=== PATIENT | male | born 1945 | race Caucasian/White ===

== ENCOUNTER 2018-02-15 20:29 | Inpatient (IN) | payer MEDICARE, OTHER, SELFPAY ==
[2018-02-15] VITALS (8 sets, daily range): BP systolic 164–183; BP diastolic 79–105; PULSE 84–104; RESP 13–20; TEMP 36.8–37.2; O2SAT 97; BMI 26.6; BMI 26.4
--- NOTE | 2018-02-15 20:44 | CT_ITS ---
STUDY: CT BRAIN WITHOUT CONTRAST REASON FOR EXAM: Male, 72 years old. Slurred speech. RADIATION DOSAGE (If Supplied By Facility): CTDIvol = ( 44.99 ) mGy, DLP = ( 796.11 ) mGycm TECHNIQUE: Transaxial CT imaging of the brain was performed without administration of intravenous contrast material. Individualized dose optimization techniques were used for this CT. COMPARISON: None. FINDINGS: Normal soft tissue structures. Normal calvarium. There is moderate cerebral atrophy with widening of the extra-axial spaces and ventricular dilatation. There are areas of decreased attenuation within the white matter tracts of the supratentorial brain, consistent with microvascular disease changes. Within the left occipital lobe hypodensity consistent with encephalomalacia and previous infarct. Normal basal ganglia and thalami. Normal brainstem. Normal cerebellum. There is no intracranial hemorrhage. There are no findings of an acute ischemic infarction. Normal visualized paranasal sinuses. CT/Brain/Head without Contrast IMPRESSION: 1. Findings consistent with left posterior occipital encephalomalacia from previous infarct but without direct comparison acute on chronic infarct is not completely excluded. If high clinical suspicion of acute ischemia recommend MRI imaging. Electronically Signed: Mike Mansfield DO at 21:24 EST , Service support ,
--- NOTE | 2018-02-15 20:44 | EKG12_ITS ---
Test Reason : WEAKNESS Blood Pressure : / mmHG Vent. Rate : 101 BPM Atrial Rate : 101 BPM P-R Int : 208 ms QRS Dur : 096 ms QT Int : 370 ms P-R-T Axes : 026 -09 013 degrees QTc Int : 479 ms Sinus tachycardia Minimal voltage criteria for LVH, may be normal variant Borderline ECG Confirmed by EVELYN WINTER, MINGO ([id number]), image editor MARTIN LAWLER ([id number] on 02/19/2018 9:38:19 AM Referred By: SEBASTIAN Confirmed By:MINGO RIVAS MD
[2018-02-15 20:56] LABS: Bedside Glucose > 500 mg/dL (70-110)
[2018-02-15 21:01] LABS: Absolute Lymphocyte Count 1.11 X10^3/ul (0.83-4.51); Absolute Neutrophil Count 4.8 X10^3/uL (2.0-7.7); Basophil# 0.05 X10^3/uL; Basophil% 0.7 % (0-1); Eosinophil# 0.12 X10^3/uL; Eosinophils% 1.8 % (0-5); Hematocrit 38.6 % (40-54); Hemoglobin 13.5 g/dl (13.0-16.5); Lymphocyte # 1.11 X10^3/ul (4.0); Lymphocyte % 16.6 % (19-41); Mean Corpuscular Hgb 30.8 pg (27.0-32.0); Mean Corpuscular Volume 87.9 fL (80-94); Mean Platelet Vol. 10.9 fl (6.2-12.0); Monocyte# 0.52 X10^3/uL; Monocyte% 7.8 % (0-10); Neutrophil # 4.82 X10^3/uL (2.7-7.7); Neutrophil % 72.4 % (47-70); Platelet Count 239 K/mm3 (150-450); RBC Distribution Width CV 12.1 % (11.6-14.6); RBC Distribution Width SD 38.4 fl (35.1-43.9); Red Blood Count 4.39 M/mm3 (4.6-6.2); White Blood Count 6.7 K/mm3 (4.4-11.0)
[2018-02-15 21:02] LABS: POSITIVE COUNT NO; POSITIVE DIFFERENTIAL NO; POSITIVE MORPHOLOGY NO
[2018-02-15 21:08] LABS: Prothrombin Time (Protime)PT. 13.1 SECONDS (11.7-14.9)
[2018-02-15 21:09] LABS: Partial Thromboplast Time 33.5 Seconds (24.1-36.2)
[2018-02-15 21:33] LABS: Anion Gap 12 (5-15); BUN 35 mg/dL (7-18); BUN/Creat Ratio 13.6 RATIO (10-20); Calcium,Total 8.9 mg/dL (8.5-10.1); Chloride 96 mmol/L (98-107); Creatinine, Serum 2.58 mg/dL (0.70-1.30); EST Glomerular Filtration Rate 26 mL/min (>60); Est Glom Filt Rate - Afr Amer 32 mL/min (>60); Estimated Creatinine Clearance 23.84 ml/min; Potassium 4.9 mmol/L (3.5-5.1); Sodium Level 134 mmol/L (136-145)
[2018-02-15 21:37] LABS: Glucose 511 mg/dL (74-106)
--- NOTE | 2018-02-15 22:23 | ED.VISSUMM ---
- ER Visit Summary Date of Service: 02/15/18 Chief Complaint: [] History of Present Illness: The patient is a 72 M patient presents with multiple complaints which include trouble with balance falling backwards, paresthesia and weakness for several weeks and trouble with speech that started sometime today. Patient is not a good informant even though he is alert and oriented x3. He reports a prior CVA and prior TIA. He has history of type 2 diabetes, hypertension, hypercholesterolemia and history of prostate cancer. There is a history of ataxia. He does complain of blurred vision, binocular. He denies double vision or loss of vision. He denies cardiac or respiratory symptoms. He denies abdominal symptoms. He does report polyuria, polydipsia and frequency. He states his last A1c was greater than 9. He does admit to depression. Please read written note for complete detail Physical Examination: Vital signs noted and blood pressure is elevated 164/100. There is mild slurring of his speech. NIH is 1 4 slurring of his speech. Head is atraumatic normocephalic. Pupils are equal round reactive. Extraocular muscles are intact. TMs are pearly white with landmarks noted. Nares patent with no drainage. Posterior pharynx without erythema or exudate. Uvula is midline. There is no dysphonia or dysphasia. Trachea is midline. There is no stridor with auscultation of the neck. Heart is regular without murmur, gallop or rub. S1 and S2 are normal. Lungs are clear to auscultation with good movement of air bilaterally. Abdomen is soft nontender. Bowel sounds are present normal. Patient is alert and oriented x3. Motor spiral 5. Sensations intact. DTRs are symmetric with no clonus or Babinski sign. Cranial 2 through 12 are intact. Cerebellar testing was normal. Gait was not observed. Test Results: Findings consistent with left posterior occipital encephalomalacia from previous infarct but without direct comparison acute on chronic infarct is not completely excluded. If high clinical suspicion of acute ischemia recommend MRI imaging. CBC is unremarkable. Basic metabolic panel marked for elevated glucose. PT/INR unremarkable. Emergency Department Course and Treatment: Stroke order set was initiated. Exact onset is uncertain even though triage documents 1930. PTT is greater than 500. He did receive 1 L of normal saline and will require treatment for his hyperglycemia and most likely cause of his binocular blurred vision. Treatment Plan: IV fluids, subcu insulin and 23 observation for further evaluation of neurologic symptoms especially in light of radiologist interpretation of unenhanced scan. Disposition: PCU 23-hour observation Impression: 1. Dysarthria 2. Hyperglycemia, greater than 500 without ketosis 3. History of hypertension 4. History of hypercholesterolemia 5. History of prior stroke 6. History of prostate cancer This note was generated with [employer] dictation software. It may contain incorrect words, spelling, and punctuation that were not noted in review of the chart prior to signing ED Disposition - Plan for ED Patient: Chief Complaint: Neuro S/Sx Referrals: Reilly Wheatley MD [Primary Care Provider] -
--- NOTE | 2018-02-15 22:25 | PCM.HP.STD ---
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 driver use Diabetes mellitus complication status: with unspecified complications Qualified Code(s): E11.8 - Type 2 diabetes mellitus with unspecified complications; Z79.4 - technician terminal and repeater (current) use of insulin (5) HLD (hyperlipidemia) Status: Chronic Qualifiers: Hyperlipidemia type: unspecified Qualified Code(s): E78.5 - Hyperlipidemia, unspecified (6) Hx of malignant neoplasm of prostate Status: Chronic (7) HTN (hypertension) Status: Chronic Qualifiers: Hypertension type: essential hypertension Qualified Code(s): I10 - Essential (primary) hypertension (8) Type II diabetes mellitus, uncontrolled Status: Chronic Qualifiers: Glycemic state: with hyperglycemia Qualified Code(s): E11.65 - Type 2 diabetes mellitus with hyperglycemia (9) CKD (chronic kidney disease) stage 3, GFR 30-59 ml/min Status: Chronic History of Present Illness Date of Admission: 02/15/18 Chief Complaint: L sided weakness, paresthesias, aphasia. The patient is a 72 y/o M w/ PMHx: Hypertension, Hyperlipidemia, Diabetes mellitus type II poorly controlled, Depression, History of Prostate CA, History of CVA (R Basal Ganglia Infarct), CKD stage III who presents to the [facility] ED on 02/15/18 with history of dysarthria, slurred speech and 2-3 weeks of L sided weakness and paresthesias in addition to difficulties with balance over the last several months he note with unclear last known well timeline. He notes he has been frequently falling as well but cannot given clear side to which he falls. He notes most recent fall on day of presentation. In the ED work-up included CBC with WBC 6.7, hemoglobin 13.5, platelet 239 without market shift, unremarkable coags, BMP with sodium 134, chloride 96, BUN/creatinine 35/2.58, glucose 511, troponin <0.015, CT brain with findings consistent with left posterior occipital encephalomalacia possibly from prior infarct. In the ED patient administered IVFs. Past Medical History Past Medical History (Chronic Problems): Chronic Problems CKD (chronic kidney disease) stage 3, GFR 30-59 ml/min (Chronic) Depression (Chronic) Diabetes mellitus, type II (Chronic) HLD (hyperlipidemia) (Chronic) Hx of malignant neoplasm of prostate (Chronic) HTN (hypertension) (Chronic) Type II diabetes mellitus, uncontrolled (Chronic) Allergies No Known Allergies Allergy (Verified 02/15/18 20:32) Home Medications: Ambulatory Orders Medication Instructions Recorded Clopidogrel Bisulfate [Plavix] 75 mg PO DAILY #30 tablet 07/12/14 Fluoxetine [Prozac] 60 mg PO DAILY 07/12/14 Insulin NPH Hum/Reg Insulin Hm 30 units SQ BREAKFAST 07/12/14 [Humulin 70-30 Vial] Insulin NPH Hum/Reg Insulin Hm 30 unit SQ DINNER 07/12/14 [Humulin 70/30 Kwikpen] Lisinopril [Zestril] 20 mg PO DAILY 07/12/14 Metformin HCl [Glucophage] 500 mg PO BID #60 tablet 07/12/14 Multivitamins,Therapeutic 1 tablet PO DAILY 07/12/14 [Multivitamin] Pravastatin [Pravachol] 40 mg PO QHS 07/12/14 Bupropion HCl [Wellbutrin Xl] 150 mg PO DAILY 02/15/18 Meloxicam 15 mg PO DAILY 02/15/18 Surgical History: - - Ventral hernia repair, appendectomy. Psychiatric History: Depression Lives: Spouse/ Significant Other Smoking Status: Never smoker Tobacco Use: Non-smoker Alcohol: None Drugs: None - *Family History Maternal History Items: Diabetes, - - No history of coronary artery disease, UT or stroke in the first-degree family relative. Paternal History Items: - - Denies any marked paternal family history including HD, DM, CA. Review of Systems Constitutional: Reports: Fatigue. Denies: Chills, Fever, Weight Change HEENT: Denies: Head Aches, Sinus Congestion, Sinus Drainage Cardiovascular: Denies: Chest Pain, Palpitations Respiratory: Denies: Cough, Shortness of breath at rest, Sputum production Gastrointestinal: Denies: Abdominal Pain, Nausea, Vomiting Genitourinary: Denies: Dysuria Musculoskeletal: Denies: Joint Pain, Joint Tenderness Skin: Denies: Rash, Wounds Neurological: Reports: Balance problems, Change in Speech, Slurred speech, Confusion, Focal weakness, Incoordination, Numbness, Tingling Psychiatric: Reports: Depression. Denies: Anxiety, Homicidal Ideations, Suicidal Ideations Hematologic/ Lymphatic: Denies: Easy Bruising, Easy Bleeding VTE Information - Inpt Only VTE Present on Admission: No VTE Mechan Device Prophylaxis: SCD's VTE Pharm Prophylaxis ordered?: Yes Patient Problems: Active and Suspected Problems CVA (cerebral vascular accident) (Acute) YSABEL (acute kidney injury) (Acute) Subjective: Seated upright in the ED bed, fatigued appearing, NAD, notes not wanting to have to stay but understands need. Objective: Physical Examination: General: awake, alert, oriented to self, place, president, initially gives incorrect year and takes several moments to give correct month, cooperative, seated upright in the ED bed in no apparent distress. Skin: normal color, turgor, no icterus, cyanosis. HEENT: AT/NC, EOMI, PERRLA, mildly dry MM, no carotid bruits or JVD noted. Lungs: CTA bilaterally, moderate effort, mild decrease BL bases, no rales, ronchi or wheezing. Heart: Regular rate and rhythm; no gallop, rub audible. Abdomen: soft, NTTP, ND, normal BS, no HSM. Extremities: no cyanosis, clubbing, or edema. Neurological: patient awake, alert, oriented as noted; cognitive function not baseline intact; pupils equally reactive to light and accomodation; cranial nerves II-XII grossly normal, moving all 4 extremities, strength left side 4/5, ? upgoing L babinski, sensation intact. Psychiatric: affect appears mildly flat, no acute evidence of depressive or anxiety feelings. - Physical Exam Vital Signs Temp Pulse Resp BP Pulse Ox 98.9 F 87 17 165/81 H 97 02/15/18 20:30 02/15/18 21:30 02/15/18 21:30 02/15/18 21:30 02/15/18 21:30 Oxygen Delivery Method Room Air Weight: 170 lb Body Mass Index (BMI) 26.6 Finger Stick Blood Glucose 501 Laboratory Tests Past 24 Hrs 02/15/18 02/15/18 02/15/18 20:52 20:52 20:52 WBC 6.7 RBC 4.39 L Hgb 13.5 Hct 38.6 L MCV 87.9 MCH 30.8 MCHC 35.0 RDW 12.1 RDW Differential 38.4 Plt Count 239 MPV 10.9 Immature Gran % (Auto) 0.700 Neut % (Auto) 72.4 H Lymph % (Auto) 16.6 L [place] % (Auto) 7.8 Eos % (Auto) 1.8 Baso % (Auto) 0.7 Absolute Neuts (auto) 4.8 Absolute Lymphs (auto) 1.11 Total Counted Not Reportable PT 13.1 INR 1.0 APTT 33.5 Sodium 134 L Potassium 4.9 Chloride 96 L Carbon Dioxide 26.0 Anion Gap 12 BUN 35 H Creatinine 2.58 H Estim Creat Clear Calc 23.84 Est GFR (MDRD) Af Amer 32 L Est GFR (MDRD) Non-Af 26 L BUN/Creatinine Ratio 13.6 Glucose 511 H* Calcium 8.9 Troponin I < 0.015 POC Glucose 02/15/18 20:40 POC Glucose > 500 H* Assessment/Plan All Active Problems CVA (cerebral vascular accident) (Acute) YSABEL (acute kidney injury) (Acute) Ataxia (Acute) The patient is a 72 y/o M w/ PMHx: Hypertension, Hyperlipidemia, Diabetes mellitus type II poorly controlled, Depression, History of Prostate CA, History of CVA (R Basal Ganglia Infarct), CKD stage III who presents to the [facility] ED on 02/15/18 with history of dysarthria, slurred speech and 2-3 weeks of L sided weakness and paresthesias in addition to difficulties with balance over the last several months he note with unclear last known well timeline. (1) Dysarthria, L sided Weakness, Paresthesias and CT changes suspicious for Acute CVA: Will admit to PCU, will obtain MRI Brain, MRA Head and Neck, ECHO, PT/OT/Speech/Nutrition evaluation per protocol, given timeline will continue home BP regimen with additions as needed to achieve goal, add asa, continue plavix, increase to high dose statin w/ AM FLP, fall precautions. Will obtain mag, TSH levels additionally. (2) Acute kidney injury on CKD stage III: Secondary to suspected dehydration and medications. Admission BUN/Cr 35/2.58, prior baseline creatinine noted to be 1.2-1.3 but this has been from 2014 of note so may have worsened since. Will hydrate, hold nephrotoxic medications and repeat chemistry in AM. If no improvement would plan FeNa assessment. (3) Prior History of CVA: Prior R Basal Ganglia Infarct, maintain on plavix, BP regimen given timeline. As noted given acute presentation #1, re-addition asa for dual therapy, change to high dose statin. (4) Diabetes mellitus type II: HgbA1c pending, hold home oral regimen, continue home insulin regimen, ADA diet, accu checks w/ ISS, nutrition for education and teaching. (5) Hypertension: Hold ACEI given his presentation w/ concurrent YSABEL, PRN hydralazine in interim, norvasc addition. (6) Hyperlipidemia: Change to high dose statin regimen, FLP in AM. (7) History of prostate cancer: Remission, stable. (8) Depression: Continue home prozac, buproprion regimen. (9) DVT prophylaxis: SCDs, heparin. Code Visit Inpatient E&M: 24914 Init Hosp L3
[2018-02-15] MEDS: Insulin Lispro 100 UNIT/ML INSULN.PEN 7 UNIT SC (22:36)
[2018-02-15 22:45] LABS: Bedside Glucose > 500 mg/dL (70-110)
--- NOTE | 2018-02-15 23:37 | ECHOD_ITS ---
Reason For Study: TIA/Stroke Procedure This was a 2D Doppler, Color Flow transthoracic echocardiogram. Exam performed portable in patient room. Left Ventricle Normal LV size. Left ventricular systolic function is normal. The estimated ejection fraction is 60 %. Stage 1 diastolic dysfunction. No regional wall motion abnormalities noted. Right Ventricle Normal RV size. Normal systolic function. Atria Normal left atrium. Normal right atrium. Mitral Valve Normal mitral valve. Mild (1+) eccentric mitral valve insufficiency. Tricuspid Valve Normal tricuspid valve. Unable to estimate RV systolic pressure due to inadequate jet, pulmonary artery pressure probably normal. Aortic Valve Normal aortic valve. Pulmonic Valve Normal pulmonic valve. Great Vessels Normal aortic root. The pulmonary artery is normal size. Normal inferior vena cava. Pericardium/Pleural No pericardial effusion. MMode/2D Measurements & Calculations LVIDd: 4.1 cm IVSd: 1.1 cm Ao root diam: 3.6 cm LVIDs: 2.9 cm LVPWd: 1.2 cm LA dimension: 4.0 cm RVDd: 3.2 cm FS: 28.7 % LAV(MOD-bp): 57.2 ml LA A4 area: 16.3 cm2 RA A4 area: 12.9 cm2 LAV(MOD-bp) Indexed: 30.5 ml/m2 LAV(MOD-sp2): 63.4 ml LAV(MOD-sp4): 45.0 ml Time Measurements MV dec time: 0.20 sec Doppler Measurements & Calculations MV E max gianni: 85.4 cm/sec Lat Peak E' Gianni: 9.6 cm/sec Med Peak E' Gianni: 5.7 cm/sec MV A max gianni: 108.7 cm/sec E/E' lat: 8.9 E/E' med: 15.0 MV E/A: 0.79 MV V2 max: 127.7 cm/sec MV P1/2t max gianni: 102.7 cm/sec Ao V2 max: 138.8 cm/sec MV max P.5 mmHg MV P1/2t: 77.6 msec Ao max P.7 mmHg MV V2 mean: 71.2 cm/sec MV dec slope: 387.6 cm/sec2 Ao V2 mean: 88.7 cm/sec MV mean P.4 mmHg MVA(P1/2t): 2.8 cm2 Ao mean P.6 mmHg MV V2 VTI: 25.5 cm Ao V2 VTI: 24.9 cm LV V1 max: 118.6 cm/sec PA V2 max: 123.1 cm/sec LV V1 max P.6 mmHg LV V1 mean P.0 mmHg LV V1 mean: 81.3 cm/sec LV V1 VTI: 24.0 cm Interpretation Summary Normal LV size. Left ventricular systolic function is normal. The estimated ejection fraction is 60 %. Stage 1 diastolic dysfunction. Mild (1+) eccentric mitral valve insufficiency. Ordering Physician: Yumiko Sood Referring Physician: MD Soto Wheatleyery Performed By: Grady Britt RCS
[2018-02-16] VITALS (17 sets, daily range): BP systolic 156–179; BP diastolic 77–101; PULSE 68–98; RESP 17–20; TEMP 36.6–37.1; O2SAT 95–97; BMI 26.4
[2018-02-16 00:06] LABS: Bedside Glucose 416 mg/dL (70-110)
[2018-02-16 00:07] LABS: Magnesium 1.9 mg/dL (1.6-2.6); Thyroid Stim Hormone (TSH) 0.56 uIU/mL (0.358-3.74)
[2018-02-16 00:15] LABS: Hemoglobin A1c 10.2 % (4.2-6.3)
[2018-02-16] MEDS: amLODIPine 5 MG Tablet PO ×2 (00:22→10:13)
[2018-02-16] MEDS: 0.9% Normal Saline 1,000 ML 100 ML IV ×3 (00:22→21:09)
--- NOTE | 2018-02-16 02:13 | NURSING ---
per MD home BP medication to be given due to timeline of complaint of symptoms from pt
[2018-02-16 06:55] LABS: Bedside Glucose 253 mg/dL (70-110)
[2018-02-16 07:06] LABS: Anion Gap 9 (5-15); BUN 35 mg/dL (7-18); BUN/Creat Ratio 17.1 RATIO (10-20); Calcium,Total 8.2 mg/dL (8.5-10.1); Chloride 106 mmol/L (98-107); Cholesterol 207 mg/dL (200); Creatinine, Serum 2.05 mg/dL (0.70-1.30); EST Glomerular Filtration Rate 34 mL/min (>60); Est Glom Filt Rate - Afr Amer 41 mL/min (>60); Glucose 244 mg/dL (74-106); High Density Lipoprotein 33 mg/dL; Potassium 4.2 mmol/L (3.5-5.1); Sodium Level 139 mmol/L (136-145); Triglycerides 354 mg/dL; Very Low Density Lipoprotein 71 mg/dL (5-40)
[2018-02-16] MEDS: Clopidogrel Bisulfate 75 MG Tablet PO (10:12)
[2018-02-16] MEDS: buPROPion (XL) 150 MG TABLET.XL PO (10:12)
[2018-02-16] MEDS: FLUoxetine 20 MG Capsule 60 MG PO (10:12)
[2018-02-16] MEDS: Aspirin 81 MG TAB.CHEW PO (10:12)
[2018-02-16] MEDS: Multivitamins,Therapeutic Tablet 1 TABLET PO (10:13)
[2018-02-16] MEDS: Insulin Lispro 100 UNIT/ML INSULN.PEN SC ×2 (10:18→13:08)
[2018-02-16] MEDS: Insulin Human 75/25 Kwickpen 30 UNIT SC ×2 (10:21→17:13)
[2018-02-16] MEDS: Heparin Injection (Vial) 5,000 UNIT/ML VIAL 5000 UNIT SC ×2 (10:22→21:10)
--- NOTE | 2018-02-16 11:24 | PCM.PROGNOTE ---
<Mary Carmen Mclain - Last Filed: 02/16/18 11:39> Patient Problems: Active and Suspected Problems CVA (cerebral vascular accident) (Acute) YSABEL (acute kidney injury) (Acute) TIA (transient ischemic attack) (Acute) Subjective: Patient seen and examined. Underwent MRI this morning. Denies further neuro symptoms. Left hand numbness/weakness has resolved. No further aphasia. Denies focal deficits. - Physical Exam General: Alert, Oriented x3, Cooperative, No apparent distress HEENT: Atraumatic, PERRLA, EOMI, Normocephalic Neck: Supple, No JVD, Negative Carotid Bruits Lungs: Clear to auscultation, Normal air movement Cardiovascular: Regular rate, Regular Rhythm, Normal S1, Normal S2, No murmurs Abdomen: Bowel Sounds Present, Soft, Non Tender, Non-Distended Extremities: No clubbing, No cyanosis, No edema, Capillary Refill Less than 3 Seconds Skin: No rashes, No breakdown Musculoskeletal: No Tenderness to Palpation of Joints or Extremities Neurological: Cranial nerves II-XII grossly intact, Neuro grossly intact Psych/Mental Status: Normal Affect, Appropriate Vital Signs Temp Pulse Resp BP Pulse Ox 98.8 F 80 18 162/82 H 96 02/16/18 10:55 02/16/18 10:55 02/16/18 10:55 02/16/18 10:55 02/16/18 10:55 Oxygen Delivery Method Room Air Weight: 168 lb 10.458 oz Body Mass Index (BMI) 26.4 Finger Stick Blood Glucose 501 Intake and Output for Last 24 Hours 02/14/18 02/15/18 02/16/18 23:59 23:59 23:59 Intake Total 558 / 558 Balance 558 / 558 Laboratory Tests Past 24 Hrs 02/15/18 02/15/18 02/15/18 20:52 20:52 20:52 WBC 6.7 RBC 4.39 L Hgb 13.5 Hct 38.6 L MCV 87.9 MCH 30.8 MCHC 35.0 RDW 12.1 RDW Differential 38.4 Plt Count 239 MPV 10.9 Immature Gran % (Auto) 0.700 Neut % (Auto) 72.4 H Lymph % (Auto) 16.6 L [place] % (Auto) 7.8 Eos % (Auto) 1.8 Baso % (Auto) 0.7 Absolute Neuts (auto) 4.8 Absolute Lymphs (auto) 1.11 Total Counted Not Reportable PT 13.1 INR 1.0 APTT 33.5 Sodium 134 L Potassium 4.9 Chloride 96 L Carbon Dioxide 26.0 Anion Gap 12 BUN 35 H Creatinine 2.58 H Estim Creat Clear Calc 23.84 Est GFR (MDRD) Af Amer 32 L Est GFR (MDRD) Non-Af 26 L BUN/Creatinine Ratio 13.6 Glucose 511 H* Hemoglobin A1c Calcium 8.9 Magnesium Troponin I < 0.015 Triglycerides Cholesterol LDL Cholesterol VLDL Cholesterol HDL Cholesterol TSH 02/15/18 02/15/18 02/16/18 20:52 20:52 05:22 WBC RBC Hgb Hct MCV MCH MCHC RDW RDW Differential Plt Count MPV Immature Gran % (Auto) Neut % (Auto) Lymph % (Auto) [place] % (Auto) Eos % (Auto) Baso % (Auto) Absolute Neuts (auto) Absolute Lymphs (auto) Total Counted PT INR APTT Sodium 139 Potassium 4.2 Chloride 106 Carbon Dioxide 24.0 Anion Gap 9 BUN 35 H Creatinine 2.05 H Estim Creat Clear Calc 30.00 Est GFR (MDRD) Af Amer 41 L Est GFR (MDRD) Non-Af 34 L BUN/Creatinine Ratio 17.1 Glucose 244 H Hemoglobin A1c 10.2 H Calcium 8.2 L Magnesium 1.9 Troponin I Triglycerides 354 H Cholesterol 207 H LDL Cholesterol 103 VLDL Cholesterol 71 H HDL Cholesterol 33 L TSH 0.56 POC Glucose 02/16/18 02/15/18 02/15/18 06:45 23:56 22:35 POC Glucose 253 H 416 H > 500 H* 02/15/18 20:40 POC Glucose > 500 H* Medical Necessity - Tobacco Use Smoking Status: Former smoker Tobacco Use: Non-smoker Assessment/Plan All Active Problems CVA (cerebral vascular accident) (Acute) YSABEL (acute kidney injury) (Acute) TIA (transient ischemic attack) (Acute) Ataxia (Acute) 1. Rule out acute CVA, history of prior CVA (right basal ganglia infarct)-patient with left hand numbness/weakness and aphasia on admission. Symptoms resolved. MRI of brain, MRA of head and neck pending. Echocardiogram pending. Neurology consulted. PT/OT. Continue aspirin, Plavix, statin. 2. Uncontrolled type 2 diabetes mellitus-hemoglobin A1c 10.2%. Patient with glucose greater than 500 on admission. Metformin regimen on hold. Accu-Cheks before meals at bedtime with sliding scale insulin. Levemir 20 units twice daily. 3. Acute kidney injury on chronic kidney disease stage III-suspect secondary to dehydration as well as lisinopril regimen. Lisinopril on hold. Improving with IV fluids. Trend BMP. 4. Hypertension-systolic pressure elevated, 160-170. Continue low-dose amlodipine. Home lisinopril regimen on hold due to acute kidney injury. As needed hydralazine. 5. Hyperlipidemia-statin increased to 80 mg nightly. 6. History of prostate cancer 7. Depression-continue home Prozac/Wellbutrin regimen. DVT prophylaxis-heparin subcu. This patient was seen by MARCO A Mcdaniel under the supervision of Dr. Metzger. <Ab Metzger - Last Filed: 02/16/18 14:29> Subjective: Seen and examined. Patient was admitted with symptoms of left hand numbness/weakness and language deficit of slurred speech and verbal output, dysarthria consistent with TIA/stroke. Currently symptoms have resolved. Blood sugars are high and uncontrolled. A1c 10.2. Patient had MRI brain and MRA of head and neck. Patient seen by neurologist. - Physical Exam General: Alert, Oriented x3, Cooperative HEENT: Atraumatic, PERRLA, EOMI, Normocephalic Neck: Supple, No JVD, Negative Carotid Bruits Lungs: Clear to auscultation, Normal air movement Cardiovascular: Regular rate, No murmurs Abdomen: Bowel Sounds Present, Soft, Non Tender, Non-Distended Extremities: No clubbing, No cyanosis, Capillary Refill Less than 3 Seconds, Edema - Mild edema Skin: No rashes, No breakdown Musculoskeletal: No Tenderness to Palpation of Joints or Extremities, Arthritic Changes, Muscle Wasting Neurological: Cranial nerves II-XII grossly intact, Deep Tendon Reflexes 2+/4 and Symmetrical, Neuro grossly intact, Motor Exam 5/5 strength throughout, - - Speech no slurring/slowing or difficulty in understanding. No dysarthria. No dysphagia. Psych/Mental Status: Normal Affect, Appropriate Vital Signs Temp Pulse Resp BP Pulse Ox 98.8 F 81 18 162/82 H 96 02/16/18 10:55 02/16/18 11:16 11/23/18 10:55 02/16/18 10:55 02/16/18 10:55 Oxygen Delivery Method Room Air Weight: 168 lb 10.458 oz Body Mass Index (BMI) 26.4 Finger Stick Blood Glucose 501 Intake and Output for Last 24 Hours 02/14/18 02/15/18 02/16/18 23:59 23:59 23:59 Intake Total 1766 / 1766 Balance 1766 / 176 Laboratory Tests Past 24 Hrs 02/15/18 02/15/18 02/15/18 20:52 20:52 20:52 WBC 6.7 RBC 4.39 L Hgb 13.5 Hct 38.6 L MCV 87.9 MCH 30.8 MCHC 35.0 RDW 12.1 RDW Differential 38.4 Plt Count 239 MPV 10.9 Immature Gran % (Auto) 0.700 Neut % (Auto) 72.4 H Lymph % (Auto) 16.6 L [place] % (Auto) 7.8 Eos % (Auto) 1.8 Baso % (Auto) 0.7 Absolute Neuts (auto) 4.8 Absolute Lymphs (auto) 1.11 Total Counted Not Reportable PT 13.1 INR 1.0 APTT 33.5 Sodium 134 L Potassium 4.9 Chloride 96 L Carbon Dioxide 26.0 Anion Gap 12 BUN 35 H Creatinine 2.58 H Estim Creat Clear Calc 23.84 Est GFR (MDRD) Af Amer 32 L Est GFR (MDRD) Non-Af 26 L BUN/Creatinine Ratio 13.6 Glucose 511 H* Hemoglobin A1c Calcium 8.9 Magnesium Troponin I < 0.015 Triglycerides Cholesterol LDL Cholesterol VLDL Cholesterol HDL Cholesterol TSH 02/15/18 02/15/18 02/16/18 20:52 20:52 05:22 WBC RBC Hgb Hct MCV MCH MCHC RDW RDW Differential Plt Count MPV Immature Gran % (Auto) Neut % (Auto) Lymph % (Auto) [place] % (Auto) Eos % (Auto) Baso % (Auto) Absolute Neuts (auto) Absolute Lymphs (auto) Total Counted PT INR APTT Sodium 139 Potassium 4.2 Chloride 106 Carbon Dioxide 24.0 Anion Gap 9 BUN 35 H Creatinine 2.05 H Estim Creat Clear Calc 30.00 Est GFR (MDRD) Af Amer 41 L Est GFR (MDRD) Non-Af 34 L BUN/Creatinine Ratio 17.1 Glucose 244 H Hemoglobin A1c 10.2 H Calcium 8.2 L Magnesium 1.9 Troponin I Triglycerides 354 H Cholesterol 207 H LDL Cholesterol 103 VLDL Cholesterol 71 H HDL Cholesterol 33 L TSH 0.56 POC Glucose 02/16/18 02/16/18 02/15/18 11:26 06:45 23:56 POC Glucose 228 H 253 H 416 H 02/15/18 02/15/18 22:35 20:40 POC Glucose > 500 H* > 500 H* Assessment/Plan This patient was seen in conjunction with Mary Carmen GAMBINO. I have independently interviewed and examined the patient and reviewed pertinent history, examination findings, laboratory and plan of management. I have reviewed the note and agree with the documented findings with the few additional points. In brief, patient is admitted for TIA with history of 2 previous stroke. Currently patient denies any residual symptoms. MRI brain negative of acute infarct. CT head shows finding suggestive of left posterior occipital encephalomalacia from previous infarct. Head MRI shows multifocal stenosis of right A2 segment with a diffuse ability of MCA and left P1 and P2 segments. Neck MRA does not show hemodynamically significant stenosis but technically limited. BP and glucose control as per stroke guidelines. Neurologist ordered rheumatology autoantibodies, TSH, B12. PT OT and speech evaluation. 30-day event monitor at the time of discharge. A1c 10.2%. TSH 0.56. Fasting profile shows TG 354, total cholesterol 207, LDL 103 and HDL 33. High-dose statin. On dual antiplatelet regimen. Patient also has acute kidney injury on CKD stage III. Creatinine gradually improving on IV fluid. I have discussed my assessment with Mary Carmen GAMBINO and orders have been reviewed. Clinical Impression(s) from Imaging Studies Brain CT 02/15/18 20:44 IMPRESSION: 1. Findings consistent with left posterior occipital encephalomalacia from previous infarct but without direct comparison acute on chronic infarct is not completely excluded. If high clinical suspicion of acute ischemia recommend MRI imaging. Electronically Signed: Mike Mansfield DO at 21:24 EST , Service support , Brain MRI 02/16/18 23:37 IMPRESSION: 1. Involutional changes of the brain, as described above. 2. No MR evidence for acute infarct. Head MRA 02/16/18 23:37 IMPRESSION: 1. Multifocal stenoses involving the RIGHT A2 segment and LEFT-sided P1 and P2 segments. 2. Diffuse irregularity of the middle cerebral arteries probably related Neck MRA 02/16/18 23:37 IMPRESSION: Technically limited study secondary to patient motion without definite evidence for hemodynamically significant stenosis. Code Visit Inpatient E&M: 21870 Subs Hosp L3
--- NOTE | 2018-02-16 11:32 | CASEMGMT ---
Social Work Note Face to face with pt for initial assessment. Introduced self and role at [facility]. The pt reports to live in a mobile home with 3 SUELLEN and denies access issues. He denies use of DME and does not anticipate any home health care needs at discharge. He lives with his . Reports that he has not taken care of his diabetes and would like to get services through [facility]. Explain that this typewriters functional tester will make a referral and then [facility] will contact him to discuss options. Discuss cost of glucometer. Pt reports that he has a fixed income with . Explain that he does have insurance however, and there is also the option of purchasing a glucometer from [facility] for approximately $20 and the strips are approximately $10 for 50. Pt felt that he could manage this. Confirms PCP and preferred pharmacy is [facility] in [place]. Pt denies further needs at this time, and is made aware that SW is available if needs arise. Referral for [facility] submitted online. PLAN: Home with support of . [facility] to f/u. RAQUEL Torres, DESMOND
[2018-02-16 11:41] LABS: Bedside Glucose 228 mg/dL (70-110)
--- NOTE | 2018-02-16 13:28 | PCM.CONS.GEN ---
Problem List (1) TIA (transient ischemic attack) Status: Acute Reason for Consult Date of Consultation: 02/16/18 Reason for Consultation: TIA History of Present Illness: The patient is a 72 year old CM with PMH HTN, HLD, DM, H/O stroke, CKD, prostate CA admitted with episode of dysarthria and left arm numbness. Per patient he was at his son's place yesterday (02/15/18) when he missed a step and fell down, he was noticed to have slurred speech and felt his left arm was numb, per patient the symptoms may have lasted between 30 mins to an hour before improving, his NIHSS was 1 on admission per ED documentation. Patient denies any focal motor weakness, new onset sensory loss, visual disturbances, NAIR or dizziness. He denies any head injury or loss of consciousness following the fall, per patient he has balance issues, complaints of long standing tingling numbness in the feet, may fall intermittently in few months but denies any frequent falls, denies any neck pain, low back pain or radicular symptoms, does not use cane or walker to ambulate, does drive and does not need any assistance for his ADLs. Has uncontrolled DM with Hba1c of 10.2. Takes Plavix at baseline. MRI brain on admission showed no acute stroke, MRA head showed intracranial atherosclerosis and MRA neck did not show any hemodynamically significant stenosis or occlusion per report. Past Medical History Past Medical History (Chronic Problems): Chronic Problems CKD (chronic kidney disease) stage 3, GFR 30-59 ml/min (Chronic) Depression (Chronic) Diabetes mellitus, type II (Chronic) HLD (hyperlipidemia) (Chronic) Hx of malignant neoplasm of prostate (Chronic) HTN (hypertension) (Chronic) Type II diabetes mellitus, uncontrolled (Chronic) Allergies No Known Allergies Allergy (Verified 02/15/18 20:32) Home Medications: Ambulatory Orders Medication Instructions Recorded Clopidogrel Bisulfate [Plavix] 75 mg PO DAILY #30 tablet 07/12/14 Fluoxetine [Prozac] 60 mg PO DAILY 07/12/14 Insulin NPH Hum/Reg Insulin Hm 30 units SQ BREAKFAST 07/12/14 [Humulin 70-30 Vial] Insulin NPH Hum/Reg Insulin Hm 30 unit SQ DINNER 07/12/14 [Humulin 70/30 Kwikpen] Lisinopril [Zestril] 20 mg PO DAILY 07/12/14 Metformin HCl [Glucophage] 500 mg PO BID #60 tablet 07/12/14 Multivitamins,Therapeutic 1 tablet PO DAILY 07/12/14 [Multivitamin] Pravastatin [Pravachol] 40 mg PO QHS 07/12/14 Bupropion HCl [Wellbutrin Xl] 150 mg PO DAILY 02/15/18 Meloxicam 15 mg PO DAILY 02/15/18 Surgical History: - - Ventral hernia repair, appendectomy. Psychiatric History: Depression Lives: Spouse/ Significant Other Smoking Status: Former smoker Tobacco Use: Non-smoker Alcohol: None Drugs: None - *Family History Maternal History Items: Diabetes, - - No history of coronary artery disease, IN or stroke in the first-degree family relative. Paternal History Items: - - Denies any marked paternal family history including HD, DM, CA. Review of Systems Constitutional: Reports: - - complete ROS negative except as documented in HPI Patient Problems: Active and Suspected Problems CVA (cerebral vascular accident) (Acute) YSABEL (acute kidney injury) (Acute) TIA (transient ischemic attack) (Acute) - Physical Exam General: Alert HEENT: Normocephalic Neck: Supple Lungs: Normal air movement Cardiovascular: Normal S1, Normal S2 Abdomen: Bowel Sounds Present Extremities: No cyanosis Neurological: - - consious, alert, AoAx3, CN 2-12 grossly intact, power 5/5 all 4 extremities, no sensory loss, no cerebellar signs, Reflexes + B/L B/S/T/K/A, gait deferred. Psych/Mental Status: Normal Affect Vital Signs Temp Pulse Resp BP Pulse Ox 98.8 F 81 18 162/82 H 96 02/16/18 10:55 02/16/18 11:16 02/16/18 10:55 02/16/18 10:55 02/16/18 10:55 Oxygen Delivery Method Room Air Weight: 76.5 kg Body Mass Index (BMI) 26.4 Finger Stick Blood Glucose 501 Intake and Output for Last 24 Hours 02/14/18 02/15/18 02/16/18 23:59 23:59 23:59 Intake Total 1766 / 1766 Balance 1766 / 1766 Laboratory Tests Past 24 Hrs 02/15/18 02/15/18 02/15/18 20:52 20:52 20:52 WBC 6.7 RBC 4.39 L Hgb 13.5 Hct 38.6 L MCV 87.9 MCH 30.8 MCHC 35.0 RDW 12.1 RDW Differential 38.4 Plt Count 239 MPV 10.9 Immature Gran % (Auto) 0.700 Neut % (Auto) 72.4 H Lymph % (Auto) 16.6 L [place] % (Auto) 7.8 Eos % (Auto) 1.8 Baso % (Auto) 0.7 Absolute Neuts (auto) 4.8 Absolute Lymphs (auto) 1.11 Total Counted Not Reportable PT 13.1 INR 1.0 APTT 33.5 Sodium 134 L Potassium 4.9 Chloride 96 L Carbon Dioxide 26.0 Anion Gap 12 BUN 35 H Creatinine 2.58 H Estim Creat Clear Calc 23.84 Est GFR (MDRD) Af Amer 32 L Est GFR (MDRD) Non-Af 26 L BUN/Creatinine Ratio 13.6 Glucose 511 H* Hemoglobin A1c Calcium 8.9 Magnesium Troponin I < 0.015 Triglycerides Cholesterol LDL Cholesterol VLDL Cholesterol HDL Cholesterol TSH 02/15/18 02/15/18 02/16/18 20:52 20:52 05:22 WBC RBC Hgb Hct MCV MCH MCHC RDW RDW Differential Plt Count MPV Immature Gran % (Auto) Neut % (Auto) Lymph % (Auto) [place] % (Auto) Eos % (Auto) Baso % (Auto) Absolute Neuts (auto) Absolute Lymphs (auto) Total Counted PT INR APTT Sodium 139 Potassium 4.2 Chloride 106 Carbon Dioxide 24.0 Anion Gap 9 BUN 35 H Creatinine 2.05 H Estim Creat Clear Calc 30.00 Est GFR (MDRD) Af Amer 41 L Est GFR (MDRD) Non-Af 34 L BUN/Creatinine Ratio 17.1 Glucose 244 H Hemoglobin A1c 10.2 H Calcium 8.2 L Magnesium 1.9 Troponin I Triglycerides 354 H Cholesterol 207 H LDL Cholesterol 103 VLDL Cholesterol 71 H HDL Cholesterol 33 L TSH 0.56 POC Glucose 02/16/18 02/16/18 02/15/18 11:26 06:45 23:56 POC Glucose 228 H 253 H 416 H 02/15/18 02/15/18 22:35 20:40 POC Glucose > 500 H* > 500 H* Assessment/Plan All Active Problems CVA (cerebral vascular accident) (Acute) YSABEL (acute kidney injury) (Acute) TIA (transient ischemic attack) (Acute) Ataxia (Acute) The patient is a 72 year old CM with PMH HTN, HLD, DM, H/O stroke, CKD, prostate CA admitted with episode of dysarthria and left arm numbness. Per patient he was at his son's place yesterday (02/15/18) when he missed a step and fell down, he was noticed to have slurred speech and felt his left arm was numb, per patient the symptoms may have lasted between 30 mins to an hour before improving, his NIHSS was 1 on admission per ED documentation. Patient denies any focal motor weakness, new onset sensory loss, visual disturbances, NAIR or dizziness. He denies any head injury or loss of consciousness following the fall, per patient he has balance issues, complaints of long standing tingling numbness in the feet, may fall intermittently in few months but denies any frequent falls, denies any neck pain, low back pain or radicular symptoms, does not use cane or walker to ambulate, does drive and does not need any assistance for his ADLs. Has uncontrolled DM with Hba1c of 10.2. Takes Plavix at baseline. MRI brain on admission showed no acute stroke, MRA head showed intracranial atherosclerosis and MRA neck did not show any hemodynamically significant stenosis or occlusion per report. Impression Probable TIA, ABCD2 score 5 Possible DM Neuropathy Plan -Started on ASA since admission, on Plavix. Dual AP for 3 weeks then switch to single AP with Plavix. Bleeding risk discussed in detail with the patient -on Lipitor -MRI brain and MRA head/neck reviewed -Labs reviewed- BS >500 on admission, YSABEL -LDL-103, Rxs5z-75.2% -Check TTE. -Endocrinology consult for better BS control -Goal BP < 130/80 mmHg and goal Hba1c < 7% -EMG/NCS both LE as outpatient -Check Vitamin B12, TSH, SAIDA/ANCA/RF/SSa/SSb AB, SPEP with BIPIN and UPEP with BIPIN -Recommend 30 day cardiac event recorder -PT/OT/ST -Fall precautions -Stroke risk factors discussed and stroke education provided -GI/DVT prophylaxis -Further medical management per primary team -Follow up with Neurology as outpatient in 2-3 weeks -Please call with questions if any -Thank you for allowing us to participate in patient's care and management
[2018-02-16 16:30] LABS: Bedside Glucose 124 mg/dL (70-110)
[2018-02-16] MEDS: Acetaminophen 325 MG Tablet 650 MG PO (18:49)
--- NOTE | 2018-02-16 19:00 | NURSING ---
Verified and agreed on all charting with Arlyn Cordero RN
[2018-02-16] MEDS: Atorvastatin Calcium 80 MG Tablet PO (21:10)
--- NOTE | 2018-02-16 21:13 | NURSING ---
Addendum entered by Dafne Ervin 02/17/18 01:36: rechecked blood sugar and it came up to 112. will continue to monitor. Original Note: blood sugar 74. gave patient carton of milk, peanut butter and oswald crackers. will recheck sugar.
[2018-02-16 23:05] LABS: Bedside Glucose 74 mg/dL (70-110)
[2018-02-16 23:05] LABS: Bedside Glucose 112 mg/dL (70-110)
--- NOTE | 2018-02-16 23:37 | MRI_ITS ---
STUDY: MRA NECK WITHOUT CONTRAST REASON FOR EXAM: Male, 72 years old. Slurred speech and imbalance. TECHNIQUE: Source images were obtained, MIPs were performed. The study was performed unenhanced. Several images are limited by patient motion. COMPARISON: MRA of the neck dated July 12, 2014 is not available for comparison at the time of dictation. Report from the study is reviewed. FINDINGS: RIGHT CAROTID ARTERIES: There is atherosclerotic tortuous elongation of the right common carotid artery. There is mild atherosclerotic plaque formation with minimal narrowing of the right carotid bulb. Normal origin of the right internal carotid (ICA) artery without a hemodynamically significant stenosis. Normal visualized cervical portion of the right internal carotid artery. Normal origin of the right external carotid artery (ECA). LEFT CAROTID ARTERIES: There is atherosclerotic tortuous elongation of the left common carotid artery. There is mild atherosclerotic plaque formation with minimal narrowing of the left carotid bulb. Normal origin of the left internal carotid (ICA) artery without a hemodynamically significant stenosis. Normal visualized cervical portion of the left internal carotid artery. Normal origin of the left external carotid artery (ECA). VERTEBRAL ARTERIES: Normal antegrade flow within the bilateral vertebral artery without a hemodynamically significant stenosis. MRI/MRA Neck without Contrast IMPRESSION: Technically limited study secondary to patient motion without definite evidence for hemodynamically significant stenosis. Electronically Signed: Jennifer White MD at 12:03 EST , Service support ,
--- NOTE | 2018-02-16 23:37 | MRI_ITS ---
STUDY: MRA OF THE HEAD WITHOUT CONTRAST REASON FOR EXAM: Male, 72 years old. Slurred speech and imbalance. TECHNIQUE: 3-D [id number] (TOF) imaging was performed with MIPs. The study was performed unenhanced. COMPARISON: MRA of the head dated July 12, 2014. FINDINGS: Normal bilateral petrous carotid arteries. There is elongation and tortuosity of the right cavernous carotid artery, without a demonstrated hemodynamically significant stenosis. There is elongation and tortuosity of the left cavernous carotid artery, without a demonstrated hemodynamically significant stenosis. Normal right A1 segments of the anterior cerebral artery. There is hypoplastic development of the left A1 segment of the anterior cerebral arteries with an atretic but intact artery. Normal intact anterior communicating artery (ACOM). There appears to be irregular contour of the right A2 segment, similar to previous study and suggesting hemodynamically significant stenoses. The left A2 segment has a more normal appearance. There is irregularity of the right M1 and M2 branches with minimal luminal narrowing, suggesting atherosclerotic plaque formation, without an occlusion. There is irregularity of the left M1 and M2 branches with minimal luminal narrowing, suggesting atherosclerotic plaque formation, without an occlusion. There is non-visualization of the right posterior communicating artery (PCOM). Normal left posterior communicating artery (PCOM). Normal bilateral vertebral arteries. Normal basilar artery with a normal basilar bifurcation. The visualized bilateral superior cerebellar (SCA) arteries are normal. There are multifocal areas of narrowing of the left P2 and P1 segments. The right-sided P1 and P2 segments are within normal limits. There is no demonstrated aneurysm of the [place] of [place]. There are mild involutional changes of the brain. MRI/MRA Head ONLY without Contrast IMPRESSION: 1. Multifocal stenoses involving the RIGHT A2 segment and LEFT-sided P1 and P2 segments. 2. Diffuse irregularity of the middle cerebral arteries probably related to atherosclerotic disease. Electronically Signed: Jennifer White MD at 11:59 EST , Service support ,
--- NOTE | 2018-02-16 23:37 | MRI_ITS ---
STUDY: MRI BRAIN WITHOUT CONTRAST REASON FOR EXAM: Male, 72 years old. Slurred speech with imbalance. TECHNIQUE: Standardized multiplanar fat and water weighted pulse sequences were obtained. COMPARISON: MRI of the brain dated July 12, 2014. FINDINGS: There is mild cerebral atrophy with widening of the extra-axial spaces and ventricular dilatation. There are multiple white matter hyperintensities, distributed throughout the deep white matter tracts of the cerebral hemispheres, consistent with moderate chronic white matter ischemic changes. There is confluent periventricular hyperintensity cloaking the lateral ventricles, consistent with periventricular leukoaraiosis. There is encephalomalacia involving the posterior medial left occipital lobe probably related to old infarct. This is new since the previous MRI. Normal T2* images of the brain without demonstrated susceptibility artifact. There is no demonstrated hemosiderin stain. There is no evidence for recent intracranial ischemia or other cause of cytotoxic edema on diffusion weighted imaging (DWI). There are prominent perivascular spaces (PVS) involving the basal ganglia. Normal thalami. There is no extra-axial fluid accumulation. Normal flow voids within the major intracranial circulation suggesting patency by spin echo criteria. Normal sella turcica, pituitary gland, infundibular stalk, optic chiasm and hypothalamus. Normal tectal plate and pineal gland. Normal midbrain, matias and medulla. Normal cerebellum. There are large basal cisterns. Normal bilateral temporal bones. Normal bilateral internal auditory canals. No demonstrated orbital abnormality, within the constraints of a routine brain study. There is mucoperiosteal inflammatory disease of the paranasal sinuses consistent with mild chronic sinusitis. Normal calvarium and skull base. Normal visualized soft tissue structures. Normal visualized upper cervical spine. MRI/Brain without Contrast IMPRESSION: 1. Involutional changes of the brain, as described above. 2. No MR evidence for acute infarct. Electronically Signed: Jennifer White MD at 11:53 EST , Service support ,
[2018-02-17] VITALS (9 sets, daily range): BP systolic 148–191; BP diastolic 82–93; PULSE 81–88; RESP 16–18; TEMP 36.3–37.2; O2SAT 95–97; BMI 26.4
[2018-02-17] MEDS: hydrALAZINE 20 MG/ML Vial 10 MG IV (01:07)
[2018-02-17] MEDS: amLODIPine 5 MG Tablet PO (02:47)
[2018-02-17] MEDS: Acetaminophen 325 MG Tablet 650 MG PO (02:49)
[2018-02-17] MEDS: 0.9% Normal Saline 1,000 ML 100 ML IV (05:17)
[2018-02-17 06:29] LABS: Anion Gap 9 (5-15); BUN 28 mg/dL (7-18); BUN/Creat Ratio 18.7 RATIO (10-20); Calcium,Total 8.1 mg/dL (8.5-10.1); Chloride 109 mmol/L (98-107); EST Glomerular Filtration Rate 49 mL/min (>60); Est Glom Filt Rate - Afr Amer 59 mL/min (>60); Estimated Creatinine Clearance 41.01 ml/min; Glucose 105 mg/dL (74-106); Sodium Level 141 mmol/L (136-145)
[2018-02-17 07:06] LABS: Bedside Glucose 103 mg/dL (70-110)
[2018-02-17] MEDS: FLUoxetine 20 MG Capsule 60 MG PO (08:55)
[2018-02-17] MEDS: buPROPion (XL) 150 MG TABLET.XL PO (08:55)
[2018-02-17] MEDS: Clopidogrel Bisulfate 75 MG Tablet PO (08:55)
[2018-02-17] MEDS: Aspirin 81 MG TAB.CHEW PO (08:55)
[2018-02-17] MEDS: Multivitamins,Therapeutic Tablet 1 TABLET PO (08:56)
[2018-02-17] MEDS: Insulin Human 75/25 Kwickpen 30 UNIT SC (08:58)
[2018-02-17] MEDS: amLODIPine 10 MG Tablet PO (09:03)
[2018-02-17 11:36] LABS: Bedside Glucose 151 mg/dL (70-110)
--- NOTE | 2018-02-17 11:45 | DCINST_ITS ---
- Discharge Diagnoses Current Active Problems: Current Active and Chronic Problems YSABEL (acute kidney injury) (Acute) CKD (chronic kidney disease) stage 3, GFR 30-59 ml/min (Chronic) TIA (transient ischemic attack) (Acute) You will use the following diet at home:: Cardiac Discharge Activity: Return to Normal Activity Call your doctor if you observe: Numbness or Tingling, Shortness of breath, Dizziness, Fainting spells, Chest pain Allergies/Adverse Reactions: Allergies No Known Allergies Allergy (Verified 02/15/18 20:32) Medications to take at Discharge Clopidogrel Bisulfate [Plavix] 75 mg PO DAILY #30 tablet 07/12/14 Fluoxetine [Prozac] 60 mg PO DAILY 07/12/14 Insulin NPH Hum/Reg Insulin Hm [Humulin 70-30 Vial] 60 units SQ BREAKFAST 07/12/14 Insulin NPH Hum/Reg Insulin Hm [Humulin 70/30 Kwikpen] 60 unit SQ DINNER 07/12/14 Multivitamins,Therapeutic [Multivitamin] 1 tablet PO DAILY 07/12/14 Bupropion HCl [Wellbutrin Xl] 150 mg PO DAILY 02/15/18 Amlodipine [Norvasc] 10 mg PO DAILY #30 tablet 02/17/18 Aspirin [Aspirin, Baby] 81 mg PO DAILY@0800 #30 tab.chew 02/17/18 Atorvastatin Calcium [Lipitor] 80 mg PO QHS #30 tablet 02/17/18 Lisinopril [Zestril] 10 mg PO DAILY #0 02/17/18 The following prescriptions were given: Amlodipine [Norvasc] 10 mg PO DAILY #30 tablet Aspirin [Aspirin, Baby] 81 mg PO DAILY@0800 #30 tab.chew Atorvastatin Calcium [Lipitor] 80 mg PO QHS #30 tablet Orders to be completed after discharge: 30-Day Event Recorder [[facility]] Location: None Selected Primary Care Physician: Reilly Wheatley MD [Primary Care Provider] - Please follow up with your Primary Care Physician in: 1 Week Test Results: Test results from this visit will be discussed in further detail at your follow- up appointment, if applicable. Please Follow Up With: Milena Cornejo MD When: 2-3 Weeks Proposed Discharge Date: 02/17/18
--- NOTE | 2018-02-17 11:55 | PCM.DC.SUM ---
Discharge Date and Diagnosis Date of Admission: 02/15/18 Date of Discharge: 02/17/18 - Primary Discharge Diagnosis Active and Suspected Problems 1. Probable TIA 2. Acute kidney injury on chronic kidney disease stage III 3. Poorly controlled type 2 diabetes mellitus 4. Hypertension 5. Hyperlipidemia 6. History of prostate cancer 7. Depression - Secondary Discharge Diagnosis Chronic Problems CKD (chronic kidney disease) stage 3, GFR 30-59 ml/min (Chronic) Depression (Chronic) Diabetes mellitus, type II (Chronic) HLD (hyperlipidemia) (Chronic) Hx of malignant neoplasm of prostate (Chronic) HTN (hypertension) (Chronic) Type II diabetes mellitus, uncontrolled (Chronic) Hospital Course and Treatment Imaging Results: Diagnostic Data Brain CT 02/15/18 20:44 IMPRESSION: 1. Findings consistent with left posterior occipital encephalomalacia from previous infarct but without direct comparison acute on chronic infarct is not completely excluded. If high clinical suspicion of acute ischemia recommend MRI imaging. Electronically Signed: Mike Mansfield DO at 21:24 EST , Service support , Brain MRI 02/16/18 23:37 IMPRESSION: 1. Involutional changes of the brain, as described above. 2. No MR evidence for acute infarct. Electronically Signed: Jennifer White MD at 11:53 EST , Service support , Head MRA 02/16/18 23:37 IMPRESSION: 1. Multifocal stenoses involving the RIGHT A2 segment and LEFT-sided P1 and P2 segments. 2. Diffuse irregularity of the middle cerebral arteries probably related to atherosclerotic disease. Electronically Signed: Jennifer White MD at 11:59 EST , Service support , Neck MRA 02/16/18 23:37 IMPRESSION: Technically limited study secondary to patient motion without definite evidence for hemodynamically significant stenosis. Electronically Signed: Jennifer White MD at 12:03 EST , Service support , Dr. Chantal- Neurology Operations: None Procedures: 2-D Echocardiogram Summary of Care Provided: The patient is a 72 year old M admitted 02/15/2018 due to left-sided weakness, paresthesias, aphasia. 1. Probable TIA, acute CVA ruled out, history of prior CVA (right basal ganglia infarct)-patient with left hand numbness/weakness and aphasia on admission. Symptoms resolved. MRI of brain without acute infarct, MRA of neck without significant stenosis. Echocardiogram with EF 60%, stage I diastolic dysfunction, mild mitral valve insufficiency. Neurology consulted. Continue aspirin, Plavix, statin. Follow-up with neurology in 2-3 weeks. Patient will be discharged with a 30-day event monitor. 2. Uncontrolled type 2 diabetes mellitus-hemoglobin A1c 10.2%. Patient with glucose greater than 500 on admission. Patient does not check blood sugars at home. Feel elevated hemoglobin A1c is due to noncompliance. Patient will continue home insulin regimen with further follow-up with primary care physician for adjustments as found necessary. 3. Acute kidney injury on chronic kidney disease stage III-suspect secondary to dehydration as well as medication regimen. Improved with IV fluids. Discontinue meloxicam regimen at discharge. Lisinopril resumed at discharge with lower dose. Recommend repeat BMP in 1 week by primary care physician. 4. Hypertension-lisinopril regimen reduced due to acute kidney injury. Amlodipine 10 mg daily added to regimen. Further monitoring as outpatient. 5. Hyperlipidemia-statin increased to 80 mg nightly. 6. History of prostate cancer 7. Depression-continue home Prozac/Wellbutrin regimen. General: Alert, Oriented x3, Cooperative, No apparent distress HEENT: Atraumatic, PERRLA, EOMI, Normocephalic Neck: Supple, No JVD, Negative Carotid Bruits Lungs: Clear to auscultation, Normal air movement Cardiovascular: Regular rate, Regular Rhythm, Normal S1, Normal S2, No murmurs Abdomen: Bowel Sounds Present, Soft, Non Tender, Non-Distended Extremities: No clubbing, No cyanosis, No edema, Capillary Refill Less than 3 Seconds Skin: No rashes, No breakdown Musculoskeletal: No Tenderness to Palpation of Joints or Extremities Neurological: Cranial nerves II-XII grossly intact, Neuro grossly intact Psych/Mental Status: Normal Affect, Appropriate Patient seen and examined prior to discharge. Risk assessment as noted above. Patient is stable for discharge home for follow-up of her conditions as noted above. This patient was seen by MARCO A Mcdaniel under the supervision of Dr. Watson. - Physical Exam Vital Signs Temp Pulse Resp BP Pulse Ox 98.9 F 87 16 148/82 H 96 02/17/18 08:52 02/17/18 08:52 02/17/18 08:52 02/17/18 08:52 02/17/18 08:52 Oxygen Delivery Method Room Air Weight: 168 lb 10.458 oz Body Mass Index (BMI) 26.4 Finger Stick Blood Glucose 501 Intake and Output for Last 24 Hours 02/15/18 02/16/18 02/17/18 23:59 23:59 23:59 Intake Total 3573 / 3573 604 / 604 Balance 3573 / 3573 604 / 604 Laboratory Tests Past 24 Hrs 02/17/18 05:58 Sodium 141 Potassium 4.0 Chloride 109 H Carbon Dioxide 23.0 Anion Gap 9 BUN 28 H Creatinine 1.50 H Estim Creat Clear Calc 41.01 Est GFR (MDRD) Af Amer 59 L Est GFR (MDRD) Non-Af 49 L BUN/Creatinine Ratio 18.7 Glucose 105 Calcium 8.1 L POC Glucose 02/17/18 02/17/18 02/16/18 11:14 06:55 23:02 POC Glucose 151 H 103 112 H 02/16/18 02/16/18 21:08 16:23 POC Glucose 74 124 H Discharge Diet: Low fat/ Low Cholesterol Discharge Activity: Return to Normal Activity Call your doctor if you observe: Numbness or Tingling, Shortness of breath, Dizziness, Fainting spells, Chest pain Home Medications: Medications to take at Discharge Clopidogrel Bisulfate [Plavix] 75 mg PO DAILY #30 tablet 07/12/14 Fluoxetine [Prozac] 60 mg PO DAILY 07/12/14 Insulin NPH Hum/Reg Insulin Hm [Humulin 70-30 Vial] 60 units SQ BREAKFAST 07/12/14 Insulin NPH Hum/Reg Insulin Hm [Humulin 70/30 Kwikpen] 60 unit SQ DINNER 07/12/14 Multivitamins,Therapeutic [Multivitamin] 1 tablet PO DAILY 07/12/14 Bupropion HCl [Wellbutrin Xl] 150 mg PO DAILY 02/15/18 Amlodipine [Norvasc] 10 mg PO DAILY #30 tablet 02/17/18 Aspirin [Aspirin, Baby] 81 mg PO DAILY@0800 #30 tab.chew 02/17/18 Atorvastatin Calcium [Lipitor] 80 mg PO QHS #30 tablet 02/17/18 Lisinopril [Zestril] 10 mg PO DAILY #0 02/17/18 Following Prescrptions Were Given to Patient: Amlodipine [Norvasc] 10 mg PO DAILY #30 tablet Aspirin [Aspirin, Baby] 81 mg PO DAILY@0800 #30 tab.chew Atorvastatin Calcium [Lipitor] 80 mg PO QHS #30 tablet Other Amb Orders: 30-Day Event Recorder [[facility]] Location: None Selected Primary Care Physician: Reilly Wheatley MD [Primary Care Provider] - Please follow up with your Primary Care Physician in: 1 Week Please Follow Up With: Milena Cornejo MD When: 2-3 Weeks Disposition: Home Minutes spent on discharge:: 35 Patient Condition:: Stable Medical Necessity - Tobacco Use Smoking Status: Former smoker Tobacco Use: Non-smoker Meaningful Use Info Meaningful Use Diagnoses (Choose all that apply): None applicable
--- NOTE | 2018-02-17 12:02 | DS.PCM_ITS ---
Discharge Date and Diagnosis Date of Admission: 02/15/18 Date of Discharge: 02/17/18 - Primary Discharge Diagnosis Active and Suspected Problems 1. Probable TIA 2. Acute kidney injury on chronic kidney disease stage III 3. Poorly controlled type 2 diabetes mellitus 4. Hypertension 5. Hyperlipidemia 6. History of prostate cancer 7. Depression - Secondary Discharge Diagnosis Chronic Problems CKD (chronic kidney disease) stage 3, GFR 30-59 ml/min (Chronic) Depression (Chronic) Diabetes mellitus, type II (Chronic) HLD (hyperlipidemia) (Chronic) Hx of malignant neoplasm of prostate (Chronic) HTN (hypertension) (Chronic) Type II diabetes mellitus, uncontrolled (Chronic) Hospital Course and Treatment Imaging Results: Diagnostic Data Brain CT 02/15/18 20:44 IMPRESSION: 1. Findings consistent with left posterior occipital encephalomalacia from previous infarct but without direct comparison acute on chronic infarct is not completely excluded. If high clinical suspicion of acute ischemia recommend MRI imaging. Electronically Signed: Mike Mansfield DO at 21:24 EST , Service support , Brain MRI 02/16/18 23:37 IMPRESSION: 1. Involutional changes of the brain, as described above. 2. No MR evidence for acute infarct. Electronically Signed: Jennifer White MD at 11:53 EST , Service support , Head MRA 02/16/18 23:37 IMPRESSION: 1. Multifocal stenoses involving the RIGHT A2 segment and LEFT-sided P1 and P2 segments. 2. Diffuse irregularity of the middle cerebral arteries probably related to atherosclerotic disease. Electronically Signed: Jennifer White MD at 11:59 EST , Service support , Neck MRA 02/16/18 23:37 IMPRESSION: Technically limited study secondary to patient motion without definite evidence for hemodynamically significant stenosis. Electronically Signed: Jennifer White MD at 12:03 EST , Service support , Dr. Chantal- Neurology Operations: None Procedures: 2-D Echocardiogram Summary of Care Provided: The patient is a 72 year old M admitted 02/15/2018 due to left-sided weakness, paresthesias, aphasia. 1. Probable TIA, acute CVA ruled out, history of prior CVA (right basal ganglia infarct)-patient with left hand numbness/weakness and aphasia on admission. Symptoms resolved. MRI of brain without acute infarct, MRA of neck without significant stenosis. Echocardiogram with EF 60%, stage I diastolic d ysfunction, mild mitral valve insufficiency. Neurology consulted. Continue aspirin, Plavix, statin. Follow-up with neurology in 2-3 weeks. Patient will be discharged with a 30-day event monitor. 2. Uncontrolled type 2 diabetes mellitus-hemoglobin A1c 10.2%. Patient with glucose greater than 500 on admission. Patient does not check blood sugars at home. Feel elevated hemoglobin A1c is due to noncompliance. Patient will continue home insulin regimen with further follow-up with primary care physician for adjustments as found necessary. 3. Acute kidney injury on chronic kidney disease stage III-suspect secondary to dehydration as well as medication regimen. Improved with IV fluids. Discontinue meloxicam regimen at discharge. Lisinopril resumed at discharge with lower dose. Recommend repeat BMP in 1 week by primary care physician. 4. Hypertension-lisinopril regimen reduced due to acute kidney injury. Amlodipine 10 mg daily added to regimen. Further monitoring as outpatient. 5. Hyperlipidemia-statin increased to 80 mg nightly. 6. History of prostate cancer 7. Depression-continue home Prozac/Wellbutrin regimen. General: Alert, Oriented x3, Cooperative, No apparent distress HEENT: Atraumatic, PERRLA, EOMI, Normocephalic Neck: Supple, No JVD, Negative Carotid Bruits Lungs: Clear to auscultation, Normal air movement Cardiovascular: Regular rate, Regular Rhythm, Normal S1, Normal S2, No murmurs Abdomen: Bowel Sounds Present, Soft, Non Tender, Non-Distended Extremities: No clubbing, No cyanosis, No edema, Capillary Refill Less than 3 Seconds Skin: No rashes, No breakdown Musculoskeletal: No Tenderness to Palpation of Joints or Extremities Neurological: Cranial nerves II-XII grossly intact, Neuro grossly intact Psych/Mental Status: Normal Affect, Appropriate Patient seen and examined prior to discharge. Risk assessment as noted above. Patient is stable for discharge home for follow-up of her conditions as noted above. This patient was seen by MARCO A Mcdaniel under the supervision of Dr. Watson. - Physical Exam Vital Signs Temp Pulse Resp BP Pulse Ox 98.9 F 87 16 148/82 H 96 02/17/18 08:52 02/17/18 08:52 02/17/18 08:52 02/17/18 08:52 02/17/18 08:52 Oxygen Delivery Method Room Air Weight: 168 lb 10.458 oz Body Mass Index (BMI) 26.4 Finger Stick Blood Glucose 501 Intake and Output for Last 24 Hours 02/15/18 02/16/18 02/17/18 23:59 23:59 23:59 Intake Total 3573 / 3573 604 / 604 Balance 3573 / 3573 604 / 604 Laboratory Tests Past 24 Hrs 02/17/18 05:58 Sodium 141 Potassium 4.0 Chloride 109 H Carbon Dioxide 23.0 Anion Gap 9 BUN 28 H Creatinine 1.50 H Estim Creat Clear Calc 41.01 Est GFR (MDRD) Af Amer 59 L Est GFR (MDRD) Non-Af 49 L BUN/Creatinine Ratio 18.7 Glucose 105 Calcium 8.1 L POC Glucose 02/17/18 02/17/18 02/16/18 11:14 06:55 23:02 POC Glucose 151 H 103 112 H 02/16/18 02/16/18 21:08 16:23 POC Glucose 74 124 H Discharge Diet: Low fat/ Low Cholesterol Discharge Activity: Return to Normal Activity Call your doctor if you observe: Numbness or Tingling, Shortness of breath, Dizziness, Fainting spells, Chest pain Home Medications: Medications to take at Discharge Clopidogrel Bisulfate [Plavix] 75 mg PO DAILY #30 tablet 07/12/14 Fluoxetine [Prozac] 60 mg PO DAILY 07/12/14 Insulin NPH Hum/Reg Insulin Hm [Humulin 70-30 Vial] 60 units SQ BREAKFAST 07/12/14 Insulin NPH Hum/Reg Insulin Hm [Humulin 70/30 Kwikpen] 60 unit SQ DINNER 07/12/14 Multivitamins,Therapeutic [Multivitamin] 1 tablet PO DAILY 07/12/14 Bupropion HCl [Wellbutrin Xl] 150 mg PO DAILY 11/22/18 Amlodipine [Norvasc] 10 mg PO DAILY #30 tablet 02/17/18 Aspirin [Aspirin, Baby] 81 mg PO DAILY@0800 #30 tab.chew 02/17/18 Atorvastatin Calcium [Lipitor] 80 mg PO QHS #30 tablet 02/17/18 Lisinopril [Zestril] 10 mg PO DAILY #0 02/17/18 Following Prescrptions Were Given to Patient: Amlodipine [Norvasc] 10 mg PO DAILY #30 tablet Aspirin [Aspirin, Baby] 81 mg PO DAILY@0800 #30 tab.chew Atorvastatin Calcium [Lipitor] 80 mg PO QHS #30 tablet Other Amb Orders: 30-Day Event Recorder [[facility]] Location: None Selected Primary Care Physician: Reilly Wheatley MD [Primary Care Provider] - Please follow up with your Primary Care Physician in: 1 Week Please Follow Up With: Milena Cornejo MD When: 2-3 Weeks Disposition: Home Minutes spent on discharge:: 35 Patient Condition:: Stable Medical Necessity - Tobacco Use Smoking Status: Former smoker Tobacco Use: Non-smoker Meaningful Use Info Meaningful Use Diagnoses (Choose all that apply): None applicable
[2018-02-17] MEDS: Insulin Lispro 100 UNIT/ML INSULN.PEN SC (12:05)
--- NOTE | 2018-02-17 12:36 | CASEMGMT ---
Social Work Note SW received update from RN that pt is asking about [facility], glucometer, and prescription assistance. Per previous notes by Jayson LOGAN, she completed MOW application online and they will be in contact with pt. SW in to talk with pt. Pt's present in room. Pt gave this worker permission to talk to him in front of guest. SW updated pt of completion of [facility] and they will be in contact with pt. SW reiterated to pt that pt can get glucometer from [employer] and that insurance doesn't cover glucometer. SW provided pt with prescription assistance resources including [employer], [facility], [facility] assistance programs. Pt was receptive to receiving resources. Plan: Pt to discharge home with prescription assistance resources and [facility] following up with pt. Brittany Huertas [employer]OL[employer]IC APTITUDE TEST GRADER, [employer] OFFICER
[2018-02-17 13:43] LABS: Rheumatoid Factor < 10.0 IU/mL (<15); Thyroid Stim Hormone (TSH) 0.48 uIU/mL (0.358-3.74)
[2018-02-19 10:09] LABS: Vitamin B12 660 pg/mL (211-911)
[2018-02-19 15:47] LABS: Albumin 2.5 g/dL (2.9-4.4); Alpha-1-Globulins 0.2 g/dL (0.0-0.4); Alpha-2-Globulins 1.2 g/dL (0.4-1.0); Cytoplasmic Ab (C-ANCA) <1:20 titer (Neg:<1:20); Gamma Globulin 0.7 g/dL (0.4-1.8); Immunoglobulin A 289 mg/dL (61-437); Immunoglobulin G 714 mg/dL (700-1600); Immunoglobulin M 126 mg/dL (15-143); PROEL- TOTAL PROTEIN 5.6 g/dL (6.0-8.5)
[2018-02-19 15:52] LABS: ANTINUCLEAR ANTIBODIES DIRECT Negative (Negative)
[2018-02-19 15:53] LABS: Perinuclear Ab (P-ANCA) <1:20 titer (Neg:<1:20)
--- NOTE | 2018-02-21 10:02 | CASEMGMT ---
RN CM Discharge Follow-up Phone Call: OSEI: [place] Str[place]: 3 Call Date: 02/21/18 Discharge Date: 02/17/18 Time of Call: 1000 Duration: 0 ? Admitting Diagnosis: Probable TIA, YSABEL on CKD stage 3 This RN CM attempted to contact pt via telephone for DC follow-up. Voicemail received and message left requesting a return call if pt with questions or concerns. Denver Bowen RN
--- NOTE | 2018-02-21 15:06 | CASEMGMT ---
This RN CM received a return call from pt in regards to voicemail message left for DC follow-up call. Pt states he has been having difficulty regulating his blood sugar stating it goes as low as 79 and as high as 279. Pt states he begins to not feel well when at either extreme. Pt has been taking his insulin and has been trying to eat properly but hasn't been able to keep his sugar at the correct level. Pt states he has been eating oatmeal, cereal, and crackers because that is all the food he has until he gets paid at the first of the month. Reviewed SW's note from visit prior to dc and noted resources provided to patient for food including MOW. Pt states he contacted [facility] but they did not deem him to be homebound since he and his are able to drive (although he states he does not want to drive anymore) and would not provide him with meals. Pt states he has visited [facility] in the past and they only provide canned food that is not good for me. He states he wants food like he had in the hospital that is healthy. Pt states he does not otherwise know what kind of food he should be eating. This RN explained to pt that the food he is eating is all carbohydrates and that he needs to include protein in his diet. Pt states he has [place] in the freezer which is greasy, encouraged pt to eat it for the protein. Phone call placed to [facility] [employer] who relayed that they do have a variety of meat available. Attempted to phone patient back but received voicemail. Message left relaying the meat availability to the pt and explained that they were expecting him this afternoon by 4pm. Also discussed with the patient the [facility] program and explained they could teach him about what foods he can eat. Pt was receptive to trying the program. Pt has not made his follow-up appointment with his PCP Dr. Ha due to concerns of the cost as he states he does not have any money until the . Encouraged pt to make appointment. Denver Bowen RN
--- NOTE | 2018-02-21 15:12 | CASEMGMT ---
Paul Bowen patient would benefit from a referral to [facility]. GAYE put in a referral and called [facility] with referral. Tana LOGAN MSW
--- NOTE | 2018-04-04 09:25 | CCN.REFER ---
Two TC placed to pt, LVM; no return calls; [facility] will hold referral if pt returns call [facility]
== END 2018-02-17 13:16 | disposition home or self-care (01) | DRG 69 ==
LOC: ED 21:00 → PCU 22:55
PROVIDERS: Internal Medicine; Nurse Practitioner Family; Admitting Provider Family Medicine; Emergency Provider Emergency Medicine; Family Provider Family Medicine; PCP Family Medicine; Visit Provider Internal Medicine
DX: G45.9 Transient cerebral ischemic attack, unspecified (principal); N17.9 Acute kidney failure, unspecified; N18.3 Chronic kidney disease, stage 3 (moderate); I12.9 Hypertensive chronic kidney disease with stage 1 through stage 4 chronic kidney disease, or unspecified chronic kidney disease; E78.5 Hyperlipidemia, unspecified; E11.22 Type 2 diabetes mellitus with diabetic chronic kidney disease; I69.398 Other sequelae of cerebral infarction; G93.89 Other specified disorders of brain; Z85.46 Personal history of malignant neoplasm of prostate; E11.65 Type 2 diabetes mellitus with hyperglycemia; F32.9 Major depressive disorder, single episode, unspecified; Z79.4 Long term (current) use of insulin; Z79.899 Other long term (current) drug therapy; Z87.891 Personal history of nicotine dependence
CPT/HCPCS: 36415; 70450; 70544; 70547; 70551; 80048; 80061; 82607; 82784; 82962; 83036; 83735; 84165; 84443; 84484; 85025; 85610; 85730; 86038; 86225; 86226; 86235; 86256; 86334; 86431; 92526; 93005; 93306; 97161; 97166; 97802; 99283; J7030; J7040; A4216

== ENCOUNTER 2020-07-01 13:51 | Emergency (ER) | payer MEDICARE, OTHER, SELFPAY ==
[2018-02-17 01:42] VITALS: BMI 26.4
[2020-07-01 13:52] VITALS: BP 173/89; PULSE 90; RESP 12; TEMP 36.9; O2SAT 99; BMI 20.7
--- NOTE | 2020-07-01 14:21 | CT_ITS ---
STUDY: CT BRAIN WITHOUT CONTRAST REASON FOR EXAM: Male, 74 years old. NAIR post fall RADIATION DOSAGE (If Supplied By Facility): CTDIvol = ( 44.99 ) mGy, DLP = ( 779.24 ) mGycm TECHNIQUE: Transaxial CT imaging of the brain was performed without administration of intravenous contrast material. Individualized dose optimization techniques were used for this CT. COMPARISON: No relevant priors. FINDINGS: Normal soft tissue structures. Normal calvarium. There is right subdural hematoma measures approximately 6 cm in maximum thickness extending over the convexity and in the interhemispheric fissure. There is small right subarachnoid hemorrhage. There is an old infarction in the left occipital lobe in the left [employer] territory. Normal basal ganglia and thalami. Normal brainstem. Normal cerebellum. There is no intracranial hemorrhage. There are no findings of an acute ischemic infarction. Normal visualized paranasal sinuses. CT/Brain/Head without Contrast IMPRESSION: There is right subdural hematoma measures approximately 6 cm in maximum thickness extending over the convexity and in the interhemispheric fissure. There is small right subarachnoid hemorrhage. There is an old infarction in the left occipital lobe in the left [employer] territory. N.B. : The above information has been verbally conveyed by Jorge Moore MD to ARLENE RUBY on 07/01/2020 15:25:41 (ET). Electronically Signed: Jorge Moore MD at 15:26 EDT Tel , Service support ,
--- NOTE | 2020-07-01 14:23 | ED.DCSUM_ITS ---
History of Present Illness Chief Complaint: General Illness Informant: Patient Narrative: Patient is a 74-year-old male with past medical history of hypertension, hyperlipidemia, diabetes, CVA, CKD who presents to the emergency department for generally not feeling well. He states he was having nausea and vomiting after eating. This has been going on multiple weeks. He did see his PCP who told him it had to do with his lactulose intolerance. At this time patient is feeling better from this aspect. He does occasionally still gag. He has had a mild headache since a fall a few weeks prior. He is on Plavix. He currently rates the headache as mild and in the frontal region. No known aggravating relieving factors. No vision changes. Denies any neck pain. No chest pain, shortness of breath or heart palpitations. He denies any recent illness including any cough, sore throat. No rashes or neck stiffness. Denies any fevers or chills. No weakness or loss of sensation in any extremity. No urinary issues. No change in bowel movements. Patient states he has not taken any of his medications over the past few days. When asked why states he just did not feel like it. He does live with his at home. Family apparently called EMS. Past Medical History - Allergies and Home Meds Allergies/Adverse Reactions: Allergies No Known Allergies Allergy (Verified 07/01/20 13:54) Primary Care Physician: Reilly Wheatley MD [NON-STAFF] - Prior records reviewed: Yes Surgical History: - - Ventral hernia repair, appendectomy. Smoking Status: Former smoker - Family History Maternal Family History: Reports: Diabetes, - - No history of coronary artery disease, [place] or stroke in the first-degree family relative. Paternal Family History: Reports: - - Denies any marked paternal family history including HD, DM, CA. Review of Systems All systems negative except as indicated General: Denies: Chills, Fever, Sweats Eyes: Denies: Visual changes - bilaterally, Diplopia ENT: Denies: Rhinorrhea, Sore throat Cardiovascular: Denies: Chest pain, Palpitations Respiratory: Denies: Dyspnea, Cough, Dyspnea on exertion Gastrointestinal: Reports: Nausea. Denies: Abdominal pain, Vomiting, Diarrhea Genitourinary: Denies: Dysuria, Hematuria, Frequency Musculoskeletal: Denies: Back pain, Extremity Pain Skin: Denies: Rash, Wounds Neurological: Reports: Headache. Denies: Weakness, Numbness Physical Exam Vital Signs/Narrative: Vital Signs Temp Pulse Resp BP Pulse Ox 07/01/20 13:52 98.4 F 90 12 173/89 H 99 Inital Vital Signs reviewed: Yes General: Well nourished, Well developed, No Acute Distress Head: Normocephalic, Atraumatic Eyes: Perrl, EOMI ENT: Moist mucous membranes, No rhinorrhea Neck: Supple, Nontender Cardiovascular: Regular rate, Regular rhythm, No murmurs Respiratory: No distress, CTA bilaterally, Chest nontender Abdomen: Soft, Nontender, Nondistended Back: Nontender, Normal Inspection. Negative for: Spinal tenderness Extremities: Nontender, No edema Skin: Normal color, No rash Neurological: Alert, Oriented x3, Cranial nerves II-XII grossly intact, Normal Strength, Normal Sensation. Negative for: Left side facial droop, Right side fa cial droop Psychological: Normal affect, Normal Mood Diagnostic/Tx/Re-eval - Medical Decision Making Patient presents to the emergency department for nausea and gagging while eating. Has been improving since watching his diet to not drinking as much milk. He is also complaining of a mild headache after a fall a few weeks prior. The headache has been constant. He has not been compliant with any his medications including his insulin and blood pressure meds. Will check CT scan of the head given the head trauma and headache as well as basic lab work. CT scan of the head did come back positive for subdural hemorrhage as well as subarachnoid hemorrhage. [facility] team was consulted and they recommended giving DDAVP given his aspirin history. Dr. Burk is accepting doctor. I did requestion the patient and he actually did take it this morning as opposed to telling me the last time he took it was more than 3 or 4 days ago. His lab work does show him to be anemic. He does have acute on chronic kidney injury. At this time patient will be transferred for trauma/neurosurgery evaluation. He otherwise has been stable throughout ED stay. No evidence of DKA on lab work-up he is mildly hyperglycemic. No focal deficits throughout ED stay. - Critical Care Time Critical care time (excluding procedures): 30-74 minutes, Discussing w/Patient &/or Family/Pump Installation And Servicer, Discussing w/Consultants, Arranging Admission or Transfer, Performing Direct Patient Care at Bedside ED Disposition - Plan for ED Patient: Disposition: [facility] Diagnosis: Subdural hematoma, Subarachnoid hemorrhage, Hyperglycemia, Anemia, Dptra-sj-ynffbsu kidney injury Referrals: Reilly Wheatley MD [NON-STAFF] -
[2020-07-01 14:50] LABS: Absolute Lymphocyte Count 0.89 X10^3/uL (0.83-4.51); Absolute Neutrophil Count 6.2 X10^3/uL (2.0-7.7); Basophil# 0.03 X10^3/uL; Basophil% 0.4 % (0-1); Eosinophil# 0.09 X10^3/uL; Eosinophils% 1.2 % (0-5); Hematocrit 28.3 % (40-54); Hemoglobin 9.9 g/dL (13.0-16.5); Lymphocyte # 0.89 X10^3/ul (4.0); Lymphocyte % 11.4 % (19-41); Mean Corpuscular Hgb 30.7 pg (27.0-32.0); Mean Corpuscular Volume 87.9 fL (80-94); Mean Platelet Vol. 10.1 fl (6.2-12.0); Monocyte# 0.57 X10^3/uL; Monocyte% 7.3 % (0-10); NRBC Flagged by Analyzer 0 % (0-5); Neutrophil # 6.18 X10^3/uL (2.7-7.7); Neutrophil % 79.2 % (47-70); Platelet Count 279 K/mm3 (150-450); RBC Distribution Width CV 12.4 % (11.6-14.6); RBC Distribution Width SD 39.8 fl (35.1-43.9); Red Blood Count 3.22 M/mm3 (4.6-6.2); White Blood Count 7.8 K/mm3 (4.4-11.0)
[2020-07-01 15:11] LABS: AST(SGOT) 11 U/L (15-37); Alanine Aminotransfer ALT/SGPT 12 U/L (16-61); Albumin, Serum 1.9 g/dL (3.2-5.0); Alkaline Phosphatase 95 U/L (45-117); Anion Gap 6 (5-15); BUN 39 mg/dL (7-18); Calcium,Total 8.1 mg/dL (8.5-10.1); Chloride 106 mmol/L (98-107); EST Glomerular Filtration Rate 22 mL/min (>60); Est Glom Filt Rate - Afr Amer 26 mL/min (>60); Estimated Creatinine Clearance 18.03 ml/min; Globulin 4.2 g/dL (2.2-4.2); Glucose 223 mg/dL (74-106); Potassium 3.6 mmol/L (3.5-5.1); Protein, Total 6.1 g/dL (6.4-8.2); Sodium Level 135 mmol/L (136-145)
[2020-07-01 15:28] VITALS: BP 180/80; PULSE 72; RESP 12; O2SAT 98
--- NOTE | 2020-07-01 16:07 | NURSING ---
CALLED [facility] FOR TRANSFER FAXED FACESHEET DR MALHOTRA FOR DR RUBY
--- NOTE | 2020-07-01 16:22 | NURSING ---
[facility] GEN [id number]
--- NOTE | 2020-07-01 16:33 | NURSING ---
CALLED [facility], ETA IS 90 MIN
[2020-07-01] MEDS: Desmopressin Acetate 40 MCG/10 ML Vial 18 MCG IV (16:48)
[2020-07-01 17:01] VITALS: BP 166/74; PULSE 76; RESP 12; O2SAT 99
[2020-07-01 17:39] VITALS: BP 166/74; PULSE 71; RESP 12; O2SAT 99
== END 2020-07-01 17:35 | disposition short-term general hospital (02) ==
PROVIDERS: Emergency Provider Emergency Medicine; PCP Family Medicine
DX: S06.5X0A Traumatic subdural hemorrhage without loss of consciousness, initial encounter (principal); S06.6X0A Traumatic subarachnoid hemorrhage without loss of consciousness, initial encounter; W19.XXXA Unspecified fall, initial encounter; Y93.9 Activity, unspecified; Y92.9 Unspecified place or not applicable; Y99.9 Unspecified external cause status; N17.9 Acute kidney failure, unspecified; E11.22 Type 2 diabetes mellitus with diabetic chronic kidney disease; I12.9 Hypertensive chronic kidney disease with stage 1 through stage 4 chronic kidney disease, or unspecified chronic kidney disease; N18.9 Chronic kidney disease, unspecified; E11.65 Type 2 diabetes mellitus with hyperglycemia; D64.9 Anemia, unspecified; Z91.14 Patient's other noncompliance with medication regimen; E78.5 Hyperlipidemia, unspecified; Z79.4 Long term (current) use of insulin; Z79.02 Long term (current) use of antithrombotics/antiplatelets; Z79.899 Other long term (current) drug therapy; Z86.73 Personal history of transient ischemic attack (TIA), and cerebral infarction without residual deficits; Z87.891 Personal history of nicotine dependence
CPT/HCPCS: 70450; 80048; 80076; 84484; 85025; 96374; 99285; J7030; A4216; J2597

== ENCOUNTER 2020-07-05 19:15 | Inpatient (IN) | payer MEDICARE, OTHER, SELFPAY ==
[2020-07-05 20:00] VITALS: BP 156/82; PULSE 79; RESP 18; TEMP 36.6; O2SAT 98
[2020-07-05 20:13] VITALS: BMI 19.8; BMI 19.9
[2020-07-05 21:50] LABS: Bedside Glucose 92 mg/dL (70-110)
[2020-07-06] MEDS: Heparin Injection (Vial) 5,000 UNIT/ML VIAL 5000 UNIT SC ×3 (02:08→21:49)
[2020-07-06] MEDS: Atorvastatin Calcium 80 MG Tablet PO ×2 (02:08→21:49)
[2020-07-06 02:11] LABS: Bedside Glucose 75 mg/dL (70-110)
[2020-07-06 02:11] LABS: Bedside Glucose 68 mg/dL (70-110)
[2020-07-06] MEDS: Acetaminophen 500 MG Tablet 1000 MG PO ×3 (02:58→21:50)
[2020-07-06 03:06] LABS: Bedside Glucose 151 mg/dL (70-110)
--- NOTE | 2020-07-06 03:20 | NURSING ---
0120; PT MEDS ARRIVED LATE TO FLOOR. PT CALLED OUT TO USE URINAL. HE HAD DIFFICULTY URINATING. PVR DONE. PT NOTE TO HAVE >500 MLS IN BLADDER. STRAIGHT CATH DONE USING STERILE TECHNIQUE. 500 MLS DRAINED OUT OF PT BLADDER. PT DUE FOR LANTUS THIS ADRIAN. PT BS PRIOR TO BED THIS ADRIAN WAS 92. RECHECK AT 0127 WAS 68. HE WAS GIVEN YOGURT AND OJ. PT BS RECHECKED AT 0207 BS 75. PT DRANK 3 O[place]ES [place]KE. BS RECHECKED AGAIN AT 0250 BS 151. 32 UNITS LANTUS SQ GIVEN. PT STATES HE USUALLY RUNS A BLOOD SUGAR AROUND 200 AND STATES HE DID NOT EAT DINNER LAST ADRIAN. WILL CONT TO MONITOR. REVIEWED SIGNS OF LOW BS WITH PT.
--- NOTE | 2020-07-06 04:58 | NURSING ---
PT ARRIVED ON UNIT AT 0715 VIA CART PER [facility]. PT WAS TIRED UPON ARRIVAL. ALERT AND ORIENTATED X 3. ORIENTATED TO ROOM 404, CALL LIGHT, ROOM SAFETY, TV CONTROLS AND REHAB ROUTINE. ALL QUESTIONS ANSWERED.
[2020-07-06 07:05] LABS: Bedside Glucose 114 mg/dL (70-110)
[2020-07-06 07:40] VITALS: BP 144/88; PULSE 84; RESP 16; TEMP 37.1; O2SAT 99
[2020-07-06] MEDS: Senna/Docusate Sodium 1 Tablet 2 TABLET PO ×2 (10:22→21:50)
[2020-07-06] MEDS: Polyethylene Glycol 3350 17 GM PACKET PO (10:22)
[2020-07-06] MEDS: FLUoxetine 20 MG Capsule 40 MG PO (10:22)
[2020-07-06] MEDS: Multivitamins,Therapeutic Tablet 1 TABLET PO (10:23)
[2020-07-06] MEDS: levETIRAcetam 500 MG Tablet PO ×2 (10:23→21:49)
[2020-07-06] MEDS: Cholecalciferol (VIT D3) 25 MCG TABLET (1,000 UNITS) PO (10:23)
[2020-07-06] MEDS: amLODIPine 10 MG Tablet PO (10:23)
[2020-07-06 11:01] LABS: Bedside Glucose 121 mg/dL (70-110)
--- NOTE | 2020-07-06 12:16 | HP.PCM_ITS ---
Problem List (1) Subarachnoid hemorrhage Status: Acute (2) Subdural hematoma Status: Acute (3) Fall Status: Acute Comment: sometime from mid May on resulting in a SDH and SAH - did not present to the ED unitl 07/01/20 (4) GERD (gastroesophageal reflux disease) Status: Chronic (5) Vitamin D deficiency Status: Chronic (6) Falls frequently Status: Chronic Comment: 1-2 times a week at least. He loses his balance. (7) YSABEL (acute kidney injury) Status: Resolved (8) Ataxia Status: Chronic Comment: etiology? Due to prior Left occipital stroke? or 2 multiple BL lacunat infarcts in the BL thalami? or both? (9) CVA (cerebral vascular accident) Status: Chronic Qualifiers: (10) TIA (transient ischemic attack) Status: Resolved (11) Depression Status: Chronic Qualifiers: (12) Diabetes mellitus, type II Status: Chronic Qualifiers: Diabetes mellitus meat specialist insulin use: with custodial use Diabetes mellitus complication status: with kidney complications Diabetes mellitus complication detail: with chronic kidney disease Chronic kidney disease stage: stage 4 (severe) Qualified Code(s): E11.22 - Type 2 diabetes mellitus with diabetic chronic kidney disease; N18.4 - Chronic kidney disease, stage 4 (severe); Z79.4 - senior living (current) use of insulin (13) HLD (hyperlipidemia) Status: Chronic Qualifiers: (14) HTN (hypertension) Status: Chronic Qualifiers: (15) Hx of malignant neoplasm of prostate Status: Chronic (16) Multiple lacunar infarcts Status: Chronic Comment: Bilateral thalami (17) Encephalomalacia Status: Chronic Comment: Left occipital (18) Cerebral microvascular disease Status: Chronic Comment: Advanced chronic microvascular ischemic change throughout the supratentorial white matter. (19) Closed TBI (traumatic brain injury) Status: Acute Qualifiers: Encounter type: subsequent encounter (20) Chronic renal failure, stage 4 (severe) Status: Chronic (21) Normochromic normocytic anemia Status: Chronic History of Present Illness Date of Admission: 07/05/20 Chief Complaint: physical debility due to recent fall resultig in acute SDH and SAH in a pt with frequent falls John Apple is a 74 year old M with a PMH of diabetes mellitus type 2 (historically poorly controlled), chronic renal failure stage IV, chronic normochromic normocytic anemia, hypertension, hyperlipidemia, Jovani artery disease, GERD, vitamin D deficiency, frequent falls, depression, history of prostate CA, history of multiple lacunar infarcts in the bilateral thalami, chronic encephalomalacia in the left occipital region, advanced chronic microvascular ischemic change throughout the supratentorial white matter and stage I diastolic dysfunction who presented to the Ed at [facility] on 07/01/20 c/o weakness, nausea and NAIR for a few weeks since he had a fall. He stated he had not taken any of his medications for a few days. Family stated he had not been getting out of bed for a few days. A CT scan of the head was positive for subdural hemorrhage and subarachnoid hemorrhage. He was transferred to [facility] and admitted to the trauma service with neurosurgery consult. He did not require any surgical intervention. He improved somewhat and the bleed was stable. He was transferred to the inpt acute rehab unit at [facility] on 07/05/20 for >3 hours of therapy daily to restore him at or near his prior level of function. All paperwork from [facility] was reviewed as well as the EMR from previous visits to [facility]. He tells me that he has not seen an oncologist or a urologist since he had external beam radiation at [facility] many years ago. He has been losing weight and does not know why. [] Past Medical History Past Medical History (Chronic Problems): Chronic Problems GERD (gastroesophageal reflux disease) (Chronic) Vitamin D deficiency (Chronic) Falls frequently (Chronic) 1-2 times a week at least. He loses his balance. Multiple lacunar infarcts (Chronic) Bilateral thalami Encephalomalacia (Chronic) Left occipital Cerebral microvascular disease (Chronic) Advanced chronic microvascular ischemic change throughout the supratentorial white matter. Chronic renal failure, stage 4 (severe) (Chronic) Normochromic normocytic anemia (Chronic) CVA (cerebral vascular accident) (Chronic) Depression (Chronic) Diabetes mellitus, type II (Chronic) Ataxia (Chronic) etiology? Due to prior Left occipital stroke? or 2 multiple BL lacunat infa rcts in the BL thalami? or both? HLD (hyperlipidemia) (Chronic) Hx of malignant neoplasm of prostate (Chronic) HTN (hypertension) (Chronic) Allergies No Known Allergies Allergy (Verified 07/01/20 13:54) Home Medications: Ambulatory Orders Medication Instructions Recorded Fluoxetine [Prozac] 40 mg PO DAILY 07/12/14 Multivitamins,Therapeutic 1 tablet PO DAILY 07/12/14 [Multivitamin] Insulin Glargine,Hum.rec.anlog 32 unit SQ QHS 07/01/20 [Lantus Solostar] [place]-3 Fatty Acids [Fish Oil] 500 mg PO QHS 07/01/20 Amlodipine [Norvasc] 10 mg PO DAILY 07/05/20 Atorvastatin Calcium [Lipitor] 80 mg PO QHS 07/05/20 Surgical History: - - Ventral hernia repair, appendectomy. Psychiatric History: Depression Lives: Spouse/ Significant Other Smoking Status: Never smoker Tobacco Use: Non-smoker Alcohol: None Drugs: None - *Family History Maternal History Items: Diabetes, - - No history of coronary artery disease, [place] or stroke in the first-degree family relative. Paternal History Items: Hypertension, - - Denies any marked paternal family history including HD, DM, [place]. Sibling History Items: Diabetes, Stroke, - - His brother has a history of stroke and diabetes mellitus. Review of Systems Constitutional: Reports: Anorexia - food does not taste good to him. He has been losing weight, Weight Change - losing weight. Denies: Chills, Fever Eyes: Denies: Blurred vision, Double vision, Vision Change HEENT: Denies: Difficulty Hearing, Difficulty Swallowing, Head Aches, Nasal Congestion, Sinus Congestion, Sinus Drainage, Sore Throat Cardiovascular: Denies: Chest Pain, Edema, Palpitations Respiratory: Denies: Cough, Shortness of Breath, Shortness of breath at rest, Sputum production Gastrointestinal: Denies: Abdominal Pain, Nausea, Vomiting Genitourinary: Denies: Dysuria, Hesitancy, Incontinence, Retention, Urgency Musculoskeletal: Denies: Joint Pain, Joint Tenderness Skin: Denies: Jaundice, Rash, Wounds Neurological: Reports: Balance problems. Denies: Change in Speech, Slurred speech, Focal weakness, Numbness, Tingling, Tremor, Seizures Psychiatric: Reports: Depression. Denies: Anxiety, Homicidal Ideations, Suicidal Ideations Hematologic/ Lymphatic: Denies: Easy Bruising, Easy Bleeding, Hx of blood clot VTE Information - Inpt Only VTE Present on Admission: No VTE Mechan Device Prophylaxis: Knee High CARLOS Hose VTE Pharm Prophylaxis ordered?: Yes Patient Problems: Active and Suspected Problems Subarachnoid hemorrhage (Acute) Subdural hematoma (Acute) Fall (Acute) sometime from mid May on resulting in a SDH and SAH - did not present to the ED unitl 07/01/20 Closed TBI (traumatic brain injury) (Acute) - Physical Exam Vitals/I&O's: Vital Signs Temp Pulse Resp BP Pulse Ox 98.7 F 84 16 144/88 H 99 07/06/20 07:40 07/06/20 07:40 07/06/20 07:40 07/06/20 07:40 07/06/20 07:40 Oxygen Delivery Method Room Air Weight: 126 lb 12.253 oz Body Mass Index (BMI) 19.8 Finger Stick Blood Glucose 501 Intake and Output for Last 24 Hours 07/04/20 07/05/20 07/06/20 23:59 23:59 23:59 Intake Total 60 / 60 420 / 420 Output Total 200 / 200 Balance 60 / 60 220 / 220 General: Alert, Oriented x3, Cooperative, - - He is lying on his left side in the bed in a position with his eyes shut. He tells me he has a NAIR and it is a 3/10. He thinks he needs something more than tylenol for pain. HEENT: Normocephalic, - - no lacerations or hematomas of the scalp. PERRL, EOMI Oral: No Gingival or Mucosal Lesions/ Ulcerations, Dry Mucosa, - - He is edentulous Neck: Supple, No JVD, Trachea Midline Lungs: Clear to auscultation, Normal air movement, Diminished - poor effort, - - not tachypneic and no conversational dyspnea Cardiovascular: Regular rate, Regular Rhythm, Normal S1, Normal S2, No murmurs, No rub noted, No Gallop Abdomen: Bowel Sounds Present, Soft, Non Tender, Non-Distended, - - No guarding with palpation Extremities: No clubbing, No edema, No Calf Tenderness, - - His extremities are very thin with muscle atrophy Skin: No rashes, No breakdown Musculoskeletal: No Tenderness to Palpation of Joints or Extremities, Cachexia, Muscle Wasting Neurological: Cranial nerves II-XII grossly intact, Neuro grossly intact, - - He has generalized weakness. I did not walk him or attempt a Romberg since there was not a second person available to insure his safety. Psych/Mental Status: Appropriate, Depressed Laboratory Results 07/05/20 21:40: POC Glucose 92 07/06/20 01:27: POC Glucose 68 L 07/06/20 02:07: POC Glucose 75 07/06/20 02:53: POC Glucose 151 H 07/06/20 06:45: POC Glucose 114 H 07/06/20 10:58: POC Glucose 121 H Current Medications Acetaminophen (Acetaminophen 500 Mg Tablet) 1,000 mg PO Q8H PRN PRN PRN Reason: Pain Score 1-10 Last Admin: 07/06/20 02:58 Dose: 1,000 mg Documented by: Amlodipine Besylate (Amlodipine 10 Mg Tablet) 10 mg PO DAILY [facility] Last Admin: 07/06/20 10:23 Dose: 10 mg Documented by: Atorvastatin Calcium (Atorvastatin Calcium 80 Mg Tablet) 80 mg PO QHS [facility] Bisacodyl (Bisacodyl 10 Mg Suppository) 10 mg RC .PRN X 1 PRN PRN Reason: Constipation Cholecalciferol (Cholecalciferol (Vit D3) 25 Mcg Tablet (1,000 Units)) 25 mcg PO DAILY [facility] Last Admin: 07/06/20 10:23 Dose: 25 mcg Documented by: Fluoxetine HCl (Fluoxetine 20 Mg Capsule) 40 mg PO DAILY [facility] Last Admin: 07/06/20 10:22 Dose: 40 mg Documented by: Heparin Sodium (Porcine) (Heparin Injection (Vial) 5,000 Unit/Ml Vial) 5,000 unit SC Q12 [facility] Last Admin: 07/06/20 10:23 Dose: 5,000 unit Documented by: Insulin Glargine (Insulin Glargine 100 Units/Ml Pen) 32 units SC QHS [facility] Levetiracetam (Levetiracetam 500 Mg Tablet) 500 mg PO BID [facility] Stop: 07/08/20 22:01 Last Admin: 07/06/20 10:23 Dose: 500 mg Documented by: Magnesium Hydroxide (Magnesium Hydroxide 30 Ml Udc) 30 ml PO .PRN X 1 PRN PRN Reason: Constipation Melatonin (Melatonin 3 Mg Tablet) 3 mg PO QHS [facility] Multivitamins (Multivitamins,Therapeutic Tablet) [facility] Last Admin: 07/06/20 10:23 Dose: 1 tablet Documented by: Ondansetron HCl (Ondansetron Odt 4 Mg Tablet) 4 mg PO Q6H PRN PRN PRN Reason: NAUSEA Polyethylene Glycol (Polyethylene Glycol 3350 17 Gm Packet) 17 gm PO DAILY [facility] Last Admin: 07/06/20 10:22 Dose: 17 gm Documented by: Senna/Docusate Sodium (Senna/Docusate Sodium 1 Tablet) 2 tablet PO BID [facility] Last Admin: 07/06/20 10:22 Dose: 2 tablet Documented by: Assessment/Plan All Active Problems Subarachnoid hemorrhage (Acute) Subdural hematoma (Acute) Fall (Acute) Closed TBI (traumatic brain injury) (Acute) YSABEL (acute kidney injury) (Resolved) TIA (transient ischemic attack) (Resolved) Impressions 1. Physical debility secondary to a fall in May resulting in a subdural hematoma and subarachnoid hemorrhage in a patient with frequent falls secondary to gait instability/LOB. He has generalized weakness with recent weight loss in pt not trying to lose wt. 2. SDH and SAH due to fall 3. Chronic renal failure stage III?4. Has been progressing over the past 2 years. 4. History of bilateral lacunar infarcts in the thalami and a left occipital CVA. 5. Frequent falls secondary to loss of balance 6. Depression-on 40 mg of Prozac daily and Wellbutrin. 7. Diabetes mellitus type 2-historically not well controlled 8. Hypertension 9. Hyperlipidemia 10. History of prostate CA -poor follow-up since he was treated with external beam radiation. 11. Normochromic normocytic anemia 12. TBI secondary to falls 13. Gastroesophageal reflux disease 14. Advanced chronic microvascular ischemic change throughout the supratentorial white matter. PLAN PT for gait stability OT for ADL's ST for evaluation Analgesics as needed Bowel protocol Fall precautions Assess for Anxiety/Depression GI prophylaxis/GERD with Protonix 20 mg p.o. twice daily DVT prophylaxis with CARLOS hose and heparin 5000 units subcu every 12 hours Follow up with PCP and neurology following DC from Rehab AM lab including CMP, CBC, Mag, HGBA1C Phos and PSA Hold the Wellbutrin - because it lowers seizure threshold and he has an intercerebral bleed - and because it decreases appetite. Continue the Prozac and consider adding Remeron to stimulate appetite. Would need to start with with 7.5 mg due to the CRF. Hold the Prozac for a few days and then restart at a lower dose. With his renal failure 40 mg is a high dose and it is likely accumulating and can cause Nausea, weakness, balance problems, sleepiness......suspect the dose has not been decreased since the renal failure has gotten worse. Prozac has a very long 1/2 life so will hold for at least a week and monitor for any signs of acute withdrawal. He may due better with an SSRI with a shorter half life going forward. Decrease the Lantus due to borderline low BS's and to poor appetite and intake. Add SSI with meals. Add Oxycodone 5 mg Q 6H PRN pain not relieved with Tylenol. Schedule the Tylenol 1,000 mg q 8H the first 2 PVR's were high but the 3rd is only 40......will continue to monitor. Inpatient E&M: 87995 Init Hosp L3
--- NOTE | 2020-07-06 12:57 | PCM.RU.PYE ---
Admission Information Primary Diagnosis:: Physical debility secondary to a recent fall resulting in subarachnoid hemorrhage and subdural hematoma. Actual Problem List:: Bleeding, Falls, Pain, ALteration in Cmfrt, Depression, Alteration in Sleep, Mobility Impaired, Self Care Deficit, Know.Dfct/Disease Process, Diabetes, Hypoglycemia, BP, Hypertension, Fluid Change-Dehydration, Alteration-Leisure Activ. Potential Problem List:: DVT, Bleeding, Infection, UTI, Aspiration, Falls, Skin Integrity, Depression Risk of Complications DVT: CARLOS Turner, - - Heparin 5000 units subcu every 12 hours Bleeding: Monitor Lab Values, Nursing to Teach Precautions for anti-coagulation therapy., Wound, if applicable, to be assessed every shift., Stroke patients assessed for lethargy or change in status. Infection: Clinical Staff to Monitor for S/S of infection:, S/S of infection include fever, redness, warmth, etc. Urinary Tract Infection: Monitor for frequency, burning, discomfort, or incontinence., Nursing will obtain urine sample for urinalysis and C&S when ordered. Aspiration: Clinical staff will monitor for coughing, drooling, congestion., Speech will evaluate swallowing and dsyphasia., Nursing will monitor patient swallowing during meals. Falls: Patient will be evaluated for Fall Precautions, Patient will be placed on Fall Precautions as indicated per protocol. Skin Breakdown: Nursing will assess skin daily using assessment tool., Nursing will place on Skin Breakdown Precautions as indicated. Pain: Clinical staff will assess patient's pain level per protocol., Medications will be given, if needed, and the pain level reassessed., Other methods: Massage, distraction, decrease stimulus, etc. used PRN. Plan of Care Patient requires physician specializing in physical medicine and rehab oversight to provide close medical supervision of rehab issues including: Pain Management, Sleep Problems, Bowel and Bladder, Medical and co-morbidity Management, DVT prophylaxis, Rehabilitation Leadership, Coordination of treatment team Patient needs Physical Therapy: For a minimum of 1 hour, At least 5 out of 7 days Patient needs Physical Therapy to improve:: Mobility, Mobility, Mobility, Strengthening, Transfers, Stretching, ROM, Endurance, Stairs, Gait, Balance Patient needs Occupational Therapy: For a minimum of 1 hour, At least 5 out of 7 days Patient needs Occupational Therapy to improve ADL's incl.: Eating, Grooming, Bathing, Dressing, Toileting, Toilet transfers, Community Reintegration, Higher functioning activities, Household tasks, Adaptive Equipment, Splinting, Other activities as determined Patient requires speech therapy: For a minimum of 1 hour, At least 5 out of 7 days Patient requires speech therapy for: Swallowing, Cognition, Language Skills, Compensatory Strategies Patient requires 24/ Rehabilitation Nursing for: Pain Issues, Identifying and preventing risk factors, Monitoring and reporting current medical conditions, Assisting with ambulation, transfer, and all ADL's, Teaching patients about disease process and medications, Family teaching, Providing safe environment, Bowel and Bladder Issues, Skin integrity, Medication Management Patient needs Central Office Trouble Shooter/ Case Management for: Discharge Planning, Arranging Home Equipment or Services, Family Interventions Patient needs Dietary and Nutrition Services for: Adequate Nutrition, Nutritional Supplements, Nutritional Education Goals Patient will remain: free from falls, or injury at time of discharge. Patient will perform bed mobility at: MOD I level of assist. Patient will complete transfers from bed to chair at: MOD I level of assist. Patient will ambulate: with standby assist, with LRD, - - 150 feet with a wheeled walker at standby assist Patient will complete upper body dressing at: MOD I level of assist. Patient will complete lower body dressing at: MOD I level of assist. Patient will complete toileting at: MOD I level of assist. Patient will perform bathing at: MOD I level of assist. Patient will complete grooming at: MOD I level of assist. Patient will complete home management skills at: MOD I level of assist. Patient will achieve: with standby assist, - - 1 curb step Patient will have pain level of: of 3 or less Patient's skin will: remain intact, free from infection. Patient will receive: adequate nutrition. Discharge Planning Pt Prognosis for Sig. Practical Improv. w/in Reasonable Time: Fair Estimated Length of stay (days): 21 Anticipated D/C Destination: Home w/ family or friends Was Preadmission Assessment Accurate?: Yes
[2020-07-06 15:17] LABS: Color, Urine Yellow (Yellow); Glucose, Dipstick 250 mg/dl (Normal); Ketone-Dipstick Negative (Negative); Leukocyte Esterase-Dipstick Negative /ul (Negative); Nitrite-Dipstick Negative (Negative); Occult Blood-Urine 50 /ul (Negative); Protein-Dipstick 500 mg/dl (Negative); Specific Gravity, Urine 1.015 (1.002-1.030); Urine Bilirubin Dipstick Negative (Negative); Urine Clarity Sl. Cloudy (Clear); Urine Urobilinogen Normal (Normal)
[2020-07-06 16:45] LABS: Bedside Glucose 96 mg/dL (70-110)
[2020-07-06] MEDS: Glucerna Shake 120 ML LIQUID PO ×2 (17:28→21:48)
[2020-07-06 18:55] VITALS: O2SAT 99
[2020-07-06 19:00] VITALS: BP 137/75; PULSE 78; RESP 14; TEMP 36.6; O2SAT 99
[2020-07-06] MEDS: Menthol/Lanolin/Calamine/Znox 113 GM Tube 1 APPLIC TOPICAL (20:00)
[2020-07-06] MEDS: MELATONIN 3 MG TABLET PO (21:50)
[2020-07-06] MEDS: Pantoprazole Sodium 20 MG Tablet PO (21:50)
[2020-07-06 22:05] LABS: Bedside Glucose 189 mg/dL (70-110)
[2020-07-07] MEDS: Acetaminophen 500 MG Tablet 1000 MG PO ×3 (05:27→22:05)
[2020-07-07 06:09] LABS: Hematocrit 28.8 % (40-54); Hemoglobin 9.6 g/dL (13.0-16.5); Mean Corp Hgb Conc 33.3 g/dL (32-36); Mean Corpuscular Hgb 29.9 pg (27.0-32.0); Mean Corpuscular Volume 89.7 fL (80-94); Mean Platelet Vol. 9.9 fl (6.2-12.0); Platelet Count 335 K/mm3 (150-450); RBC Distribution Width CV 12.3 % (11.6-14.6); RBC Distribution Width SD 40.2 fl (35.1-43.9); Red Blood Count 3.21 M/mm3 (4.6-6.2); White Blood Count 8.7 K/mm3 (4.4-11.0)
[2020-07-07 06:42] LABS: ALB/GLOB Ratio 0.4 RATIO (0.9-2.4); AST(SGOT) 22 U/L (15-37); Alanine Aminotransfer ALT/SGPT 22 U/L (16-61); Albumin, Serum 1.8 g/dL (3.2-5.0); Alkaline Phosphatase 105 U/L (45-117); Anion Gap 8 (5-15); BUN 43 mg/dL (7-18); BUN/Creat Ratio 13.4 RATIO (10-20); Calcium,Total 7.9 mg/dL (8.5-10.1); Chloride 106 mmol/L (98-107); EST Glomerular Filtration Rate 20 mL/min (>60); Est Glom Filt Rate - Afr Amer 24 mL/min (>60); Estimated Creatinine Clearance 16.22 ml/min; Globulin 4.3 g/dL (2.2-4.2); Glucose 57 mg/dL (74-106); Magnesium 2.6 mg/dL (1.6-2.6); Phosphorus 3.8 mg/dL (2.5-4.9); Potassium 3.9 mmol/L (3.5-5.1); Protein, Total 6.1 g/dL (6.4-8.2); Sodium Level 136 mmol/L (136-145)
[2020-07-07 06:56] LABS: Bedside Glucose 56 mg/dL (70-110)
[2020-07-07 07:00] LABS: Bedside Glucose 60 mg/dL (70-110)
[2020-07-07 07:16] LABS: Bedside Glucose 75 mg/dL (70-110)
[2020-07-07 07:39] VITALS: O2SAT 99
[2020-07-07] MEDS: Heparin Injection (Vial) 5,000 UNIT/ML VIAL 5000 UNIT SC ×2 (08:09→22:07)
[2020-07-07] MEDS: amLODIPine 10 MG Tablet PO (08:09)
[2020-07-07] MEDS: Pantoprazole Sodium 20 MG Tablet PO ×2 (08:09→22:06)
[2020-07-07] MEDS: Glucerna Shake 120 ML LIQUID PO ×4 (08:09→22:10)
[2020-07-07] MEDS: Cholecalciferol (VIT D3) 25 MCG TABLET (1,000 UNITS) PO (08:09)
[2020-07-07] MEDS: Senna/Docusate Sodium 1 Tablet 2 TABLET PO (08:09)
[2020-07-07] MEDS: Multivitamins,Therapeutic Tablet 1 TABLET PO (08:09)
[2020-07-07] MEDS: levETIRAcetam 500 MG Tablet PO ×2 (08:09→22:07)
[2020-07-07 08:10] LABS: Hemoglobin A1c 7.4 % (3.8-5.6)
[2020-07-07] MEDS: Polyethylene Glycol 3350 17 GM PACKET PO (08:10)
[2020-07-07] MEDS: Menthol/Lanolin/Calamine/Znox 113 GM Tube 1 APPLIC TOPICAL ×2 (08:16→20:10)
[2020-07-07 08:36] VITALS: BP 139/75; PULSE 79; RESP 16; TEMP 36.6; O2SAT 98
[2020-07-07 11:10] LABS: Bedside Glucose 175 mg/dL (70-110)
[2020-07-07] MEDS: Insulin Lispro 100 UNIT/ML INSULN.PEN SC ×2 (12:40→17:36)
--- NOTE | 2020-07-07 13:28 | PCM.PN.BLA ---
Progress Note Afebrile Blood pressure is controlled and the heart rate is within normal limits He is maintaining appropriate oxygen saturation on room air Oral intake on 07/06/2020 was fair at 1140. He was incontinent of stool today and never called for assistance to the bathroom. He was able to participate with physical therapy today he ambulated 60 feet with minimal assistance at contact-guard. He has little motivation to do for himself. Blood sugar record was reviewed. Despite decreasing the dose of Lantus 32 to 26 units he was hypoglycemic this morning at 630. Blood sugar at at bedtime was 189. All lab was personally reviewed. CBC shows a normal white blood cell count and normal platelets. Hemoglobin is 9.6 which is down from 9.9 on 07/01/2020. He has normochromic normocytic indices with a normal RDW. CMP shows a potassium of 3.9 and a sodium of 136. BUN is elevated at 43 and the creatinine is 3.20 which is increased from 3.00 on 07/01/2020. GFR is 20 which is consistent with stage IV chronic renal failure. Hemoglobin A1c is 7.4. Calcium is low at 7.9 but when corrected for hypoalbuminemia is within normal limits. Magnesium and phosphorus are within normal limits. LFTs are normal. From albumin is very low at 1.8. The PSA is increased at 11.2. Alkaline phosphatase is normal. UA was negative for ketones and negative for leukocyte esterase. It has proteinuria and glucosuria. Still very somnolent....you can arouse him but he goes right back to sleep no pericardial friction rub, heart regular rate and rhythm Lungs-clear to auscultation very diminished secondary to poor inspiratory effort Abdomen-soft, nondistended, no guarding with palpation, bowel sounds present No peripheral edema Impressions 1. Physical debility with hx of multiple falls resulting in SAH/subdural hematoma 2. encephalopathy - I think this is likely multifactorial and due to SAH/SDH, end stage renal disease, likely recurrent prostate CA, depression. 3. hypoglycemia 4. elevated PSA in a pt with a hx of Prostate CA who has not followed up with urology or oncology for several years. 5. HTN - systolic is not adequately controlled Will need to follow up with urology and/or heme/onc for the elevated PSA. Decrease the Lantus dose again Needs to follow up with neurology post DC Prozac and Wellbutrin are currently on hold - I think a lot of his current sx are due to high levels of Prozac which he has been on for years and the dosage was not adjusted for progressive renal failure. I do not like to use Wellbutrin in patients with CVA's or intracerebral bleeding due to the fact that it lowers seizure threshold. Continue to encourage increased fluid intake and recheck the BMP in a few days. Continue to monitor the BP and tx if systolic is consistently >160 Inpatient E&M: 71612 Subs Hosp L2
[2020-07-07 16:26] LABS: Bedside Glucose 198 mg/dL (70-110)
[2020-07-07 18:46] VITALS: BP 161/79; PULSE 72; RESP 16; TEMP 36.4; O2SAT 99
[2020-07-07 19:38] VITALS: PULSE 75; RESP 15; O2SAT 95
[2020-07-07] MEDS: oxyCODONE 5 MG Tablet PO (20:09)
[2020-07-07 21:16] LABS: Bedside Glucose 181 mg/dL (70-110)
[2020-07-07] MEDS: MELATONIN 3 MG TABLET PO (22:06)
[2020-07-07] MEDS: Atorvastatin Calcium 80 MG Tablet PO (22:07)
[2020-07-08] MEDS: Acetaminophen 500 MG Tablet 1000 MG PO ×3 (05:10→22:29)
[2020-07-08 06:55] LABS: Bedside Glucose 146 mg/dL (70-110)
[2020-07-08] MEDS: amLODIPine 10 MG Tablet PO (07:50)
[2020-07-08] MEDS: Multivitamins,Therapeutic Tablet 1 TABLET PO (07:50)
[2020-07-08] MEDS: Heparin Injection (Vial) 5,000 UNIT/ML VIAL 5000 UNIT SC ×2 (07:50→22:28)
[2020-07-08] MEDS: Pantoprazole Sodium 20 MG Tablet PO ×2 (07:50→22:29)
[2020-07-08] MEDS: levETIRAcetam 500 MG Tablet PO ×2 (07:50→22:28)
[2020-07-08] MEDS: Cholecalciferol (VIT D3) 25 MCG TABLET (1,000 UNITS) PO (07:51)
[2020-07-08] MEDS: Glucerna Shake 120 ML LIQUID PO ×4 (07:52→22:28)
[2020-07-08] MEDS: Menthol/Lanolin/Calamine/Znox 113 GM Tube 1 APPLIC TOPICAL ×2 (07:55→22:19)
[2020-07-08 08:15] VITALS: BP 159/72; PULSE 79; RESP 16; TEMP 36.6; O2SAT 99
[2020-07-08 08:25] VITALS: O2SAT 97
[2020-07-08 11:10] LABS: Bedside Glucose 253 mg/dL (70-110)
[2020-07-08] MEDS: Insulin Lispro 100 UNIT/ML INSULN.PEN SC ×2 (12:22→18:03)
[2020-07-08 16:11] LABS: Bedside Glucose 216 mg/dL (70-110)
[2020-07-08 20:40] VITALS: BP 156/82; PULSE 84; RESP 14; TEMP 36.8; O2SAT 99
[2020-07-08] MEDS: MELATONIN 3 MG TABLET PO (22:29)
[2020-07-08] MEDS: Atorvastatin Calcium 80 MG Tablet PO (22:29)
[2020-07-08 22:36] LABS: Bedside Glucose 224 mg/dL (70-110)
--- NOTE | 2020-07-09 04:30 | NURSING ---
REVIEWED AND AGREE WITH SEED PRODUCTION FIELD SUPERVISOR'S FUNCTIONAL ASSESSMENT AND HANDOFF CHARTING.
[2020-07-09] MEDS: Acetaminophen 500 MG Tablet 1000 MG PO ×3 (05:07→21:04)
[2020-07-09 06:45] LABS: Bedside Glucose 132 mg/dL (70-110)
[2020-07-09] MEDS: Polyethylene Glycol 3350 17 GM PACKET PO (08:00)
[2020-07-09] MEDS: Senna/Docusate Sodium 1 Tablet 2 TABLET PO ×2 (08:00→21:04)
[2020-07-09] MEDS: Multivitamins,Therapeutic Tablet 1 TABLET PO (08:02)
[2020-07-09] MEDS: amLODIPine 10 MG Tablet PO (08:02)
[2020-07-09] MEDS: Glucerna Shake 120 ML LIQUID PO ×4 (08:02→21:01)
[2020-07-09] MEDS: Cholecalciferol (VIT D3) 25 MCG TABLET (1,000 UNITS) PO (08:02)
[2020-07-09] MEDS: Pantoprazole Sodium 20 MG Tablet PO ×2 (08:02→21:03)
[2020-07-09] MEDS: Heparin Injection (Vial) 5,000 UNIT/ML VIAL 5000 UNIT SC ×2 (08:02→21:02)
[2020-07-09] MEDS: Menthol/Lanolin/Calamine/Znox 113 GM Tube 1 APPLIC TOPICAL ×2 (08:03→21:01)
[2020-07-09 09:44] VITALS: BP 152/70; PULSE 87; RESP 18; TEMP 37.1; O2SAT 98
[2020-07-09 12:10] LABS: Bedside Glucose 142 mg/dL (70-110)
--- NOTE | 2020-07-09 12:21 | CASEMGMT ---
Social Work IDT met with patient for Team meeting. Attempted to contact but no answer. Discussed patient's progress in therapy and nursing. Pt having difficulty staying awake and keeping eyes open. discussed the potnetial cause of this. Pt has little motivation at this time. Explained Medicare approved 16 days with EDC 07/21. The goal is for pt to return home with ; however, might need alternative DC plan. Pt not interactive during Team meeting. Will ReTeam next week. SW to continue to follow. Nataliia Ruiz, COMPOUNDING SCALER PRINTER [employer]
--- NOTE | 2020-07-09 16:50 | PCM.PN.BLA ---
Progress Note Marcela was seen on team rounds today and there was no family available to participate by phone. Afebrile VSS Maintaining appropriate oxygen saturation on RA Oral intake is very good but, only if staff feeds him. He will not initiate any activity but if you tell him what to do he will. He is ambulating in the halls with a FWW with therapy. He is incontinent of urine Discussed with nursing - no problems that need addressed.....other than lack of initiation Reviewed the PT/OT/ST notes Medication list reviewed. Blood sugar record was reviewed. He complained of a NAIR this AM but it resolved with Tylenol. He denies pain otherwise. Denies N/V/Abd pain. No dysuria. He only wakes up if we continue to arouse him and talk with him drowsy, NAD lungs very diminished due to poor effort but clear. He is not tachypneic and there is no accessory muscle use. HRRR no edema ABD is soft and NT Impressions 1. hypoglycemia 2. physical debility due to recent SAH/SDB 3. end stage renal disease 4. elevated PSA in pt with a hx of Prostate CA 5. anemia of CRF 6. encephalopathy Adjustments were made to the insulin regimen Check a TSH and an AM cortisol Needs to follow up with Nephrology Recheck the BMP in the AM and if the GFR is still in the low 20's will consult nephrology.......part of the apathy certainly could be the CRF. The N/N anemia is likely due to severe renal failure. He had 2 PVR's that were high and then the next 2 were less than 50. Inpatient E&M: 23026 Subs Hosp L2
[2020-07-09 17:31] LABS: Bedside Glucose 163 mg/dL (70-110)
[2020-07-09] MEDS: Insulin Lispro 100 UNIT/ML INSULN.PEN SC (17:35)
[2020-07-09 19:37] VITALS: BP 165/83; PULSE 82; RESP 16; TEMP 36.3; O2SAT 98
[2020-07-09] MEDS: MELATONIN 3 MG TABLET PO (21:03)
[2020-07-09] MEDS: Atorvastatin Calcium 80 MG Tablet PO (21:03)
[2020-07-09 22:45] LABS: Bedside Glucose 142 mg/dL (70-110)
[2020-07-10] MEDS: Ondansetron ODT 4 MG Tablet PO (04:15)
[2020-07-10] MEDS: oxyCODONE 5 MG Tablet PO (04:19)
--- NOTE | 2020-07-10 04:28 | NURSING ---
0400; pt nauseous with dry heaves and headache. medicated with zofran. vss. 164/77. hr 86 reg. medicated with prn oxy 5 mg. pupils perrla. pt alert and orientated x 3. zofran helped with dry heaves. bs 101. will cont to monitor.
[2020-07-10] MEDS: Acetaminophen 500 MG Tablet 1000 MG PO ×3 (05:51→22:28)
[2020-07-10 06:31] LABS: Bedside Glucose 101 mg/dL (70-110)
[2020-07-10 07:11] LABS: Bedside Glucose 88 mg/dL (70-110)
[2020-07-10 07:59] VITALS: BP 166/78; PULSE 82; RESP 16; TEMP 36.8; O2SAT 97
[2020-07-10] MEDS: Heparin Injection (Vial) 5,000 UNIT/ML VIAL 5000 UNIT SC ×2 (08:16→22:27)
[2020-07-10] MEDS: Multivitamins,Therapeutic Tablet 1 TABLET PO (08:17)
[2020-07-10] MEDS: Cholecalciferol (VIT D3) 25 MCG TABLET (1,000 UNITS) PO (08:17)
[2020-07-10] MEDS: Polyethylene Glycol 3350 17 GM PACKET PO (08:18)
[2020-07-10] MEDS: Menthol/Lanolin/Calamine/Znox 113 GM Tube 1 APPLIC TOPICAL ×2 (08:18→22:32)
[2020-07-10] MEDS: Pantoprazole Sodium 20 MG Tablet PO ×2 (08:18→22:27)
[2020-07-10] MEDS: Senna/Docusate Sodium 1 Tablet 2 TABLET PO ×2 (08:18→22:27)
[2020-07-10] MEDS: amLODIPine 10 MG Tablet PO (08:18)
[2020-07-10] MEDS: Insulin Lispro 100 UNIT/ML INSULN.PEN SC ×2 (08:18→16:50)
[2020-07-10 10:14] LABS: Anion Gap 6 (5-15); BUN 62 mg/dL (7-18); BUN/Creat Ratio 18.8 RATIO (10-20); Calcium,Total 8.7 mg/dL (8.5-10.1); Chloride 107 mmol/L (98-107); EST Glomerular Filtration Rate 20 mL/min (>60); Est Glom Filt Rate - Afr Amer 24 mL/min (>60); Glucose 93 mg/dL (74-106); Potassium 4.1 mmol/L (3.5-5.1); Sodium Level 137 mmol/L (136-145); Thyroid Stim Hormone (TSH) 1.31 uIU/mL (0.358-3.74)
[2020-07-10] MEDS: Glucerna Shake 120 ML LIQUID PO ×4 (10:28→22:26)
[2020-07-10 12:05] LABS: Bedside Glucose 102 mg/dL (70-110)
[2020-07-10 17:20] LABS: Bedside Glucose 182 mg/dL (70-110)
[2020-07-10 19:28] VITALS: BP 143/88; PULSE 60; RESP 16; TEMP 37.2; O2SAT 97
[2020-07-10 21:51] LABS: Bedside Glucose 110 mg/dL (70-110)
[2020-07-10 22:00] VITALS: PULSE 60; RESP 17; O2SAT 97
[2020-07-10] MEDS: MELATONIN 3 MG TABLET PO (22:27)
[2020-07-10] MEDS: Atorvastatin Calcium 80 MG Tablet PO (22:27)
[2020-07-11] MEDS: Acetaminophen 500 MG Tablet 1000 MG PO ×3 (05:42→21:17)
[2020-07-11 07:10] LABS: Bedside Glucose 87 mg/dL (70-110)
[2020-07-11] MEDS: Cholecalciferol (VIT D3) 25 MCG TABLET (1,000 UNITS) PO (08:47)
[2020-07-11] MEDS: Pantoprazole Sodium 20 MG Tablet PO ×2 (08:47→21:22)
[2020-07-11] MEDS: Glucerna Shake 120 ML LIQUID PO ×4 (08:47→21:31)
[2020-07-11] MEDS: Senna/Docusate Sodium 1 Tablet 2 TABLET PO (08:47)
[2020-07-11] MEDS: Heparin Injection (Vial) 5,000 UNIT/ML VIAL 5000 UNIT SC ×2 (08:48→21:19)
[2020-07-11] MEDS: Multivitamins,Therapeutic Tablet 1 TABLET PO (08:48)
[2020-07-11] MEDS: amLODIPine 10 MG Tablet PO (08:48)
[2020-07-11] MEDS: Polyethylene Glycol 3350 17 GM PACKET PO (08:49)
[2020-07-11] MEDS: Insulin Lispro 100 UNIT/ML INSULN.PEN SC (08:49)
[2020-07-11] MEDS: Menthol/Lanolin/Calamine/Znox 113 GM Tube 1 APPLIC TOPICAL ×2 (08:52→21:19)
[2020-07-11 09:00] VITALS: BP 150/72; PULSE 85; RESP 16; TEMP 36.7; O2SAT 99
[2020-07-11 11:41] LABS: Bedside Glucose 110 mg/dL (70-110)
[2020-07-11 17:26] LABS: Bedside Glucose 126 mg/dL (70-110)
[2020-07-11 19:00] VITALS: BP 158/71; PULSE 77; RESP 14; TEMP 36.8; O2SAT 99
[2020-07-11] MEDS: Atorvastatin Calcium 80 MG Tablet PO (21:22)
[2020-07-11] MEDS: MELATONIN 3 MG TABLET PO (21:22)
[2020-07-11 21:45] LABS: Bedside Glucose 170 mg/dL (70-110)
--- NOTE | 2020-07-12 04:34 | NURSING ---
REVIEWED AND AGREE WITH ART GILDER'S FUNCTIONAL ASSESSMENT AND HANDOFF CHARTING.
[2020-07-12] MEDS: Acetaminophen 500 MG Tablet 1000 MG PO ×3 (05:10→22:07)
[2020-07-12 07:20] LABS: Bedside Glucose 56 mg/dL (70-110)
[2020-07-12 07:40] LABS: Bedside Glucose 67 mg/dL (70-110)
[2020-07-12 08:00] VITALS: BP 164/77; PULSE 83; RESP 16; TEMP 36.9; O2SAT 96
[2020-07-12] MEDS: Cholecalciferol (VIT D3) 25 MCG TABLET (1,000 UNITS) PO (08:03)
[2020-07-12] MEDS: Senna/Docusate Sodium 1 Tablet 2 TABLET PO (08:03)
[2020-07-12] MEDS: Pantoprazole Sodium 20 MG Tablet PO ×2 (08:03→22:07)
[2020-07-12] MEDS: amLODIPine 10 MG Tablet PO (08:03)
[2020-07-12] MEDS: Multivitamins,Therapeutic Tablet 1 TABLET PO (08:03)
[2020-07-12] MEDS: Menthol/Lanolin/Calamine/Znox 113 GM Tube 1 APPLIC TOPICAL ×2 (08:08→20:30)
[2020-07-12] MEDS: Insulin Lispro 100 UNIT/ML INSULN.PEN SC ×2 (08:08→17:20)
[2020-07-12 09:11] LABS: Bedside Glucose 121 mg/dL (70-110)
[2020-07-12 09:11] LABS: Bedside Glucose 113 mg/dL (70-110)
[2020-07-12] MEDS: Heparin Injection (Vial) 5,000 UNIT/ML VIAL 5000 UNIT SC ×2 (09:30→22:04)
[2020-07-12 12:11] LABS: Bedside Glucose 116 mg/dL (70-110)
[2020-07-12] MEDS: Glucerna Shake 120 ML LIQUID PO ×3 (14:37→22:04)
[2020-07-12 17:15] LABS: Bedside Glucose 163 mg/dL (70-110)
[2020-07-12 19:12] VITALS: BP 152/75; PULSE 77; RESP 17; TEMP 36.6; O2SAT 96
[2020-07-12] MEDS: oxyCODONE 5 MG Tablet PO (20:30)
[2020-07-12] MEDS: Atorvastatin Calcium 80 MG Tablet PO (22:06)
[2020-07-12] MEDS: MELATONIN 3 MG TABLET PO (22:06)
[2020-07-12 22:40] LABS: Bedside Glucose 205 mg/dL (70-110)
[2020-07-13] MEDS: Acetaminophen 500 MG Tablet 1000 MG PO ×3 (05:47→22:07)
[2020-07-13 06:30] LABS: Bedside Glucose 125 mg/dL (70-110)
[2020-07-13] MEDS: Multivitamins,Therapeutic Tablet 1 TABLET PO (07:59)
[2020-07-13] MEDS: Glucerna Shake 120 ML LIQUID PO ×4 (08:00→22:14)
[2020-07-13] MEDS: amLODIPine 10 MG Tablet PO (08:00)
[2020-07-13] MEDS: Polyethylene Glycol 3350 17 GM PACKET PO (08:00)
[2020-07-13] MEDS: Cholecalciferol (VIT D3) 25 MCG TABLET (1,000 UNITS) PO (08:01)
[2020-07-13] MEDS: Senna/Docusate Sodium 1 Tablet 2 TABLET PO (08:01)
[2020-07-13] MEDS: Pantoprazole Sodium 20 MG Tablet PO ×2 (08:01→22:08)
[2020-07-13] MEDS: Menthol/Lanolin/Calamine/Znox 113 GM Tube 1 APPLIC TOPICAL ×2 (08:02→22:14)
[2020-07-13] MEDS: Insulin Lispro 100 UNIT/ML INSULN.PEN SC ×3 (08:02→17:10)
[2020-07-13] MEDS: Heparin Injection (Vial) 5,000 UNIT/ML VIAL 5000 UNIT SC ×2 (08:06→22:10)
[2020-07-13 08:37] VITALS: BP 138/64; PULSE 78; RESP 16; TEMP 36.9; O2SAT 98
--- NOTE | 2020-07-13 09:55 | CASEMGMT ---
Social Work Attempted to contact but phone keeps ringing. No option for voicemail. Will continue to attempt. Nataliia Ruiz MSW CORE MANAGER
[2020-07-13 11:31] LABS: Bedside Glucose 194 mg/dL (70-110)
--- NOTE | 2020-07-13 13:02 | PCM.PN.BLA ---
Progress Note Afebrile VSS - BP is still mildly above goal Maintaining appropriate oxygen saturation on RA Oral intake is good if he is fed by staff. Occasionally he will feed himself. Discussed with nursing - no problems that need addressed Reviewed the PT/OT/ST notes Medication list reviewed. very sleepy and hard to keep him awake to talk with me. Not tachypneic Lying on his left side in a position, no accessory muscle use no uremic purvis HRRR, no rub abd - soft and NT no edema Impressions 1. hypoglycemia 2. physical debility due to recent SAH/SDH 3. end stage renal disease - with a creat clearance of 16 and a GFR of 20 4. elevated PSA in pt with a hx of Prostate CA 5. anemia of CRF 6. encephalopathy - multifactorial due to medication, ESRD, SDH/SAH. Depression? Start Provigil 100 mg p.o. every morning x1 week and if he is still not participating well in therapy will increase to 200 mg daily Will need to follow up with urology for elevated PSA and nephrology for end stage renal disease post DC. He will need a fistula or a tunnelled catheter. continue therapy. Continue to hold the Prozac and the Wellbutrin. Inpatient E&M: [id number] Subs Hosp L2
[2020-07-13 17:26] LABS: Bedside Glucose 186 mg/dL (70-110)
[2020-07-13 19:35] VITALS: BP 130/79; PULSE 84; RESP 16; TEMP 36.7; O2SAT 99
[2020-07-13] MEDS: Atorvastatin Calcium 80 MG Tablet PO (22:08)
[2020-07-13] MEDS: MELATONIN 3 MG TABLET PO (22:08)
[2020-07-13 22:10] LABS: Bedside Glucose 198 mg/dL (70-110)
--- NOTE | 2020-07-14 04:46 | NURSING ---
Reviewed and agree with MEDICAL TECHNOLOGIST HEMATOLOGY documentation and charting.
[2020-07-14] MEDS: Modafinil 200 MG Tablet 100 MG PO (05:30)
[2020-07-14] MEDS: Acetaminophen 500 MG Tablet 1000 MG PO ×3 (05:30→21:48)
[2020-07-14 06:35] LABS: Bedside Glucose 120 mg/dL (70-110)
[2020-07-14 08:14] VITALS: BP 146/75; PULSE 74; RESP 16; TEMP 36.8; O2SAT 98
[2020-07-14] MEDS: Insulin Lispro 100 UNIT/ML INSULN.PEN SC ×3 (08:17→16:59)
[2020-07-14] MEDS: Multivitamins,Therapeutic Tablet 1 TABLET PO (08:18)
[2020-07-14] MEDS: Glucerna Shake 120 ML LIQUID PO (08:56)
[2020-07-14] MEDS: Heparin Injection (Vial) 5,000 UNIT/ML VIAL 5000 UNIT SC ×2 (08:57→21:47)
[2020-07-14] MEDS: Cholecalciferol (VIT D3) 25 MCG TABLET (1,000 UNITS) PO (08:57)
[2020-07-14] MEDS: amLODIPine 10 MG Tablet PO (08:58)
[2020-07-14] MEDS: Pantoprazole Sodium 20 MG Tablet PO ×2 (08:58→21:48)
[2020-07-14] MEDS: Menthol/Lanolin/Calamine/Znox 113 GM Tube 1 APPLIC TOPICAL ×2 (09:55→21:49)
[2020-07-14 11:35] LABS: Bedside Glucose 240 mg/dL (70-110)
[2020-07-14 16:41] LABS: Bedside Glucose 160 mg/dL (70-110)
[2020-07-14 21:30] VITALS: BP 162/78; PULSE 77; RESP 16; TEMP 36.9; O2SAT 99
[2020-07-14 21:41] LABS: Bedside Glucose 154 mg/dL (70-110)
[2020-07-14] MEDS: MELATONIN 3 MG TABLET PO (21:48)
[2020-07-14] MEDS: Atorvastatin Calcium 80 MG Tablet PO (21:48)
--- NOTE | 2020-07-15 01:24 | NURSING ---
Reviewed and agree with TUBE LASER OPERATOR documentation and charting.
[2020-07-15] MEDS: Acetaminophen 500 MG Tablet 1000 MG PO ×3 (06:41→20:52)
[2020-07-15] MEDS: Modafinil 200 MG Tablet 100 MG PO (06:42)
[2020-07-15 07:00] LABS: Bedside Glucose 70 mg/dL (70-110)
[2020-07-15 07:16] LABS: Bedside Glucose 98 mg/dL (70-110)
[2020-07-15 08:20] VITALS: BP 147/75; PULSE 87; RESP 16; TEMP 37; O2SAT 98
[2020-07-15] MEDS: Insulin Lispro 100 UNIT/ML INSULN.PEN SC ×3 (08:35→17:11)
[2020-07-15] MEDS: Cholecalciferol (VIT D3) 25 MCG TABLET (1,000 UNITS) PO (09:05)
[2020-07-15] MEDS: amLODIPine 10 MG Tablet PO (09:05)
[2020-07-15] MEDS: Pantoprazole Sodium 20 MG Tablet PO ×2 (09:05→20:52)
[2020-07-15] MEDS: Multivitamins,Therapeutic Tablet 1 TABLET PO (09:05)
[2020-07-15] MEDS: Heparin Injection (Vial) 5,000 UNIT/ML VIAL 5000 UNIT SC ×2 (09:06→20:49)
[2020-07-15] MEDS: Menthol/Lanolin/Calamine/Znox 113 GM Tube 1 APPLIC TOPICAL ×2 (09:07→20:50)
--- NOTE | 2020-07-15 10:11 | PCM.PN.BLA ---
Progress Note Afebrile VSS - BP is still a little above goal Maintaining appropriate oxygen saturation on RA Oral intake is adequate Discussed with nursing - no problems that need addressed Reviewed the PT/OT/ST notes. He has been much more alert and able to do his therapy for the past 2 days.......started on Provigil yesterday AM. Medication list reviewed. Blood sugar record was reviewed. He is requiring minimal insulin daily. He gets 3 units of scheduled regular insulin with breakfast and for the past 2 days the noon sugar has been elevated. Despite decreasing the dose of Lantus at HS a few times the FBS today was 70. alert and appropriate Lungs - better air exchange and better effort today HRRR, no rub abd - soft and NT, no guarding with palpation no ankle edema doing better with therapy and I observed him ambulating in the [place] today with a WW and he was CGA no rashes and no skin breakdown 1. debility due to recent fall resulting in a SDH/SAH 2. DM II 3. HTN 4. encephalopathy 5. hx of depression 6. ESRD with GFR of 20 7. Hypoglycemia If the BS is high at noon today will increase the AM Humalog with breakfast Decrease the Lantus if the FBS is <85 in the AM Continue the Provigil BMP and a phos in the AM Will need to follow up with nephrology as OP and get access and start dialysis STROKE Vital Signs/Narrative: Vital Signs Temp Pulse Resp BP Pulse Ox 07/15/20 08:20 98.6 F 87 16 147/75 H 98 Inpatient E&M: 77192 Subs Hosp L2
[2020-07-15 11:16] LABS: Bedside Glucose 217 mg/dL (70-110)
--- NOTE | 2020-07-15 12:24 | NURSING ---
Attempted to contact via telephone regarding team meeting tomorrow with no answer. No option to leave message.
[2020-07-15 16:41] LABS: Bedside Glucose 298 mg/dL (70-110)
[2020-07-15 19:25] VITALS: BP 166/77; PULSE 83; RESP 18; TEMP 36.7; O2SAT 92
[2020-07-15 20:40] VITALS: PULSE 83; RESP 18; O2SAT 92
[2020-07-15 20:50] VITALS: BP 166/77; PULSE 83
[2020-07-15] MEDS: hydrALAZINE 25 MG Tablet PO (20:50)
[2020-07-15] MEDS: Atorvastatin Calcium 80 MG Tablet PO (20:51)
[2020-07-15] MEDS: MELATONIN 3 MG TABLET PO (20:52)
[2020-07-15 21:30] LABS: Bedside Glucose 253 mg/dL (70-110)
--- NOTE | 2020-07-16 01:36 | NURSING ---
Reviewed and agrfee with RECONSTRUCTIVE SURGEON documentation and charting.
[2020-07-16] MEDS: Acetaminophen 500 MG Tablet 1000 MG PO ×3 (05:03→21:09)
[2020-07-16] MEDS: Modafinil 200 MG Tablet 100 MG PO (05:03)
[2020-07-16 06:28] LABS: Anion Gap 5 (5-15); BUN 57 mg/dL (7-18); BUN/Creat Ratio 19.3 RATIO (10-20); Calcium,Total 8.3 mg/dL (8.5-10.1); Chloride 107 mmol/L (98-107); Creatinine, Serum 2.95 mg/dL (0.70-1.30); EST Glomerular Filtration Rate 22 mL/min (>60); Est Glom Filt Rate - Afr Amer 27 mL/min (>60); Glucose 87 mg/dL (74-106); Phosphorus 3.8 mg/dL (2.5-4.9); Potassium 4.5 mmol/L (3.5-5.1); Sodium Level 137 mmol/L (136-145)
[2020-07-16 07:00] LABS: Bedside Glucose 76 mg/dL (70-110)
[2020-07-16] MEDS: Insulin Lispro 100 UNIT/ML INSULN.PEN SC ×3 (08:01→16:03)
[2020-07-16 08:14] VITALS: BP 146/70; PULSE 84; RESP 16; TEMP 35.7; O2SAT 98
[2020-07-16] MEDS: Heparin Injection (Vial) 5,000 UNIT/ML VIAL 5000 UNIT SC ×2 (08:16→21:10)
[2020-07-16 08:17] VITALS: PULSE 84
[2020-07-16] MEDS: Multivitamins,Therapeutic Tablet 1 TABLET PO (08:17)
[2020-07-16] MEDS: hydrALAZINE 25 MG Tablet PO ×2 (08:17→21:10)
[2020-07-16] MEDS: Cholecalciferol (VIT D3) 25 MCG TABLET (1,000 UNITS) PO (08:18)
[2020-07-16] MEDS: Pantoprazole Sodium 20 MG Tablet PO ×2 (08:18→21:09)
[2020-07-16] MEDS: amLODIPine 10 MG Tablet PO (08:18)
[2020-07-16] MEDS: Menthol/Lanolin/Calamine/Znox 113 GM Tube 1 APPLIC TOPICAL ×2 (08:29→21:10)
[2020-07-16 11:50] LABS: Bedside Glucose 124 mg/dL (70-110)
--- NOTE | 2020-07-16 13:19 | PN_ITS ---
Progress Note Marcela was seen on team rounds today. No one from his family was available by phone or in person to participate. Afebrile VSS blood pressure this morning is 146/70. Hydralazine 25 mg twice daily was added to his drug regimen yesterday. Heart rate is in the 80s. Maintaining appropriate oxygen saturation on RA Oral intake is variable. He is now feeding himself and eating well. He is incontinent of urine. Post void residuals earlier in the admission were not significant. Discussed with nursing - no problems that need addressed Reviewed the PT/OT/ST notes Medication list reviewed. Blood sugar record was reviewed. The lunchtime sugar yesterday was 217 and the suppertime was 298. At bedtime blood sugar was 253 and he was once again low today at 76. The lunchtime sugar is 124. Marcela complains of being tired but, he has no other complaints and the remainder of the ROS is negative. He has been much more lert, smiling and able to do all his therapy since the Provigil was started. He was sleeping when we entered the room but, after we awoke him he sat up and talked with the TEAM and remained alert. alert, aroused easily with calling his name, NAD Lungs - CTA - better effort than at admission H-RRR no rub abd - soft, NT, ND no peripheral edema Impressions 1. Sickle debility secondary to recent fall resulting in a subarachnoid hemorrhage/subdural hematoma 2. Frequent falls 3. Encephalopathy secondary to medication plus end-stage renal disease 4. Diabetes mellitus type 2 5. Hypertension 6. History of depression 7. Hypoglycemia I talked with Marcela's Sheryl on the phone and we discussed follow up with a broadcast traffic coordinator. she would like us to make an appt with Dr. Emmanuelle Sahu. He is non-oliguric and may be able to wait a little longer....maybe long enough to get an AVF? Encephalopathy and fatigue have improved with Provigil and discontinuation of Prozac and Wellbutrin. Decrease the Lantus to 10 units QHS and schedule 3 units of insulin with each meal. continue the SSI. Inpatient E&M: [id number] Subs Hosp L2
--- NOTE | 2020-07-16 14:35 | CASEMGMT ---
Social Work IDT met with patient for Team meeting. not present or reachable by phone. Discussed patient's progress in therapy and nursing. Pt has improved, being more alert and keeping eyes open. discussed medical conditions and recommendations at [place]. Explained pt's DC is 07/21, per Medicare. Pt agreeable to DC home with . Explained to tell to purchase shower chair. SW did speak with during her evening visit 07/14 and she is agreeable to take pt home at [place]. Provided [facility] list of providers including quality and resource use data and consistent with the patient?s preferred geographic region, medical needs, and insurance network. agreeable to [facility]. Referral made for PT/OT/ST/SN. Plan: DC home with 07/21, [facility] PT/OT/ST/SN RAQUEL Landry
[2020-07-16 17:06] LABS: Bedside Glucose 209 mg/dL (70-110)
[2020-07-16] MEDS: MELATONIN 3 MG TABLET PO (21:09)
[2020-07-16 21:10] VITALS: BP 146/81; PULSE 94
[2020-07-16 21:10] LABS: Bedside Glucose 223 mg/dL (70-110)
[2020-07-16] MEDS: Atorvastatin Calcium 80 MG Tablet PO (21:10)
[2020-07-16 22:00] VITALS: BP 159/76; PULSE 86; RESP 18; TEMP 36.6; O2SAT 99
[2020-07-17] MEDS: Modafinil 200 MG Tablet 100 MG PO (05:42)
[2020-07-17] MEDS: Acetaminophen 500 MG Tablet 1000 MG PO ×3 (05:42→22:08)
[2020-07-17 06:46] LABS: Bedside Glucose 115 mg/dL (70-110)
[2020-07-17 07:49] VITALS: BP 162/85; PULSE 87
[2020-07-17] MEDS: Cholecalciferol (VIT D3) 25 MCG TABLET (1,000 UNITS) PO (07:49)
[2020-07-17] MEDS: Pantoprazole Sodium 20 MG Tablet PO ×2 (07:49→22:09)
[2020-07-17] MEDS: amLODIPine 10 MG Tablet PO (07:49)
[2020-07-17] MEDS: Multivitamins,Therapeutic Tablet 1 TABLET PO (07:49)
[2020-07-17] MEDS: hydrALAZINE 25 MG Tablet PO ×3 (07:49→22:09)
[2020-07-17] MEDS: Heparin Injection (Vial) 5,000 UNIT/ML VIAL 5000 UNIT SC ×2 (07:50→22:09)
[2020-07-17] MEDS: Insulin Lispro 100 UNIT/ML INSULN.PEN SC ×5 (07:50→16:35)
[2020-07-17] MEDS: Menthol/Lanolin/Calamine/Znox 113 GM Tube 1 APPLIC TOPICAL ×2 (07:56→22:10)
[2020-07-17 08:05] VITALS: BP 162/85; PULSE 87; RESP 16; TEMP 36.1; O2SAT 98
--- NOTE | 2020-07-17 09:33 | PCM.PN.BLA ---
Progress Note Afebrile Blood pressure this a.m. was 162/85. Maintaining appropriate oxygen saturation on room air Good oral intake and he is feeding himself now Blood sugar record was reviewed and the blood sugar this morning is 115. Blood sugar at at bedtime was 223. He is now on scheduled insulin at mealtimes with a sliding scale. All lab was personally reviewed. With better oral intake his creatinine today is down to 2.95 from 3.3 on 07/10/2020. Potassium is normal at 4.5 and sodium is 137. Serum bicarb is normal at 25. Calcium corrected for hypoalbuminemia is within normal limits. He is alert, feeding himself now, he is participating in therapy and doing well. He ambulated outside today on various surfaces without LOB. Posture is improved and he is able to maintain an upright posture now. He walked 80 ft yesterday without an AD. 150 ft with a SPC. He is standby assist for bathing and minimal assistance for lower body dressing but he is contact-guard assist for all other ADLs. He is appropriate and alert and answering my questions appropriately. He is making good eye contact today. Lungs are CTA H- regular with no rub abd - soft, ND and no guarding with palpation no edema no rashes and no skin breakdown no calf tenderness Impressions 1. physical debility secondary to recent fall resulting in a subarachnoid hemorrhage/subdural hematoma 2. Frequent falls - I suspect this is related to encephalopathy which is much better with discontinuing some of the medications 3. Encephalopathy secondary to medication plus end-stage renal disease 4. Diabetes mellitus type 2 - may have to DC the Lantus and just continue to give mealtime insulin........continue to monitor the BS's AID 5. Hypertension - systolic is 6. History of depression 7. Hypoglycemia 8. Stage 4 CRF - making urine and may be able to get a AVF prior to needing HD continue therapy Follow up with nephrology and urology at [place]....waiting to hear back from Dr. Tompkins's office about appt will follow up with Dr. Sahu for nephrology Increase the Hydralazine to TID [place] home on Monday Will continue the Provigil at [place] STROKE Vital Signs/Narrative: Vital Signs Temp Pulse Resp BP Pulse Ox 07/17/20 08:05 97 F L 87 16 162/85 H 98 07/17/20 07:49 87 162/85 H Inpatient E&M: [id number] Subs Hosp L2
[2020-07-17 11:30] LABS: Bedside Glucose 169 mg/dL (70-110)
[2020-07-17 13:49] VITALS: BP 158/74; PULSE 72
[2020-07-17 17:45] LABS: Bedside Glucose 193 mg/dL (70-110)
[2020-07-17 19:39] VITALS: BP 143/79; PULSE 83; RESP 16; TEMP 37; O2SAT 99
[2020-07-17 22:04] VITALS: BP 148/78; PULSE 86
[2020-07-17] MEDS: Senna/Docusate Sodium 1 Tablet 2 TABLET PO (22:08)
[2020-07-17 22:09] VITALS: BP 148/78; PULSE 86
[2020-07-17] MEDS: Atorvastatin Calcium 80 MG Tablet PO (22:09)
[2020-07-17] MEDS: MELATONIN 3 MG TABLET PO (22:09)
[2020-07-17 22:51] LABS: Bedside Glucose 168 mg/dL (70-110)
[2020-07-18] MEDS: Acetaminophen 500 MG Tablet 1000 MG PO ×3 (06:25→21:58)
[2020-07-18] MEDS: Modafinil 200 MG Tablet 100 MG PO (06:26)
[2020-07-18 06:27] VITALS: BP 160/75; PULSE 84
[2020-07-18] MEDS: hydrALAZINE 25 MG Tablet PO ×3 (06:27→21:59)
[2020-07-18 06:55] LABS: Bedside Glucose 111 mg/dL (70-110)
[2020-07-18 08:18] VITALS: BP 160/75; PULSE 84; RESP 16; TEMP 36.8; O2SAT 98
[2020-07-18] MEDS: Insulin Lispro 100 UNIT/ML INSULN.PEN SC ×5 (08:36→16:53)
[2020-07-18] MEDS: Cholecalciferol (VIT D3) 25 MCG TABLET (1,000 UNITS) PO (08:37)
[2020-07-18] MEDS: Multivitamins,Therapeutic Tablet 1 TABLET PO (08:37)
[2020-07-18] MEDS: amLODIPine 10 MG Tablet PO (08:37)
[2020-07-18] MEDS: Pantoprazole Sodium 20 MG Tablet PO ×2 (08:38→21:59)
[2020-07-18] MEDS: Menthol/Lanolin/Calamine/Znox 113 GM Tube 1 APPLIC TOPICAL ×2 (08:42→22:15)
[2020-07-18] MEDS: Heparin Injection (Vial) 5,000 UNIT/ML VIAL 5000 UNIT SC ×2 (08:43→21:59)
[2020-07-18 11:15] LABS: Bedside Glucose 225 mg/dL (70-110)
[2020-07-18 14:57] VITALS: PULSE 70
[2020-07-18 16:40] LABS: Bedside Glucose 209 mg/dL (70-110)
[2020-07-18 18:54] VITALS: BP 154/70; PULSE 78; RESP 16; TEMP 36.6; O2SAT 99
[2020-07-18 21:11] LABS: Bedside Glucose 273 mg/dL (70-110)
[2020-07-18 21:59] VITALS: PULSE 79
[2020-07-18] MEDS: Atorvastatin Calcium 80 MG Tablet PO (21:59)
[2020-07-18] MEDS: MELATONIN 3 MG TABLET PO (21:59)
[2020-07-18 22:00] VITALS: PULSE 78; RESP 15; O2SAT 96
[2020-07-19 05:36] VITALS: PULSE 69
[2020-07-19] MEDS: hydrALAZINE 25 MG Tablet PO ×3 (05:36→21:57)
[2020-07-19] MEDS: Modafinil 200 MG Tablet 100 MG PO (05:36)
[2020-07-19] MEDS: Acetaminophen 500 MG Tablet 1000 MG PO ×3 (05:37→21:58)
[2020-07-19 06:41] LABS: Bedside Glucose 168 mg/dL (70-110)
[2020-07-19] MEDS: Insulin Lispro 100 UNIT/ML INSULN.PEN SC ×6 (08:09→17:07)
[2020-07-19] MEDS: Pantoprazole Sodium 20 MG Tablet PO ×2 (08:11→21:57)
[2020-07-19] MEDS: Multivitamins,Therapeutic Tablet 1 TABLET PO (08:11)
[2020-07-19] MEDS: Cholecalciferol (VIT D3) 25 MCG TABLET (1,000 UNITS) PO (08:11)
[2020-07-19] MEDS: amLODIPine 10 MG Tablet PO (08:11)
[2020-07-19] MEDS: Menthol/Lanolin/Calamine/Znox 113 GM Tube 1 APPLIC TOPICAL ×2 (08:15→22:18)
[2020-07-19 08:21] VITALS: BP 145/83; PULSE 84; RESP 16; TEMP 36.5; O2SAT 98
[2020-07-19] MEDS: Heparin Injection (Vial) 5,000 UNIT/ML VIAL 5000 UNIT SC ×2 (11:09→21:57)
[2020-07-19 11:26] LABS: Bedside Glucose 203 mg/dL (70-110)
[2020-07-19 13:51] VITALS: PULSE 70
[2020-07-19 16:25] LABS: Bedside Glucose 276 mg/dL (70-110)
[2020-07-19 19:10] VITALS: BP 157/67; PULSE 77; RESP 18; TEMP 36.4; O2SAT 98
[2020-07-19 21:06] LABS: Bedside Glucose 228 mg/dL (70-110)
[2020-07-19] MEDS: Atorvastatin Calcium 80 MG Tablet PO (21:56)
[2020-07-19 21:57] VITALS: PULSE 78
[2020-07-19] MEDS: MELATONIN 3 MG TABLET PO (21:57)
[2020-07-19] MEDS: Senna/Docusate Sodium 1 Tablet 2 TABLET PO (21:57)
[2020-07-19 22:00] VITALS: PULSE 77; RESP 16; O2SAT 98; BMI 19.8
[2020-07-20 06:34] VITALS: BP 166/79; PULSE 79
[2020-07-20] MEDS: hydrALAZINE 25 MG Tablet PO ×3 (06:34→21:17)
[2020-07-20] MEDS: Acetaminophen 500 MG Tablet 1000 MG PO ×3 (06:39→21:19)
[2020-07-20] MEDS: Modafinil 200 MG Tablet 100 MG PO (06:42)
[2020-07-20 06:50] LABS: Bedside Glucose 136 mg/dL (70-110)
[2020-07-20] MEDS: Cholecalciferol (VIT D3) 25 MCG TABLET (1,000 UNITS) PO (07:35)
[2020-07-20] MEDS: Heparin Injection (Vial) 5,000 UNIT/ML VIAL 5000 UNIT SC ×2 (07:36→21:17)
[2020-07-20] MEDS: Multivitamins,Therapeutic Tablet 1 TABLET PO (07:36)
[2020-07-20] MEDS: Insulin Lispro 100 UNIT/ML INSULN.PEN SC ×5 (07:36→16:24)
[2020-07-20] MEDS: amLODIPine 10 MG Tablet PO (07:36)
[2020-07-20] MEDS: Pantoprazole Sodium 20 MG Tablet PO ×2 (07:36→21:16)
[2020-07-20 08:20] VITALS: BP 166/79; PULSE 79; RESP 16; TEMP 36.6; O2SAT 96
[2020-07-20 09:39] VITALS: BMI 19.8
[2020-07-20] MEDS: Menthol/Lanolin/Calamine/Znox 113 GM Tube 1 APPLIC TOPICAL ×2 (11:39→21:19)
[2020-07-20 12:05] LABS: Bedside Glucose 188 mg/dL (70-110)
--- NOTE | 2020-07-20 12:40 | PCM.PN.BLA ---
Progress Note Systolic blood pressure remains elevated. Diastolic is within goal. Blood sugar record was reviewed He is sleeping well and 1 of the nurses said he was actually chatty. Reviewed the PT/OT notes Increase the Humalog with meals. Decrease the Lantus at night to 8 units Plan DC home tomorrow Follow up with Dr. Rodney in 7-10 days post DC.....he will need to follow up with Dr. Sahu and with Dr. Tompkins post DC as well.
[2020-07-20 13:05] VITALS: PULSE 82
--- NOTE | 2020-07-20 14:58 | PCM.DC ---
- Discharge Diagnoses Current Active Problems: Current Active and Chronic Problems Subarachnoid hemorrhage (Acute) Subdural hematoma (Acute) Fall (Acute) sometime from mid May on resulting in a SDH and SAH - did not present to the ED unitl 07/01/20 GERD (gastroesophageal reflux disease) (Chronic) Vitamin D deficiency (Chronic) Falls frequently (Chronic) 1-2 times a week at least. He loses his balance. Multiple lacunar infarcts (Chronic) Bilateral thalami Encephalomalacia (Chronic) Left occipital Cerebral microvascular disease (Chronic) Advanced chronic microvascular ischemic change throughout the supratentorial white matter. Closed TBI (traumatic brain injury) (Acute) Chronic renal failure, stage 4 (severe) (Chronic) Normochromic normocytic anemia (Chronic) CVA (cerebral vascular accident) (Chronic) Depression (Chronic) Diabetes mellitus, type II (Chronic) Ataxia (Chronic) etiology? Due to prior Left occipital stroke? or 2 multiple BL lacunat infarcts in the BL thalami? or both? HLD (hyperlipidemia) (Chronic) Hx of malignant neoplasm of prostate (Chronic) HTN (hypertension) (Chronic) You will use the following diet at home:: Calorie/Carbohydrate Controlled (specify 1200, 1400, etc), Cardiac - low fat, low salt and controlled carbohydrate intake Discharge Activity: May Not Drive, May Not Shower, Use Walker Weight Bearing Status: Full weight bearing Call your doctor if you observe: Fever of 101 or Higher, Inability to urinate, Shortness of breath, Dizziness, Fainting spells, Swelling in the ankles, Chest pain, Increased palpitations (irregular heartbeat), Uncontrolled pain Additional Instructions: 1. I think some of the problems you were having are due to the medications you were taking and to worsening kidney disease. As the kidneys get worse some of the medications are not excreted in the urine like they were when the kidneys were healthy and they accumulate in the blood and can cause you to be sleepy, confused, unmotivated to do anything. They can also cause decreased appetite, loss of balance, frequent falls. When you came to the rehab unit you were sleeping most of the day and the night. You would not eat and you required maximal assistance just to roll over in bed or get up to a sitting position. We stopped the Prozac and the Wellbutrin and you gradually became more alert, started eating and feeding yourself. You could do more in therapy. 2. Kidney failure can cause you to feel sleepy and tired all the time. You never really feel good. There are 5 stages of kidney failure and you are on the cusp of being stage 5. When you are in stage 5 you need dialysis. You still make a lot of urine and your kidney function has actually improved a little since you have been in rehab. We MUST do everything we can to preserve the kidney function you still have so you can put off having to go on dialysis as long as possible. To do this you have to keep the BP normal (<135/85), the blood sugars tightly controlled and you have to maintain good water intake. When you get dehydrated the kidney function gets worse. Try and drink at least 1500 cc's(50 ounces) daily. You also need to see a kidney doctor, called a car shunter. We got you an appt with Dr. Emmanuelle Sahu and her office is on the third floor at the medical office building at the hospital. 3. You have a history of prostate cancer and you have not seen a cancer doctor or a urologist in quite a few years. The PSA (prostate specific antigen) is elevated at 11.2 (normal is up to 4). This may mean you have some recurrence of the cancer. We made you an appt to see Dr. Tompkins who is a urologist and he will be wanting to do some more testing to find out if you will need any additional treatment for prostate cancer. 4. Your diabetes was pretty well controlled when you came into the hospital but, now that you are eating much better the blood sugars have gone up and we have had to make some changes in your insulin regimen. The Lantus you take at night has been decreased to 8 units at bedtime. You will also be taking insulin at meals (take it right before or right after eating. As your kidneys fail the need for insulin/medications for diabetes goes down. 5. While you were in rehab I started you on a medication to keep you awake and help you function better. That medication is called Provigil (also called Modafinil). You will take this medication once a day in the morning when you get up. 6. Use the walker ANYTIME you are walking. It improves balance and will help keep you from falling. this last fall was a bad once and it caused bleeding inside your head which could have killed you......fortunately it did not so remember to use the walker. 7. It has been a pleasure meeting you Marcela and helping you recover from the fall and the bleeding in your head. If you or Sheryl have any questions after leaving the hospital please do not hesitate to call me at [phone] (cell) or [phone] (office). Good luck to you Marcela and take care. PS - Since we discontinued the Prozac and the Wellbutrin I have not seen any signs of depression. You are eating well, sleeping well, talkative and you look at me now when you talk. this does not mean you will not need an antidepressant in the future but, for the time being you are doing fine without. Pending Tests on Discharge: none Allergies/Adverse Reactions: Allergies No Known Allergies Allergy (Verified 07/01/20 13:54) Medications to take at Discharge Multivitamins,Therapeutic [Multivitamin] 1 tablet PO DAILY 07/12/14 [place]-3 Fatty Acids [Fish Oil] 500 mg PO QHS 07/01/20 Acetaminophen [Tylenol Extra Strength] 1,000 mg PO Q8H PRN PRN #1 tablet 07/20/20 Amlodipine [Norvasc] 10 mg PO DAILY #30 tab 07/20/20 Atorvastatin Calcium [Lipitor] 80 mg PO QHS #30 tablet 07/20/20 Cholecalciferol (VIT D3) [Vitamin D3] 25 mcg PO DAILY #30 tablet 07/20/20 Insulin Glargine [Lantus SoloStar Pen] 8 units SC QHS #1 pen 07/20/20 Insulin Lispro [Humalog KwikPen] 7 unit SC TIDCM #3 insuln.pen 07/20/20 Melatonin 3 mg PO QHS #30 tablet 07/20/20 Modafinil [Provigil] 100 mg PO DAILY@0600 #16 tablet 07/20/20 Pantoprazole Sodium [Protonix] 20 mg PO BID #60 tablet 07/20/20 The following prescriptions were given: Insulin Lispro [Humalog KwikPen] 7 unit SC TIDCM #3 insuln.pen Transmission Status: Pending to [facility] Insulin Glargine [Lantus SoloStar Pen] 8 units SC QHS #1 pen Transmission Status: Pending to [facility] Atorvastatin Calcium [Lipitor] 80 mg PO QHS #30 tablet Transmission Status: Pending to [facility] Melatonin 3 mg PO QHS #30 tablet Transmission Status: Pending to [facility] Pantoprazole Sodium [Protonix] 20 mg PO BID #60 tablet Transmission Status: Pending to [facility] Modafinil [Provigil] 100 mg PO DAILY@0600 #16 tablet Transmission Status: Sent to [facility] Acetaminophen [Tylenol Extra Strength] 1,000 mg PO Q8H PRN PRN #1 tablet PRN Reason: pain or temp > 100.5 F Transmission Status: Pending to [facility] Cholecalciferol (VIT D3) [Vitamin D3] 25 mcg PO DAILY #30 tablet Transmission Status: Pending to [facility] Primary Care Physician: Adrian Rodney MD [Primary Care Provider] - Test Results: Test results from this visit will be discussed in further detail at your follow-up appointment, if applicable. Please Follow Up With: Dr Cy Abel-neurology When: MONDAY Please Follow Up With: RADIOLOGY WITH CT [facility]SPINE When: 3 WEEKS Please Follow Up With: Dr Rodney-pcp When: MONDAY Please Follow Up With: Dr Sahu-Nephrology When: 3 WEEKS Please Follow Up With: Dr. Tompkins-Urology
--- NOTE | 2020-07-20 15:29 | PCM.DC.SUM ---
Discharge Date and Diagnosis - Problem List Patient Problems: Active and Suspected Problems Subarachnoid hemorrhage (Acute) Subdural hematoma (Acute) Fall (Acute) sometime from may on resulting in a SDH and SAH - did not present to the ED unitl 07/01/20 Closed TBI (traumatic brain injury) (Acute) Date of Admission: 07/05/20 - Primary Discharge Diagnosis Acute Problems: Active Problems Subarachnoid hemorrhage (Acute) Subdural hematoma (Acute) Fall (Acute) sometime from may on resulting in a SDH and SAH - did not present to the ED unitl 07/01/20 Closed TBI (traumatic brain injury) (Acute) - Secondary Discharge Diagnosis Chronic Problems: Chronic Problems GERD (gastroesophageal reflux disease) (Chronic) Vitamin D deficiency (Chronic) Falls frequently (Chronic) 1-2 times a week at least. He loses his balance. Multiple lacunar infarcts (Chronic) Bilateral thalami Encephalomalacia (Chronic) Left occipital Cerebral microvascular disease (Chronic) Advanced chronic microvascular ischemic change throughout the supratentorial white matter. Chronic renal failure, stage 4 (severe) (Chronic) Normochromic normocytic anemia (Chronic) CVA (cerebral vascular accident) (Chronic) Depression (Chronic) Diabetes mellitus, type II (Chronic) Ataxia (Chronic) etiology? Due to prior Left occipital stroke? or 2 multiple BL lacunat infarcts in the BL thalami? or both? HLD (hyperlipidemia) (Chronic) Hx of malignant neoplasm of prostate (Chronic) HTN (hypertension) (Chronic) Hospital Course and Treatment Operations: None Summary of Care Provided: The patient is a 74 year old M [] Patient Problems: Active and Suspected Problems Subarachnoid hemorrhage (Acute) Subdural hematoma (Acute) Fall (Acute) sometime from may on resulting in a SDH and SAH - did not present to the ED unitl 07/01/20 Closed TBI (traumatic brain injury) (Acute) - Physical Exam Vitals/I&O's: Vital Signs Temp Pulse Resp BP Pulse Ox 97.8 F 82 16 166/79 H 96 07/20/20 08:20 07/20/20 13:05 07/20/20 08:20 07/20/20 08:20 07/20/20 08:20 Oxygen Delivery Method Room Air Weight: 126 lb 1.671 oz Body Mass Index (BMI) 19.8 Finger Stick Blood Glucose 501 Intake and Output for Last 24 Hours 0407/19/20 07/20/20 23:59 23:59 23:59 Intake Total 1879 / 0 1210 / 1210 820 / 820 Output Total 200 / 200 Balance 1879 / 1880 1210 / 1210 620 / 620 Laboratory Results 07/19/20 16:10: POC Glucose 276 H 07/19/20 21:00: POC Glucose 228 H 07/20/20 06:38: POC Glucose 136 H 07/20/20 11:42: POC Glucose 188 H Current Medications Acetaminophen (Acetaminophen 500 Mg Tablet) 1,000 mg PO Q8 [facility] Last Admin: 07/20/20 13:05 Dose: 1,000 mg Documented by: Amlodipine Besylate (Amlodipine 10 Mg Tablet) 10 mg PO DAILY [facility] Last Admin: 07/20/20 07:36 Dose: 10 mg Documented by: Atorvastatin Calcium (Atorvastatin Calcium 80 Mg Tablet) 80 mg PO QHS [facility] Last Admin: 07/19/20 21:56 Dose: 80 mg Documented by: Bisacodyl (Bisacodyl 10 Mg Suppository) 10 mg RC .PRN X 1 PRN PRN Reason: Constipation Calamine/Phenol (Menthol/Lanolin/Calamine/Znox 113 Gm Tube) 1 applic TOPICAL BID [facility]; Protocol Last Admin: 07/20/20 11:39 Dose: 1 applic Documented by: Cholecalciferol (Cholecalciferol (Vit D3) 25 Mcg Tablet (1,000 Units)) 25 mcg PO DAILY [facility] Last Admin: 07/20/20 07:35 Dose: 25 mcg Documented by: Dextrose (Dextrose 50%-Water 25 Gm/50 Ml Disp.Syrin) 0 gm IV X1 PRN; Protocol PRN Reason: Hypoglycemia Glucagon (Glucagon 1 Mg/Ml Syringe) 1 mg IM .X1 PRN PRN Reason: Hypoglycemia Heparin Sodium (Porcine) (Heparin Injection (Vial) 5,000 Unit/Ml Vial) 5,000 unit SC Q12 [facility] Last Admin: 07/20/20 07:36 Dose: 5,000 unit Documented by: Hydralazine HCl (Hydralazine 25 Mg Tablet) 25 mg PO TID [facility] Last Admin: 07/20/20 13:05 Dose: 25 mg Documented by: Insulin Glargine (Insulin Glargine 100 Units/Ml Pen) 8 units SC QHS [facility] Insulin Human Lispro (Insulin Lispro 100 Unit/Ml Insuln.Pen) 0 unit SC TIDAC [facility]; Protocol Last Admin: 07/20/20 11:42 Dose: 1 u Documented by: Insulin Human Lispro (Insulin Lispro 100 Unit/Ml Insuln.Pen) 6 unit SC 0700,1600 [facility] Insulin Human Lispro (Insulin Lispro 100 Unit/Ml Insuln.Pen) 7 unit SC 1100 [facility] Magnesium Hydroxide (Magnesium Hydroxide 30 Ml Udc) 30 ml PO .PRN X 1 PRN PRN Reason: Constipation Melatonin (Melatonin 3 Mg Tablet) 3 mg PO QHS [facility] Last Admin: 07/19/20 21:57 Dose: 3 mg Documented by: Modafinil (Modafinil 200 Mg Tablet) 100 mg PO DAILY@0600 [facility] Last Admin: 07/20/20 06:42 Dose: 100 mg Documented by: Multivitamins ([facility]ivitamins,Therapeutic Tablet) [facility] Last Admin: 07/20/20 07:36 Dose: 1 tablet Documented by: Ondansetron HCl (Ondansetron Odt 4 Mg Tablet) 4 mg PO Q6H PRN PRN PRN Reason: NAUSEA Last Admin: 07/10/20 04:15 Dose: 4 mg Documented by: Oxycodone HCl (Oxycodone 5 Mg Tablet) 5 mg PO Q6H PRN PRN PRN Reason: Pain Score 6-10 Last Admin: 07/12/20 20:30 Dose: 5 mg Documented by: Pantoprazole Sodium (Pantoprazole Sodium 20 Mg Tablet) 20 mg PO BID [facility] Last Admin: 07/20/20 07:36 Dose: 20 mg Documented by: Polyethylene Glycol (Polyethylene Glycol 3350 17 Gm Packet) 17 gm PO DAILY [facility] Last Admin: 07/20/20 07:37 Dose: Not Given Documented by: Senna/Docusate Sodium (Senna/Docusate Sodium 1 Tablet) 2 tablet PO BID [facility] Last Admin: 07/20/20 07:37 Dose: Not Given Documented by: Discharge Activity: May Not Drive, May Not Shower, Use Walker Weight Bearing Status: Full weight bearing Call your doctor if you observe: Fever of 101 or Higher, Inability to urinate, Shortness of breath, Dizziness, Fainting spells, Swelling in the ankles, Chest pain, Increased palpitations (irregular heartbeat), Uncontrolled pain Home Medications: Medications to take at Discharge Multivitamins,Therapeutic [Multivitamin] 1 tablet PO DAILY 07/12/14 [place]-3 Fatty Acids [Fish Oil] 500 mg PO QHS 07/01/20 Acetaminophen [Tylenol Extra Strength] 1,000 mg PO Q8H PRN PRN #1 tablet 07/20/20 Amlodipine [Norvasc] 10 mg PO DAILY #30 tab 07/20/20 Atorvastatin Calcium [Lipitor] 80 mg PO QHS #30 tablet 07/20/20 Cholecalciferol (VIT D3) [Vitamin D3] 25 mcg PO DAILY #30 tablet 07/20/20 Insulin Glargine [Lantus SoloStar Pen] 8 units SC QHS #1 pen 07/20/20 Insulin Lispro [Humalog KwikPen] 7 unit SC TIDCM #3 insuln.pen 07/20/20 Melatonin 3 mg PO QHS #30 tablet 07/20/20 Modafinil [Provigil] 100 mg PO DAILY@0600 #16 tablet 07/20/20 Pantoprazole Sodium [Protonix] 20 mg PO BID #60 tablet 07/20/20 Following Prescriptions Were Given to Patient: Insulin Lispro [Humalog KwikPen] 7 unit SC TIDCM #3 insuln.pen Transmission Status: Pending to [facility] Insulin Glargine [Lantus SoloStar Pen] 8 units SC QHS #1 pen Transmission Status: Pending to [facility] Atorvastatin Calcium [Lipitor] 80 mg PO QHS #30 tablet Transmission Status: Pending to [facility] Melatonin 3 mg PO QHS #30 tablet Transmission Status: Pending to [facility] Pantoprazole Sodium [Protonix] 20 mg PO BID #60 tablet Transmission Status: Pending to [facility] Modafinil [Provigil] 100 mg PO DAILY@0600 #16 tablet Transmission Status: Sent to [facility] Acetaminophen [Tylenol Extra Strength] 1,000 mg PO Q8H PRN PRN #1 tablet PRN Reason: pain or temp > 100.5 F Transmission Status: Pending to [facility] Cholecalciferol (VIT D3) [Vitamin D3] 25 mcg PO DAILY #30 tablet Transmission Status: Pending to [id number] Primary Care Physician: Adrian Rodney MD [Primary Care Provider] - Please Follow Up With: Dr Cy Abel-neurology When: MONDAY Please Follow Up With: RADIOLOGY WITH CT [facility]SPINE When: 3 WEEKS Please Follow Up With: Dr Rodney-pcp When: MONDAY Please Follow Up With: Dr Sahu-Nephrology When: 3 WEEKS Please Follow Up With: Dr. Tompkins-Urology Medical Necessity - Tobacco Use Smoking Status: Never smoker Tobacco Use: Non-smoker
[2020-07-20] MEDS: Insulin Lispro 100 UNIT/ML INSULN.PEN 6 UNIT SC (16:25)
[2020-07-20 16:50] LABS: Bedside Glucose 288 mg/dL (70-110)
[2020-07-20 19:24] VITALS: BP 161/54; PULSE 85; RESP 16; TEMP 36.7; O2SAT 95
[2020-07-20] MEDS: Atorvastatin Calcium 80 MG Tablet PO (21:16)
[2020-07-20] MEDS: MELATONIN 3 MG TABLET PO (21:16)
[2020-07-20 21:17] VITALS: PULSE 85
[2020-07-20 21:29] VITALS: BMI 19.8
[2020-07-20 21:40] LABS: Bedside Glucose 209 mg/dL (70-110)
[2020-07-20 22:00] VITALS: PULSE 85; RESP 16; O2SAT 99
[2020-07-21 06:00] VITALS: BP 142/75; PULSE 81
[2020-07-21] MEDS: Acetaminophen 500 MG Tablet 1000 MG PO ×2 (06:00→14:04)
[2020-07-21] MEDS: hydrALAZINE 25 MG Tablet PO ×2 (06:00→14:04)
[2020-07-21] MEDS: Modafinil 200 MG Tablet 100 MG PO (06:00)
[2020-07-21] MEDS: amLODIPine 10 MG Tablet PO (06:45)
[2020-07-21 07:10] LABS: Bedside Glucose 100 mg/dL (70-110)
[2020-07-21] MEDS: Insulin Lispro 100 UNIT/ML INSULN.PEN 6 UNIT SC (07:40)
[2020-07-21] MEDS: Heparin Injection (Vial) 5,000 UNIT/ML VIAL 5000 UNIT SC (07:45)
[2020-07-21] MEDS: Pantoprazole Sodium 20 MG Tablet PO (07:45)
[2020-07-21] MEDS: Multivitamins,Therapeutic Tablet 1 TABLET PO (07:45)
[2020-07-21] MEDS: Menthol/Lanolin/Calamine/Znox 113 GM Tube 1 APPLIC TOPICAL (07:45)
[2020-07-21] MEDS: Cholecalciferol (VIT D3) 25 MCG TABLET (1,000 UNITS) PO (07:45)
[2020-07-21 08:51] VITALS: BP 142/73; PULSE 81; RESP 16; TEMP 36.9; O2SAT 98
[2020-07-21 09:09] VITALS: BMI 19.8
[2020-07-21] MEDS: Insulin Lispro 100 UNIT/ML INSULN.PEN SC (12:09)
[2020-07-21] MEDS: Insulin Lispro 100 UNIT/ML INSULN.PEN 7 UNIT SC (12:10)
[2020-07-21 12:16] LABS: Bedside Glucose 217 mg/dL (70-110)
[2020-07-21 14:04] VITALS: PULSE 72
--- NOTE | 2020-07-21 15:40 | NURSING ---
discharged home with . discharge instruction, medications and appointments reviewed with pt and . denies questions or concerns
[2020-07-21 15:42] VITALS: BP 142/73; PULSE 81; RESP 16; TEMP 36.9; O2SAT 98
--- NOTE | 2020-07-23 10:52 | CASEMGMT ---
Prior authorization request from [employer] received. On 07/22/20, a prior authorization request through [employer] was submitted and a denial response was received. Dr. Watson notified of this denial. This RN CM spoke with Dr. Watson 07/23 and discussed denial. She report receiving a call this morning from the insurance company to notify her of the denial. They attempted to send her to the appeal department but a connection was not made. This RN CM contacted [facility] this AM to discuss denial and received a corresponding phone number for verbal appeal submission or fax for appeal letter submission. This RN CM notified Dr. Watson of these options and number for phone call appeal provided. Denver Bowen RN CM
== END 2020-07-21 15:43 | disposition home health service (06) | DRG 949 ==
PROVIDERS: Admitting Provider Internal Medicine; PCP Family Medicine; Visit Provider Internal Medicine
DX: S06.5X9D Traumatic subdural hemorrhage with loss of consciousness of unspecified duration, subsequent encounter (principal); G92 Toxic encephalopathy; N18.4 Chronic kidney disease, stage 4 (severe); W19.XXXD Unspecified fall, subsequent encounter; S06.6X9D Traumatic subarachnoid hemorrhage with loss of consciousness of unspecified duration, subsequent encounter; K21.9 Gastro-esophageal reflux disease without esophagitis; F32.9 Major depressive disorder, single episode, unspecified; E78.5 Hyperlipidemia, unspecified; E11.22 Type 2 diabetes mellitus with diabetic chronic kidney disease; D63.1 Anemia in chronic kidney disease; E11.649 Type 2 diabetes mellitus with hypoglycemia without coma; R97.20 Elevated prostate specific antigen [PSA]; I12.9 Hypertensive chronic kidney disease with stage 1 through stage 4 chronic kidney disease, or unspecified chronic kidney disease; T50.905A Adverse effect of unspecified drugs, medicaments and biological substances, initial encounter; R27.0 Ataxia, unspecified; Z86.73 Personal history of transient ischemic attack (TIA), and cerebral infarction without residual deficits; Z85.46 Personal history of malignant neoplasm of prostate; Z79.4 Long term (current) use of insulin; Z91.81 History of falling; Z79.899 Other long term (current) drug therapy
CPT/HCPCS: 36415; 80048; 80053; 81002; 82533; 82962; 83036; 83735; 84100; 84153; 84443; 85027; 92507; 92522; 92526; 92610; 97110; 97112; 97116; 97162; 97166; 97530; 97535; 97802; 99251; G0103; G0463

== ENCOUNTER → 2020-08-12 14:29 | Outpatient (CLI) | payer MEDICARE, OTHER, SELFPAY ==
[2020-08-12 13:33] VITALS: BMI 23.5
--- NOTE | 2020-08-12 15:08 | VDLE_ITS ---
Reason For Study: BLE SWELLING RIGHT LEFT GSV is normal. GSV is normal. CFV is compressible, spontaneous, phasic, CFV is compressible, spontaneous, phasic, competent and demonstrates normal competent, and demonstrates normal augmentation. augmentation. FV is compressible, spontaneous, phasic, FV is compressible, spontaneous, phasic, competent and demonstrates normal competent and demonstrates normal augmentation. augmentation. POP V is compressible, spontaneous, phasic, POP V is compressible, spontaneous, phasic, competent and demonstrates normal competent and demonstrates normal augmentation. augmentation. T/P Trunk is compressible. T/P Trunk is compressible. PTV is compressible. PTV is compressible. RT PerV is compressible. LT PerV is compressible. Non-vascular structure noted in RT POP Fossa Non-vascular structure noted in the LT POP area measuring 4.12cm x 2.68cm. Fossa area measuring 1.36cm x 0.61cm. Procedure This is a venous duplex using B-mode, color flow and spectral Doppler. Exam performed in department. The exam was diagnostic. A preliminary report was called and/or faxed to Dr. Holliday @ [phone] @ 3:45 pm. VL/Venous Duplex US - [place] Extrem Interpretation Summary Deep veins of the lower extremities are bilaterally patent and compressible seg mentally. There is no evidence of deep vein thrombosis on either side. Valvular competence appears in tact within the proximal deep venous systems bilaterally. The great saphenous veins appear bila terally patent and compressible segmentally. A non-vascular, hypoechoic structure is noted in the popliteal spaces bilaterally, with dimensions as documented above. These probably represent popl iteal cysts. Clinical correlation is advised. Ordering Physician: Kristina Holliday Referring Physician: Kristina Holliday Performed By: Catrachita Salas, RDCS, RVT
[2020-08-12 16:34] LABS: Absolute Lymphocyte Count 0.58 X10^3/uL (0.83-4.51); Absolute Neutrophil Count 7.5 X10^3/uL (2.0-7.7); Basophil# 0.04 X10^3/uL; Basophil% 0.4 % (0-1); Eosinophil# 0.16 X10^3/uL; Eosinophils% 1.8 % (0-5); Hematocrit 27.9 % (40-54); Hemoglobin 8.9 g/dL (13.0-16.5); Lymphocyte # 0.58 X10^3/ul (0.83-4.51); Lymphocyte % 6.5 % (19-41); Mean Corp Hgb Conc 31.9 g/dL (32-36); Mean Corpuscular Hgb 30.5 pg (27.0-32.0); Mean Corpuscular Volume 95.5 fL (80-94); Mean Platelet Vol. 10.9 fl (6.2-12.0); Monocyte# 0.62 X10^3/uL; Monocyte% 6.9 % (0-10); NRBC Flagged by Analyzer 0 % (0-5); Neutrophil # 7.53 X10^3/uL (2.7-7.7); POSITIVE DIFFERENTIAL YES; Platelet Count 255 K/mm3 (150-450); RBC Distribution Width CV 13.7 % (11.6-14.6); RBC Distribution Width SD 47.8 fl (35.1-43.9); Red Blood Count 2.92 M/mm3 (4.6-6.2)
[2020-08-12 16:37] LABS: Differential Indicated SCAN CRITERIA MET
[2020-08-12 16:54] LABS: ALB/GLOB Ratio 0.5 RATIO (0.9-2.4); AST(SGOT) 22 U/L (15-37); Alanine Aminotransfer ALT/SGPT 30 U/L (16-61); Albumin, Serum 2.3 g/dL (3.2-5.0); Alkaline Phosphatase 98 U/L (45-117); Anion Gap 7 (5-15); BUN 59 mg/dL (7-18); BUN/Creat Ratio 19.7 RATIO (10-20); Calcium,Total 8.3 mg/dL (8.5-10.1); Chloride 109 mmol/L (98-107); Creatinine, Serum 2.99 mg/dL (0.70-1.30); EST Glomerular Filtration Rate 22 mL/min (>60); Est Glom Filt Rate - Afr Amer 26 mL/min (>60); Globulin 4.3 g/dL (2.2-4.2); Glucose 352 mg/dL (74-106); Potassium 4.3 mmol/L (3.5-5.1); Protein, Total 6.6 g/dL (6.4-8.2); Sodium Level 140 mmol/L (136-145)
[2020-08-12 17:03] LABS: Differential Comment SCANNED
== END ==
PROVIDERS: PCP Internal Medicine; Referring Provider Internal Medicine; Visit Provider Internal Medicine
DX: M79.89 Other specified soft tissue disorders (principal); I12.9 Hypertensive chronic kidney disease with stage 1 through stage 4 chronic kidney disease, or unspecified chronic kidney disease; N18.4 Chronic kidney disease, stage 4 (severe); R97.20 Elevated prostate specific antigen [PSA]
CPT/HCPCS: 36415; 80053; 85025; 93970

== ENCOUNTER 2020-08-27 13:22 | Emergency (ER) | payer MEDICARE, OTHER, SELFPAY ==
[2020-08-12 13:33] VITALS: BMI 23.5
[2020-08-27 13:23] VITALS: BP 164/79; PULSE 78; RESP 15; TEMP 36.1; O2SAT 99; BMI 21.9
--- NOTE | 2020-08-27 13:36 | EX.ED.DYSGE1 ---
HPI History of Present Illness Chief Complaint: Lower Extremity Injury Informant: patient Narrative Narrative: 74-year-old male with history of diabetes states that his right leg is swollen. He states it is very tense and hard for him to stand on it. He states he had this problem in the past when he had swelling in both legs. He states it eventually got better and has been fine for months. He states that this began this week he started notices leg swelling again. He notes a history of stage IV kidney disease. Patient states he is wearing compressive hose with the socks that he has are not tight. He states that he called his doctor's office but they are not in today. [facility] Medical History (Updated 08/27/20 @ 14:[address] Erickson Angel DO) Diabetes High cholesterol Hypertension Home Medications multivitamin with folic acid [Thera] 1 tab PO DAILY 07/12/14 [History Last Taken Unknown] omega 0-ahq-uai-fish oil 500 mg PO QHS 07/01/20 [History Last Taken Unknown] acetaminophen 1,000 mg PO Q8H PRN PRN #1 tablet 07/20/20 [Rx Last Taken Unknown] atorvastatin 80 mg PO QHS #30 tablet 07/20/20 [Rx Last Taken Unknown] cholecalciferol (vitamin D3) 25 mcg PO DAILY #30 tablet 07/20/20 [Rx Last Taken Unknown] insulin glargine 8 units SC QHS #1 pen 07/20/20 [Rx Last Taken Unknown] insulin lispro 7 unit SC TIDCM #3 insuln.pen 07/20/20 [Rx Last Taken Unknown] pantoprazole 20 mg PO BID #60 tablet 07/20/20 [Rx Last Taken Unknown] compress.stocking,knee,reg,med #2 ea 08/13/20 [Rx Last Taken Unknown] diltiazem HCl 120 mg capsule,extended release 24 hr 120 mg PO DAILY #30 cap 08/13/20 [Rx Last Taken Unknown] Allergy/AdvReac Type Severity Reaction Status Date / Time No Known Allergies Allergy Verified 08/27/20 13:25 Family History (Updated 08/12/20 @ 13:25 by Vera Redd) Other Cancer Diabetes Social History Smoking Status: Never smoker alcohol intake: never substance use type: does not use ROS ROS ED Constitutional Constitutional ED: Denies chills or weight loss Eyes Eyes: Denies change in vision or diplopia ENT ENT ED: Denies ear pain, rhinorrhea or sore throat Cardiovascular Cardiovascular: Denies chest pain, orthopnea, palpitations, paroxysmal nocturnal dyspnea or racing heartbeat Respiratory/Chest Respiratory/Chest: Denies cough, dyspnea, dyspnea on exertion, orthopnea or paroxysmal nocturnal dyspnea Gastrointestinal Gastrointestinal: Denies abdominal pain, diarrhea, nausea or vomiting Genitourinary Genitourinary ED: Denies dysuria, hematuria or urinary frequency Musculoskeletal Musculoskeletal: Denies arthralgias or myalgias Integumentary Reports other Details: Leg swelling bilaterally ; Denies abscess or rash Neurologic Neurologic: Denies headache(s) or weakness Psychiatric Psychiatric: Denies anxiety, depression, suicidal ideation or suicidal thoughts Endocrine Endocrinology: Denies polydipsia, polyphagia or polyuria Allergic/Immunologic Allergic/Immunologic ED: Denies mouth swelling, tongue swelling or urticaria EXAM Physical Exam Const Vital Signs: 08/27/20 13:23 08/27/20 13:45 08/27/20 13:46 Temperature 96.9 F L 97.4 F L Temperature Source Temporal Temporal Pulse Rate 78 78 Respiratory Rate 15 14 14 Blood Pressure 164/79 H 163/76 H Blood Pressure Mean 107 105 Pulse Ox 99 163 Oxygen Delivery Method Room Air Room Air Positive well nourished and well developed General Appearance ED: well developed HEENT Reports normocephalic, head/scalp atraumatic and moist mucous membranes Eyes PERRL and EOMs intact bilaterally Neck no lymphadenopathy, supple and no JVD Resp normal respiratory effort and clear to auscultation bilaterally Cardio regular rate, regular rhythm and no murmurs GI normal to inspection, nondistended, normoactive bowel sounds and non-tender Palpation: soft Back/Spine no CVA tenderness and normal ROM Extremity Negative for normal to inspection Extremity Narrative: There is bilateral lower extremity pitting edema to the level of the tibial tuberosity. Right is greater than left. There is no thigh pain. There is no calf pain. No palpable cords. No significant wounds noted on skin exam General Extremety ED: Yes edema; Negative for tenderness General Extremity: edema Neuro oriented x3 and CN's II-XII intact bilaterally Sensorium / Orientation: alert Motor Exam: strength 5/5 throughout Psych mental status grossly normal Mood & Affect: Negative for depressed or tearful Skin no rashes or lesions noted and no wounds MDM MDM MDM Narrative Medical decision making narrative: I checked the patient's creatinine which is 3.26. This is where he is been for about a year. I am worried that if he is on diuretics it may tip him into renal failure. Instead begin to focus more on the compression stockings and have him follow-up in the office next week. I did speak with his primary care doctor on the phone who is in agreement with this plan. Lab Data Attestation: I reviewed the patient's lab results. Labs: Laboratory Results - last 24 hr 08/27/20 13:42 Sodium 143 Potassium 3.9 Chloride 109 H Carbon Dioxide 27.0 Anion Gap 7 BUN 51 H Creatinine 3.26 H Estim Creat Clear Calc 17.59 Est GFR (MDRD) Af Amer 24 L Est GFR (MDRD) Non-Af 20 L BUN/Creatinine Ratio 15.6 Glucose 198 H Calcium 8.3 L Discharge Plan Triage Chief Complaint: Lower Extremity Injury ED Provider: Erickson Angel Dx/Rx/DC Orders Clinical Impression: Lymphedema of both lower extremities Instructions: ED Peripheral Edema, Bilateral Prescriptions: No Action multivitamin with folic acid [Thera] 1 TABLET tablet 1 tab PO DAILY RF: 0 omega 9-ceg-ufg-fish oil 500 MG capsule,delayed release(DR/EC) 500 mg PO QHS RF: 0 acetaminophen 500 MG tablet 1,000 mg PO Q8H PRN PRN (Reason: pain or temp > 100.5 F) Qty: 1 RF: 0 pantoprazole 20 MG tablet 20 mg PO BID Qty: 60 RF: 0 insulin lispro 100 UNIT/ML insulin pen 7 unit SC TIDCM Qty: 3 RF: 0 cholecalciferol (vitamin D3) 25 MCG tablet 25 mcg PO DAILY Qty: 30 RF: 0 insulin glargine 100 UNITS/ML insulin pen 8 units SC QHS Qty: 1 RF: 0 atorvastatin 80 MG tablet 80 mg PO QHS Qty: 30 RF: 0 (DME) compress.stocking,knee,reg,med Misc See Rx Instructions .ROUTE .MEDSUPPLY Qty: 2 RF: 0 diltiazem HCl [Cardizem CD] 120 mg capsule,extended release 24hr 120 mg PO DAILY Qty: 30 RF: 2 Primary Care Provider: Kristina Holliday Referrals: Kristina Holliday MD [Primary Care Provider] - 1 Week (Please call the office to arrange a follow-up next week with your doctors physician records management assistant.) Disposition Disposition: Home, self care
[2020-08-27 13:45] VITALS: BP 163/76; PULSE 78; RESP 14; TEMP 36.3; O2SAT 163
[2020-08-27 13:46] VITALS: RESP 14
[2020-08-27 14:01] LABS: Anion Gap 7 (5-15); BUN 51 mg/dL (7-18); BUN/Creat Ratio 15.6 RATIO (10-20); Calcium,Total 8.3 mg/dL (8.5-10.1); Chloride 109 mmol/L (98-107); Creatinine, Serum 3.26 mg/dL (0.70-1.30); EST Glomerular Filtration Rate 20 mL/min (>60); Est Glom Filt Rate - Afr Amer 24 mL/min (>60); Estimated Creatinine Clearance 17.59 ml/min; Glucose 198 mg/dL (74-106); Potassium 3.9 mmol/L (3.5-5.1); Sodium Level 143 mmol/L (136-145)
[2020-08-27 14:40] VITALS: BP 172/76; PULSE 80; RESP 16; TEMP 36.5; O2SAT 98
[2020-08-27 14:47] VITALS: BP 172/76; PULSE 80; RESP 16; TEMP 36.5; O2SAT 98
--- NOTE | 2020-08-27 14:53 | NURSING ---
Dr Angel aware of BP and okay with discharge as patient will see PCP within a week
== END 2020-08-27 14:54 | disposition home or self-care (01) ==
PROVIDERS: Emergency Provider Emergency Medicine; PCP Internal Medicine
DX: I89.0 Lymphedema, not elsewhere classified (principal); M79.89 Other specified soft tissue disorders; I12.9 Hypertensive chronic kidney disease with stage 1 through stage 4 chronic kidney disease, or unspecified chronic kidney disease; E11.22 Type 2 diabetes mellitus with diabetic chronic kidney disease; N18.4 Chronic kidney disease, stage 4 (severe); E78.00 Pure hypercholesterolemia, unspecified; Z79.4 Long term (current) use of insulin; Z79.899 Other long term (current) drug therapy
CPT/HCPCS: 80048; 99283; A4216

== ENCOUNTER → 2020-10-08 | Outpatient (CLI) | payer MEDICARE, OTHER, SELFPAY ==
[2020-10-08 18:30] LABS: Protein, Urine (Random) 1190.2 mg/dL (<11.9); Protein:Creat Ratio 11950 mg/g CRE (0-200)
== END | disposition home or self-care (01) ==
LOC: LABSPEC 14:16
PROVIDERS: PCP Internal Medicine; Visit Provider Internal Medicine Nephrology
DX: E11.22 Type 2 diabetes mellitus with diabetic chronic kidney disease (principal); N18.9 Chronic kidney disease, unspecified
CPT/HCPCS: 82570; 84156

== ENCOUNTER → 2020-10-26 11:48 | Outpatient (CLI) | payer MEDICARE, OTHER, SELFPAY ==
[2020-10-19 11:07] VITALS: BMI 21.9
--- NOTE | 2020-10-26 11:52 | US_ITS ---
STUDY: RENAL ULTRASOUND - COMPLETE REASON FOR EXAM: Male, 75 years old. Elevated BUN/creatinine TECHNIQUE: Ultrasound evaluation of the kidneys was performed with real-time and static pruitt-scale imaging. COMPARISON: None. FINDINGS: RIGHT KIDNEY: Normal location of the right kidney, which is normal in size. The right kidney measures 10.9 x 6.3 x 6.1 cm. There is a normal cortex of the right kidney. The renal cortex measures 1.4 cm. There is no right renal mass or cyst. There are no right renal calculi. There is no right hydronephrosis. DISTAL RIGHT URETER: There is non-visualization of the distal right ureter. There is no demonstrated right ureterovesical junction calculus. There is a visualized right ureteral jet. LEFT KIDNEY: Normal location of the left kidney, which is normal in size. The left kidney measures 11.3 x 4.7 x 5.4 cm. There is a normal cortex of the left kidney. The renal cortex measures 1.4 cm. There is no left renal mass or cyst. There are no left renal calculi. There is no left hydronephrosis. DISTAL LEFT URETER: There is non-visualization of the distal left ureter. There is no demonstrated left ureterovesical junction calculus. There is a visualized left ureteral jet. AORTA: There is no elongation or tortuosity of the abdominal aorta. I.V.C.: The IVC is patent. BLADDER: The bladder is incompletely distended US/Kidney and Bladder IMPRESSION: No suspicious sonographic findings, incompletely distended bladder Electronically Signed: Aj Smith MD at 17:08 EDT , Service support ,
== END ==
PROVIDERS: PCP Internal Medicine; Referring Provider Internal Medicine Nephrology; Visit Provider Internal Medicine Nephrology
DX: N18.4 Chronic kidney disease, stage 4 (severe) (principal)
CPT/HCPCS: 76770

== ENCOUNTER 2020-10-28 06:51 | Outpatient (RCR) | payer MEDICARE, OTHER, SELFPAY ==
[2020-10-19 11:07] VITALS: BMI 21.9
--- NOTE | 2020-10-28 07:51 | HP.PTEVAL_ITS ---
Patient's Visit Information DEB BILLINGS Sr. is a 75 year old M referred to Physical Therapy by Dr. Kristina Holliday MD with a diagnosis of Ataxia. Date of Evaluation: 10/28/20 Physical Therapist: Nicolasa Navarrete DPT - Visit Plan Plan: Return to MD for further evaluation for scooter - Subjective He has been using a walker for almost a year- due to balance issues and he feels he was on to many medications for depression. Feel in June ended in [facility] due to a brain bleed and ended up in [facility] for Rehab for 3 weeks. No falls since June. He gets SOB when ambulating to far (10-15 minutes). He is unable to mow grass and uses a motorized cart. If the store doesn't have a cart-he uses a rollerator with a seat and takes breaks. Inside his home he uses a rollerator. He has never had a scooter before. [place] so he plans to use it to get his mail and be outside in his community. Does not have a way to transport to the store. He has a ramp to get in/out of his mobile home. Lives in a single story home- lives with his - she is able to help as needed. He is able to dress and bathe himself- he tries to stand and leans against something. They have a tub shower-he does not have a tub bench- stands and uses grab bars. Sleeps in a regular bed without hand rails- fully I with all transitions from supine to sit and sit to supine. Does not plan to use the scooter inside his home. He reports that he has no pain just gets tired when he moves around. Feels that the scooter would help him to get out in the community more. Prior to June he was falling a few times a week- would get dizzy and fall over. They regulated his medication and the dizziness is now gone. Is at end stage renal failure- not currently dialysis waiting to hear from the MD. PMHX/Meds: see list given by MD- scanned in chart. - Objective Posture: Fh, RS- can correct with verbal cues but does not maintain. Gait: slightly antalgic- uses Rollerator- decreased stance on the left LE with poor heel/toe pattern. Stairs: asc recip with 2 HR- poor control with descent non recip with 2 HR. HR/TR: able with UE A. SLS: weight shift but unable to SLS. Balance: see FGAC. ROM: WFL. Strength: Core: fair minus, Hip: 4/5 throughout, Knee: Left: flexion: 4/5, extn: 4/5, Right: flexion: 4+/5, Extn: 4+/5, Ankle: 4+/5. Special Test: 6 min walk test: 523 meters TUG Test: 17.76 seconds- all with rollerator - Balance/Special Test Scores Functional Gait Assessment Score: 19 % Disability: 36.6700 TUG Test Time Seconds: 17.76 6 Minute Walk Test: 523 meters with rollerator - Rehabilitation Potential Physical Therapy Diagnosis: Patient presents with hypomobility- he has decreased strength and muscular endurance leading to poor posture and decreased ability to participate in ADL's. Rehabilitation Potential: Fair - Anticipated Interventions Thank you for the opportunity to evaluate your patient. For Medicare and Medicare HMO plans, please review the plan of care and approve it. It will need to be FAXED BACK to us at [phone] for Medicare purposes. For Medicare only, by signing this I certify the plan of care. Please let me know if there are questions or concerns regarding this plan of care. Physician Signature: Date:
--- NOTE | 2021-01-25 08:02 | HP.PT.NRP ---
DEB BILLINGS Sr. was seen in my office for initial evaluation on 10/28/20. The following Plan of Care was established for this patient: This patient was last seen in our office . Pertinent comments regarding their Physical therapy will appear below: Wheelchair evaluation d/c At this point I will be discontinuing this patient from physical therapy. I would be happy to see this patient again in the future if found appropriate by the physician. Thank you! Nicolasa Navarrete DPT Balance/Gait/Functional tests - Balance/Special Test Scores Functional Gait Assessment Score: 19 % Disability: 36.6700 Lower Extremity Functional Score: 21 TUG Test Time Seconds: 17.76 Tug Test: <20 sec.=mostly independent 6 Minute Walk Test: 523 meters with rollerator
== END 2020-10-28 19:00 | disposition home or self-care (01) ==
LOC: PT 06:51
PROVIDERS: PCP Internal Medicine; Referring Provider Internal Medicine; Visit Provider Internal Medicine
DX: R27.0 Ataxia, unspecified (principal); Z86.73 Personal history of transient ischemic attack (TIA), and cerebral infarction without residual deficits; I60.9 Nontraumatic subarachnoid hemorrhage, unspecified; R29.6 Repeated falls; R53.81 Other malaise
CPT/HCPCS: 97162

== ENCOUNTER → 2020-11-04 12:46 | Outpatient (CLI) | payer MEDICARE, OTHER, SELFPAY ==
[2020-10-19 11:07] VITALS: BMI 21.9
--- NOTE | 2020-11-04 12:48 | ECHOD_ITS ---
Reason For Study: TIA/CVA Procedure This was a 2D Doppler, Color Flow transthoracic echocardiogram. Bubble study deferred due to previous Negative bubble on previous echo. Exam performed in department. Left Ventricle Normal LV size. Left ventricular systolic function is normal. The estimated ejection fraction is 55 %. No regional wall motion abnormalities noted. Right Ventricle Normal RV size. Normal systolic function. Atria The left atrium is mildly enlarged. Normal right atrium. No doppler evidence for ASD. Mitral Valve There is mild mitral annular calcification. Extension of the mitral annular calcification onto the base of the posterior mitral valve leaflet. Mild (1+) mitral valve insufficiency. Tricuspid Valve Normal tricuspid valve. Mild tricuspid valve insufficiency. Right ventricular systolic pressure estimated to be 33 mmHg. Aortic Valve Trisinus/trileaflet aortic valve. Normal aortic valve. Trivial aortic valve insufficiency. Pulmonic Valve The pulmonic valve is not well visualized. Trivial pulmonic valve insufficiency. Great Vessels The aortic root is not well visualized. Pericardium/Pleural Trivial pericardial effusion. There are no echocardiographic indications of cardiac tamponade. MMode/2D Measurements & Calculations LVIDd: 4.6 cm IVSd: 1.4 cm LA dimension: 4.0 cm LVIDs: 3.6 cm LVPWd: 1.2 cm FS: 23.0 % LAV(MOD-bp): 69.7 ml LA A4 area: 22.2 cm2 RA A4 area: 18.6 cm2 LAV(MOD-bp) Indexed: 39.2 ml/m2 LAV(MOD-sp2): 58.7 ml LAV(MOD-sp4): 76.4 ml Time Measurements MV dec time: 0.19 sec Doppler Measurements & Calculations MV E max gianni: 117.6 cm/sec Lat Peak E' Gianni: 7.7 cm/sec Med Peak E' Gianni: 4.9 cm/sec MV A max gianni: 87.4 cm/sec E/E' lat: 15.3 E/E' med: 24.0 MV E/A: 1.3 MV V2 max: 136.8 cm/sec MV P1/2t max gianni: 135.8 cm/sec Ao V2 max: 139.8 cm/sec MV max P.5 mmHg MV P1/2t: 94.6 msec Ao max P.8 mmHg MV V2 mean: 72.1 cm/sec MV dec slope: 420.6 cm/sec2 MV mean P.5 mmHg MVA(P1/2t): 2.3 cm2 MV V2 VTI: 39.1 cm LV V1 max: 110.7 cm/sec PA V2 max: 115.6 cm/sec TR max gianni: 272.3 cm/sec LV V1 max P.9 mmHg TR max P.6 mmHg ECHO/Echo Complete Interpretation Summary Left ventricular systolic function is normal. The estimated ejection fraction is 55 %. The left atrium is mildly enlarged. There is mild mitral annular calcification. Extension of the mitral annular calcification onto the base of the posterior mi tral valve leaflet. Mild (1+) mitral valve insufficiency. Mild tricuspid valve insufficiency. Trivial aortic valve insufficiency. Trivial pulmonic valve insufficiency. Trivial pericardial effusion. There are no echocardiographic indications of cardiac tamponade. Right ventricular systolic pressure estimated to be 33 mmHg. Transmitral diastolic flow velocities suggest diastolic dysfunction (pseudonorm al pattern). Comment: The previous transthoracic echocardiogram from 01-07-2014 demonstrated : Bubble contrast study negative for right to left interatrial shunt. Ordering Physician: Kristina Holliday Referring Physician: Kristina Holliday
== END ==
PROVIDERS: PCP Internal Medicine; Referring Provider Internal Medicine; Visit Provider Internal Medicine
DX: Z86.73 Personal history of transient ischemic attack (TIA), and cerebral infarction without residual deficits (principal)
CPT/HCPCS: 93306

== ENCOUNTER → 2021-02-09 08:48 | Outpatient (CLI) | payer MEDICARE, OTHER, SELFPAY ==
[2021-02-09 12:53] LABS: Absolute Lymphocyte Count 1.21 X10^3/uL (0.83-4.51); Absolute Neutrophil Count 4.3 X10^3/uL (2.0-7.7); Basophil# 0.04 X10^3/uL; Basophil% 0.6 % (0-1); Eosinophil# 0.49 X10^3/uL; Eosinophils% 7.3 % (0-5); Hematocrit 26.5 % (40-54); Hemoglobin 8.7 g/dL (13.0-16.5); Lymphocyte # 1.21 X10^3/ul (0.83-4.51); Lymphocyte % 18.1 % (19-41); Mean Corp Hgb Conc 32.8 g/dL (32-36); Mean Corpuscular Hgb 30.7 pg (27.0-32.0); Mean Corpuscular Volume 93.6 fL (80-94); Mean Platelet Vol. 11.4 fl (6.2-12.0); Monocyte# 0.63 X10^3/uL; Monocyte% 9.4 % (0-10); NRBC Flagged by Analyzer 0 % (0-5); Neutrophil # 4.29 X10^3/uL (2.7-7.7); Platelet Count 205 K/mm3 (150-450); RBC Distribution Width CV 13.1 % (11.6-14.6); RBC Distribution Width SD 44.8 fl (35.1-43.9); Red Blood Count 2.83 M/mm3 (4.6-6.2); White Blood Count 6.7 K/mm3 (4.4-11.0)
[2021-02-09 13:09] LABS: Vitamin D,25 Hydroxy 22.3 ng/mL
[2021-02-09 13:23] LABS: PTHIN 96.8 pg/mL (18.4-80.1)
[2021-02-09 13:34] LABS: ALB/GLOB Ratio 0.5 RATIO (0.9-2.4); AST(SGOT) 23 U/L (15-37); Alanine Aminotransfer ALT/SGPT 29 U/L (16-61); Albumin, Serum 2.3 g/dL (3.2-5.0); Alkaline Phosphatase 81 U/L (45-117); Anion Gap 10 (5-15); BUN 103 mg/dL (7-18); BUN/Creat Ratio 17.8 RATIO (10-20); Calcium,Total 8.5 mg/dL (8.5-10.1); Chloride 108 mmol/L (98-107); Cholesterol 170 mg/dL (200); Creatinine, Serum 5.78 mg/dL (0.70-1.30); EST Glomerular Filtration Rate 10 mL/min (>60); Est Glom Filt Rate - Afr Amer 12 mL/min (>60); Globulin 4.4 g/dL (2.2-4.2); Glucose 117 mg/dL (74-106); High Density Lipoprotein 52 mg/dL; Magnesium 1.8 mg/dL (1.6-2.6); Potassium 4.1 mmol/L (3.5-5.1); Protein, Total 6.7 g/dL (6.4-8.2); Sodium Level 139 mmol/L (136-145); Thyroid Stim Hormone (TSH) 1.08 uIU/mL (0.358-3.74); Triglycerides 114 mg/dL; Very Low Density Lipoprotein 23 mg/dL (5-40)
[2021-02-10 16:24] LABS: Creat.Clear Total Volume 1450 mL; Creatinine Clearance 9 ml/min (100-200); Creatinine Serum Creat 5.7 mg/dL (0.8-1.3); Creatinine Urine 47.9 mg/dL (NO RANGE EST.); EST Glomerular Filtration Rate 11 mL/min (>60); Est Glom Filt Rate - Afr Amer 13 mL/min (>60)
[2021-02-10 16:26] LABS: 24HR. UA Prot. Total Volume 1450 mL
[2021-02-10 21:15] LABS: Urine Protein (24 Hour) 583.6 mg/dL (<11.9)
== END ==
PROVIDERS: PCP Internal Medicine; Referring Provider Internal Medicine Nephrology; Visit Provider Internal Medicine Nephrology
DX: I12.9 Hypertensive chronic kidney disease with stage 1 through stage 4 chronic kidney disease, or unspecified chronic kidney disease (principal); N18.4 Chronic kidney disease, stage 4 (severe); R97.20 Elevated prostate specific antigen [PSA]
CPT/HCPCS: 36415; 80053; 80061; 82306; 82575; 83735; 83970; 84100; 84153; 84156; 84443; 85025

== ENCOUNTER 2021-02-10 09:49 | Inpatient (IN) | payer MEDICARE, OTHER, SELFPAY ==
[2021-02-10] VITALS (9 sets, daily range): BP systolic 173–201; BP diastolic 69–85; PULSE 61–95; RESP 14–18; TEMP 36.6–37.4; O2SAT 95–100; BMI 23.1; BMI 22.8
--- NOTE | 2021-02-10 10:15 | EKG12_ITS ---
Test Reason : FLANK PAIN Blood Pressure : / mmHG Vent. Rate : 067 BPM Atrial Rate : 067 BPM P-R Int : 242 ms QRS Dur : 102 ms QT Int : 416 ms P-R-T Axes : 045 -03 012 degrees QTc Int : 439 ms Sinus rhythm with 1st degree A-V block Otherwise normal ECG Confirmed by GUERA WINTER, COLLINS ([id number]), design editor ISABELLE GARCIA ([id number]) on 02/11/2021 2:27:06 P M Referred By: CLEMENTINE/KLAUDIA Confirmed By:MATTHEW LYNNE MD
[2021-02-10 10:55] LABS: Absolute Lymphocyte Count 0.93 X10^3/uL (0.83-4.51); Absolute Neutrophil Count 3.7 X10^3/uL (2.0-7.7); Basophil# 0.04 X10^3/uL; Basophil% 0.7 % (0-1); Eosinophil# 0.47 X10^3/uL; Eosinophils% 8.1 % (0-5); Hematocrit 25.7 % (40-54); Hemoglobin 8.6 g/dL (13.0-16.5); Lymphocyte # 0.93 X10^3/ul (0.83-4.51); Lymphocyte % 16.1 % (19-41); Mean Corp Hgb Conc 33.5 g/dL (32-36); Mean Corpuscular Hgb 30.6 pg (27.0-32.0); Mean Corpuscular Volume 91.5 fL (80-94); Mean Platelet Vol. 10.2 fl (6.2-12.0); Monocyte# 0.61 X10^3/uL; Monocyte% 10.6 % (0-10); NRBC Flagged by Analyzer 0 % (0-5); Neutrophil # 3.69 X10^3/uL (2.7-7.7); Platelet Count 194 K/mm3 (150-450); RBC Distribution Width CV 12.9 % (11.6-14.6); RBC Distribution Width SD 42.7 fl (35.1-43.9); Red Blood Count 2.81 M/mm3 (4.6-6.2); White Blood Count 5.8 K/mm3 (4.4-11.0)
--- NOTE | 2021-02-10 10:55 | EX.ED.DYSGE1 ---
HPI History of Present Illness Chief Complaint: Flank Pain Informant: patient Narrative Narrative: Patient is a 75-year-old male with history of CKD 5 presenting for worsening renal function. Patient had routine blood work performed by his PCP last week. It was found to have a creatinine of 5.8 and a BUN of 103. His PCP spoke with Dr. Sahu, nephrology who recommended he come to the emergency room. Patient denies any complaints at this time. He states he has been urinating more frequently. He notes he actually is finished collect a 24-hour urine sample and brought it so it can be dropped off to the lab. He does feel like he is emptying his bladder completely. Denies any abdominal or flank pain. He does not have a fistula and he has been told he might need dialysis but states it has not been discussed further. No other complaints at this time. [facility] Medical History Diabetes High cholesterol Hypertension Home Medications multivitamin with folic acid [Thera] 1 tab PO DAILY 07/12/14 [History Last Taken Unknown] omega 2-mql-tse-fish oil 500 mg PO QHS 07/01/20 [History Last Taken Unknown] acetaminophen 1,000 mg PO Q8H PRN PRN #1 tablet 07/20/20 [Rx Last Taken Unknown] cholecalciferol (vitamin D3) 25 mcg PO DAILY #30 tablet 07/20/20 [Rx Last Taken Unknown] compress.stocking,knee,reg,med #2 ea 08/13/20 [Rx Last Taken Unknown] diltiazem HCl 120 mg capsule,extended release 24 hr 120 mg PO DAILY #30 cap 11/20/20 [Rx Last Taken Unknown] pantoprazole 20 mg tablet,delayed release 20 mg PO BID #180 tab 11/24/20 [Rx Last Taken Unknown] atorvastatin 80 mg tablet 80 mg PO QHS #90 tab 12/07/20 [Rx Last Taken Unknown] insulin lispro 100 unit/mL subcutaneous pen 7 unit SC TIDCM #3 insuln.pen 12/07/20 [Rx Last Taken Unknown] insulin glargine [Lantus Solostar U-100 Insulin] 8 units SC QHS 02/10/21 [History Last Taken Unknown] Allergy/AdvReac Type Severity Reaction Status Date / Time No Known Allergies Allergy Verified 02/10/21 09:51 Family History Other Cancer Diabetes Surgical History (Updated 02/10/21 @ 12:52 by Vance Pelaez) History of appendectomy History of hernia repair Social History (Updated 02/10/21 @ 15:33 by Verena Kingsley) household members: spouse housing: house Smoking Status: Never smoker alcohol intake: never substance use type: does not use ROS ROS ED Constitutional Constitutional ED: Reports malaise; Denies chills or fever(s) Eyes Eyes: Denies blurry vision or loss of vision ENT ENT ED: Denies rhinorrhea or sore throat Cardiovascular Cardiovascular: Denies chest pain or dizziness Respiratory/Chest Respiratory/Chest: Denies cough or dyspnea Gastrointestinal Gastrointestinal: Denies nausea or vomiting Genitourinary Genitourinary ED: Reports urinary frequency; Denies dysuria or hematuria Musculoskeletal Musculoskeletal: Denies arthralgias or myalgias Integumentary Denies rash or wounds Neurologic Neurologic: Denies focal weakness or headache(s) Psychiatric Psychiatric: Denies anxiety or behavioral changes EXAM Physical Exam Const Vital Signs: 02/10/21 09:50 02/10/21 12:50 Temperature 99.4 F H Temperature Source Temporal Pulse Rate 87 65 Respiratory Rate 16 18 Blood Pressure 189/85 H 173/73 H Blood Pressure Mean 119 106 Pulse Ox 95 99 Oxygen Delivery Method Room Air Room Air Positive well nourished and well developed General Appearance ED: well developed HEENT Reports moist mucous membranes Negative for trauma Eyes PERRL and EOMs intact bilaterally Neck supple and no JVD Chest Wall inspection of chest normal Resp normal respiratory effort and clear to auscultation bilaterally Cardio regular rate, regular rhythm and no murmurs GI normal to inspection, nondistended, normoactive bowel sounds, non-tender and non-distended Palpation: Negative for guarding Extremity normal to inspection General Extremety ED: Negative for edema or tenderness General Extremity: Negative for edema Neuro oriented x3, CN's II-XII intact bilaterally and no sensory deficits noted Sensorium / Orientation: alert Motor Exam: strength 5/5 throughout; Negative for general weakness Psych mental status grossly normal Skin no rashes or lesions noted MDM MDM MDM Narrative Medical decision making narrative: Patient is evaluated for abnormal outpatient labs. He appears nontoxic and his only complaint is some mild malaise. Patient has a chronic but stable anemia. He does have an elevation of his creatinine compared to the summer. I spoke with his gear machinist, Dr. Sahu, who would like to have him admitted to the hospital for IV fluid hydration to see if this improves his YSABEL. If not she will need to discuss dialysis options with him. Patient is agreeable with this. He is otherwise hemodynamically stable in the emergency room. Initial Covid antigen test is negative. PCR is pending as his did recently have positive Covid. Lab Data Attestation: I reviewed the patient's lab results. Labs: Laboratory Results - last 24 hr 02/10/21 02/10/21 02/10/21 10:45 10:45 11:10 WBC 5.8 RBC 2.81 L Hgb 8.6 L Hct 25.7 L MCV 91.5 MCH 30.6 MCHC 33.5 RDW Std Deviation 42.7 RDW Coeff of Lanre 12.9 Plt Count 194 MPV 10.2 Immature Gran % (Auto) 0.500 Neut % (Auto) 64.0 Lymph % (Auto) 16.1 L Bibb % (Auto) 10.6 H Eos % (Auto) 8.1 H Baso % (Auto) 0.7 Absolute Neuts (auto) 3.7 Absolute Lymphs (auto) 0.93 Nucleated RBC % 0 Sodium 141 Potassium 4.2 Chloride 112 H Carbon Dioxide 20.0 L Anion Gap 9 BUN 91 H Creatinine 5.65 H Estim Creat Clear Calc 10.40 Est GFR (MDRD) Af Amer 13 L Est GFR (MDRD) Non-Af 11 L BUN/Creatinine Ratio 16.1 Glucose 117 H Calcium 8.5 Phosphorus 4.8 Urine Color Yellow Urine Clarity Sl. Cloudy Urine pH 6.0 Ur Specific [place] 1.010 Urine Protein 500 H Urine Glucose (UA) 250 H Urine Ketones Negative Urine Occult Blood 50 H Urine Nitrite Negative Urine Bilirubin Negative Urine Urobilinogen Normal Ur Leukocyte Esterase Negative Urine RBC 0-5 SEEN Urine WBC 0 SEEN Ur Squamous Epith Cells 0-5 SEEN Urine Bacteria RARE Urine Mucus 0 SEEN Rhythm Strip Rhythm Strip: Sinus Rhythm Rate: 676 EKG Initial EKG: Attestation: I personally reviewed and interpreted this EKG as follows: Interpretation: Sinus Rhythm Comments: Normal sinus rhythm at a rate of 67 First-degree AV block with a NM interval of 242 Left axis deviation QRS [address] segments Discharge Plan Dx/Rx/DC Orders Clinical Impression: YSABEL (acute kidney injury), CKD (chronic kidney disease) Disposition Disposition: Acute Care Hospital [facility] Discharge Date/Time: 02/10/21 15:20
[2021-02-10 11:06] LABS: Anion Gap 9 (5-15); BUN 91 mg/dL (7-18); BUN/Creat Ratio 16.1 RATIO (10-20); Calcium,Total 8.5 mg/dL (8.5-10.1); Chloride 112 mmol/L (98-107); Creatinine, Serum 5.65 mg/dL (0.70-1.30); EST Glomerular Filtration Rate 11 mL/min (>60); Est Glom Filt Rate - Afr Amer 13 mL/min (>60); Glucose 117 mg/dL (74-106); Phosphorus 4.8 mg/dL (2.5-4.9); Potassium 4.2 mmol/L (3.5-5.1); Sodium Level 141 mmol/L (136-145)
[2021-02-10 11:18] LABS: Mucous, Urine 0 SEEN /hpf (<or=2+); White Blood Cells 0 SEEN /hpf (0-5)
[2021-02-10 11:20] LABS: Color, Urine Yellow (Yellow); Glucose, Dipstick 250 mg/dl (Normal); Ketone-Dipstick Negative (Negative); Leukocyte Esterase-Dipstick Negative /ul (Negative); Nitrite-Dipstick Negative (Negative); Occult Blood-Urine 50 /ul (Negative); Protein-Dipstick 500 mg/dl (Negative); Urine Bilirubin Dipstick Negative (Negative); Urine Clarity Sl. Cloudy (Clear); Urine Urobilinogen Normal (Normal)
[2021-02-10 11:30] LABS: Red Blood Cells-Urine 0-5 SEEN /hpf (0-5); Squamous Epithelial Cells - UA 0-5 SEEN /hpf (0-5)
[2021-02-10 11:31] LABS: Bacteria RARE /hpf (None Seen)
[2021-02-10] MEDS: 0.9% Normal Saline 1,000 ML 100 ML IV (13:47)
--- NOTE | 2021-02-10 13:54 | NURSING ---
dr ruano for dr heredia
--- NOTE | 2021-02-10 13:55 | PCM.HP.STD ---
HPI - General HPI Narrative DEB BILLINGS, mauro a 75 M had labs done by PCP on 02/09 and today showed elevated BUN and creatinine. Today BUN 91, creatinine 5.65. Sodium, potassium are normal. Bicarb 20 low, chloride 112. Estimated creatinine clearance 10 mL/min. His recent BUN/creatinine on 08/2020 was 51/3.26. Patient has history of diabetes and A1c is good, 7.1 on 02/09/21 and 7.3 on September 2020. Patient denies any recent change in urine output, he states he urinates frequently every 3 hours about 1 cup every time. Denies any recent change/decrease in urine output in last 2 to 3 years. Denies burning micturition or new lower urinary tract symptoms. UA done in the ER is benign with negative LE and nitrite, 0 WBC. Random urine protein on 09/2020 was 990 with protein creatinine ratio 11,950. Patient was told by PCP to come to ER and ER physician talked to Dr. Roger Cheung his hoop coiling machine operator and decided to get admitted. Patient denies history of kidney stone, cystoscopy or urethral procedure or catheterization. [facility] Medical History Diabetes High cholesterol Hypertension Home Medications multivitamin with folic acid [Thera] 1 tab PO DAILY 07/12/14 [History Last Taken Unknown] omega 5-gwe-gsg-fish oil 500 mg PO QHS 07/01/20 [History Last Taken Unknown] acetaminophen 1,000 mg PO Q8H PRN PRN #1 tablet 07/20/20 [Rx Last Taken Unknown] cholecalciferol (vitamin D3) 25 mcg PO DAILY #30 tablet 07/20/20 [Rx Last Taken Unknown] compress.stocking,knee,reg,med #2 ea 08/13/20 [Rx Last Taken Unknown] diltiazem HCl 120 mg capsule,extended release 24 hr 120 mg PO DAILY #30 cap 11/20/20 [Rx Last Taken Unknown] pantoprazole 20 mg tablet,delayed release 20 mg PO BID #180 tab 11/24/20 [Rx Last Taken Unknown] atorvastatin 80 mg tablet 80 mg PO QHS #90 tab 12/07/20 [Rx Last Taken Unknown] insulin lispro 100 unit/mL subcutaneous pen 7 unit SC TIDCM #3 insuln.pen 12/07/20 [Rx Last Taken Unknown] amlodipine 10 mg PO DAILY 02/10/21 [History Last Taken Unknown] clopidogrel 75 mg PO DAILY 02/10/21 [History Last Taken Unknown] insulin glargine [Lantus Solostar U-100 Insulin] 8 units SC QHS 02/10/21 [History Last Taken Unknown] Allergy/AdvReac Type Severity Reaction Status Date / Time No Known Allergies Allergy Verified 02/10/21 09:51 Family History Other Cancer Diabetes Surgical History (Updated 02/10/21 @ 12:52 by Vance Pelaez) History of appendectomy History of hernia repair Social History Smoking Status: Never smoker alcohol intake: never substance use type: does not use ROS ROS Narrative Constitutional: Denies fatigue and weakness HEENT: Reports systems reviewed and no addt'l complaints, except as documented Respiratory/Chest: Denies chest pain, shortness of breath at rest or with exertion Gastrointestinal: Denies coffee ground emesis, hematemesis or vomiting Genitourinary: Denies burning urination or new urinary tract symptoms Musculoskeletal: Mild balance problem and uses 4-prong cane. Mild hip and knee pain. Had fall in March 2020 with head injury and bleeding. Neurologic: Denies seizure-like activity skin: No ulcer. No rash Endocrinology: Reports systems reviewed and no addt'l complaints, except as documented Hematologic/Lymphatic: Reports systems reviewed and no addt'l complaints, except as documented Rest 12 ROS are negative except as mentioned in HPI He states his has symptoms of Covid with cough and mild URI. She is tested positive of Covid today. Vital Signs Vital Signs Vital Signs: 02/10/21 09:50 02/10/21 12:50 Temperature 99.4 F H Temperature Source Temporal Pulse Rate 87 65 Respiratory Rate 16 18 Blood Pressure 189/85 H 173/73 H Blood Pressure Mean 119 106 Pulse Ox 95 99 Oxygen Delivery Method Room Air Room Air Weight Weight: 147 lb 11.355 oz Body Mass Index (BMI) 23.1 Physical Exam Narrative General: Alert, Oriented x3, Cooperative HEENT: Atraumatic, PERRLA, EOMI, Normocephalic Oral: No Gingival or Mucosal Lesions/ Ulcerations Neck: Supple, No JVD, Negative Carotid Bruits Lungs: Air entry equal in bilateral lung bases. No crepitation/rhonchi Cardiovascular: Sinus rhythm,Regular Rhythm, Normal S1, Normal S2, No murmurs Abdomen: Bowel Sounds Present, Soft, Non Tender, Non-Distended : No renal angle tenderness. No suprapubic tenderness. Extremities: No edema, Capillary Refill Less than 3 Seconds Skin: No rashes, No breakdown Musculoskeletal: Uses cane. No Tenderness to Palpation of Joints or Extremities Neurological: Cranial nerves II-XII grossly intact, DTR 2+/4 and Symmetrical, Neuro grossly intact Psych/Mental Status: Normal Affect, Appropriate. Results Lab / Micro Data Result Diagrams: 02/10/21 10:45 02/10/21 10:45 Labs: Laboratory Results - last 24 hr 02/10/21 10:45: WBC 5.8, RBC 2.81 L, Hgb 8.6 L, Hct 25.7 L, MCV 91.5, MCH 30.6, MCHC 33.5, RDW Std Deviation 42.7, RDW Coeff of Lanre 12.9, Plt Count 194, MPV 10.2, Immature Gran % (Auto) 0.500, Neut % (Auto) 64.0, Lymph % (Auto) 16.1 L, [place] % (Auto) 10.6 H, Eos % (Auto) 8.1 H, Baso % (Auto) 0.7, Absolute Neuts (auto) 3.7, Absolute Lymphs (auto) 0.93, Nucleated RBC % 0 02/10/21 10:45: Sodium 141, Potassium 4.2, Chloride 112 H, Carbon Dioxide 20.0 L, Anion Gap 9, BUN 91 H, Creatinine 5.65 H, Estim Creat Clear Calc 10.40, Est GFR (MDRD) Af Amer 13 L, Est GFR (MDRD) Non-Af 11 L, BUN/Creatinine Ratio 16.1, Glucose 117 H, Calcium 8.5, Phosphorus 4.8 02/10/21 11:10: Urine Color Yellow, Urine Clarity Sl. Cloudy, Urine pH 6.0, Ur Specific [place] 1.010, Urine Protein 500 H, Urine Glucose (UA) 250 H, Urine Ketones Negative, Urine Occult Blood 50 H, Urine Nitrite Negative, Urine Bilirubin Negative, Urine Urobilinogen Normal, Ur Leukocyte Esterase Negative, Urine RBC 0-5 SEEN, Urine WBC 0 SEEN, Ur Squamous Epith Cells 0-5 SEEN, Urine Bacteria RARE, Urine Mucus 0 SEEN Rhythm Strip Rhythm Strip: Sinus Rhythm Rate: 676 Assessment & Plan Assessment/Plan (1) Chronic renal failure, stage 4 (severe): (2) YSABEL (acute kidney injury): PLAN: 1. Acute kidney injury on CKD stage IV, exact etiology unclear or possible CKD stage V: Patient is being admitted to [facility]. I think one of the possible etiology might be cardiorenal disease as patient has uncontrolled hypertension. Dr. Sahu has been consulted. IV fluid Ringer lactate 112/h for 2 L as chloride is high and bicarb is low. Serum magnesium, uric acid ordered. He had renal ultrasound on October 2020 shows no suspicious sonographic findings, incompletely distended bladder. Urine protein/creatinine ratio, urine electrolytes ordered. UA is negative. We discussed about the possible need for dialysis if kidney function does not get better, patient patient is not decided instead will need more input from hoop coiling machine operator Dr. Sahu and will discuss with his . I said Dr. Sahu will further talk about the need for dialysis in future, but first we will try conservative measures to correct YSABEL. 2. Uncontrolled hypertension/hypertensive heart disease with mild chronic ischemic heart failure: Patient is on amlodipine and Cardizem continued. Are tolerating IV every 4 hourly. For systolic pressure more than 180. Twelve-lead EKG shows sinus rhythm with first-degree AV block, HI interval 2 842 ms. QTc 439 ms. No significant change from January 2018 but shows mild LVH. The recent echo in October 2020 shows EF 55%, LA mildly enlarged, mild MR, mild TR, RVSP 33 mmHg and mild diastolic dysfunction. 3. CVA/possible subdural/subarachnoid hemorrhage: Patient is on aspirin and Plavix and continued. 4. Diabetes mellitus type 2, dyslipidemia: A1c is controlled as mentioned in HPI. Glucose in BMP is 117. Dose of Lantus and Humalog insulin decreased with Accu-Chek insulin is covered with sliding scale. 5. Other comorbidities include recurrent fall, GERD, ataxia, mild depression: Home medication reconciliation done. 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 After discussion of benefits/risks procedures involved with full code, DNR CC arrest and DNR CC, the patient opted for DNR-CC Arrest with no intubation Patient does not want artificial life support including intubation, tube feed, ventilator and/chest compression, central venous catheter, vasopressor and DC shock if needed Total time spent in [id number] encounter in discussion of advanced directive 16 minutes. Charges/Coding Visit Charges Inpatient E&M: 12556 Init Hosp L3 Procedures Hospitalists Procedures: 91054 Advncd Care Plan 30 Min
--- NOTE | 2021-02-10 14:10 | NURSING ---
MED SURG OBS JAYNE YSABEL
[2021-02-10 15:15] LABS: Magnesium 1.7 mg/dL (1.6-2.6); Uric Acid 6.2 mg/dL (3.5-7.2)
[2021-02-10] MEDS: Heparin Injection (Vial) 5,000 UNIT/ML VIAL 5000 UNIT SC ×2 (16:07→21:03)
[2021-02-10] MEDS: Lactated Ringers 1,000 ML 100 ML IV (16:09)
[2021-02-10] MEDS: hydrALAZINE 20 MG/ML Vial 10 MG IV ×2 (16:22→21:15)
[2021-02-10 16:30] LABS: Bedside Glucose 123 mg/dL (70-110)
--- NOTE | 2021-02-10 16:42 | PCS.PANDOC ---
PANDEMIC DOCUMENTATION INITIATED: Date: 11/09/2020 Time: 190
[2021-02-10] MEDS: Pantoprazole Sodium 20 MG Tablet PO (21:03)
[2021-02-10] MEDS: Atorvastatin Calcium 80 MG Tablet PO (21:03)
[2021-02-10] MEDS: Insulin Lispro 100 UNIT/ML INSULN.PEN SC (21:04)
[2021-02-10 21:10] LABS: Bedside Glucose 182 mg/dL (70-110)
[2021-02-10] MEDS: Acetaminophen 500 MG Tablet 1000 MG PO (21:14)
[2021-02-11] MEDS: Lactated Ringers 1,000 ML 100 ML IV (01:21)
[2021-02-11 01:39] VITALS: BP 170/69; PULSE 96; RESP 16; TEMP 37; O2SAT 98
[2021-02-11 07:01] LABS: Bedside Glucose 133 mg/dL (70-110)
[2021-02-11] MEDS: Cholecalciferol (VIT D3) 25 MCG TABLET (1,000 UNITS) PO (07:58)
[2021-02-11] MEDS: Multivitamins,Ther W-Minerals Tablet 1 TABLET PO (07:58)
[2021-02-11] MEDS: Insulin Lispro 100 UNIT/ML INSULN.PEN SC ×5 (07:58→16:06)
[2021-02-11 08:00] VITALS: O2SAT 95
[2021-02-11 08:03] VITALS: BP 170/77; PULSE 93; RESP 16; TEMP 36.9; O2SAT 97
[2021-02-11] MEDS: dilTIAZem CD 120 MG Capsule PO (08:07)
[2021-02-11] MEDS: Pantoprazole Sodium 20 MG Tablet PO ×2 (08:07→21:07)
[2021-02-11] MEDS: Heparin Injection (Vial) 5,000 UNIT/ML VIAL 5000 UNIT SC ×2 (08:07→21:06)
--- NOTE | 2021-02-11 08:27 | PCM.CONS.R ---
Assessment & Plan Assessment/Plan (1) Acute kidney injury superimposed on CKD: PLAN: vs progressive CKD stage 5. Creatinine 3 to 5.8 now 5.2. Continue with iv hydration. May have prerenal component from COVID. Check 24h urine CRCL. Discussed with pt that he may need to start dialysis if renal fxn does not improve with iv fluids. Currently no urgent indication for dialysis. (2) Chronic renal failure, stage 4 (severe): PLAN: due to diabetes baseline creatinine 3 eGFR 18cc/min. Has not attended dialysis education. (3) Diabetes mellitus, type II: QUALIFIERS: Chronic kidney disease stage: stage 4 (severe) Diabetes mellitus complication detail: with chronic kidney disease Diabetes mellitus complication status: with kidney complications Diabetes mellitus skilled nursing insulin use: with skilled nursing use Qualified Code(s): E11.22 - Type 2 diabetes mellitus with diabetic chronic kidney disease; N18.4 - Chronic kidney disease, stage 4 (severe); Z79.4 - long term care social worker (current) use of insulin (4) COVID: PLAN: PCR test positive with sick contact at home. (5) Diabetic neuropathy: (6) CVA (cerebral vascular accident): (7) Anemia in chronic kidney disease: PLAN: hgb 8.4g, iron stores low. IV iron HPI Consult Data Date of Consult: 02/11/21 HPI Narrative HPI Narrative: DEB BILLINGS, is a 75 M who presents with worsening renal function on recent labs. He was seen on initial consult in September 2020 for CKD Stage 4 with creatinine in 3 range eGFR 18cc/min. Recent labs from 02/09 showed Creatinine 5.8 eGFR 11cc/min improved to 5.2 today with iv fluids. He denies change in urine output, denied nausea, vomiting, change in appetite. His was diagnosed with COVID yesterday after seen by her PCP. Patient tested negative on rapid COVID but positive on PCR. He forgot to follow up with me in November and has not attended dialysis education as outpt. Discussed today that he may need to start dialysis if renal fxn does not improve with iv hydration. Currentlly denies cough, SOB or edema. [facility] Medical History Diabetes High cholesterol Hypertension Home Medications multivitamin with folic acid [Thera] 1 tab PO DAILY 07/12/14 [History Last Taken Unknown] omega 3-tho-mux-fish oil 500 mg PO QHS 07/01/20 [History Last Taken Unknown] acetaminophen 1,000 mg PO Q8H PRN PRN #1 tablet 07/20/20 [Rx Last Taken Unknown] cholecalciferol (vitamin D3) 25 mcg PO DAILY #30 tablet 07/20/20 [Rx Last Taken Unknown] compress.stocking,knee,reg,med #2 ea 08/13/20 [Rx Last Taken Unknown] diltiazem HCl 120 mg capsule,extended release 24 hr 120 mg PO DAILY #30 cap 11/20/20 [Rx Last Taken Unknown] pantoprazole 20 mg tablet,delayed release 20 mg PO BID #180 tab 11/24/20 [Rx Last Taken Unknown] atorvastatin 80 mg tablet 80 mg PO QHS #90 tab 12/07/20 [Rx Last Taken Unknown] insulin lispro 100 unit/mL subcutaneous pen 7 unit SC TIDCM #3 insuln.pen 12/07/20 [Rx Last Taken Unknown] insulin glargine [Lantus Solostar U-100 Insulin] 8 units SC QHS 02/10/21 [History Last Taken Unknown] Allergy/AdvReac Type Severity Reaction Status Date / Time No Known Allergies Allergy Verified 02/10/21 09:51 Family History Other Cancer Diabetes Surgical History (Updated 02/10/21 @ 12:52 by Vance Pelaez) History of appendectomy History of hernia repair Social History (Updated 02/10/21 @ 15:33 by Verena Kingsley) household members: spouse housing: house Smoking Status: Never smoker alcohol intake: never substance use type: does not use ROS Constitutional Constitutional: Denies chills, fever(s), malaise or weakness Eyes Eyes: Denies loss of vision Cardiovascular Cardiovascular: Denies chest pain or syncope Respiratory/Chest Respiratory/Chest: Denies dry cough, dyspnea on exertion or shortness of breath at rest Gastrointestinal Gastrointestinal: Denies abdominal pain, anorexia, diarrhea, nausea or vomiting Genitourinary Genitourinary: Denies difficulty urinating Musculoskeletal Musculoskeletal: Reports other Details: no edema Neurologic Neurologic: Denies abnormal gait, confusion or tremor(s) Psychiatric Psychiatric: Denies anxiety or depression Hematologic/Lymphatic Hematologic/Lymphatic: Reports anemia; Denies easy bruising Physical Exam Const alert, oriented x3 and no apparent distress HEENT normocephalic Resp clear to auscultation bilaterally Cardio regular rate and no murmurs GI non-tender and non-distended Auscultation: normoactive bowel sounds Palpation: soft Extremity no clubbing, cyanosis or edema Neuro Sensorium / Orientation: awake and alert Psych cooperative Lab / Micro Data Result Diagrams: 02/11/21 07:50 02/11/21 07:50 Labs: Laboratory Results - last 24 hr 02/10/21 10:45: WBC 5.8, RBC 2.81 L, Hgb 8.6 L, Hct 25.7 L, MCV 91.5, MCH 30.6, MCHC 33.5, RDW Std Deviation 42.7, RDW Coeff of Lanre 12.9, Plt Count 194, MPV 10.2, Immature Gran % (Auto) 0.500, Neut % (Auto) 64.0, Lymph % (Auto) 16.1 L, [place] % (Auto) 10.6 H, Eos % (Auto) 8.1 H, Baso % (Auto) 0.7, Absolute Neuts (auto) 3.7, Absolute Lymphs (auto) 0.93, Nucleated RBC % 0 02/10/21 10:45: Sodium 141, Potassium 4.2, Chloride 112 H, Carbon Dioxide 20.0 L, Anion Gap 9, BUN 91 H, Creatinine 5.65 H, Estim Creat Clear Calc 10.40, Est GFR (MDRD) Af Amer 13 L, Est GFR (MDRD) Non-Af 11 L, BUN/Creatinine Ratio 16.1, Glucose 117 H, Calcium 8.5, Phosphorus 4.8 02/10/21 11:10: Urine Color Yellow, Urine Clarity Sl. Cloudy, Urine pH 6.0, Ur Specific [place] 1.010, Urine Protein 500 H, Urine Glucose (UA) 250 H, Urine Ketones Negative, Urine Occult Blood 50 H, Urine Nitrite Negative, Urine Bilirubin Negative, Urine Urobilinogen Normal, Ur Leukocyte Esterase Negative, Urine RBC 0-5 SEEN, Urine WBC 0 SEEN, Ur Squamous Epith Cells 0-5 SEEN, Urine Bacteria RARE, Urine Mucus 0 SEEN 02/10/21 14:04: COVID-19 (DIMAS) Detected 02/10/21 14:40: Uric Acid 6.2, Magnesium 1.7 02/10/21 16:06: POC Glucose 123 H 02/10/21 20:56: POC Glucose 182 H 02/11/21 06:34: POC Glucose 133 H Micro: Microbiology 02/10/21 13:49 Interface Orders SARS-CoV-2 Antigen (Rapid) - Final Rhythm Strip Rhythm Strip: Sinus Rhythm Rate: 676
[2021-02-11 08:28] LABS: Absolute Lymphocyte Count 0.29 X10^3/uL (0.83-4.51); Absolute Neutrophil Count 3.6 X10^3/uL (2.0-7.7); Basophil# 0.03 X10^3/uL; Basophil% 0.6 % (0-1); Eosinophil# 0.23 X10^3/uL; Eosinophils% 4.8 % (0-5); Hematocrit 25.2 % (40-54); Hemoglobin 8.4 g/dL (13.0-16.5); Lymphocyte # 0.29 X10^3/ul (0.83-4.51); Lymphocyte % 6.1 % (19-41); Mean Corp Hgb Conc 33.3 g/dL (32-36); Mean Corpuscular Hgb 30.3 pg (27.0-32.0); Mean Platelet Vol. 10.6 fl (6.2-12.0); Monocyte# 0.62 X10^3/uL; NRBC Flagged by Analyzer 0 % (0-5); Neutrophil # 3.57 X10^3/uL (2.7-7.7); Neutrophil % 74.9 % (47-70); POSITIVE DIFFERENTIAL YES; Platelet Count 174 K/mm3 (150-450); RBC Distribution Width CV 12.8 % (11.6-14.6); RBC Distribution Width SD 42.4 fl (35.1-43.9); Red Blood Count 2.77 M/mm3 (4.6-6.2); White Blood Count 4.8 K/mm3 (4.4-11.0)
[2021-02-11 08:30] LABS: Differential Indicated SCAN CRITERIA MET
[2021-02-11 08:43] LABS: AST(SGOT) 21 U/L (15-37); Alanine Aminotransfer ALT/SGPT 25 U/L (16-61); Albumin, Serum 1.9 g/dL (3.2-5.0); Alkaline Phosphatase 77 U/L (45-117); Anion Gap 11 (5-15); BUN 86 mg/dL (7-18); BUN/Creat Ratio 16.3 RATIO (10-20); Bilirubin, Direct 0.06 mg/dL (0.00-0.30); Calcium,Total 8.1 mg/dL (8.5-10.1); Chloride 108 mmol/L (98-107); Creatinine, Serum 5.28 mg/dL (0.70-1.30); EST Glomerular Filtration Rate 11 mL/min (>60); Est Glom Filt Rate - Afr Amer 14 mL/min (>60); Estimated Creatinine Clearance 11.13 ml/min; Ferritin 233 ng/mL (26-388); Globulin 4.2 g/dL (2.2-4.2); Glucose 146 mg/dL (74-106); Iron 39 ug/dL (65-175); Iron Binding Capacity,Total 191 ug/dL (250-450); PERCENT IRON SATURATION 20.4 % (15.0-55.0); Potassium 4.4 mmol/L (3.5-5.1); Protein, Total 6.1 g/dL (6.4-8.2); Sodium Level 139 mmol/L (136-145)
[2021-02-11 08:53] LABS: PTHIN 79.1 pg/mL (18.4-80.1)
[2021-02-11 11:20] VITALS: BP 168/81; PULSE 93; RESP 16; TEMP 36.9; O2SAT 97
[2021-02-11 11:25] LABS: Bedside Glucose 238 mg/dL (70-110)
--- NOTE | 2021-02-11 13:15 | CASEMGMT ---
KIMBERLY YI QUARTZ MOUNTER CM spoke with patient for initial transition planning/care coordination assessment. KIMBERLY YI introduced self and role at [facility]. Pt voices understanding and consents to assessment at this time. Pt is A/O at this time and answers all questions appropriately. Care providers, pharmacy, and demographics verified/updated at this time. COVID testing completed @ [facility]. PCP: Dr Holliday Specialists: Dr Sahu-nephrology Preferred Pharmacy: [facility] Insurance: [facility], [facility] Prescription Benefit: yes Living Will/HPOA: Pt does not currently have LW/HCPOA and declines info at this time. LNOK: , Sheryl. Has 2 daughters [id number]. Step-dtr, Denice Cornejoune. Living Arrangements: Lives w/ in mobile home w/ramp entrance in back. Independent w/ADL's. manages home tasks, medications, and apts. Pt home w/COVID. Step-dtr, Denice, supportive and able to bring groceries and supplies as needed. Denice will check on her mother (pt's ) while pt hospitalized. Transportation: , step-dtr DME: has the following DME: cane, walker, functioning glucometer and supplies. Does not have pulse ox--recommended to get one. Does not have home O2. Provided w/list of local DME companies--pt has no preference on DME company should he need O2 at home. HHC/SNF: No hx of SNF. Has had [facility]HC in the past. Pt interested in HHC again. Pt was provided with list of HHC providers including quality and resource use data and consistent with the patient's preferred geographic region, medical needs, and insurance network. The pt's preferred provider is [facility]. TC to Dali @ [facility] and referral made. She was made aware anticipate pt will be ready for discharge tomorrow. They are able to accept pt w/SOC Sat. Pt made aware. Pt wishes to return home w/[facility] and states has no concerns with going home at time of discharge. CM to follow for home oxygen needs and any further discharge planning/needs. Pt voices no further concerns/needs at this time. Advised pt to ask for CM if any further questions/concerns/needs arise. Voices understanding. PLAN: Home w/[facility] HHC. Follow for home O2 needs @ discharge. Naren BSN RN CM
[2021-02-11 16:08] VITALS: BP 161/75; PULSE 86; RESP 12; TEMP 36.8; O2SAT 96
[2021-02-11 16:15] LABS: Bedside Glucose 218 mg/dL (70-110)
--- NOTE | 2021-02-11 16:19 | PN.HOSP_ITS ---
Subjective Subjective Patient seen and examined. He was admitted on account of elevated BUN and creatinine. Patient has underlying chronic kidney disease with his most recent creatinine in August 2020 being 3.26. He recently had labs done on the day of admission which showed creatinine of 5.65 so he was brought into the ED. Patient had no complaints this morning. He was making good urine. He has been hydrated with IV fluids. His creatinine has trended down slightly. Review of systems otherwise negative. Patient said he was hoping he could go home tomorrow as he had a big phone call coming up about his electricity bill. I e xplained to patient that I could not guarantee that he could be discharged tomorrow, and it would depend on his creatinine and BUN numbers. He has remained hemodynamically stable otherwise. Objective Data Objective Data Vital Signs: Vital Signs Temp Pulse Resp BP Pulse Ox 98.3 F 86 12 161/75 H 96 02/11/21 16:08 02/11/21 16:08 02/11/21 16:08 02/11/21 16:08 02/11/21 16:08 Oxygen Delivery Method Room Air Weight: 146 lb 2.664 oz Body Mass Index (BMI) 22.8 Intake & Output: Intake and Output for Last 24 Hours 02/09/21 02/10/21 02/11/21 23:59 23:59 23:59 Intake Total 1000 / 1000 2400 / 2400 Balance 1000 / 1000 2400 / 2400 Lab / Micro Data Result Diagrams: 02/11/21 07:50 02/11/21 07:50 Labs: Laboratory Results - last 24 hr 02/10/21 14:04: COVID-19 (DIMAS) Detected 02/10/21 16:06: POC Glucose 123 H 02/10/21 20:56: POC Glucose 182 H 02/11/21 06:34: POC Glucose 133 H 02/11/21 07:50: WBC 4.8, RBC 2.77 L, Hgb 8.4 L, Hct 25.2 L, MCV 91.0, MCH 30.3, MCHC 33.3, RDW Std Deviation 42.4, RDW Coeff of Lanre 12.8, Plt Count 174, MPV 10.6, Immature Gran % (Auto) 0.600, Neut % (Auto) 74.9 H, Lymph % (Auto) 6.1 L, [place] % (Auto) 13.0 H, Eos % (Auto) 4.8, Baso % (Auto) 0.6, Absolute Neuts (auto) 3.6, Absolute Lymphs (auto) 0.29 L, Nucleated RBC % 0, Differential Comment COMMENT 02/11/21 07:50: Sodium 139, Potassium 4.4, Chloride 108 H, Carbon Dioxide 20.0 L , Anion Gap 11, BUN 86 H, Creatinine 5.28 H, Estim Creat Clear Calc 11.13, Est GFR (MDRD) Af Amer 14 L, Est GFR (MDRD) Non-Af 11 L, BUN/Creatinine Ratio 16.3, Glucose 146 H, Calcium 8.1 L, Iron 39 L, TIBC 191 L, Iron Saturation 20.4, Ferritin 233, Total Bilirubin 0.30, Direct Bilirubin 0.06, AST 21, ALT 25, Alkaline Phosphatase 77, Total Protein 6.1 L, Albumin 1.9 L, Globulin 4.2 02/11/21 07:50: PTH Intact 79.1 02/11/21 11:14: POC Glucose 238 H 02/11/21 16:03: POC Glucose 218 H Micro: Microbiology 02/10/21 13:49 Interface Orders SARS-CoV-2 Antigen (Rapid) - Final Rhythm Strip Rhythm Strip: Sinus Rhythm Rate: 676 Physical Exam Const alert, oriented x3 and no apparent distress Exam Limitations: no limitations HEENT head/scalp atraumatic and moist oral mucous membranes Head and Scalp: normocephalic Eyes PERRL, EOMs intact bilaterally and conjunctivae normal Neck no lymphadenopathy Resp normal respiratory effort, no retractions, no use of accessory muscles and clear to auscultation bilaterally Cardio regular rate, regular rhythm, S1 normal heart sound, S2 normal heart sound and no murmurs GI normal to inspection, nondistended, normoactive bowel sounds, soft to palpation, non-tender and non-distended Extremity normal to inspection, full ROM and no clubbing, cyanosis or edema Peripheral Pulses: Yes pulses 2+ throughout Skin no rashes or lesions noted Neuro oriented x3, CN's II-XII intact bilaterally and moves all extremities Sensorium / Orientation: awake and alert Psych affect normal Assessment & Plan Assessment/Plan (1) Acute kidney injury superimposed on CKD: PLAN: #Brandi on CKD stage IV * Creatinine was 5.65 on admission and has now trended down to 5.27 * Patient be hydrated with Ringer's lactate. Nephrology consulted. * #Non-anion gap metabolic acidosis: Bicarb is 20. Anion gap is 11. This is due to BRANDI on CKD stage IV. Will monitor. #Poorly controlled hypertension * On amlodipine and Cardizem. IV hydralazine as needed * #Type 2 diabetes mellitus: * On Lantus 5 units daily. * Insulin sliding scale. Accu-Cheks AC at bedtime. #GERD: on PPI #Ataxia with frequent falls: Fall precautions. Consult PT OT. #History of CVA: On Plavix and statin. #History of A. fib: Currently rate controlled. On Cardizem. #Chronic anemia: Hemoglobin is 8.4 today. His baseline is around 8-9. Will monitor. Likely due to CKD. Receiving Venofer DVT prophylaxis: On Lovenox Charges/Coding Visit Charges Inpatient E&M: 05871 Subs Hosp L2
[2021-02-11] MEDS: Atorvastatin Calcium 80 MG Tablet PO (21:07)
[2021-02-11 21:08] VITALS: BP 165/67; PULSE 95; RESP 16; TEMP 37.6; O2SAT 99
[2021-02-11 21:16] LABS: Bedside Glucose 137 mg/dL (70-110)
[2021-02-12] VITALS (11 sets, daily range): BP systolic 145–184; BP diastolic 67–105; PULSE 78–100; RESP 16–18; TEMP 36.4–37.3; O2SAT 97–99; BMI 22.5
[2021-02-12 07:01] LABS: Bedside Glucose 116 mg/dL (70-110)
[2021-02-12 07:35] LABS: Hematocrit 24.5 % (40-54); Hemoglobin 8.1 g/dL (13.0-16.5); Mean Corp Hgb Conc 33.1 g/dL (32-36); Mean Corpuscular Hgb 30.7 pg (27.0-32.0); Mean Corpuscular Volume 92.8 fL (80-94); Mean Platelet Vol. 11.1 fl (6.2-12.0); Platelet Count 175 K/mm3 (150-450); RBC Distribution Width CV 13.2 % (11.6-14.6); RBC Distribution Width SD 44.7 fl (35.1-43.9); Red Blood Count 2.64 M/mm3 (4.6-6.2); White Blood Count 3.8 K/mm3 (4.4-11.0)
[2021-02-12 07:57] LABS: Albumin, Serum 1.8 g/dL (3.2-5.0); BUN 80 mg/dL (7-18); BUN/Creat Ratio 14.2 RATIO (10-20); Calcium,Total 8.4 mg/dL (8.5-10.1); Chloride 112 mmol/L (98-107); Creatinine, Serum 5.62 mg/dL (0.70-1.30); EST Glomerular Filtration Rate 11 mL/min (>60); Est Glom Filt Rate - Afr Amer 13 mL/min (>60); Estimated Creatinine Clearance 10.45 ml/min; Glucose 124 mg/dL (74-106); Phosphorus 4.5 mg/dL (2.5-4.9); Potassium 3.8 mmol/L (3.5-5.1); Sodium Level 142 mmol/L (136-145)
[2021-02-12] MEDS: Heparin Injection (Vial) 5,000 UNIT/ML VIAL 5000 UNIT SC (08:22)
[2021-02-12] MEDS: Cholecalciferol (VIT D3) 25 MCG TABLET (1,000 UNITS) PO (08:23)
[2021-02-12] MEDS: Multivitamins,Ther W-Minerals Tablet 1 TABLET PO (08:23)
[2021-02-12] MEDS: dilTIAZem CD 120 MG Capsule PO (08:23)
[2021-02-12] MEDS: Pantoprazole Sodium 20 MG Tablet PO ×2 (08:23→22:36)
[2021-02-12] MEDS: Insulin Lispro 100 UNIT/ML INSULN.PEN SC ×3 (11:00→22:37)
[2021-02-12 11:05] LABS: Bedside Glucose 212 mg/dL (70-110)
--- NOTE | 2021-02-12 11:47 | PCM.PN.REN ---
Subjective Subjective denies nausea, vomiting, shortness of breath. CRCL 9cc/min. Renal fxn not improving. discussed initiating dialysis with tunneled catheter. Since he is COVID positive he will need to go to a cohort clinic until COVID PCR negative. Objective Data Objective Data Vital Signs: Vital Signs Temp Pulse Resp BP Pulse Ox 98.9 F 82 16 145/67 H 98 02/12/21 10:59 02/12/21 10:59 02/12/21 10:59 02/12/21 10:59 02/12/21 10:59 Oxygen Delivery Method Room Air Weight: 66.3 kg Body Mass Index (BMI) 22.8 Intake & Output: Intake and Output for Last 24 Hours 02/10/21 02/11/21 02/12/21 23:59 23:59 23:59 Intake Total 1000 / 1000 2860 / 2860 Output Total 100 / 100 Balance 1000 / 1000 2860 / 2860 -100 / -100 Lab / Micro Data Result Diagrams: 02/12/21 06:46 02/12/21 06:46 Labs: Laboratory Results - last 24 hr 02/11/21 16:03: POC Glucose 218 H 02/11/21 21:05: POC Glucose 137 H 02/12/21 06:46: WBC 3.8 L, RBC 2.64 L, Hgb 8.1 L, Hct 24.5 L, MCV 92.8, MCH 30.7, MCHC 33.1, RDW Std Deviation 44.7 H, RDW Coeff of Lanre 13.2, Plt Count 175, MPV 11.1 02/12/21 06:46: Sodium 142, Potassium 3.8, Chloride 112 H, Carbon Dioxide 21.0, BUN 80 H, Creatinine 5.62 H, Estim Creat Clear Calc 10.45, Est GFR (MDRD) Af Amer 13 L, Est GFR (MDRD) Non-Af 11 L, BUN/Creatinine Ratio 14.2, Glucose 124 H, Calcium 8.4 L, Phosphorus 4.5, Albumin 1.8 L 02/12/21 06:57: POC Glucose 116 H 02/12/21 10:57: POC Glucose 212 H Micro: Microbiology 02/10/21 13:49 Interface Orders SARS-CoV-2 Antigen (Rapid) - Final Rhythm Strip Rhythm Strip: Sinus Rhythm Rate: 676 Physical Exam Const alert and oriented x3 Resp clear to auscultation bilaterally Cardio regular rate GI non-tender and non-distended Auscultation: normoactive bowel sounds Palpation: soft Extremity no clubbing, cyanosis or edema Skin no wounds Neuro Sensorium / Orientation: awake and alert Motor Exam: no tremor Psych cooperative Assessment & Plan Assessment/Plan (1) ESRD (end stage renal disease): PLAN: 24h urine CRCL 9cc/min. Renal fxn not improving. Discussed dialysis initiation with tunneled catheter. Will need dialysis unit placed prior to discharge. Need to arrange cohort clinic outside of [place] until COVID PCR negative or 21 days in isolation. Consult GS for tunneled catheter placement. 40 min spent on discussion on dialysis, coordination of care for dialysis catheter placement by surgeon, dialysis clinic placement as outpt, transportation to cohort clinic with dialysis nurse and behavioral health case manager. (2) COVID: PLAN: PCR test positive with sick contact at home. 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 IV iron
--- NOTE | 2021-02-12 11:53 | CASEMGMT ---
Addendum entered by Brittany Heath 02/12/21 12:09: Pt states preference for [facility] which is [facility] and [facility] at [facility] aware and states they can set up transportation for pt and should be no concern. Referral placed in [facility] portal and faxed. Hep antigen to be drawn today and pt to have line placed by Dr. Murry. CM to fax clinicals as obtained. Michael HARRIS CM Original Note: Per Dr. Sahu, pt will need OP dialysis set up and states no preference for OP clinic but states transportation concerns. [facility] updated that pt will be here thru weekend d/t dialysis line placement, facility choice([facility] or [facility] d/t COVID + status), and dialysis referral/acceptance, voices understanding. CM to follow. Michael HARRIS CM
--- NOTE | 2021-02-12 12:16 | PN.HOSP_ITS ---
Subjective Subjective Patient seen and examined. He had no complaints this morning and remained on room air. Review of symptoms otherwise negative. Covid PCR tests came back positive. Patient's also has Covid currently at home. Creatinine is trended upwards to 5.62. Review of systems otherwise negative. Objective Data Objective Data Vital Signs: Vital Signs Temp Pulse Resp BP Pulse Ox 98.9 F 82 16 145/67 H 98 02/12/21 10:59 02/12/21 10:59 02/12/21 10:59 02/12/21 10:59 02/12/21 10:59 Oxygen Delivery Method Room Air Weight: 146 lb 2.664 oz Body Mass Index (BMI) 22.8 Intake & Output: Intake and Output for Last 24 Hours 02/10/21 02/11/21 02/12/21 23:59 23:59 23:59 Intake Total 1000 / 1000 2860 / 2860 Output Total 100 / 100 Balance 1000 / 1000 2860 / 2860 -100 / -100 Lab / Micro Data Result Diagrams: 02/12/21 06:46 02/12/21 06:46 Labs: Laboratory Results - last 24 hr 02/11/21 16:03: POC Glucose 218 H 02/11/21 21:05: POC Glucose 137 H 02/12/21 06:46: WBC 3.8 L, RBC 2.64 L, Hgb 8.1 L, Hct 24.5 L, MCV 92.8, MCH 30.7, MCHC 33.1, RDW Std Deviation 44.7 H, RDW Coeff of Lanre 13.2, Plt Count 175, MPV 11.1 02/12/21 06:46: Sodium 142, Potassium 3.8, Chloride 112 H, Carbon Dioxide 21.0, BUN 80 H, Creatinine 5.62 H, Estim Creat Clear Calc 10.45, Est GFR (MDRD) Af Amer 13 L, Est GFR (MDRD) Non-Af 11 L, BUN/Creatinine Ratio 14.2, Glucose 124 H, Calcium 8.4 L, Phosphorus 4.5, Albumin 1.8 L 02/12/21 06:57: POC Glucose 116 H 02/12/21 10:57: POC Glucose 212 H Micro: Microbiology 02/10/21 13:49 Interface Orders SARS-CoV-2 Antigen (Rapid) - Final Rhythm Strip Rhythm Strip: Sinus Rhythm Rate: 676 Physical Exam Const alert, oriented x3 and no apparent distress Exam Limitations: no limitations HEENT head/scalp atraumatic and moist oral mucous membranes Head and Scalp: normocephalic Eyes PERRL, EOMs intact bilaterally and conjunctivae normal Neck no lymphadenopathy Resp normal respiratory effort, no retractions, no use of accessory muscles and clear to auscultation bilaterally Resp Narrative: on room air. Cardio regular rate, regular rhythm, S1 normal heart sound, S2 normal heart sound and no murmurs GI normal to inspection, nondistended, normoactive bowel sounds, soft to palpation, non-tender and non-distended Extremity normal to inspection, full ROM and no clubbing, cyanosis or edema Peripheral Pulses: Yes pulses 2+ throughout Skin no rashes or lesions noted Neuro oriented x3, CN's II-XII intact bilaterally and moves all extremities Sensorium / Orientation: awake and alert Psych affect normal Assessment & Plan Assessment/Plan (1) Acute kidney injury superimposed on CKD: PLAN: #Brandi on CKD stage IV * This now appears to be more of a worsening of his CKD status to CKD stage V and now ESRD as he has been initiated on dialysis. * Creatinine was 5.65; creatinine initially trended down slightly but is up to 5.62 today. * Nephrology on board. General surgery consulted for placement of temporary dialysis catheter per nephrology. * Patient to be initiated on dialysis. * * #COVID 19 infection * Currently on room air. also has Covid. He has no symptoms whatsoever. * Will start on p.o. Decadron 6 mg daily * #Non-anion gap metabolic acidosis: * Bicarb is now 21, with anion gap of 9 today. * this is due to BRANDI on CKD stage IV. * being intitated on dialysis for worsening of CKD to ESRD * #Poorly controlled hypertension * On amlodipine and Cardizem. IV hydralazine as needed * #Type 2 diabetes mellitus: * On Lantus 5 units daily. * Insulin sliding scale. Accu-Cheks AC at bedtime. #GERD: on PPI #Ataxia with frequent falls: Fall precautions. PT/OT on baord #History of CVA: On Plavix and statin. #History of A. fib: Currently rate controlled. On Cardizem. #Chronic anemia: * Hemoglobin is 8.1 today * His baseline is around 8-9. * Likely due to CKD. * On Venofer DVT prophylaxis: On Lovenox Charges/Coding Visit Charges Inpatient E&M: 19802 Subs Hosp L2
[2021-02-12 13:11] LABS: International Normalized Ratio 1.2; Prothrombin Time (Protime)PT. 14.5 SECONDS (11.7-14.9)
--- NOTE | 2021-02-12 13:27 | EX.PCM.CON.S ---
Assessment & Plan Assessment/Plan (1) Acute kidney injury superimposed on CKD: (2) ESRD (end stage renal disease): (3) COVID: PLAN: Did discuss the plan to place a tunneled dialysis catheter with the patient. Described the procedure including risk but not limited to bleeding, infection, malfunction of the catheter, and anesthesia. Patient no further questions this time. And agreed to proceed. Edelmira Murry M.D. Pager: [phone] [facility] [address] [place] [address], Outpatient Pavilion, [address] [place] [address] Office: [phone] HPI Consult Data Date of Consult: 02/12/21 HPI Narrative HPI Narrative: DEB BILLINGS, is a 75 M who presents present to the ER due to abnormal labs from his PCP. Patient has acute on chronic kidney disease. Patient's BUN has been as high as low 100s and creatinine is about 5.7. Ultrasound the kidneys were normal. Patient has never had dialysis or a previous catheter. Current orders state patient is a DO NOT INTUBATE however patient states that he wants to be a full code and wants to be intubated if needed and also CPR if needed. Patient denies any abdominal pain shortness of breath or chest pain. Patient's was recently diagnosed with Covid. Patient had a negative rapid test but a positive PCR. [facility] Medical History Diabetes High cholesterol Hypertension Home Medications multivitamin with folic acid [Thera] 1 tab PO DAILY 07/12/14 [History Last Taken Unknown] omega 4-lwv-qpb-fish oil 500 mg PO QHS 07/01/20 [History Last Taken Unknown] acetaminophen 1,000 mg PO Q8H PRN PRN #1 tablet 07/20/20 [Rx Last Taken Unknown] cholecalciferol (vitamin D3) 25 mcg PO DAILY #30 tablet 07/20/20 [Rx Last Taken Unknown] compress.stocking,knee,reg,med #2 ea 08/13/20 [Rx Last Taken Unknown] diltiazem HCl 120 mg capsule,extended release 24 hr 120 mg PO DAILY #30 cap 11/20/20 [Rx Last Taken Unknown] pantoprazole 20 mg tablet,delayed release 20 mg PO BID #180 tab 11/24/20 [Rx Last Taken Unknown] atorvastatin 80 mg tablet 80 mg PO QHS #90 tab 12/07/20 [Rx Last Taken Unknown] insulin lispro 100 unit/mL subcutaneous pen 7 unit SC TIDCM #3 insuln.pen 12/07/20 [Rx Last Taken Unknown] insulin glargine [Lantus Solostar U-100 Insulin] 8 units SC QHS 02/10/21 [History Last Taken Unknown] Allergy/AdvReac Type Severity Reaction Status Date / Time No Known Allergies Allergy Verified 02/10/21 09:51 Family History Other Cancer Diabetes Surgical History (Updated 02/10/21 @ 12:52 by Vance Pelaez) History of appendectomy History of hernia repair Social History (Updated 02/10/21 @ 15:33 by Verena Kingsley) household members: spouse housing: house Smoking Status: Never smoker alcohol intake: never substance use type: does not use ROS Constitutional Constitutional: Denies anorexia Eyes Eyes: Denies blurry vision ENT HEENT: Denies dysphagia Cardiovascular Cardiovascular: Denies chest pain Respiratory/Chest Respiratory/Chest: Denies cough or shortness of breath at rest Gastrointestinal Gastrointestinal: Denies abdominal pain Genitourinary Genitourinary: Denies dysuria Musculoskeletal Musculoskeletal: Denies difficulty walking Integumentary Integumentary: Denies rash Neurologic Neurologic: Denies dizziness Endocrine Endocrinology: Denies palpitations Hematologic/Lymphatic Hematologic/Lymphatic: Denies easy bleeding Physical Exam Const alert, oriented x3 and no apparent distress HEENT normocephalic and head/scalp atraumatic Chest Chest Narrative: Inspection and palpation of upper chest normal Resp normal respiratory effort Cardio regular rate GI soft to palpation; Negative for non-distended Palpation: Negative for tender or guarding Extremity no clubbing, cyanosis or edema Neuro CN's II-XII intact bilaterally Psych mental status grossly normal Lab / Micro Data Result Diagrams: 02/12/21 06:46 02/12/21 06:46 Labs: Laboratory Results - last 24 hr 02/11/21 16:03: POC Glucose 218 H 02/11/21 21:05: POC Glucose 137 H 02/12/21 06:46: WBC 3.8 L, RBC 2.64 L, Hgb 8.1 L, Hct 24.5 L, MCV 92.8, MCH 30.7, MCHC 33.1, RDW Std Deviation 44.7 H, RDW Coeff of Lanre 13.2, Plt Count 175, MPV 11.1 02/12/21 06:46: Sodium 142, Potassium 3.8, Chloride 112 H, Carbon Dioxide 21.0, BUN 80 H, Creatinine 5.62 H, Estim Creat Clear Calc 10.45, Est GFR (MDRD) Af Amer 13 L, Est GFR (MDRD) Non-Af 11 L, BUN/Creatinine Ratio 14.2, Glucose 124 H, Calcium 8.4 L, Phosphorus 4.5, Albumin 1.8 L 02/12/21 06:57: POC Glucose 116 H 02/12/21 10:57: POC Glucose 212 H 02/12/21 12:51: PT 14.5, INR 1.2 Rhythm Strip Rhythm Strip: Sinus Rhythm Rate: 676 Procedure Criteria Elective Risks - COVID COVID Risk Discussion: Patient is positive for Covid Charges/Coding Visit Charges Inpatient E&M: 46683 Init Hosp L3
[2021-02-12] MEDS: dexAMETHasone 4 MG Tablet 6 MG PO (13:32)
[2021-02-12 13:46] LABS: Hepatitis B Surface Antigen Non-Reactive (Nonreactive)
[2021-02-12 16:15] LABS: Bedside Glucose 126 mg/dL (70-110)
[2021-02-12] MEDS: Bupivacaine 0.25% 30 ML Vial (19:05)
[2021-02-12] MEDS: Lidocaine 1% /Epi 1:100 (20ml) 20 ML Vial (19:05)
[2021-02-12] MEDS: Heparin 10,000 UNITS/10 ML Vial 10000 UNITS (19:30)
--- NOTE | 2021-02-12 19:43 | PCM.OPRPT ---
Report of Operation Date of Procedure: 02/12/21 Pre-Operative Diagnosis: Acute on chronic kidney disease Post-Operative Diagnosis: Same Surgery/Procedure Performed:: Placement of right IJ tunneled dialysis catheter Surgeon: Edelmira Murry Type of Anesthesia: Local MAC Anesthesiologist: Neha Gibson Special Medications: Ancef 2 g IV x1 Estimated Blood Loss (mL): < 10 cc Description of Procedure: After informed consent was given, the patient was brought to the operating room with Covid precautions and placed in the supine position. Appropriate time out protocol was followed. He was then given IV conscious sedation for anesthesia. The patient's right upper chest and neck were then prepped with a surgical skin preparation and sterile surgical drapes were placed. After proper landmarks were ascertained, the skin at the upper right chest area was then infiltrated with 1:1 mixture of 1% lidocaine with epinephrine and 0.5% maricaine. A needle trocar was then inserted into the right internal jugular vein with ultrasound guidance-multiple vessels were viewed with u/s and the right IJ was chosen-- and there was good aspiration of venous blood. A wire was then threaded into the needle trocar and this was visualized under fluoroscopy to ensure that the wire was in the superior vena cava. Once this was done, then the needle trocar was removed. A small incision was made with an 11 blade knife at the wire entrance site. The dilator x2 with the introducer sheath attached was then placed over the wire into the right internal jugular vein via the Seldinger technique and this was visualized under fluoroscopy. Next the introducer and sheath were in proper position as visualized by fluoroscopy. The location of the cuffed was estimated on the skin, an incision was made with a 15 blade scalpel. The 14.5 Fr x 19 cm Palindrome dual lumen was tunneled from the chest incision to the right neck incision. The sheath was removed. The catheter was placed through the introducer and was positioned with its tip at the junction of the superior vena cava and the right atrium as visualized under fluoroscopy. The cuff of the catheter was in the subcutaneous tissue. The catheter flushed and julio well with saline. Catheter was also flushed with 1.6 cc of 1-10,000 of heparin. Hemostasis was assured. Silver dressing was placed at the catheter exit site. Catheter was sutured with 3-0 nylon sutures. The neck incision was sutured with interrupted 3-0 Vicryl interrupted sutures x2 and Steri-Strips were placed. A large OpSite was placed over the catheter site and a small OpSite over the neck incision. The patient tolerated the procedure well. Grafts/Implants Used: 14.5 Fr x 19 cm Palindrome dual lumen
--- NOTE | 2021-02-12 19:50 | RAD_ITS ---
STUDY: XR Chest 1 View 02/12/2021 7:41 PM REASON FOR EXAM: Male, 75 years old. CHEST PAIN dialysis catheter -- pacu COMPARISON: None TECHNIQUE: XR Chest 1 View FINDINGS: There is no demonstrated pleural abnormality. There is no pneumothorax. There is a vascular line in place. Enlarged heart size. Normal mediastinum. Normal phyllis. Prominent appearing increased interstitial lung markings. Normal visualized pulmonary arteries. There is atherosclerotic calcification of the aortic arch with tortuosity. There are diffuse degenerative changes of the visualized thoracic spine. There is degenerative osteoarthritis of the bilateral shoulders. There is no demonstrated abnormality of the visualized soft tissue structures of the upper abdomen. RAD/CXR for Line Placement IMPRESSION: There are no acute findings. Electronically Signed: Giovanny Marrufo MD at 20:15 EST , Service support ,
[2021-02-12] MEDS: Atorvastatin Calcium 80 MG Tablet PO (22:36)
[2021-02-12 22:51] LABS: Bedside Glucose 201 mg/dL (70-110)
--- NOTE | 2021-02-13 00:10 | DIALYSIS ---
Pt tolerated 2hr HD tx well. Net UF EVEN. See flow record for tx data.
[2021-02-13 01:31] VITALS: BP 157/81; PULSE 94; RESP 14; TEMP 37.2; O2SAT 98
[2021-02-13] MEDS: Insulin Lispro 100 UNIT/ML INSULN.PEN SC ×7 (06:54→22:30)
[2021-02-13] MEDS: Acetaminophen 500 MG Tablet 1000 MG PO (06:55)
[2021-02-13 07:01] LABS: Bedside Glucose 239 mg/dL (70-110)
[2021-02-13 07:12] VITALS: O2SAT 96
--- NOTE | 2021-02-13 09:00 | PCM.PN.SRG ---
Subjective Subjective Patient had dialysis yesterday with no fluid removed. Patient states he actually feels better than yesterday. Objective Data Objective Data Vital Signs: Vital Signs Temp Pulse Resp BP Pulse Ox 99 F 94 14 157/81 H 96 02/13/21 01:31 02/13/21 01:31 02/13/21 01:31 02/13/21 01:31 02/13/21 07:12 Oxygen Delivery Method Room Air Weight: 144 lb 1 oz Body Mass Index (BMI) 22.5 Intake & Output: Intake and Output for Last 24 Hours 02/11/21 02/12/21 02/13/21 23:59 23:59 23:59 Intake Total 2860 / 2860 900 / 1020 120 / 120 Output Total 500 / 500 Balance 2860 / 2860 400 / 520 120 / 120 Lab / Micro Data Result Diagrams: 02/12/21 06:46 02/12/21 06:46 Labs: Laboratory Results - last 24 hr 02/12/21 10:57: POC Glucose 212 H 02/12/21 12:51: Hep Bs Antigen Non-Reactive 02/12/21 12:51: PT 14.5, INR 1.2 02/12/21 15:57: POC Glucose 126 H 02/12/21 22:35: POC Glucose 201 H 02/13/21 06:52: POC Glucose 239 H Micro: Microbiology 02/10/21 13:49 Interface Orders SARS-CoV-2 Antigen (Rapid) - Final Radiography Diagnostic Testing: Radiology Impression Chest X-Ray 02/12/21 19:50 IMPRESSION: There are no acute findings. Electronically Signed: Giovanny Marrufo MD at 20:15 EST , Service support , Rhythm Strip Rhythm Strip: Sinus Rhythm Rate: 676 Physical Exam Narrative Right chest: Tunneled dialysis catheter in place and dressed. Assessment & Plan Assessment/Plan (1) Acute kidney injury superimposed on CKD: (2) ESRD (end stage renal disease): (3) COVID: PLAN: Patient is dialysis catheter in place. Dialysis catheter was working well. No further intervention per surgery. Edelmira Murry M.D. Pager: [phone] [facility] [address] [place] [address], [address] [place] [address] Office: [phone]
--- NOTE | 2021-02-13 09:43 | PN.RENAL_ITS ---
Subjective Subjective tolerated 2hours of dialysis well last night. Morning labs reviewed. Anticipate dialysis #2 today. Await cohort clinic placement and transportation Objective Data Objective Data Vital Signs: Vital Signs Temp Pulse Resp BP Pulse Ox 99 F 94 14 157/81 H 96 02/13/21 01:31 02/13/21 01:31 02/13/21 01:31 02/13/21 01:31 02/13/21 07:12 Oxygen Delivery Method Room Air Weight: 65.346 kg Body Mass Index (BMI) 22.5 Intake & Output: Intake and Output for Last 24 Hours 02/11/21 02/12/21 02/13/21 23:59 23:59 23:59 Intake Total 2860 / 2860 900 / 1020 120 / 120 Output Total 500 / 500 Balance 2860 / 2860 400 / 520 120 / 120 Lab / Micro Data Result Diagrams: 02/13/21 09:50 02/13/21 09:50 Labs: Laboratory Results - last 24 hr 02/12/21 10:57: POC Glucose 212 H 02/12/21 12:51: Hep Bs Antigen Non-Reactive 02/12/21 12:51: PT 14.5, INR 1.2 02/12/21 15:57: POC Glucose 126 H 02/12/21 22:35: POC Glucose 201 H 02/13/21 06:52: POC Glucose 239 H Micro: Microbiology 02/10/21 13:49 Interface Orders SARS-CoV-2 Antigen (Rapid) - Final Radiography Diagnostic Testing: Radiology Impression Chest X-Ray 02/12/21 19:50 IMPRESSION: There are no acute findings. Electronically Signed: Giovanny Marrufo MD at 20:15 EST , Service support , Rhythm Strip Rhythm Strip: Sinus Rhythm Rate: 676 Physical Exam Const alert and oriented x3 Resp clear to auscultation bilaterally Extremity no clubbing, cyanosis or edema Assessment & Plan Assessment/Plan (1) ESRD (end stage renal disease): PLAN: 24h urine CRCL 9cc/min. tolerated dialysis well last night. dialysis #2 today then #3 on Monday. Await transportation and placement at [facility] for outpt dialysis (cohort clinic). (2) COVID: PLAN: PCR test positive with sick contact at home. 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 IV iron and epo on dialysis
[2021-02-13 10:16] LABS: Absolute Lymphocyte Count 0.37 X10^3/uL (0.83-4.51); Absolute Neutrophil Count 5.2 X10^3/uL (2.0-7.7); Hematocrit 24.9 % (40-54); Hemoglobin 8.8 g/dL (13.0-16.5); Lymphocyte # 0.37 X10^3/ul (0.83-4.51); Lymphocyte % 6.1 % (19-41); Mean Corp Hgb Conc 35.3 g/dL (32-36); Mean Corpuscular Hgb 31.7 pg (27.0-32.0); Mean Corpuscular Volume 89.6 fL (80-94); Mean Platelet Vol. 10.8 fl (6.2-12.0); Monocyte# 0.48 X10^3/uL; Monocyte% 7.9 % (0-10); NRBC Flagged by Analyzer 0 % (0-5); Neutrophil # 5.18 X10^3/uL (2.7-7.7); Neutrophil % 85.5 % (47-70); POSITIVE DIFFERENTIAL YES; Platelet Count 170 K/mm3 (150-450); RBC Distribution Width CV 12.9 % (11.6-14.6); RBC Distribution Width SD 42.6 fl (35.1-43.9); Red Blood Count 2.78 M/mm3 (4.6-6.2); White Blood Count 6.1 K/mm3 (4.4-11.0)
[2021-02-13 10:19] LABS: Differential Indicated SCAN CRITERIA MET
[2021-02-13 10:42] LABS: Anion Gap 10 (5-15); BUN 58 mg/dL (7-18); BUN/Creat Ratio 13.1 RATIO (10-20); Calcium,Total 7.9 mg/dL (8.5-10.1); Chloride 104 mmol/L (98-107); Creatinine, Serum 4.43 mg/dL (0.70-1.30); EST Glomerular Filtration Rate 14 mL/min (>60); Est Glom Filt Rate - Afr Amer 17 mL/min (>60); Estimated Creatinine Clearance 13.11 ml/min; Glucose 309 mg/dL (74-106); Potassium 3.9 mmol/L (3.5-5.1); Sodium Level 137 mmol/L (136-145)
[2021-02-13 11:00] VITALS: BP 169/84; PULSE 77; RESP 16; TEMP 36.6; O2SAT 96
[2021-02-13] MEDS: dexAMETHasone 4 MG Tablet 6 MG PO (11:07)
[2021-02-13] MEDS: Heparin 10,000 UNITS/10 ML Vial 10000 UNITS IV (11:08)
[2021-02-13] MEDS: Multivitamins,Ther W-Minerals Tablet 1 TABLET PO (11:08)
[2021-02-13] MEDS: Pantoprazole Sodium 20 MG Tablet PO ×2 (11:09→22:26)
[2021-02-13] MEDS: Cholecalciferol (VIT D3) 25 MCG TABLET (1,000 UNITS) PO (11:09)
[2021-02-13] MEDS: dilTIAZem CD 120 MG Capsule PO (11:09)
[2021-02-13] MEDS: Heparin Injection (Vial) 5,000 UNIT/ML VIAL 5000 UNIT SC ×2 (11:09→22:25)
[2021-02-13 11:41] LABS: Bedside Glucose 353 mg/dL (70-110)
--- NOTE | 2021-02-13 12:11 | CASEMGMT ---
Op report for dialysis access, hep result, and HD run notes faxed to [facility]. Michael HARRIS CM
[2021-02-13] MEDS: 0.9% Saline Lock 10 ML Syringe IV ×2 (12:37→18:05)
--- NOTE | 2021-02-13 12:51 | PN.HOSP_ITS ---
Subjective Subjective Patient seen and examined. He has no active complaints. he had ultrafiltration yesterday. Review of systems is otherwise negative. Objective Data Objective Data Vital Signs: Vital Signs Temp Pulse Resp BP Pulse Ox 97.9 F 77 16 169/84 H 96 02/13/21 11:00 02/13/21 11:00 02/13/21 11:00 02/13/21 11:00 02/13/21 11:00 Oxygen Delivery Method Room Air Weight: 144 lb 1 oz Body Mass Index (BMI) 22.5 Intake & Output: Intake and Output for Last 24 Hours 02/11/21 02/12/21 02/13/21 23:59 23:59 23:59 Intake Total 2860 / 2860 900 / 1020 120 / 120 Output Total 500 / 500 Balance 2860 / 2860 400 / 520 120 / 120 Lab / Micro Data Result Diagrams: 02/13/21 09:50 02/13/21 09:50 Labs: Laboratory Results - last 24 hr 02/12/21 12:51: Hep Bs Antigen Non-Reactive 02/12/21 12:51: PT 14.5, INR 1.2 02/12/21 15:57: POC Glucose 126 H 02/12/21 22:35: POC Glucose 201 H 02/13/21 06:52: POC Glucose 239 H 02/13/21 09:50: WBC 6.1, RBC 2.78 L, Hgb 8.8 L, Hct 24.9 L, MCV 89.6, MCH 31.7, MCHC 35.3 D, RDW Std Deviation 42.6, RDW Coeff of Lanre 12.9, Plt Count 170, MPV 10.8, Immature Gran % (Auto) 0.500, Neut % (Auto) 85.5 H, Lymph % (Auto) 6.1 L, [place] % (Auto) 7.9, Eos % (Auto) 0.0, Baso % (Auto) 0.0, Absolute Neuts (auto) 5.2, Absolute Lymphs (auto) 0.37 L, Nucleated RBC % 0 02/13/21 09:50: Sodium 137, Potassium 3.9, Chloride 104, Carbon Dioxide 23.0, Anion Gap 10, BUN 58 H, Creatinine 4.43 H, Estim Creat Clear Calc 13.11, Est GFR (MDRD) Af Amer 17 L, Est GFR (MDRD) Non-Af 14 L, BUN/Creatinine Ratio 13.1, Glucose 309 H, Calcium 7.9 L 02/13/21 11:06: POC Glucose 353 H Micro: Microbiology 02/10/21 13:49 Interface Orders SARS-CoV-2 Antigen (Rapid) - Final Radiography Diagnostic Testing: Radiology Impression Chest X-Ray 02/12/21 19:50 IMPRESSION: There are no acute findings. Electronically Signed: Giovanny Marrufo MD at 20:15 EST , Service support , Rhythm Strip Rhythm Strip: Sinus Rhythm Rate: 676 Physical Exam Const alert, oriented x3 and no apparent distress Exam Limitations: no limitations HEENT head/scalp atraumatic and moist oral mucous membranes Head and Scalp: normocephalic Eyes PERRL, EOMs intact bilaterally and conjunctivae normal Neck no lymphadenopathy Resp normal respiratory effort, no retractions, no use of accessory muscles and clear to auscultation bilaterally Resp Narrative: on room air. Cardio regular rate, regular rhythm, S1 normal heart sound, S2 normal heart sound and no murmurs GI normal to inspection, nondistended, normoactive bowel sounds, soft to palpation, non-tender and non-distended Extremity normal to inspection, full ROM and no clubbing, cyanosis or edema Peripheral Pulses: Yes pulses 2+ throughout Skin no rashes or lesions noted Skin Narrative: has dialysis catheter in situ. Neuro oriented x3, CN's II-XII intact bilaterally and moves all extremities Sensorium / Orientation: awake and alert Psych affect normal Assessment & Plan Assessment/Plan (1) Acute kidney injury superimposed on CKD: PLAN: #ESRD * had dialysis catheter put in by general surgery yesterday and patient is now on dialysis. Had ultrafiltration yesterday. * Creatinine has trended down to 4.43 today. * Needs to be set up in the community for dialysis. This is complicated by patient now testing Covid positive. Will need to be here until dialysis is set up in the community. * * #COVID 19 infection * Currently on room air. also has Covid. He has no symptoms whatsoever. * On p.o. Decadron 6 mg daily * will benefit from receiving the monoclonal antibody. * #Non-anion gap metabolic acidosis: * Resolved * # hypertension * On amlodipine and Cardizem. IV hydralazine as needed * #Type 2 diabetes mellitus: * On Lantus 5 units daily. * Insulin sliding scale. Accu-Cheks AC at bedtime. #GERD: on PPI #Ataxia with frequent falls: Fall precautions. PT/OT on baord #History of CVA: On Plavix and statin. #History of A. fib: Currently rate controlled. On Cardizem. #Chronic anemia: * Hemoglobin is 8.8 today * His baseline is around 8-9. * Likely due to CKD. * On Venofer DVT prophylaxis: On Lovenox Disposition: For discharge home once he has been set up for outpatient dialysis. Charges/Coding Visit Charges Inpatient E&M: 92638 Subs Hosp L2
[2021-02-13 12:55] LABS: Bedside Glucose 389 mg/dL (70-110)
--- NOTE | 2021-02-13 18:01 | DIALYSIS ---
HD 2.5 hrs completed without complication, pt stable, tolerated tx well. Pt ran even. Report given to KIMBERLY Corrales.
[2021-02-13] MEDS: Epoetin Alfa epbx 10,000 UNITS/ML 10000 UNIT IV (18:06)
[2021-02-13 18:31] LABS: Bedside Glucose 192 mg/dL (70-110)
[2021-02-13 20:42] VITALS: BP 178/86; PULSE 76; RESP 16; TEMP 36.6; O2SAT 96
[2021-02-13] MEDS: Atorvastatin Calcium 80 MG Tablet PO (22:26)
[2021-02-13 23:06] LABS: Bedside Glucose 400 mg/dL (70-110)
[2021-02-14 02:35] VITALS: BP 169/83; PULSE 62; RESP 16; TEMP 37.1; O2SAT 97
[2021-02-14 06:06] LABS: Absolute Lymphocyte Count 0.31 X10^3/uL (0.83-4.51); Absolute Neutrophil Count 6.5 X10^3/uL (2.0-7.7); Hematocrit 26.8 % (40-54); Hemoglobin 9.3 g/dL (13.0-16.5); Lymphocyte # 0.31 X10^3/ul (0.83-4.51); Lymphocyte % 4.3 % (19-41); Mean Corp Hgb Conc 34.7 g/dL (32-36); Mean Corpuscular Volume 89.3 fL (80-94); Mean Platelet Vol. 10.9 fl (6.2-12.0); Monocyte# 0.45 X10^3/uL; Monocyte% 6.2 % (0-10); NRBC Flagged by Analyzer 0 % (0-5); Neutrophil # 6.47 X10^3/uL (2.7-7.7); Neutrophil % 88.9 % (47-70); POSITIVE DIFFERENTIAL YES; Platelet Count 174 K/mm3 (150-450); RBC Distribution Width CV 12.8 % (11.6-14.6); RBC Distribution Width SD 41.8 fl (35.1-43.9); White Blood Count 7.3 K/mm3 (4.4-11.0)
[2021-02-14 06:13] LABS: Differential Indicated SCAN CRITERIA MET
[2021-02-14 06:37] LABS: Anion Gap 8 (5-15); BUN 52 mg/dL (7-18); BUN/Creat Ratio 15.8 RATIO (10-20); Calcium,Total 7.9 mg/dL (8.5-10.1); Chloride 101 mmol/L (98-107); EST Glomerular Filtration Rate 20 mL/min (>60); Est Glom Filt Rate - Afr Amer 24 mL/min (>60); Glucose 262 mg/dL (74-106); Potassium 3.8 mmol/L (3.5-5.1); Sodium Level 135 mmol/L (136-145)
[2021-02-14] MEDS: Insulin Lispro 100 UNIT/ML INSULN.PEN SC ×7 (07:01→22:12)
[2021-02-14 07:10] LABS: Bedside Glucose 231 mg/dL (70-110)
[2021-02-14 10:15] VITALS: BP 154/71; PULSE 64; RESP 14; TEMP 36.9; O2SAT 97
[2021-02-14] MEDS: Folic Acid/Vitamin B Comp W-C 1 Capsule 1 CAP PO (10:20)
[2021-02-14] MEDS: Acetaminophen 500 MG Tablet 1000 MG PO (10:21)
[2021-02-14] MEDS: dilTIAZem CD 120 MG Capsule PO (10:21)
[2021-02-14] MEDS: dexAMETHasone 4 MG Tablet 6 MG PO (10:21)
[2021-02-14] MEDS: Cholecalciferol (VIT D3) 25 MCG TABLET (1,000 UNITS) PO (10:21)
[2021-02-14] MEDS: Pantoprazole Sodium 20 MG Tablet PO ×2 (10:21→22:11)
[2021-02-14] MEDS: Heparin Injection (Vial) 5,000 UNIT/ML VIAL 5000 UNIT SC ×2 (10:22→22:11)
[2021-02-14 13:31] LABS: Bedside Glucose 338 mg/dL (70-110)
--- NOTE | 2021-02-14 13:44 | PN.HOSP_ITS ---
Subjective Subjective Patient seen and examined. He had no active complaints and felt well. Review of systems otherwise negative. He still awaiting placement in a dialysis center as well as setting up transportation. He said nephrology told him he might have to go to [place] for dialysis since he is Covid positive. Patient is now willing to do this. Objective Data Objective Data Vital Signs: Vital Signs Temp Pulse Resp BP Pulse Ox 98.4 F 64 14 154/71 H 97 02/14/21 10:15 02/14/21 10:15 02/14/21 10:15 02/14/21 10:15 02/14/21 10:15 Oxygen Delivery Method Room Air Weight: 144 lb 1 oz Body Mass Index (BMI) 22.5 Intake & Output: Intake and Output for Last 24 Hours 02/12/21 02/13/21 02/14/21 23:59 23:59 23:59 Intake Total 900 / 1020 230 / 230 Output Total 500 / 500 Balance 400 / 520 230 / 230 Lab / Micro Data Result Diagrams: 02/14/21 05:58 02/14/21 05:58 Labs: Laboratory Results - last 24 hr 02/13/21 18:03: POC Glucose 192 H 02/13/21 22:24: POC Glucose 400 H 02/14/21 05:58: WBC 7.3, RBC 3.00 L, Hgb 9.3 L, Hct 26.8 L, MCV 89.3, MCH 31.0, MCHC 34.7, RDW Std Deviation 41.8, RDW Coeff of Lanre 12.8, Plt Count 174, MPV 10.9, Immature Gran % (Auto) 0.600, Neut % (Auto) 88.9 H, Lymph % (Auto) 4.3 L, [place] % (Auto) 6.2, Eos % (Auto) 0.0, Baso % (Auto) 0.0, Absolute Neuts (auto) 6.5, Absolute Lymphs (auto) 0.31 L, Nucleated RBC % 0 02/14/21 05:58: Sodium 135 L, Potassium 3.8, Chloride 101, Carbon Dioxide 26.0, Anion Gap 8, BUN 52 H, Creatinine 3.30 H, Estim Creat Clear Calc 17.60, Est GFR (MDRD) Af Amer 24 L, Est GFR (MDRD) Non-Af 20 L, BUN/Creatinine Ratio 15.8, Glucose 262 H, Calcium 7.9 L 02/14/21 07:00: POC Glucose 231 H 02/14/21 13:20: POC Glucose 338 H Micro: Microbiology 02/10/21 13:49 Interface Orders SARS-CoV-2 Antigen (Rapid) - Final Rhythm Strip Rhythm Strip: Sinus Rhythm Rate: 676 Physical Exam Const alert, oriented x3 and no apparent distress Exam Limitations: no limitations HEENT head/scalp atraumatic and moist oral mucous membranes Head and Scalp: normocephalic Eyes PERRL, EOMs intact bilaterally and conjunctivae normal Neck no lymphadenopathy Resp normal respiratory effort, no retractions, no use of accessory muscles and clear to auscultation bilaterally Resp Narrative: on room air. Cardio regular rate, regular rhythm, S1 normal heart sound, S2 normal heart sound and no murmurs GI normal to inspection, nondistended, normoactive bowel sounds, soft to palpation, non-tender and non-distended Extremity normal to inspection, full ROM and no clubbing, cyanosis or edema Skin no rashes or lesions noted Skin Narrative: has dialysis catheter in situ. Neuro oriented x3, CN's II-XII intact bilaterally and moves all extremities Sensorium / Orientation: awake and alert Psych affect normal Assessment & Plan Assessment/Plan (1) Acute kidney injury superimposed on CKD: PLAN: #ESRD * Now having dialysis by temporary catheter * Nephrology on board. * Awaiting placement in a community dialysis center, and for transportation to be set up for him. This has been hampered by patient's Covid positive status. * * #COVID 19 infection * Currently on room air. also has Covid. He has no symptoms whatsoever. * On p.o. Decadron 6 mg daily * will benefit from receiving the monoclonal antibody; he however refuses to consider taking it as he says he does not believe he has Covid because some dk he watch on TV told him Covid does not exist. * #Non-anion gap metabolic acidosis: * Resolved * # hypertension * On amlodipine and Cardizem. IV hydralazine as needed * #Type 2 diabetes mellitus: * On Lantus 5 units daily. * Insulin sliding scale. Accu-Cheks AC at bedtime. #GERD: on PPI #Ataxia with frequent falls: Fall precautions. PT/OT on baord #History of CVA: On Plavix and statin. #History of A. fib: Currently rate controlled. On Cardizem. #Chronic anemia: * Hemoglobin is 9.3 today * His baseline is around 8-9. * Likely due to CKD. * On Venofer DVT prophylaxis: On Lovenox Disposition: For discharge home once he has been set up for outpatient dialysis. Charges/Coding Visit Charges Inpatient E&M: 05600 Subs Hosp L2
[2021-02-14 16:46] VITALS: BP 178/81; PULSE 73; RESP 14; TEMP 36.6; O2SAT 98
[2021-02-14 16:55] LABS: Bedside Glucose 336 mg/dL (70-110)
[2021-02-14 21:59] VITALS: BP 178/82; PULSE 78; RESP 18; TEMP 36.4; O2SAT 98
[2021-02-14] MEDS: Atorvastatin Calcium 80 MG Tablet PO (22:11)
[2021-02-14 22:26] LABS: Bedside Glucose 247 mg/dL (70-110)
[2021-02-15] VITALS (7 sets, daily range): BP systolic 162–187; BP diastolic 70–91; PULSE 65–95; RESP 16–20; TEMP 36.4–36.7; O2SAT 96–97
[2021-02-15 07:16] LABS: Absolute Lymphocyte Count 0.43 X10^3/uL (0.83-4.51); Basophil# 0.02 X10^3/uL; Basophil% 0.2 % (0-1); Hematocrit 24.8 % (40-54); Hemoglobin 8.3 g/dL (13.0-16.5); Lymphocyte # 0.43 X10^3/ul (0.83-4.51); Lymphocyte % 4.8 % (19-41); Mean Corp Hgb Conc 33.5 g/dL (32-36); Mean Corpuscular Hgb 30.4 pg (27.0-32.0); Mean Corpuscular Volume 90.8 fL (80-94); Mean Platelet Vol. 11.7 fl (6.2-12.0); Monocyte# 0.45 X10^3/uL; NRBC Flagged by Analyzer 0 % (0-5); Neutrophil # 7.99 X10^3/uL (2.7-7.7); Neutrophil % 88.4 % (47-70); POSITIVE DIFFERENTIAL YES; Platelet Count 155 K/mm3 (150-450); RBC Distribution Width CV 12.6 % (11.6-14.6); RBC Distribution Width SD 41.8 fl (35.1-43.9); Red Blood Count 2.73 M/mm3 (4.6-6.2)
[2021-02-15 07:36] LABS: Differential Indicated SCAN CRITERIA MET
[2021-02-15 07:39] LABS: Anion Gap 10 (5-15); BUN 70 mg/dL (7-18); Calcium,Total 7.6 mg/dL (8.5-10.1); Chloride 101 mmol/L (98-107); Creatinine, Serum 4.38 mg/dL (0.70-1.30); EST Glomerular Filtration Rate 14 mL/min (>60); Est Glom Filt Rate - Afr Amer 17 mL/min (>60); Estimated Creatinine Clearance 13.26 ml/min; Glucose 248 mg/dL (74-106); Potassium 3.7 mmol/L (3.5-5.1); Sodium Level 136 mmol/L (136-145)
[2021-02-15] MEDS: Insulin Lispro 100 UNIT/ML INSULN.PEN SC ×7 (08:16→22:19)
[2021-02-15 08:26] LABS: Bedside Glucose 227 mg/dL (70-110)
--- NOTE | 2021-02-15 10:11 | CASEMGMT ---
Addendum entered by Brittany Heath 02/15/21 15:00: Dali at [facility] updated on pt dialysis schedule and will continue to update once d/c date obtained. Michael HARRIS CM Addendum entered by Brittany Heath 02/15/21 14:13: Call back to [facility] admissions to check on status and message left for [facility] to call this RN KD back. Michael HARRIS CM Original Note: Call to [place] Solis CM at [facility], who was working on transportation for pt. Per Irma, she has not started transportation set up yet and will not be able to until this afternoon. This RN KD obtained [facility] transportation number, , to get process started at this time. Per Irma, pt's run time will be 1600 MWF. Call to Virgie and updated on all, including return time which is [address] Sahu at this time. Per Virgie, no further information is needed at this time. Call to Juanpablo at [facility] admissions to check on pt's HD set up. Pt is financially clear but they are still waiting on medical clearance from facility. This RN KD then received call from Adriel at [facility] and he states that he will now be in charge of med clearance for pt because [facility] will be pt's home clinic, he will just be going to [facility] until his 21 day [place] quarantine is up per their protocols. CM to follow. Pt to have dialysis later today here at [facility]. Transportation is working on getting pt set up for 1st OP treatment to be 02/17/21. Michael HARRIS CM
[2021-02-15] MEDS: Pantoprazole Sodium 20 MG Tablet PO ×2 (10:35→22:18)
[2021-02-15] MEDS: dexAMETHasone 4 MG Tablet 6 MG PO (10:35)
[2021-02-15] MEDS: Folic Acid/Vitamin B Comp W-C 1 Capsule 1 CAP PO (10:35)
[2021-02-15] MEDS: dilTIAZem CD 120 MG Capsule PO (10:35)
[2021-02-15] MEDS: Cholecalciferol (VIT D3) 25 MCG TABLET (1,000 UNITS) PO (10:35)
[2021-02-15] MEDS: Heparin Injection (Vial) 5,000 UNIT/ML VIAL 5000 UNIT SC (10:35)
--- NOTE | 2021-02-15 10:40 | PN.RENAL_ITS ---
Subjective Subjective Anxious to go home. denies any shortness of breath. Dialysis scheduled for today. Awaiting transportation arrangements to [facility] for his dialysis as an outpatient in [place]. Objective Data Objective Data Vital Signs: Vital Signs Temp Pulse Resp BP Pulse Ox 97.7 F L 66 16 162/70 H 97 02/15/21 08:20 02/15/21 08:20 02/15/21 08:20 02/15/21 08:20 02/15/21 08:20 Oxygen Delivery Method Room Air Weight: 65.346 kg Body Mass Index (BMI) 22.5 Intake & Output: Intake and Output for Last 24 Hours 02/13/21 02/14/21 02/15/21 23:59 23:59 23:59 Intake Total 230 / 230 1200 / 1440 480 / 480 Balance 230 / 230 1200 / 1440 480 / 480 Lab / Micro Data Result Diagrams: 02/15/21 06:38 02/15/21 06:38 Labs: Laboratory Results - last 24 hr 02/14/21 13:20: POC Glucose 338 H 02/14/21 16:44: POC Glucose 336 H 02/14/21 22:09: POC Glucose 247 H 02/15/21 06:38: WBC 9.0, RBC 2.73 L, Hgb 8.3 L, Hct 24.8 L, MCV 90.8, MCH 30.4, MCHC 33.5, RDW Std Deviation 41.8, RDW Coeff of Lanre 12.6, Plt Count 155, MPV 11.7, Immature Gran % (Auto) 1.600 H, Neut % (Auto) 88.4 H, Lymph % (Auto) 4.8 L , [place] % (Auto) 5.0, Eos % (Auto) 0.0, Baso % (Auto) 0.2, Absolute Neuts (auto) 8.0 H, Absolute Lymphs (auto) 0.43 L, Nucleated RBC % 0, Differential Comment COMMENT 02/15/21 06:38: Sodium 136, Potassium 3.7, Chloride 101, Carbon Dioxide 25.0, Anion Gap 10, BUN 70 H, Creatinine 4.38 H, Estim Creat Clear Calc 13.26, Est GFR (MDRD) Af Amer 17 L, Est GFR (MDRD) Non-Af 14 L, BUN/Creatinine Ratio 16.0, Gluc ose 248 H, Calcium 7.6 L 02/15/21 08:15: POC Glucose 227 H Micro: Microbiology 02/10/21 13:49 Interface Orders SARS-CoV-2 Antigen (Rapid) - Final Rhythm Strip Rhythm Strip: Sinus Rhythm Rate: 676 Physical Exam Const alert and oriented x3 Resp clear to auscultation bilaterally Cardio regular rate Extremity no clubbing, cyanosis or edema Assessment & Plan Assessment/Plan (1) ESRD (end stage renal disease): PLAN: Due to diabetic nephropathy. 24h urine CRCL 9cc/min. Dialysis #3 today. Await transportation arrangements to [facility] for outpt d ialysis (Covid cohort clinic). (2) COVID: PLAN: PCR test positive with sick contact at home. (3) Diabetes mellitus, type II: QUALIFIERS: Diabetes mellitus mcc insulin use: with mcc use Diabetes mellitus complication status: with kidney complications Diabetes mellitus complication detail: with chronic kidney disease Chronic kidney disease stage: stage 4 (severe) Qualified Code(s): E11.22 - Type 2 diabetes mellitus with diabetic chronic kidney disease; N18.4 - Chronic kidney disease, stage 4 (severe); Z79.4 - supervisor intermediates (current) use of insulin (4) Anemia in chronic kidney disease: PLAN: .IV iron and epo on dialysis
[2021-02-15 12:15] LABS: Bedside Glucose 330 mg/dL (70-110)
[2021-02-15] MEDS: 0.9% Saline Lock 10 ML Syringe IV (13:51)
--- NOTE | 2021-02-15 16:56 | PN.HOSP_ITS ---
Subjective Subjective Patient has no complaints. He is anxious to leave. He is not exactly excited about going to [place] but understands the need for it at this time. We did discuss that his discharge is not likely today as things are quite set up for him. Objective Data Objective Data Vital Signs: Vital Signs Temp Pulse Resp BP Pulse Ox 98.1 F 70 16 171/87 H 97 02/15/21 13:57 02/15/21 13:57 02/15/21 13:57 02/15/21 13:57 02/15/21 13:57 Oxygen Delivery Method Room Air Weight: 65.346 kg Body Mass Index (BMI) 22.5 Intake & Output: Intake and Output for Last 24 Hours 02/13/21 02/14/21 02/15/21 23:59 23:59 23:59 Intake Total 230 / 230 1200 / 1440 1390 / 1390 Balance 230 / 230 1200 / 1440 1390 / 1390 Lab / Micro Data Result Diagrams: 02/15/21 06:38 02/15/21 06:38 Labs: Laboratory Results - last 24 hr 02/14/21 22:09: POC Glucose 247 H 02/15/21 06:38: WBC 9.0, RBC 2.73 L, Hgb 8.3 L, Hct 24.8 L, MCV 90.8, MCH 30.4, MCHC 33.5, RDW Std Deviation 41.8, RDW Coeff of Lanre 12.6, Plt Count 155, MPV 11.7, Immature Gran % (Auto) 1.600 H, Neut % (Auto) 88.4 H, Lymph % (Auto) 4.8 L , [place] % (Auto) 5.0, Eos % (Auto) 0.0, Baso % (Auto) 0.2, Absolute Neuts (auto) 8.0 H, Absolute Lymphs (auto) 0.43 L, Nucleated RBC % 0, Differential Comment COMMENT 02/15/21 06:38: Sodium 136, Potassium 3.7, Chloride 101, Carbon Dioxide 25.0, Anion Gap 10, BUN 70 H, Creatinine 4.38 H, Estim Creat Clear Calc 13.26, Est GFR (MDRD) Af Amer 17 L, Est GFR (MDRD) Non-Af 14 L, BUN/Creatinine Ratio 16.0, Glucose 248 H, Calcium 7.6 L 02/15/21 08:15: POC Glucose 227 H 02/15/21 11:49: POC Glucose 330 H Micro: Microbiology 02/10/21 13:49 Interface Orders SARS-CoV-2 Antigen (Rapid) - Final Rhythm Strip Rhythm Strip: Sinus Rhythm Rate: 676 Physical Exam Const alert, oriented x3 and no apparent distress Constitutional Narrative: Pleasant older white male lying in bed, watching television, appears comfortable, nontoxic Exam Limitations: no limitations HEENT head/scalp atraumatic and moist oral mucous membranes Head and Scalp: normocephalic Resp normal respiratory effort, no retractions, no use of accessory muscles and clear to auscultation bilaterally Resp Narrative: Tunneled dialysis catheter right chest-dressing is clean dry Auscultation: Negative for crackles, rales, rhonchi or wheezes Cardio regular rate, regular rhythm, S1 normal heart sound, S2 normal heart sound, no murmurs, no rub, no gallops, no clicks and no JVD GI normal to inspection, nondistended, normoactive bowel sounds, soft to palpation, non-tender and non-distended Extremity no clubbing, cyanosis or edema Peripheral Pulses: Yes pulses 2+ throughout Neuro oriented x3, moves all extremities and no focal motor deficits Sensorium / Orientation: awake and alert Assessment & Plan Assessment/Plan (1) Acute kidney injury superimposed on CKD: (2) COVID: (3) HTN (hypertension): (4) Diabetes mellitus, type II: QUALIFIERS: 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 insulin use: with residential use Diabetes mellitus complication status: with kidney complications Diabetes mellitus complication detail: with chronic kidney disease Chronic kidney disease stage: stage 4 (severe) Qualified Code(s): E11.22 - Type 2 diabetes mellitus with diabetic chronic kidney disease; N18.4 - Chronic kidney disease, stage 4 (severe); Z79.4 - penitentiary (current) use of insulin PLAN: End-stage renal disease -Patient is now HD dependent -Tunneled dialysis catheter was placed on 02/13/2021 -Dialysis was completed today and I do anticipate a Monday dialysis schedule -Nephrology is following -Awaiting arrangements to be made in the [facility] for outpatient dialysis Covid cohort unit COVID-19 infection -Patient remains on room air and relatively asymptomatic - also has Covid and is slightly more symptomatic -Patient is on Decadron but given the fact that he is asymptomatic and not hypoxic I will discontinue this -Start if patient becomes hypoxic -Would be a candidate for monoclonal antibody but refuses this as he believes that Covid is not real Hypertension -Continue Cardizem -Start amlodipine 10 mg daily and continue to monitor blood pressures DM-2 -Morning blood sugar is markedly elevated to 48 -Discontinue Decadron as patient is not hypoxic and therefore will likely not benefit from it at this time with regards to his Covid -We will continue insulin regimen as ordered and adjust accordingly since we have discontinued his steroid -Continue SSI -Continue Accu-Cheks GERD -Continue Protonix Hyperlipidemia -Continue atorvastatin Chronic normocytic anemia secondary to renal disease -Hemoglobin is stable -Continue to monitor DVT prophylaxis -Continue heparin 5000 units subcu twice daily CODE STATUS -DNR CCA no intubation Charges/Coding Visit Charges Inpatient E&M: 91071 Subs Hosp L2
[2021-02-15 17:30] LABS: Bedside Glucose 327 mg/dL (70-110)
[2021-02-15] MEDS: Epoetin Alfa epbx 10,000 UNITS/ML 10000 UNIT IV (20:00)
--- NOTE | 2021-02-15 21:15 | DIALYSIS ---
Hemodialysis x3 hours completed at 2100 on a 3K bath, 3rd treatment, tolerated well, UF 0mL, ran even, Retacrit given with tx, accessed via right chest tunneled dialysis catheter, changed dressing, next treatment per recruiting manager
[2021-02-15] MEDS: Atorvastatin Calcium 80 MG Tablet PO (22:18)
[2021-02-15] MEDS: Acetaminophen 500 MG Tablet 1000 MG PO (22:21)
[2021-02-15 22:31] LABS: Bedside Glucose 334 mg/dL (70-110)
[2021-02-15] MEDS: hydrALAZINE 20 MG/ML Vial 10 MG IV (22:35)
[2021-02-16 03:00] VITALS: BP 169/85; PULSE 82; RESP 16; TEMP 36.8; O2SAT 98
[2021-02-16] MEDS: Insulin Lispro 100 UNIT/ML INSULN.PEN SC ×6 (06:43→16:03)
[2021-02-16 06:50] LABS: Bedside Glucose 294 mg/dL (70-110)
[2021-02-16 08:20] LABS: Absolute Lymphocyte Count 0.54 X10^3/uL (0.83-4.51); Absolute Neutrophil Count 8.7 X10^3/uL (2.0-7.7); Basophil# 0.03 X10^3/uL; Basophil% 0.3 % (0-1); Hematocrit 27.4 % (40-54); Hemoglobin 9.3 g/dL (13.0-16.5); Lymphocyte # 0.54 X10^3/ul (0.83-4.51); Lymphocyte % 5.2 % (19-41); Mean Corp Hgb Conc 33.9 g/dL (32-36); Mean Corpuscular Hgb 30.6 pg (27.0-32.0); Mean Corpuscular Volume 90.1 fL (80-94); Mean Platelet Vol. 11.4 fl (6.2-12.0); Monocyte# 0.72 X10^3/uL; Monocyte% 6.9 % (0-10); NRBC Flagged by Analyzer 0.4 % (0-5); Neutrophil % 83.3 % (47-70); POSITIVE DIFFERENTIAL YES; Platelet Count 165 K/mm3 (150-450); RBC Distribution Width CV 12.5 % (11.6-14.6); RBC Distribution Width SD 40.8 fl (35.1-43.9); Red Blood Count 3.04 M/mm3 (4.6-6.2); White Blood Count 10.4 K/mm3 (4.4-11.0)
[2021-02-16 08:21] LABS: Differential Indicated SCAN CRITERIA MET
[2021-02-16 08:35] LABS: Hepatitis B Surface Antibody Non-Reactive
[2021-02-16 08:50] LABS: Hypochromasia RARE; Platelet Estimate ADEQUATE (ADEQ)
[2021-02-16 08:55] VITALS: BP 179/71; PULSE 74; RESP 16; TEMP 36.6; O2SAT 96
[2021-02-16 08:59] LABS: Anion Gap 10 (5-15); BUN 44 mg/dL (7-18); BUN/Creat Ratio 14.7 RATIO (10-20); Calcium,Total 7.7 mg/dL (8.5-10.1); Chloride 100 mmol/L (98-107); Creatinine, Serum 2.99 mg/dL (0.70-1.30); EST Glomerular Filtration Rate 22 mL/min (>60); Est Glom Filt Rate - Afr Amer 26 mL/min (>60); Estimated Creatinine Clearance 19.43 ml/min; Glucose 275 mg/dL (74-106); Potassium 3.2 mmol/L (3.5-5.1); Sodium Level 137 mmol/L (136-145)
[2021-02-16] MEDS: Pantoprazole Sodium 20 MG Tablet PO (08:59)
[2021-02-16] MEDS: Cholecalciferol (VIT D3) 25 MCG TABLET (1,000 UNITS) PO (08:59)
[2021-02-16] MEDS: amLODIPine 10 MG Tablet PO (08:59)
[2021-02-16] MEDS: Folic Acid/Vitamin B Comp W-C 1 Capsule 1 CAP PO (08:59)
[2021-02-16] MEDS: Heparin Injection (Vial) 5,000 UNIT/ML VIAL 5000 UNIT SC (08:59)
[2021-02-16] MEDS: dilTIAZem CD 180 MG Capsule PO (08:59)
[2021-02-16 09:15] LABS: Bedside Glucose 326 mg/dL (70-110)
--- NOTE | 2021-02-16 10:30 | CASEMGMT ---
Addendum entered by Brittany Heath 02/16/21 13:09: Pt now states he has a friend that may be able to come pick him up. Dr. Sahu nephro updated on OP HD set up, voices understanding. Michael HARRIS CM Addendum entered by Brittany Heath 02/16/21 12:16: All dialysis info/transportation placed on pt discharge plan and this RN CM went over with pt at this time, voices understanding. This RN CM offered to call step-daughter but pt declined stating, 'I always tell her everything.' Pt states stepdaughter does not get off work till 1900 and he does not want to go home that late but also states is not able to cover taxi home and does not want to pay for w/c transport. Pt is on room air and has been the whole visit and per nursing, has been up in room without desatting at all. Matthew, PCU charge, and KIMBERLY Sanders, updated on pt transport concerns, voices understanding. Pt voices no further concerns with going home at time of discharge and [facility] state they will do start of care tomorrow am, pt aware. Michael HARRIS CM Addendum entered by Brittany Heath 02/16/21 10:54: Call back from Aubree and she states pt is all clear to start OP dialysis tomorrow 02/17/21 at 1600. She states pt will be picked up at his home at 1500 and return hop picker is set for 1930. She states transportation is set up thru [facility] and contact info is [phone]. Michael HARRIS CM Original Note: This RN CM received call from Aubree from [employer] stating that she helps coordinate the COVID pt's. Aubree updated on all at this time and states she will call and check on status of med clearance and transportation and then she will call this RN CM back. Aubree's contact info: [phone]. Michael HARRIS CM
[2021-02-16 11:32] VITALS: BP 171/67
[2021-02-16 11:40] LABS: Bedside Glucose 354 mg/dL (70-110)
--- NOTE | 2021-02-16 11:42 | PCM.PN.REN ---
Subjective Subjective tolerated dilaysis well last night. NExt dialysis scheduled for Monday. Await transportation arrangements to [facility] clinic in [place]. Objective Data Objective Data Vital Signs: Vital Signs Temp Pulse Resp BP Pulse Ox 97.8 F 74 16 171/67 H 96 02/16/21 08:55 02/16/21 08:55 02/16/21 08:55 02/16/21 11:32 02/16/21 08:55 Oxygen Delivery Method Room Air Weight: 65.346 kg Body Mass Index (BMI) 22.5 Intake & Output: Intake and Output for Last 24 Hours 02/14/21 02/15/21 02/16/21 23:59 23:59 23:59 Intake Total 1200 / 1440 2079 Output Total 0 / 0 Balance 1200 / 1440 2079 Lab / Micro Data Result Diagrams: 02/16/21 08:12 02/16/21 08:12 Labs: Laboratory Results - last 24 hr 02/15/21 11:49: POC Glucose 330 H 02/15/21 16:43: POC Glucose 327 H 02/15/21 19:55: Hep Bs Antibody Non-Reactive 02/15/21 22:17: POC Glucose 334 H 02/16/21 06:42: POC Glucose 294 H 02/16/21 08:12: WBC 10.4, RBC 3.04 L, Hgb 9.3 L, Hct 27.4 L, MCV 90.1, MCH 30.6, MCHC 33.9, RDW Std Deviation 40.8, RDW Coeff of Lanre 12.5, Plt Count 165, MPV 11.4, Immature Gran % (Auto) 4.300 H, Neut % (Auto) 83.3 H, Lymph % (Auto) 5.2 L, [place] % (Auto) 6.9, Eos % (Auto) 0.0, Baso % (Auto) 0.3, Absolute Neuts (auto) 8.7 H, Absolute Lymphs (auto) 0.54 L, Nucleated RBC % 0.4, Platelet Estimate ADEQUATE, Hypochromasia RARE 02/16/21 08:12: Sodium 137, Potassium 3.2 L, Chloride 100, Carbon Dioxide 27.0, Anion Gap 10, BUN 44 H, Creatinine 2.99 H, Estim Creat Clear Calc 19.43, Est GFR (MDRD) Af Amer 26 L, Est GFR (MDRD) Non-Af 22 L, BUN/Creatinine Ratio 14.7, Glucose 275 H, Calcium 7.7 L 02/16/21 09:03: POC Glucose 326 H 02/16/21 11:27: POC Glucose 354 H Micro: Microbiology 02/10/21 13:49 Interface Orders SARS-CoV-2 Antigen (Rapid) - Final Rhythm Strip Rhythm Strip: Sinus Rhythm Rate: 676 Physical Exam Const alert, oriented x3 and no apparent distress HEENT normocephalic Resp clear to auscultation bilaterally Cardio regular rate and no murmurs GI non-tender and non-distended Auscultation: normoactive bowel sounds Palpation: soft Extremity no clubbing, cyanosis or edema Skin no wounds Neuro Sensorium / Orientation: awake and alert Motor Exam: no tremor Psych cooperative Assessment & Plan Assessment/Plan (1) ESRD (end stage renal disease): PLAN: Due to diabetic nephropathy. 24h urine CRCL 9cc/min. Dialysis #4 on Monday. Await transportation arrangements to [facility] for outpt dialysis (Covid cohort clinic). Follow up at dialysis clinic (2) COVID: PLAN: PCR test positive with sick contact at home. (3) Diabetes mellitus, type II: QUALIFIERS: Chronic kidney disease stage: stage 4 (severe) Diabetes mellitus complication detail: with chronic kidney disease Diabetes mellitus complication status: with kidney complications Diabetes mellitus terminologist insulin use: with terminologist use Qualified Code(s): E11.22 - Type 2 diabetes mellitus with diabetic chronic kidney disease; N18.4 - Chronic kidney disease, stage 4 (severe); Z79.4 - superintendent terminal (current) use of insulin (4) Anemia in chronic kidney disease: PLAN: .IV iron and epo on dialysis (5) Hypertension: PLAN: stop diltiazem since pt on amlodipine. Add metoprolol
--- NOTE | 2021-02-16 11:54 | PCM.DC.SUM ---
Providers Date of Admission: 02/10/21 Primary Care Physician: Dr. Kristina Holliday MD Consultations 02/10/21 15:25 Consult: Nephrology Routine Consulting Provider: Emmanuelle Sahu Reason for Consult: YSABEL on CKD 4/5 EMERGENT Consult: No MD Notified: Yes Date Notified: 02/10/21 Time Notified: 14:17 Method of Notification: Verbal Reason For Visit: YSABEL ON CKD STAGE IV/V Diagnosis Discharge Diagnosis (1) ESRD (end stage renal disease): Status: Acute Code(s): N18.6 - End stage renal disease (2) COVID: Status: Acute Code(s): U07.1 - COVID-19 (3) Diabetes mellitus, type II: Status: Chronic Code(s): E11.9 - Type 2 diabetes mellitus without complications Qualifiers: 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 use Diabetes mellitus complication status: with kidney complications Diabetes mellitus complication detail: with chronic kidney disease Chronic kidney disease stage: stage 4 (severe) Qualified Code(s): E11.22 - Type 2 diabetes mellitus with diabetic chronic kidney disease; N18.4 - Chronic kidney disease, stage 4 (severe); 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 (4) Anemia in chronic kidney disease: Status: Chronic Code(s): N18.9 - Chronic kidney disease, unspecified; D63.1 - Anemia in chronic kidney disease (5) Hypertension: Status: Chronic Code(s): I10 - Essential (primary) hypertension Medications at Discharge Home Medications multivitamin with folic acid [Thera] 1 tab PO DAILY 07/12/14 omega 5-vwk-lbc-fish oil 500 mg PO QHS 07/01/20 acetaminophen 1,000 mg PO Q8H PRN PRN #1 tablet 07/20/20 cholecalciferol (vitamin D3) 25 mcg PO DAILY #30 tablet 07/20/20 compress.stocking,knee,reg,med #2 ea 08/13/20 pantoprazole 20 mg tablet,delayed release 20 mg PO BID #180 tab 11/24/20 atorvastatin 80 mg tablet 80 mg PO QHS #90 tab 12/07/20 insulin lispro 100 unit/mL subcutaneous pen 7 unit SC TIDCM #3 insuln.pen 12/07/20 Lantus Solostar U-100 Insulin 8 units SC QHS 02/10/21 amlodipine 10 mg PO DAILY #30 tab 02/16/21 metoprolol succinate 50 mg PO DAILY #30 tab 02/16/21 Hospital Course Operations - (Tunneled dialysis catheter placement) Procedures None Summary of Care Provided Minutes Spent on Discharge: 36 Hospital Course: Mr. Apple is a 75-year-old white male who presented to the emergency department [facility] on 02/10/2021 for worsening renal function. The patient had routine lab work done by his PCP last week and was found to have a creatinine of 5.8 and BUN of 103. His PCP at that time spoke to Dr. Sahu his logistics vice president, who recommended he come to the emergency department and be admitted. At the time of admission he reported that he had been urinating more frequently but does not feel like he is emptying his bladder completely. He was admitted to the telemetry floor given his lab abnormalities in relationship to his renal failure and evaluated by his logistics vice president. Incidentally he was also found to be PCR positive for Covid on admission. He was initially treated with Decadron but this was discontinued as he was never requiring oxygen nor had any hypoxia. With regards to this he will need quarantine until 02/20/2021 as he had a positive test on 02/10/2021 and was never symptomatic. For his CKD IV hydration was initiated and a 24-hour urine creatinine clearance was obtained. His creatinine clearance was found to be 9 cc/min and his renal function did not improve with IV fluids therefore a tunneled dialysis catheter was placed by Dr. Murry on 02/12/2021. His antihypertensives were changed around discontinuing his diltiazem and starting metoprolol as well as amlodipine during his hospitalization for persistent hypertension. He will need follow-up with regards to this as an outpatient for up titration versus additional antihypertensives. His blood sugars were elevated during his hospitalization but he was initially on Decadron. This was discontinued prior to his discharge and his blood sugars did come down however they were not at goal. I suspect he may need a little more time for resolution of his hyperglycemia with regards to his steroids and will have him follow-up with his PCP for any additional insulin needs. With his Covid positive status at the time of discharge arrangements had to be made for him to dialyze at the [facility] unit as they have a Covid cohort unit at this time. Once he is out of quarantine with regards to his Covid status he can resume treatment back at a dialysis unit in [place]. Transportation was able to be set up and he was discharged in stable condition on 02/16/2021. His last dialysis session was on 02/15/2021 which he tolerated well. Discharge diagnoses: End-stage renal disease-HD dependent COVID-19 infection Hypertension DM-2 GERD Hyperlipidemia Chronic normocytic anemia secondary to chronic renal disease Physical Exam Const alert, oriented x3 and no apparent distress Constitutional Narrative: Pleasant older white male walking around his room, appears comfortable, nontoxic, remains on room air General Appearance: cooperative, comfortable, well kempt and well developed Orientation / Consciousness: awake Exam Limitations: no limitations HEENT normocephalic, head/scalp atraumatic, hearing grossly normal bilaterally and moist oral mucous membranes HEENT Narrative: No thrush, Mallampati 2 Eyes PERRL, EOMs intact bilaterally and conjunctivae normal Eyes Narrative: No scleral icterus Neck no lymphadenopathy, supple and no JVD Neck Narrative: Trachea midline, no thyroid enlargement Resp normal respiratory effort, no retractions, no use of accessory muscles and clear to auscultation bilaterally Resp Narrative: Tunneled dialysis catheter right chest-dressing is clean dry Auscultation: Negative for crackles, rales, rhonchi or wheezes Cardio regular rate, regular rhythm, S1 normal heart sound, S2 normal heart sound, no murmurs, no rub, no gallops, no clicks and no JVD GI normal to inspection, nondistended, normoactive bowel sounds, soft to palpation, non-tender and non-distended Extremity normal to inspection, full ROM and no clubbing, cyanosis or edema Skin no rashes or lesions noted, no wounds, skin turgor normal and no jaundice Skin Narrative: Tunneled dialysis catheter in right chest Neuro oriented x3, CN's II-XII intact bilaterally, moves all extremities and no focal motor deficits Sensorium / Orientation: awake and alert Speech: speech normal Motor Exam: strength 5/5 throughout Psych affect normal Weight / BMI Weight Weight: 65.346 kg Body Mass Index (BMI) 22.5 ABG / Lab / Microbiology Data Result Diagrams: 02/16/21 08:12 02/16/21 08:12 Laboratory: Laboratory Results - last 24 hr 02/15/21 11:49: POC Glucose 330 H 02/15/21 16:43: POC Glucose 327 H 02/15/21 19:55: Hep Bs Antibody Non-Reactive 02/15/21 22:17: POC Glucose 334 H 02/16/21 06:42: POC Glucose 294 H 02/16/21 08:12: WBC 10.4, RBC 3.04 L, Hgb 9.3 L, Hct 27.4 L, MCV 90.1, MCH 30.6, MCHC 33.9, RDW Std Deviation 40.8, RDW Coeff of Lanre 12.5, Plt Count 165, MPV 11.4, Immature Gran % (Auto) 4.300 H, Neut % (Auto) 83.3 H, Lymph % (Auto) 5.2 L, Dawes % (Auto) 6.9, Eos % (Auto) 0.0, Baso % (Auto) 0.3, Absolute Neuts (auto) 8.7 H, Absolute Lymphs (auto) 0.54 L, Nucleated RBC % 0.4, Platelet Estimate ADEQUATE, Hypochromasia RARE 02/16/21 08:12: Sodium 137, Potassium 3.2 L, Chloride 100, Carbon Dioxide 27.0, Anion Gap 10, BUN 44 H, Creatinine 2.99 H, Estim Creat Clear Calc 19.43, Est GFR (MDRD) Af Amer 26 L, Est GFR (MDRD) Non-Af 22 L, BUN/Creatinine Ratio 14.7, Glucose 275 H, Calcium 7.7 L 02/16/21 09:03: POC Glucose 326 H 02/16/21 11:27: POC Glucose 354 H Microbiology: Microbiology 02/10/21 13:49 Interface Orders SARS-CoV-2 Antigen (Rapid) - Final D/C Instructions Discharge Diet: Low fat / Low cholesterol, 1800 Calorie Control Diet and Renal Diet Discharge Activity: Return to Normal Activity Return to work on: 02/22/21 Meaningful Use Info Meaningful Use Diagnoses (Choose all that apply): None applicable Discharge Plan Admission Admit Date/Time: 02/10/21 14:11 Primary Reason for Your Visit: End Stage Renal Disease Attending Provider: Sarai Sahu Primary Care Provider: Kristina Holliday Consulting Providers: Emmanuelle Sahu Instructions Additional Instructions / Restrictions: 1. Please remain in quarantine until 02/20/2021 Discharge Orders/Prescriptions Prescriptions: New amlodipine 10 mg Tablet 10 mg PO DAILY Qty: 30 RF: 1 metoprolol succinate 50 mg Tablet Extended Release 24 Hr 50 mg PO DAILY Qty: 30 RF: 1 Continued multivitamin with folic acid [Thera] 1 TABLET tablet 1 tab PO DAILY RF: 0 omega 0-ksh-kzl-fish oil 500 MG capsule,delayed release(DR/EC) 500 mg PO QHS RF: 0 acetaminophen 500 MG tablet 1,000 mg PO Q8H PRN PRN (Reason: pain or temp > 100.5 F) Qty: 1 RF: 0 cholecalciferol (vitamin D3) 25 MCG tablet 25 mcg PO DAILY Qty: 30 RF: 0 Lantus Solostar U-100 Insulin 100 unit/mL (3 mL) insulin pen 8 units SC QHS RF: 0 (DME) compress.stocking,knee,reg,med Misc See Rx Instructions .ROUTE .MEDSUPPLY Qty: 2 RF: 0 pantoprazole 20 mg tablet,delayed release (DR/EC) 20 mg PO BID Qty: 180 RF: 0 atorvastatin 80 mg tablet 80 mg PO QHS Qty: 90 RF: 3 insulin lispro 100 unit/mL insulin pen 7 unit SC TIDCM Qty: 3 RF: 3 Discontinued diltiazem HCl [Cardizem CD] 120 mg capsule,extended release 24hr 120 mg PO DAILY Qty: 30 RF: 2 Referrals / Follow Up: Emmanuelle Sahu DO [STAFF PHYSICIAN] - See Referral Note (As directed by Dr. Sahu) Kristina Holliday MD [Primary Care Provider] - Within 2 Weeks Disposition Disposition (needs filled in before D/C Order can be placed): Home, Self Care Charges/Coding Visit Charges Inpatient E&M: 45085 Disch Hosp
[2021-02-16 13:13] VITALS: BP 150/66; PULSE 43; RESP 16; TEMP 36.7; O2SAT 96
--- NOTE | 2021-02-16 15:15 | PHA.DC.MR ---
Pharmacy Service has performed discharge medication reconciliation for this patient. The patient's discharge medication list was reviewed for discrepancies and discrepancies were resolved. Home Medications multivitamin with folic acid [Thera] 1 tab PO DAILY 07/12/14 omega 5-yew-lwg-fish oil 500 mg PO QHS 07/01/20 acetaminophen 1,000 mg PO Q8H PRN PRN #1 tablet 07/20/20 cholecalciferol (vitamin D3) 25 mcg PO DAILY #30 tablet 07/20/20 compress.stocking,knee,reg,med #2 ea 08/13/20 pantoprazole 20 mg tablet,delayed release 20 mg PO BID #180 tab 11/24/20 atorvastatin 80 mg tablet 80 mg PO QHS #90 tab 12/07/20 insulin lispro 100 unit/mL subcutaneous pen 7 unit SC TIDCM #3 insuln.pen 12/07/20 Lantus Solostar U-100 Insulin 8 units SC QHS 02/10/21 amlodipine 10 mg PO DAILY #30 tab 02/16/21 metoprolol succinate 50 mg PO DAILY #30 tab 02/16/21
[2021-02-16 16:10] LABS: Bedside Glucose 256 mg/dL (70-110)
== END 2021-02-16 18:55 | disposition home or self-care (01) | DRG 673 ==
LOC: ED 13:56 → PCU 15:05
PROVIDERS: Internal Medicine Nephrology; Student in an Organized Health Care Education/Training Program; Surgery; Admitting Provider Internal Medicine; Emergency Provider Emergency Medicine; PCP Internal Medicine; Visit Provider Internal Medicine
PROC: 0JH63XZ Insertion of Tunneled Vascular Access Device into Chest Subcutaneous Tissue and Fascia, Percutaneous Approach (ICD-10-PCS; principal; 2021-02-12 16:45)
DX: N17.9 Acute kidney failure, unspecified (principal); U07.1 COVID-19; I12.0 Hypertensive chronic kidney disease with stage 5 chronic kidney disease or end stage renal disease; E87.2 Acidosis; E11.22 Type 2 diabetes mellitus with diabetic chronic kidney disease; N18.6 End stage renal disease; Z99.2 Dependence on renal dialysis; D63.1 Anemia in chronic kidney disease; E11.40 Type 2 diabetes mellitus with diabetic neuropathy, unspecified; I48.91 Unspecified atrial fibrillation; R27.0 Ataxia, unspecified; E78.5 Hyperlipidemia, unspecified; R29.6 Repeated falls; K21.9 Gastro-esophageal reflux disease without esophagitis; R97.20 Elevated prostate specific antigen [PSA]; E55.9 Vitamin D deficiency, unspecified; F32.A Depression, unspecified; Z79.4 Long term (current) use of insulin; Z79.899 Other long term (current) drug therapy; Z86.73 Personal history of transient ischemic attack (TIA), and cerebral infarction without residual deficits
CPT/HCPCS: 36415; 71045; 77001; 80048; 80053; 80061; 80069; 80076; 81001; 81050; 82306; 82575; 82728; 82962; 83540; 83550; 83735; 83970; 84100; 84153; 84156; 84443; 84550; 85025; 85027; 85610; 86706; 87340; 87426; 87635; 90937; 93005; 97161; 97165; 97802; 99284; J7030; J7040; J7120; U0005; A4216; C1750; G0257; J2916; Q5106; U0003

== ENCOUNTER 2021-02-23 09:26 | Inpatient (IN) | payer MEDICARE, OTHER, SELFPAY ==
[2021-02-23] VITALS (8 sets, daily range): BP systolic 148–173; BP diastolic 69–95; PULSE 50–110; RESP 14–28; TEMP 36.6–37.3; O2SAT 91–99; BMI 22.6
--- NOTE | 2021-02-23 09:50 | CT_ITS ---
STUDY: CT BRAIN WITHOUT CONTRAST REASON FOR EXAM: Male, 75 years old. Weakness. RADIATION DOSAGE (If Supplied By Facility): CTDIvol = ( 44.99 ) mGy, DLP = ( 796.11 ) mGycm TECHNIQUE: Transaxial CT imaging of the brain was performed without administration of intravenous contrast material. Individualized dose optimization techniques were used for this CT. COMPARISON: Comparison is made with prior study dated 07/01/2020. FINDINGS: Normal soft tissue structures. Normal calvarium. There is moderate cerebral atrophy with widening of the extra-axial spaces and ventricular dilatation. There are areas of decreased attenuation within the white matter tracts of the supratentorial brain, consistent with microvascular disease changes. Stable encephalomalacia in the posterior medial aspect of the left occipital lobe. Normal basal ganglia and thalami. Normal brainstem. Normal cerebellum. There is no intracranial hemorrhage. There are no findings of an acute ischemic infarction. Normal visualized paranasal sinuses. CT/Brain/Head without Contrast IMPRESSION: Chronic involutional changes of the brain. Stable focal encephalomalacia in the left posterior medial occipital lobe. Electronically Signed: Oscar Chanel MD at 11:09 EST , Service support ,
--- NOTE | 2021-02-23 09:51 | EKG12_ITS ---
Test Reason : WEAKNESS Blood Pressure : / mmHG Vent. Rate : 105 BPM Atrial Rate : 120 BPM P-R Int : 182 ms QRS Dur : 102 ms QT Int : 374 ms P-R-T Axes : 025 020 033 degrees QTc Int : 494 ms Sinus tachycardia with frequent Premature ventricular complexes and Fusion complexes Nonspecific ST abnormality Abnormal ECG Confirmed by NOLAN WINTER, ALDO ([id number]), medical transcription editor ISABELLE GARCIA ([id number]) on 02/25/2021 8:22:13 AM Referred By: ELLIE Confirmed By:ALDO FRANCISCO MD
--- NOTE | 2021-02-23 09:55 | EDS_ITS ---
HPI History of Present Illness Chief Complaint: Weakness Informant: patient Onset/Context/Timing Onset: Weeks Context: Gradual Onset Timing: Continuous Quality: weakness Location: lower extremities Worsened by: ambulation Relieved by: nothing Narrative Narrative: Patient presents with bilateral leg weakness that has been getting worse over the past few weeks. Patient states he can move his legs but he is unable to bear weight and ambulate. Patient states he was diagnosed with COVID approximately 3 weeks ago. Patient denies any upper extremity weakness. Patient denies any headaches, chest pain, or shortness of breath. [facility] Medical History (Updated 02/23/21 @ 17:[address] Tariq Moss, DO) Anemia in chronic kidney disease CKD (chronic kidney disease) COVID CVA (cerebral vascular accident) Diabetes Diabetes mellitus, type II Diabetic neuropathy ESRD (end stage renal disease) High cholesterol Hypertension Hypertension Home Medications multivitamin with folic acid [Thera] 1 tab PO DAILY 07/12/14 [History Last Taken Unknown] omega 3-llh-qgm-fish oil 500 mg PO QHS 07/01/20 [History Last Taken Unknown] acetaminophen 1,000 mg PO Q8H PRN PRN #1 tablet 07/20/20 [Rx Last Taken 02/22/21] cholecalciferol (vitamin D3) 25 mcg PO DAILY #30 tablet 07/20/20 [Rx Last Taken Unknown] compress.stocking,knee,reg,med #2 ea 08/13/20 [Rx Last Taken Unknown] pantoprazole 20 mg tablet,delayed release 20 mg PO BID #180 tab 11/24/20 [Rx Last Taken Unknown] atorvastatin 80 mg tablet 80 mg PO QHS #90 tab 12/07/20 [Rx Last Taken Unknown] insulin lispro 100 unit/mL subcutaneous pen 7 unit SC TIDCM #3 insuln.pen 12/07/20 [Rx Last Taken Unknown] Lantus Solostar U-100 Insulin 8 units SC QHS 02/10/21 [History Last Taken Unknown] amlodipine 10 mg PO DAILY #30 tab 02/16/21 [Rx Last Taken Unknown] metoprolol succinate 50 mg PO DAILY #30 tab 02/16/21 [Rx Last Taken Unknown] Allergy/AdvReac Type Severity Reaction Status Date / Time No Known Allergies Allergy Verified 02/23/21 09:36 Family History (Updated 02/23/21 @ 14:[address] Yumiko Sood MD) Mother Cancer Diabetes Father Cancer Diabetes Surgical History History of appendectomy History of hernia repair Social History household members: spouse housing: house Smoking Status: Never smoker alcohol intake: never substance use type: does not use ROS ROS ED Constitutional Constitutional ED: Denies chills or fever(s) Eyes Eyes: Denies blurry vision or change in vision ENT ENT ED: Denies rhinorrhea or sore throat Cardiovascular Cardiovascular: Denies chest pain or palpitations Respiratory/Chest Respiratory/Chest: Denies cough or dyspnea Gastrointestinal Gastrointestinal: Denies nausea or vomiting Genitourinary Genitourinary ED: Denies dysuria or hematuria Musculoskeletal Musculoskeletal: Reports back pain; Denies neck pain Integumentary Denies abscess or rash Neurologic Neurologic: Denies headache(s) or weakness Allergic/Immunologic Allergic/Immunologic ED: Denies mouth swelling or urticaria EXAM Physical Exam Const Vital Signs: 02/23/21 09:27 02/23/21 09:33 02/23/21 13:00 Temperature 99.1 F 99.1 F 99.2 F H Temperature Source Oral Oral Oral Pulse Rate 54 L 110 H 97 Respiratory Rate 14 18 28 H Respiratory Effort Normal Non-Labored Respiratory Pattern Normal Blood Pressure 173/95 H 148/69 H Blood Pressure Mean 121 95 Pulse Ox 94 91 92 Oxygen Delivery Method Room Air Room Air Nasal Cannula Oxygen Flow Rate (L/min) 2 Positive well nourished and well developed General Appearance ED: well developed HEENT Reports moist mucous membranes Neck supple and no JVD Resp normal respiratory effort and clear to auscultation bilaterally Cardio regular rate, regular rhythm and no murmurs GI normal to inspection, nondistended, normoactive bowel sounds and non-tender Palpation: soft Extremity normal to inspection General Extremety ED: Negative for edema or tenderness General Extremity: Negative for edema Neuro oriented x3, CN's II-XII intact bilaterally and no sensory deficits noted Sensorium / Orientation: alert Motor Exam: strength 5/5 throughout Psych mental status grossly normal Skin no rashes or lesions noted MDM MDM MDM Narrative Medical decision making narrative: CBC was obtained and was within normal limits. Comprehensive metabolic profile showed a BUN of 33 and creatinine 3.75. Patient is on dialysis. Initial high-sensitivity troponin was elevated at 190. Repeat 2-hour high-sensitivity troponin was improved at 174. CT scan of the brain was obtained. There is no acute intracranial abnormality. This was interpreted by the radiologist and reviewed by myself. EKG showed sinus tachycardia with a rate of 105 and frequent PVCs. There are nonspecific ST-T wa ve changes. These are unchanged compared to previous EKG dated 02/10/2021. Case was discussed with the hospitalist. She will admit the patient to her service. She requested a chest x-ray be obtained. This was ordered. Patient understood and was agreeable with the plan. All questions were answered. Lab Data Labs: Laboratory Results - last 24 hr 02/23/21 02/23/21 02/23/21 09:58 10:10 10:10 WBC 9.8 RBC 3.17 L Hgb 9.8 L Hct 29.0 L MCV 91.5 MCH 30.9 MCHC 33.8 RDW Std Deviation 43.0 RDW Coeff of Lanre 13.2 Plt Count 142 L MPV 11.5 Immature Gran % (Auto) 0.700 Neut % (Auto) 88.3 H Lymph % (Auto) 6.1 L Walton % (Auto) 4.8 Eos % (Auto) 0.0 Baso % (Auto) 0.1 Absolute Neuts (auto) 8.6 H Absolute Lymphs (auto) 0.59 L Nucleated RBC % 0 Sodium 138 Potassium 3.8 Chloride 102 Carbon Dioxide 25.0 Anion Gap 11 BUN 33 H Creatinine 3.75 H Estim Creat Clear Calc 15.50 Est GFR (MDRD) Af Amer 20 L Est GFR (MDRD) Non-Af 17 L BUN/Creatinine Ratio 8.8 L Glucose 190 H Calcium 7.9 L Phosphorus Magnesium Ferritin Total Bilirubin 0.50 AST 36 ALT 29 Alkaline Phosphatase 73 Lactate Dehydrogenase Troponin I High Sens 190 H* C-React Prot Ext Range B-Natriuretic Peptide Total Protein 6.3 L Albumin 1.5 L Globulin 4.8 H Albumin/Globulin Ratio 0.3 L COVID-19 (DIMAS) Detected 02/23/21 02/23/21 02/23/21 10:10 12:25 12:25 WBC RBC Hgb Hct MCV MCH MCHC RDW Std Deviation RDW Coeff of Lanre Plt Count MPV Immature Gran % (Auto) Neut % (Auto) Lymph % (Auto) Walton % (Auto) Eos % (Auto) Baso % (Auto) Absolute Neuts (auto) Absolute Lymphs (auto) Nucleated RBC % Sodium Potassium Chloride Carbon Dioxide Anion Gap BUN Creatinine Estim Creat Clear Calc Est GFR (MDRD) Af Amer Est GFR (MDRD) Non-Af BUN/Creatinine Ratio Glucose Calcium Phosphorus 3.6 Magnesium 1.7 Ferritin 2283 H Total Bilirubin AST ALT Alkaline Phosphatase Lactate Dehydrogenase 476 H Troponin I High Sens 174 H* C-React Prot Ext Range 166.00 H B-Natriuretic Peptide 1626.0 H Total Protein Albumin Globulin Albumin/Globulin Ratio COVID-19 (DIMAS) Radiography Diagnostic Testing: Clinical Impression(s) from Imaging Studies Brain CT 02/23/21 09:50 IMPRESSION: Chronic involutional changes of the brain. Stable focal encephalomalacia in the left posterior medial occipital lobe. Electronically Signed: Oscar Chanel MD at 11:09 EST , Service support , Discharge Plan Dx/Rx/DC Orders Clinical Impression: Lower extremity weakness, Cardiac enzymes elevated, Physical debility Disposition Disposition: Acute Care Hospital [facility] Discharge Date/Time: 02/23/21 14:48
[2021-02-23] MEDS: 0.9% Normal Saline 1,000 ML 1000 ML IV (10:15)
[2021-02-23 10:17] LABS: Absolute Lymphocyte Count 0.59 X10^3/uL (0.83-4.51); Absolute Neutrophil Count 8.6 X10^3/uL (2.0-7.7); Basophil# 0.01 X10^3/uL; Basophil% 0.1 % (0-1); Hemoglobin 9.8 g/dL (13.0-16.5); Lymphocyte # 0.59 X10^3/ul (0.83-4.51); Lymphocyte % 6.1 % (19-41); Mean Corp Hgb Conc 33.8 g/dL (32-36); Mean Corpuscular Hgb 30.9 pg (27.0-32.0); Mean Corpuscular Volume 91.5 fL (80-94); Mean Platelet Vol. 11.5 fl (6.2-12.0); Monocyte# 0.47 X10^3/uL; Monocyte% 4.8 % (0-10); NRBC Flagged by Analyzer 0 % (0-5); Neutrophil # 8.61 X10^3/uL (2.7-7.7); Neutrophil % 88.3 % (47-70); POSITIVE DIFFERENTIAL YES; POSITIVE MORPHOLOGY YES; Platelet Count 142 K/mm3 (150-450); RBC Distribution Width CV 13.2 % (11.6-14.6); Red Blood Count 3.17 M/mm3 (4.6-6.2); White Blood Count 9.8 K/mm3 (4.4-11.0)
[2021-02-23 10:18] LABS: Differential Indicated SCAN CRITERIA MET
[2021-02-23 10:39] LABS: ALB/GLOB Ratio 0.3 RATIO (0.9-2.4); AST(SGOT) 36 U/L (15-37); Alanine Aminotransfer ALT/SGPT 29 U/L (16-61); Albumin, Serum 1.5 g/dL (3.2-5.0); Alkaline Phosphatase 73 U/L (45-117); Anion Gap 11 (5-15); BUN 33 mg/dL (7-18); BUN/Creat Ratio 8.8 RATIO (10-20); Calcium,Total 7.9 mg/dL (8.5-10.1); Chloride 102 mmol/L (98-107); Creatinine, Serum 3.75 mg/dL (0.70-1.30); EST Glomerular Filtration Rate 17 mL/min (>60); Est Glom Filt Rate - Afr Amer 20 mL/min (>60); Globulin 4.8 g/dL (2.2-4.2); Glucose 190 mg/dL (74-106); Potassium 3.8 mmol/L (3.5-5.1); Protein, Total 6.3 g/dL (6.4-8.2); Sodium Level 138 mmol/L (136-145); Troponin-I HS 190 pg/mL (3.0-78.0)
--- NOTE | 2021-02-23 11:26 | ED.RN ---
Pt had an attend on that was filled with urine and stool. per pt he hasnt been able to get out of bed except for dialysis because he is too weak. pt was asked why they didnt clean him up at dialysis and he stated they do nothing but my dialysis.. pts attend was literally stuck to his back with dried stool. Pts skin is red and irritated. Pts is also sick and has dementia and is unable to care for him. Ely from social work is also aware
--- NOTE | 2021-02-23 11:28 | CM.ED ---
SW Note SW received phone call from Bhavya Bowling ([phone]). She called in to check on the status of her father, John Apple. Bhavya said that patient's is older and sick with some singns of demential so she is concerned that if patient can't care for himself there is no one in the home to care for him. Bhavya said that patient is not able to walk at home. Patient receives daiaylsis, per daughter. Bhavya said that patient had low oxygen level. Bhavya said that the Home Health RN called for the EMS this morning. Patient said I need to know if he is getting better or worse and some guidance about if he can home. GAYE explained that the questions she is asking need time to assess and patient has been in the ED for a short period of time. GAYE discussed with Bhavya that she can go to Medicare.gov to get SNF rating. GAYE also provided Bhavya with information on [facility] and their assessment as well as their phone number. 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 Ely RAHMAN
[2021-02-23] MEDS: Aspirin 81 MG TAB.CHEW 324 MG PO (12:11)
[2021-02-23 13:00] LABS: Troponin-I HS 174 pg/mL (3.0-78.0)
--- NOTE | 2021-02-23 13:42 | PCM.HP.STD ---
HPI - General General Date of Admission: 02/23/21 Date of Service: 02/23/21 Chief Complaint: FTT adult, debility, recent COVID illness HPI Narrative The patient is a 75 y/o M w/ PMHx: HTN, HLD, ESRD on HD, Hx CVA, Depression and Anxiety, Hx prostate CA, GERD, AOCD, Diabetes mellitus type II, recently admitted 02/10/21-02/16/21 secondary to worsening renal function with incidentally noted COVID + PCR upon ED evaluation with no related hypoxia thus aggressive treatment deferred with quarantine through 02/20/21 (positive testing 02/10/21, not symptomatic) with worsened renal function with eventual tunneled dialysis catheter placement with significant antihypertensive alterations secondary to persistent hypertension with initiation of dialysis initially in [place] units secondary to his Covid status until out of quarantine who now re-presents to the [facility] ED on 02/23/21 with history of increased fatigue, weakness and debility. He denies any recent increased dyspnea, cough, fever, chills, nausea, emesis, diarrhea, abdominal cramping, body aches, alteration sense of taste or smell, headaches or sore throat. He does state that his is currently ill at home and is Covid positive. Patient is unvaccinated against COVID-19. Patient does report still making urine but sometimes has retention he notes. He initially refused catheterization for sample but following discussions was amenable. Work-up in the ED included T 99.1, heart rate 54 increasing up to 110 transiently, BP 150/66, respiratory rate 16, initially 96% on room air however while in the emergency room did decrease and consistently remained 91 to 92% on room air, CBC with WBC 9.8, hemoglobin 9.8, platelets 142 with left shift and lymphopenia, CMP with BUN/creatinine 33/3.75, glucose 190, unremarkable hepatic profile, troponin high-sensitivity initial 190, repeat 174, CT brain with chronic involutional changes with stable focal encephalomalacia in the left posterior medial occipital lobe, repeat Covid PCR positive. In the ED patient administered aspirin 324 mg p.o. x1 as well as normal saline bolus. Chest x-ray requested following discussion with ED physician given presentation. [facility] Medical History (Updated 02/23/21 @ 14:[address] Yumiko Sood MD) Anemia in chronic kidney disease CKD (chronic kidney disease) COVID CVA (cerebral vascular accident) Diabetes Diabetes mellitus, type II Diabetic neuropathy ESRD (end stage renal disease) High cholesterol Hypertension Hypertension Home Medications multivitamin with folic acid [Thera] 1 tab PO DAILY 07/12/14 [History Last Taken Unknown] omega 2-ghw-bzu-fish oil 500 mg PO QHS 07/01/20 [History Last Taken Unknown] acetaminophen 1,000 mg PO Q8H PRN PRN #1 tablet 07/20/20 [Rx Last Taken Unknown] cholecalciferol (vitamin D3) 25 mcg PO DAILY #30 tablet 07/20/20 [Rx Last Taken Unknown] compress.stocking,knee,reg,med #2 ea 08/13/20 [Rx Last Taken Unknown] pantoprazole 20 mg tablet,delayed release 20 mg PO BID #180 tab 11/24/20 [Rx Last Taken Unknown] atorvastatin 80 mg tablet 80 mg PO QHS #90 tab 12/07/20 [Rx Last Taken Unknown] insulin lispro 100 unit/mL subcutaneous pen 7 unit SC TIDCM #3 insuln.pen 12/07/20 [Rx Last Taken Unknown] Lantus Solostar U-100 Insulin 8 units SC QHS 02/10/21 [History Last Taken Unknown] amlodipine 10 mg PO DAILY #30 tab 02/16/21 [Rx Last Taken Unknown] metoprolol succinate 50 mg PO DAILY #30 tab 02/16/21 [Rx Last Taken Unknown] Allergy/AdvReac Type Severity Reaction Status Date / Time No Known Allergies Allergy Verified 02/23/21 09:36 Family History (Updated 02/23/21 @ 14:[address] Yumiko Sood MD) Mother Cancer Diabetes Father Cancer Diabetes Surgical History History of appendectomy History of hernia repair Social History household members: spouse housing: house Smoking Status: Never smoker alcohol intake: never substance use type: does not use ROS ROS Narrative Admission Review of Systems: CONSTITUTIONAL: No weight loss, fever, chills, + weakness or fatigue. HEENT: Eyes: No visual loss, blurred vision, double vision or yellow sclerae. Ears, Nose, Throat: No hearing loss, sneezing, congestion, runny nose or sore throat. SKIN: No rash or itching, lesions, wounds. CARDIOVASCULAR: No chest pain, chest pressure or chest discomfort, palpitations, edema, orthopnea, syncopal events. RESPIRATORY: No shortness of breath, cough or sputum, wheezing, hemoptysis. GASTROINTESTINAL: + anorexia, No nausea, vomiting or diarrhea, abdominal pain, melena, BRBPR. GENITOURINARY: + Hx urinary retention, still makes some urine. No dysuria, frequency, urgency. NEUROLOGICAL: No headache, dizziness, syncope, paralysis, ataxia, numbness or tingling in the extremities, focal weakness, change in bowel or bladder control, seizure. MUSCULOSKELETAL: No muscle, back pain, joint pain or stiffness. HEMATOLOGIC: + anemia, bleeding or bruising. LYMPHATICS: No enlarged nodes. No history of splenectomy. PSYCHIATRIC: + history of depression or anxiety. ENDOCRINOLOGIC: No reports of sweating, cold or heat intolerance. No polyuria or polydipsia. ALLERGIES: No history of asthma, hives, eczema or rhinitis. Vital Signs Vital Signs Vital Signs: 02/23/21 09:27 02/23/21 09:33 Temperature 99.1 F 99.1 F Temperature Source Oral Oral Pulse Rate 54 L 110 H Respiratory Rate 14 18 Respiratory Effort Normal Non-Labored Respiratory Pattern Normal Blood Pressure 173/95 H Blood Pressure Mean 121 Pulse Ox 94 91 Oxygen Delivery Method Room Air Room Air Weight Weight: 144 lb 2.917 oz Body Mass Index (BMI) 22.6 Physical Exam Narrative Physical Examination: General: Awake, alert, oriented x 3 and cooperative, seated upright in the ED bed in no apparent distress, fatigued appearing. Skin: Normal color, normal turgor, no icterus, no cyanosis except occasional stage ecchymoses. HEENT: AT/NC, EOMI, PERRLA, mildly dry MM, no carotid bruits or JVD noted. Lungs: Diffusely diminished, greater bases, mildly increased respiratory rate but no obvious distress, no rales, ronchi or wheezing, dialysis catheter in place upper chest. Heart: Mildly tachycardic with regular rhythm; no gallop, rub audible. Abdomen: Soft, NTTP, ND, normal BS, no HSM. Extremities: No cyanosis, clubbing, or edema. Neurological: Patient awake, alert, oriented as noted, cognitive function intact; pupils equally reactive to light and accommodation, cranial nerves II-XII grossly normal, moving all 4 extremities, no focal deficits, strength severely global decrease secondary to acute presentation. Psychiatric: Affect appears fatigued, flat, no acute evidence of depressive or anxiety feelings. Results Lab / Micro Data Result Diagrams: 02/23/21 10:10 02/23/21 10:10 Labs: Laboratory Results - last 24 hr 02/23/21 09:58: COVID-19 (DIMAS) Detected 02/23/21 10:10: WBC 9.8, RBC 3.17 L, Hgb 9.8 L, Hct 29.0 L, MCV 91.5, MCH 30.9, MCHC 33.8, RDW Std Deviation 43.0, RDW Coeff of Lanre 13.2, Plt Count 142 L, MPV 11.5, Immature Gran % (Auto) 0.700, Neut % (Auto) 88.3 H, Lymph % (Auto) 6.1 L, [place] % (Auto) 4.8, Eos % (Auto) 0.0, Baso % (Auto) 0.1, Absolute Neuts (auto) 8.6 H, Absolute Lymphs (auto) 0.59 L, Nucleated RBC % 0 02/23/21 10:10: Sodium 138, Potassium 3.8, Chloride 102, Carbon Dioxide 25.0, Anion Gap 11, BUN 33 H, Creatinine 3.75 H, Estim Creat Clear Calc 15.50, Est GFR (MDRD) Af Amer 20 L, Est GFR (MDRD) Non-Af 17 L, BUN/Creatinine Ratio 8.8 L, Glucose 190 H, Calcium 7.9 L, Total Bilirubin 0.50, AST 36, ALT 29, Alkaline Phosphatase 73, Troponin I High Sens 190 H*, Total Protein 6.3 L, Albumin 1.5 L, Globulin 4.8 H, Albumin/Globulin Ratio 0.3 L 02/23/21 12:25: Troponin I High Sens 174 H* Radiology Impression Brain CT 02/23/21 09:50 IMPRESSION: Chronic involutional changes of the brain. Stable focal encephalomalacia in the left posterior medial occipital lobe. Electronically Signed: Oscar Chanel MD at 11:09 EST , Service support , Assessment & Plan Assessment/Plan (1) Cardiac enzymes elevated: PLAN: The patient is a 75 y/o M w/ PMHx: HTN, HLD, ESRD on HD, Hx CVA, Depression and Anxiety, Hx prostate CA, GERD, AOCD, Diabetes mellitus type II, recently admitted 02/10/21-02/16/21 secondary to worsening renal function with incidentally noted COVID + PCR upon ED evaluation with no related hypoxia thus aggressive treatment deferred with quarantine through 02/20/21 (positive testing 02/10/21, not symptomatic) with worsened renal function with eventual tunneled dialysis catheter placement with significant antihypertensive alterations secondary to persistent hypertension with initiation of dialysis initially in [place] units secondary to his Covid status until out of quarantine who now re-presents to the [facility] ED on 02/23/21 with history of increased fatigue, weakness and debility. #1. Acute Hypoxia secondary to Acute Viral Syndrome, COVID-19: Checks x-ray requested prior to admission and certainly given new hypoxia could have Covid related pneumonia. Will admit to the PCU given concurrent #2, discussed reinstitution of COVID precautions given worsening status with hypoxia with infectious disease who recommended reinstitution and continued quarantine for 20 days from initial testing positive timeline with now in timeline, will maintain on oxygen with wean as tolerated to room air, PRN albuterol, HOB, IS parameters w/ pending sputum cultures, respiratory viral panel and urine antigens, will obtain D-dimer, procalcitonin, CRP, CPK, Ferritin, LDH and BNP, continue supportive care including q 2 hour turning including prone given no prone bed availability and judicious hydration, closely monitor for worsening status for ARDS and multiorgan failure, given patient noted hypoxia requested chest x-ray to ED physician and will initiate and continue IV decadron x 10 doses which was discussed and agreed upon with infectious disease. UA is been requested with catheterization given history of retention and if patient is retaining then may necessitate [place] placement, if urinalysis is notable then will initiate treatment for UTI concurrently as this could certainly be reason for his presentation as well aside from worsening Covid illness. PT, OT, case management consultation for discharge planning. #2. Indeterminate cardiac enzymes, possibly elevated secondary to underlying end-stage renal disease/chronic kidney disease and potentially elevated with demand secondary to #1: EKG in ED sinus rhythm with no acute evidence of ischemia, CXR pending per discussion with ED physician, initial trop 190 [address] repeat [address] on a monitored bed to assure no acute myocardial infarction with serial cardiac enzymes and EKGs. We will continue aspirin therapy, metoprolol, statin. Magnesium level requested. #3. Thrombocytopenia, new onset: Admission platelets 142, suspect secondary to acute presentation #1, continue to trend CBC. #4. Failure to thrive, adult: Likely secondary to acute presentation #1, possibly contributed to by #2, continue treatments as noted above, fall precautions, therapies and case management consulted for discharge planning. Patient initially reticent to go to skilled facility but is now amenable. #5. ESRD: We will consult leather scrubber, Dr. Emmanuelle Sahu for continued dialysis. If significant concern may also necessitate CTPA which would require dialysis following. #6. Chronic anemia/AOCD: Admission hemoglobin 9.8, baseline appears similar, trend. #7. History of prior CVA: We will cautiously continue aspirin, does have a history previously of TBI and intracranial bleed history, continue statin, hypertensive regimen, diabetic regimen as noted. #8. Diabetes mellitus type II: Hold oral home regimen, continue home insulin regimen, ADA diet, accu checks w/ ISS. #9. Hypertension: Continue home regimen including metoprolol and amlodipine, PRN hydralazine. #10. Hyperlipidemia: We will continue patient home statin therapy. #11. GERD: We will continue patient on PPI. #12. DVT prophylaxis: SCDs, heparin. #13. CODE status: Patient does not have healthcare power of managing attorney nor living will in place. Discussed CODE status at length including difference between FULL code, DNR-CCA and DNR-CC status. Following discussions about the differences in these status, requested DNR-CCA, no intubation status. Advanced Care Planning Face to Face Time: 16 minutes. Charges/Coding Visit Charges OBSV E&M: 91898 Initial observation care L3 Procedures Hospitalists Procedures: 33033 Advncd Care Plan 30 Min
--- NOTE | 2021-02-23 14:10 | RAD_ITS ---
STUDY: X-RAY CHEST REASON FOR EXAM: Male, 75 years old. Cough . History of Covid TECHNIQUE: Single AP portable view of the chest. COMPARISON: Comparison is made with prior study dated 02/12/2021. FINDINGS: EKG electrodes are seen. Once again, a right-sided double-lumen catheter is seen with the tip at the junction of the superior vena cava and right atrium. There now is evidence of a patchy infiltrate in the right mid lung as well as at the left lung base. Follow-up is recommended. There is no demonstrated pleural abnormality. There is borderline cardiomegaly. Normal mediastinum and phyllis. Normal visualized pulmonary arteries. There is atherosclerotic tortuosity of the aortic arch and descending thoracic aorta. There are diffuse degenerative changes of the visualized thoracic spine. Normal visualized ribs, clavicles, and shoulders. There is no demonstrated abnormality of the visualized soft tissue structures of the upper abdomen. RAD/Chest 1 View (Portable) IMPRESSION: Patchy infiltrate in the right mid lung as well as at the left lung base. Electronically Signed: Oscar Chanel MD at 14:48 EST , Service support ,
[2021-02-23 14:50] LABS: Ferritin 2283 ng/mL (26-388); LDH 476 U/L (87-241); Magnesium 1.7 mg/dL (1.6-2.6); Phosphorus 3.6 mg/dL (2.5-4.9)
[2021-02-23 15:29] LABS: D-Dimer Quantitative (DVT/PE) 3.35 FEU/ug/m (0.27-0.49)
[2021-02-23] MEDS: 0.9% Normal Saline 1,000 ML 100 ML IV (17:30)
[2021-02-23 17:40] LABS: Bedside Glucose 147 mg/dL (70-110)
[2021-02-23] MEDS: dexAMETHasone 10 MG/ML Vial 6 MG IV (17:42)
[2021-02-23] MEDS: Insulin Lispro 100 UNIT/ML INSULN.PEN 7 UNIT SC (17:43)
[2021-02-23 17:55] LABS: Bacteria 0 SEEN /hpf (None Seen); Mucous, Urine 0 SEEN /hpf (<or=2+); Squamous Epithelial Cells - UA 0 SEEN /hpf (0-5); White Blood Cells 0 SEEN /hpf (0-5)
[2021-02-23 17:59] LABS: Color, Urine Yellow (Yellow); Glucose, Dipstick 1000 mg/dl (Normal); Ketone-Dipstick 15 mg/dl (Negative); Leukocyte Esterase-Dipstick Negative /ul (Negative); Nitrite-Dipstick Negative (Negative); Occult Blood-Urine 50 /ul (Negative); Protein-Dipstick 500 mg/dl (Negative); Urine Bilirubin Dipstick Negative (Negative); Urine Clarity Clear (Clear); Urine Urobilinogen Normal (Normal)
[2021-02-23 18:08] LABS: Red Blood Cells-Urine 5-10 SEEN /hpf (0-5)
[2021-02-23 18:13] LABS: Troponin-I HS 172 pg/mL (3.0-78.0)
--- NOTE | 2021-02-23 19:37 | PCS.PANDOC ---
PANDEMIC DOCUMENTATION INITIATED: Date: 11/09/2020 Time: 190
--- NOTE | 2021-02-23 20:40 | CM.ED ---
SW note SW was advised patient was being admitted. SW called patient's daughter, Bhavya Bowling . She was advised patient is being admitted. SW encouraged her to research SNF placements and speak to staff regarding possible SNF placements. SW also encouraged patient's daughter to encourage patient to consider SNF. No further SW needs identified or voiced at this time. Plan: Admit [facility]HMAN
[2021-02-23] MEDS: Insulin Lispro 100 UNIT/ML INSULN.PEN SC (21:55)
[2021-02-23] MEDS: Atorvastatin Calcium 80 MG Tablet PO (21:55)
[2021-02-23] MEDS: Pantoprazole Sodium 20 MG Tablet PO (21:55)
[2021-02-23] MEDS: Menthol/Lanolin/Calamine/Znox 113 GM Tube 1 APPLIC TOPICAL (21:56)
[2021-02-23] MEDS: Heparin Injection (Vial) 5,000 UNIT/ML VIAL 5000 UNIT SC (21:56)
[2021-02-23 22:05] LABS: Bedside Glucose 323 mg/dL (70-110)
[2021-02-24] VITALS (14 sets, daily range): BP systolic 133–159; BP diastolic 80–86; PULSE 79–95; RESP 18; TEMP 36.4–37; O2SAT 88–98
[2021-02-24] MEDS: 0.9% Normal Saline 1,000 ML 100 ML IV (03:10)
--- NOTE | 2021-02-24 05:55 | EKG12_ITS ---
Test Reason : AM EKG Blood Pressure : / mmHG Vent. Rate : 087 BPM Atrial Rate : 087 BPM P-R Int : 198 ms QRS Dur : 108 ms QT Int : 398 ms P-R-T Axes : 035 -04 041 degrees QTc Int : 478 ms Normal sinus rhythm Normal ECG Confirmed by NOLAN WINTER, ALDO ([id number]), acquisition editor ISABELLE GARCIA ([id number]) on 02/25/2021 8:29:16 AM Referred By: DAYO Confirmed By:ALDO FRANCISCO MD
[2021-02-24 06:43] LABS: Absolute Neutrophil Count 5.6 X10^3/uL (2.0-7.7); Hematocrit 26.1 % (40-54); Hemoglobin 8.3 g/dL (13.0-16.5); Lymphocyte % 6.5 % (19-41); Mean Corp Hgb Conc 31.8 g/dL (32-36); Mean Corpuscular Hgb 29.7 pg (27.0-32.0); Mean Corpuscular Volume 93.5 fL (80-94); Mean Platelet Vol. 11.3 fl (6.2-12.0); Monocyte% 1.6 % (0-10); NRBC Flagged by Analyzer 0 % (0-5); Neutrophil # 5.63 X10^3/uL (2.7-7.7); Neutrophil % 90.8 % (47-70); POSITIVE DIFFERENTIAL YES; POSITIVE MORPHOLOGY YES; Platelet Count 156 K/mm3 (150-450); RBC Distribution Width CV 12.9 % (11.6-14.6); RBC Distribution Width SD 43.4 fl (35.1-43.9); Red Blood Count 2.79 M/mm3 (4.6-6.2); White Blood Count 6.2 K/mm3 (4.4-11.0)
[2021-02-24 06:44] LABS: Differential Indicated SCAN CRITERIA MET
--- NOTE | 2021-02-24 07:00 | CT_ITS ---
STUDY: CTA CHEST REASON FOR EXAM: Male, 75 years old. . Suspect pulmonary embolism. History of Covid. RADIATION DOSAGE (If Supplied By Facility): CTDIvol = ( 11.50 ) mGy, DLP = ( 462.01 ) mGycm TECHNIQUE: The examination was performed with the intravenous administration of IV 75mL [id number]-[id number]. Post-processing of the angiographic images was performed, with multiplanar reformation and 3D reconstruction. Individualized dose optimization techniques were used for this CT. COMPARISON: None. FINDINGS: Normal enhancement of the main pulmonary artery and right and left pulmonary arteries. Normal enhancement of the bilateral peripheral pulmonary arteries. There is no demonstrated pulmonary embolism. There is atherosclerotic calcification of the aortic arch with tortuosity. There is no demonstrated aortic dissection. There are calcifications of the coronary arteries. Normal mediastinum. Normal hilar regions. Normal visualized trachea and bronchi. The lungs are well expanded. Patchy areas of groundglass appearance are seen in both upper lobes as well as in the right middle lobe, lingular segment of the left upper lobe and both lower lobes worse on the right side. This is superimposed on emphysematous changes. Normal pleura. Normal chest wall structures. There are degenerative changes of thoracic spine. Normal visualized upper abdomen. CT/CTA Chest W/WO Contrast IMPRESSION: Patchy bilateral infiltrates as described. No evidence of the pulmonary embolism. Electronically Signed: Oscar Chanel MD at 8:34 EST , Service support ,
--- NOTE | 2021-02-24 07:01 | PN.HOSP_ITS ---
Subjective Subjective Patient with no acute events overnight per self and per nursing report. Patient continues to require 2 L nasal cannula with desaturation into the mid 80s off of oxygen. Discussed discharge planning with patient and at this point he would like to be near [place] where his daughter lives. Discussed also his current status with nephrology and at this point plan would be [facility] may have a bed after 5 PM on 02/25/2021 with plan to continue dialysis in [place] given his Covid positive status with need for continued quarantine now given current symptoms through 03/01/2021. Also discussed plan for CTPA today which was reviewed with nephrology given plan dialysis 02/25/2021. Patient denies fevers, chills, nausea, emesis, abdominal pain, chest pain. Objective Data Objective Data Vital Signs: Vital Signs Temp Pulse Resp BP Pulse Ox 97.5 F L 92 18 159/82 H 98 02/24/21 03:30 02/24/21 06:34 02/24/21 03:30 02/24/21 03:30 02/24/21 03:30 Oxygen Flow Rate (L/min) 2 Oxygen Delivery Method Nasal Cannula Weight: 140 lb 14.006 oz Body Mass Index (BMI) 22.6 Intake & Output: Intake and Output for Last 24 Hours 02/22/21 02/23/21 02/24/21 23:59 23:59 23:59 Intake Total 1350 / 1470 1240 / 1240 Output Total 450 / 600 150 / 150 Balance 900 / 870 1090 / 1090 Lab / Micro Data Result Diagrams: 02/24/21 06:25 02/24/21 06:25 Labs: Laboratory Results - last 24 hr 02/23/21 09:58: COVID-19 (DIMAS) Detected 02/23/21 10:10: WBC 9.8, RBC 3.17 L, Hgb 9.8 L, Hct 29.0 L, MCV 91.5, MCH 30.9, MCHC 33.8, RDW Std Deviation 43.0, RDW Coeff of Lanre 13.2, Plt Count 142 L, MPV 11.5, Immature Gran % (Auto) 0.700, Neut % (Auto) 88.3 H, Lymph % (Auto) 6.1 L, [place] % (Auto) 4.8, Eos % (Auto) 0.0, Baso % (Auto) 0.1, Absolute Neuts (auto) 8.6 H, Absolute Lymphs (auto) 0.59 L, Nucleated RBC % 0 02/23/21 10:10: Sodium 138, Potassium 3.8, Chloride 102, Carbon Dioxide 25.0, Anion Gap 11, BUN 33 H, Creatinine 3.75 H, Estim Creat Clear Calc 15.50, Est GFR (MDRD) Af Amer 20 L, Est GFR (MDRD) Non-Af 17 L, BUN/Creatinine Ratio 8.8 L, Glucose 190 H, Calcium 7.9 L, Total Bilirubin 0.50, AST 36, ALT 29, Alkaline Phosphatase 73, Troponin I High Sens 190 H*, Total Protein 6.3 L, Albumin 1.5 L, Globulin 4.8 H, Albumin/Globulin Ratio 0.3 L 02/23/21 10:10: B-Natriuretic Peptide 1626.0 H 02/23/21 12:25: Troponin I High Sens 174 H* 02/23/21 12:25: Phosphorus 3.6, Magnesium 1.7, Ferritin 2283 H, Lactate Dehydrogenase 476 H, C-React Prot Ext Range 166.00 H 02/23/21 14:45: D-Dimer Quant (PE/DVT) 3.35 H* 02/23/21 14:45: Procalcitonin 1.80 H 02/23/21 15:40: Urine Color Yellow, Urine Clarity Clear, Urine pH 7.0, Ur Specific [place] 1.010, Urine Protein 500 H, Urine Glucose (UA) 1000 H, Urine Ketones 15 H, Urine Occult Blood 50 H, Urine Nitrite Negative, Urine Bilirubin Negative, Urine Urobilinogen Normal, Ur Leukocyte Esterase Negative, Urine RBC 5-10 SEEN, Urine WBC 0 SEEN, Ur Squamous Epith Cells 0 SEEN, Urine Bacteria 0 SEEN, Urine Mucus 0 SEEN 02/23/21 16:34: Troponin I High Sens 172 H* 02/23/21 17:27: POC Glucose 147 H 02/23/21 21:47: POC Glucose 323 H 02/24/21 06:25: WBC 6.2, RBC 2.79 L, Hgb 8.3 L, Hct 26.1 L, MCV 93.5, MCH 29.7, MCHC 31.8 L D, RDW Std Deviation 43.4, RDW Coeff of [place] 12.9, Plt Count 156, MPV 11.3, Immature Gran % (Auto) 1.100 H, Neut % (Auto) 90.8 H, Lymph % (Auto) 6.5 L , [place] % (Auto) 1.6, Eos % (Auto) 0.0, Baso % (Auto) 0.0, Absolute Neuts (auto) 5.6, Absolute Lymphs (auto) 0.40 L, Nucleated RBC % 0 Micro: Microbiology 02/23/21 15:40 Urine Catheter - Catheter Streptococcus pneumoniae Antigen (M - Final 02/23/21 15:40 Urine Catheter - Catheter Legionella Antigen - Final Radiography Diagnostic Testing: Radiology Impression Brain CT 02/23/21 09:50 IMPRESSION: Chronic involutional changes of the brain. Stable focal encephalomalacia in the left posterior medial occipital lobe. Electronically Signed: Oscar Chanel MD at 11:09 EST , Service support , Chest X-Ray 02/23/21 14:10 IMPRESSION: Patchy infiltrate in the right mid lung as well as at the left lung base. Electronically Signed: Oscar Chanel MD at 14:48 EST , Service support , Physical Exam Narrative Physical Examination: General: Awake, alert, oriented x 3 and cooperative, seated upright in the PCU bedside chair, fatigued, no acute distress. Skin: Normal color, normal turgor, no icterus, no cyanosis except occasional stage ecchymoses. HEENT: AT/NC, EOMI, PERRLA, mildly improved with less dry MM. Lungs: Diffusely diminished, greater bases, respiratory rate improved, no evidence of any distress, continue nasal cannula supplementation, no rales, ronchi or wheezing, dialysis catheter in place upper chest. Heart: Improved, currently regular rate with regular rhythm; no gallop, rub audible. Abdomen: Soft, NTTP, ND, normal BS. Extremities: No cyanosis, clubbing, or edema. Neurological: Patient awake, alert, oriented as noted, cognitive function intact; pupils equally reactive to light and accommodation, cranial nerves II- XII grossly normal, moving all 4 extremities, no focal deficits, strength remains severely global decrease secondary to acute presentation. Psychiatric: Affect appears fatigued, no acute evidence of depressive or anxiety feelings. Assessment & Plan Assessment/Plan (1) Cardiac enzymes elevated: PLAN: The patient is a 75 y/o M w/ PMHx: HTN, HLD, ESRD on HD, Hx CVA, Depression and Anxiety, Hx prostate CA, GERD, AOCD, Diabetes mellitus type II, recently admitted 02/10/21-02/16/21 secondary to worsening renal function with incidentally noted COVID + PCR upon ED evaluation with no related hypoxia thus aggressive treatment deferred with quarantine through 02/20/21 (positive testing 02/10/21, not symptomatic) with worsened renal function with eventual tunneled dialysis catheter placement with significant antihypertensive alterations secondary to persistent hypertension with initiation of dialysis initially in [place] units secondary to his Covid status until out of quarantine who now re- presents to the [facility] ED on 02/23/21 with history of increased fatigue, weakness a nd debility. #1. Acute Hypoxia secondary to Acute Viral Syndrome, COVID-19: Patient mated to the PCU, reinstituted Covid precautions for total of 20 days per discussion with infectious disease with quarantine timeline through 03/01/2021, chest x-ray obtained upon admission with new bilateral Covid pneumonia evident, given elevated D-dimer CTPA was obtained 02/24/2021 with noted patchy bilateral i nfiltrates consistent with Covid pneumonia with no evidence of pulmonary emboli with planned dialysis 02/25/2021, admission Covid inflammatory panel obtained, negative respiratory viral panel, negative urine antigens, requested sputum culture, continue supportive care including q 2 hour turning including prone given no prone bed availability and judicious hydration, closely monitor for worsening status for ARDS and multiorgan failure, patient initiated and continued on IV decadron x 10 doses. Patient is not a candidate for any remdesivir. PT, OT, case management consultation for discharge planning with plan skilled placement. #2. Indeterminate cardiac enzymes, possibly elevated secondary to underlying end-stage renal disease/chronic kidney disease and potentially elevated with demand secondary to #1: EKG in ED sinus rhythm with no acute evidence of ischemia, CXR pending per discussion with ED physician, initial trop 190 with repeat 174. Patient maintained on a cardiac bed, serial cardiac enzyme remains stable with most recent 02/23/2021 172, continued on aspirin, metoprolol, statin therapy, magnesium 1.7 with supplementation administered. #3. Thrombocytopenia, new onset, likely secondary to #1: Admission platelets 142, suspect secondary to acute presentation #1, 02/24/21 repeat platelet level improved, 156, continue to trend. #4. Failure to thrive, adult: Likely secondary to acute presentation #1, possibly contributed to by #2, continue treatments as noted above, fall precautions, therapies and case management consulted for discharge planning. Patient initially reticent to go to skilled facility but remains now amenable. #5. ESRD: We will consult channel business manager, Dr. Emmanuelle Sahu for continued dialysis. If significant concern may also necessitate CTPA which would require dialysis following. #6. Chronic anemia/AOCD: Admission hemoglobin 9.8, baseline appears similar, 02/24/2021 hemoglobin 8.3, continue to trend. #7. History of prior CVA: We will cautiously continue aspirin, does have a history previously of TBI and intracranial bleed history, continue aspirin, statin, hypertensive regimen, diabetic regimen as noted. #8. Diabetes mellitus type II: Hold oral home regimen, continue home insulin regimen, ADA diet, accu checks w/ ISS. #9. Hypertension: Continue home regimen including metoprolol and amlodipine, PRN hydralazine. #10. Hyperlipidemia: We will continue patient home statin therapy. #11. GERD: We will continue patient on PPI. #12. DVT prophylaxis: SCDs, heparin. #13. CODE status: Patient does not have healthcare power of environmental attorney nor living will in place. DNR-CCA, no intubation status. Charges/Coding Visit Charges Inpatient E&M: 61956 Subs Hosp L2
[2021-02-24 07:04] LABS: Atypical Lymphocyte 1+ %; Burr Cells 1+
[2021-02-24 07:15] LABS: ALB/GLOB Ratio 0.3 RATIO (0.9-2.4); AST(SGOT) 30 U/L (15-37); Alanine Aminotransfer ALT/SGPT 24 U/L (16-61); Albumin, Serum 1.2 g/dL (3.2-5.0); Alkaline Phosphatase 69 U/L (45-117); Anion Gap 9 (5-15); BUN 51 mg/dL (7-18); BUN/Creat Ratio 11.8 RATIO (10-20); Calcium,Total 7.3 mg/dL (8.5-10.1); Chloride 106 mmol/L (98-107); Creatinine, Serum 4.34 mg/dL (0.70-1.30); EST Glomerular Filtration Rate 14 mL/min (>60); Est Glom Filt Rate - Afr Amer 17 mL/min (>60); Estimated Creatinine Clearance 13.09 ml/min; Globulin 4.5 g/dL (2.2-4.2); Glucose 282 mg/dL (74-106); Potassium 3.8 mmol/L (3.5-5.1); Protein, Total 5.7 g/dL (6.4-8.2); Sodium Level 139 mmol/L (136-145)
[2021-02-24] MEDS: Insulin Lispro 100 UNIT/ML INSULN.PEN 7 UNIT SC ×3 (07:32→16:28)
[2021-02-24] MEDS: Insulin Lispro 100 UNIT/ML INSULN.PEN SC ×4 (07:32→20:59)
[2021-02-24 07:41] LABS: Bedside Glucose 276 mg/dL (70-110)
[2021-02-24] MEDS: Heparin Injection (Vial) 5,000 UNIT/ML VIAL 5000 UNIT SC ×2 (08:20→20:59)
[2021-02-24] MEDS: Aspirin 81 MG TAB.CHEW PO (08:20)
[2021-02-24] MEDS: Metoprolol(XL)Succ 50 MG Tablet PO (08:20)
[2021-02-24] MEDS: amLODIPine 10 MG Tablet PO (08:20)
[2021-02-24] MEDS: Multivitamins,Therapeutic Tablet 1 TABLET PO (08:20)
[2021-02-24] MEDS: Pantoprazole Sodium 20 MG Tablet PO ×2 (08:20→20:58)
[2021-02-24] MEDS: Cholecalciferol (VIT D3) 25 MCG TABLET (1,000 UNITS) PO (08:20)
[2021-02-24] MEDS: dexAMETHasone 10 MG/ML Vial 6 MG IV (08:20)
[2021-02-24] MEDS: Menthol/Lanolin/Calamine/Znox 113 GM Tube 1 APPLIC TOPICAL ×2 (08:21→21:00)
--- NOTE | 2021-02-24 09:17 | CASEMGMT ---
Addendum entered by Brittany Heath 02/24/21 11:43: Per Adriel at [facility], pt's transportation cost is being covered by [facility] as it's their protocol that pt has to go to COVID clinic thru 03/04. Per Aubree and GAYE at [facility], pt's transportation will still get covered thru [facility] no matter whether pt at home or SNF but then SNF will take care of after 03/04 when pt will return to [facility]. Pedro HUIZAR updated, voices understanding. CM to follow. Michael HARRIS CM Addendum entered by Brittany Heath 02/24/21 11:16: Per Adriel at [facility], pt is switching to TTS 0700 schedule at [facility] starting 02/25/21. Pt can return to [facility] 03/06/21 on TTS schedule with 1120 arrival time and 1140 chair time. Pedro HUIZAR updated, voices understanding. iMchael HARRIS CM Original Note: Pt was set up at [facility] d/t [facility] positive previously but plan was to come to [facility] once out of 21 day COVID quarantine per their protocol. Call to Lara at [facility] to see when pt is able to start at [facility] and she states pt will be out of quarantine 03/04/21. Pt is on a MWF 1600 schedule at [place]. Lara to call this KIMBERLY YI back to see what he will be at [place]. KD to follow for dialysis and GAYE to follow for SNF. Michael HARRIS CM
--- NOTE | 2021-02-24 10:36 | CASEMGMT ---
Per physician patient is stating he wants to go to a facility in [place] as this is closer to his daughter. SW called patient's daughter to clarify where she lives as there is no [place] in [place]. GAYE spoke with patient's daughter, Bhavya and she said she lives in [place]. Originally she was stating she wanted patient to go to a facility in [place], but then when she realized this is short term she said it may be better to have him some place in [place]. GAYE told her SW will talk with patient as well and keep her updated. Tana Ochoa TEST DESIGNER DESMOND
[2021-02-24 11:01] LABS: Bedside Glucose 289 mg/dL (70-110)
--- NOTE | 2021-02-24 14:49 | CASEMGMT ---
GAYE spoke with patient regarding usp placement. SW let him know that SW also spoke with his daughter and she is okay with him going to a facility in [place] since this would be short term. He was okay with this. SW went over some of the usp options with patient. SW let patient know that his COVID status and dialysis in [place] may make it a little difficult to find an accepting facility. Patient was in agreement with GAYE calling local facilities to see who may be able to take him. GAYE started with Piero at [place]. GAYE faxed referral and went over referral with Asha. GAYE let Asha know that patient will have to go to [place] for his dialysis until Monday03-06-21. GAYE will check to see if the current company that has been transporting him can continue. GAYE called Aubree at [employer] ([phone]). After discussion and RN CM involvement [employer] is paying for patient's transport to [place] via [facility]. Patient can continue to use this company while he has to go to [place]. Once patient can return to [facility] will be responsible for his transportation. GAYE received a call from Asha at [facility] and they can accept patient. GAYE called Emmanuelle Gardner, the studio owner of [employer]. She is fine with picking patient up at the usp and asked that GAYE e-mail her the address for [facility]. GAYE called patient's daughter and let her [facility] [place] can take patient. SW let her know it will probably be tomorrow. GAYE will let her know when he is set to leave. She thanked GAYE for the update. Plan: discharge to [facility] [place] when medically ready. Tana Ochoa LEATHER GRADER DESMOND
--- NOTE | 2021-02-24 15:17 | PCM.CONS.R ---
Assessment & Plan Assessment/Plan (1) ESRD (end stage renal disease) on dialysis: PLAN: Due to diabetes. Last dialysis Monday. Next dialysis . Follow-up at [facility] clinic in [place]. (2) COVID: PLAN: Remains positive for Covid with generalized weakness. CT angio negative for pulmonary embolus. (3) Lower extremity weakness: (4) Physical debility: PLAN: Arrange for ECF placement as outpatient (5) Depression: (6) Iron deficiency anemia: PLAN: Due to chronic kidney disease. IV iron and CLAUS therapy on dialysis. HPI Consult Data Date of Consult: 02/24/21 HPI Narrative HPI Narrative: DEB BILLINGS, is a 75 M who presents generalized weakness, chills, shortness of breath with hypoxia. He is diagnosed with Covid pneumonia. He is new to dialysis with ESRD due to diabetic nephropathy started on dialysis last week. He was discharged home and set up for hemodialysis at [facility]. He tolerated dialysis Monday night but then became symptomatic after dialysis. He is due for dialysis next on . Currently without nausea or vomiting. Denies cough or shortness of breath. [facility] Medical History (Updated 02/24/21 @ 15:[address] Emmanuelle Sahu, DO) Anemia in chronic kidney disease CKD (chronic kidney disease) COVID CVA (cerebral vascular accident) Diabetes Diabetes mellitus, type II Diabetic neuropathy ESRD (end stage renal disease) High cholesterol Hypertension Hypertension Home Medications multivitamin with folic acid [Thera] 1 tab PO DAILY 07/12/14 [History Last Taken Unknown] omega 1-yzq-ele-fish oil 500 mg PO QHS 07/01/20 [History Last Taken Unknown] acetaminophen 1,000 mg PO Q8H PRN PRN #1 tablet 07/20/20 [Rx Last Taken 02/22/21] cholecalciferol (vitamin D3) 25 mcg PO DAILY #30 tablet 07/20/20 [Rx Last Taken Unknown] compress.stocking,knee,reg,med #2 ea 08/13/20 [Rx Last Taken Unknown] pantoprazole 20 mg tablet,delayed release 20 mg PO BID #180 tab 11/24/20 [Rx Last Taken Unknown] atorvastatin 80 mg tablet 80 mg PO QHS #90 tab 12/07/20 [Rx Last Taken Unknown] insulin lispro 100 unit/mL subcutaneous pen 7 unit SC TIDCM #3 insuln.pen 12/07/20 [Rx Last Taken Unknown] Lantus Solostar U-100 Insulin 8 units SC QHS 02/10/21 [History Last Taken Unknown] amlodipine 10 mg PO DAILY #30 tab 02/16/21 [Rx Last Taken Unknown] metoprolol succinate 50 mg PO DAILY #30 tab 02/16/21 [Rx Last Taken Unknown] Allergy/AdvReac Type Severity Reaction Status Date / Time No Known Allergies Allergy Verified 02/23/21 09:36 Family History (Updated 02/23/21 @ 14:[address] Yumiko Sood MD) Mother Cancer Diabetes Father Cancer Diabetes Surgical History History of appendectomy History of hernia repair Social History household members: spouse housing: house Smoking Status: Never smoker alcohol intake: never substance use type: does not use ROS Constitutional Constitutional: Reports chills, malaise and weakness; Denies fever(s) Eyes Eyes: Denies loss of vision ENT HEENT: Denies loss taste/smell Cardiovascular Cardiovascular: Denies chest pain Respiratory/Chest Respiratory/Chest: Reports shortness of breath at rest; Denies dry cough Gastrointestinal Gastrointestinal: Denies abdominal pain, nausea or vomiting Genitourinary Genitourinary: Denies dysuria Musculoskeletal Musculoskeletal: Reports other Details: Generalized weakness Physical Exam Const alert, oriented x3 and no apparent distress Resp clear to auscultation bilaterally Cardio regular rate GI non-tender and non-distended Auscultation: normoactive bowel sounds Palpation: soft Extremity no clubbing, cyanosis or edema Skin no wounds Neuro Sensorium / Orientation: awake and alert Psych cooperative Lab / Micro Data Result Diagrams: 02/24/21 06:25 02/24/21 06:25 Labs: Laboratory Results - last 24 hr 02/23/21 14:45: D-Dimer Quant (PE/DVT) 3.35 H* 02/23/21 14:45: Procalcitonin 1.80 H 02/23/21 15:40: Urine Color Yellow, Urine Clarity Clear, Urine pH 7.0, Ur Specific [place] 1.010, Urine Protein 500 H, Urine Glucose (UA) 1000 H, Urine Ketones 15 H, Urine Occult Blood 50 H, Urine Nitrite Negative, Urine Bilirubin Negative, Urine Urobilinogen Normal, Ur Leukocyte Esterase Negative, Urine RBC 5-10 SEEN, Urine WBC 0 SEEN, Ur Squamous Epith Cells 0 SEEN, Urine Bacteria 0 SEEN, Urine Mucus 0 SEEN 02/23/21 16:34: Troponin I High Sens 172 H* 02/23/21 17:27: POC Glucose 147 H 02/23/21 21:47: POC Glucose 323 H 02/24/21 06:25: WBC 6.2, RBC 2.79 L, Hgb 8.3 L, Hct 26.1 L, MCV 93.5, MCH 29.7, MCHC 31.8 L D, RDW Std Deviation 43.4, RDW Coeff of Lanre 12.9, Plt Count 156, MPV 11.3, Immature Gran % (Auto) 1.100 H, Neut % (Auto) 90.8 H, Lymph % (Auto) 6.5 L, [place] % (Auto) 1.6, Eos % (Auto) 0.0, Baso % (Auto) 0.0, Absolute Neuts (auto) 5.6, Absolute Lymphs (auto) 0.40 L, Nucleated RBC % 0, Atypical Lymphocytes 1+, [place] Cells 1+ 02/24/21 06:25: Sodium 139, Potassium 3.8, Chloride 106, Carbon Dioxide 24.0, Anion Gap 9, BUN 51 H, Creatinine 4.34 H, Estim Creat Clear Calc 13.09, Est GFR (MDRD) Af Amer 17 L, Est GFR (MDRD) Non-Af 14 L, BUN/Creatinine Ratio 11.8, Glucose 282 H, Calcium 7.3 L, Total Bilirubin 0.40, AST 30, ALT 24, Alkaline Phosphatase 69, Total Protein 5.7 L, Albumin 1.2 L, Globulin 4.5 H, Albumin/Globulin Ratio 0.3 L 02/24/21 07:30: POC Glucose 276 H 02/24/21 10:55: POC Glucose 289 H Micro: Microbiology 02/23/21 15:40 Urine Catheter - Catheter Streptococcus pneumoniae Antigen (M - Final 02/23/21 15:40 Urine Catheter - Catheter Legionella Antigen - Final Radiology Impression Chest CTA 02/24/21 07:00 IMPRESSION: Patchy bilateral infiltrates as described. No evidence of the pulmonary embolism. Electronically Signed: Oscar Chanel MD at 8:34 EST , Service support ,
--- NOTE | 2021-02-24 15:33 | CASEMGMT ---
When GAYE spoke with Asha [facility] about taking patient they would not be able to take him until tomorrow due to lack of bed availability. Tana Ochoa WIRE ANNEALEREric LOGAN
--- NOTE | 2021-02-24 16:01 | CASEMGMT ---
Call to pt's room regarding NUNEZ form, explanation done-pt voices understanding, and give verbal ok for signature. Pt is A/Ox4 at this time. Original to chart and copy to pt via RN. Michael HARRIS CM
[2021-02-24 16:41] LABS: Bedside Glucose 302 mg/dL (70-110)
[2021-02-24] MEDS: Atorvastatin Calcium 80 MG Tablet PO (20:58)
[2021-02-24 21:10] LABS: Bedside Glucose 299 mg/dL (70-110)
[2021-02-25] VITALS (10 sets, daily range): BP systolic 124–142; BP diastolic 63–77; PULSE 71–88; RESP 18; TEMP 36.7–36.8; O2SAT 88–97
--- NOTE | 2021-02-25 06:32 | PCM.PN.HOSP ---
Subjective Subjective 2L NC, stable, planned HD today. Objective Data Objective Data Vital Signs: Vital Signs Temp Pulse Resp BP Pulse Ox 98.1 F 71 18 131/77 H 95 02/25/21 04:00 02/25/21 04:00 02/25/21 04:00 02/25/21 04:00 02/25/21 04:00 Oxygen Flow Rate (L/min) 2 Oxygen Delivery Method Nasal Cannula Weight: 144 lb 6 oz Body Mass Index (BMI) 22.6 Intake & Output: Intake and Output for Last 24 Hours 02/23/21 02/24/21 02/25/21 23:59 23:59 23:59 Intake Total 1350 / 1470 2927.33 / 3047.33 180 / 180 Output Total 450 / 600 600 / 1000 400 / 400 Balance 900 / 870 2327.33 / 2047.33 -220 / -220 Lab / Micro Data Result Diagrams: 02/24/21 06:25 02/24/21 06:25 Labs: Laboratory Results - last 24 hr 02/24/21 06:25: WBC 6.2, RBC 2.79 L, Hgb 8.3 L, Hct 26.1 L, MCV 93.5, MCH 29.7, MCHC 31.8 L D, RDW Std Deviation 43.4, RDW Coeff of Lanre 12.9, Plt Count 156, MPV 11.3, Immature Gran % (Auto) 1.100 H, Neut % (Auto) 90.8 H, Lymph % (Auto) 6.5 L, [place] % (Auto) 1.6, Eos % (Auto) 0.0, Baso % (Auto) 0.0, Absolute Neuts (auto) 5.6, Absolute Lymphs (auto) 0.40 L, Nucleated RBC % 0, Atypical Lymphocytes 1+, [place] Cells 1+ 02/24/21 06:25: Sodium 139, Potassium 3.8, Chloride 106, Carbon Dioxide 24.0, Anion Gap 9, BUN 51 H, Creatinine 4.34 H, Estim Creat Clear Calc 13.09, Est GFR (MDRD) Af Amer 17 L, Est GFR (MDRD) Non-Af 14 L, BUN/Creatinine Ratio 11.8, Glucose 282 H, Calcium 7.3 L, Total Bilirubin 0.40, AST 30, ALT 24, Alkaline Phosphatase 69, Total Protein 5.7 L, Albumin 1.2 L, Globulin 4.5 H, Albumin/Globulin Ratio 0.3 L 02/24/21 07:30: POC Glucose 276 H 02/24/21 10:55: POC Glucose 289 H 02/24/21 16:27: POC Glucose 302 H 02/24/21 20:57: POC Glucose 299 H Micro: Microbiology 02/23/21 17:40 Mucosa - Nasopharyngeal Respiratory Panel (PCR) - Final 02/23/21 15:40 Urine Catheter - Catheter Streptococcus pneumoniae Antigen (M - Final 02/23/21 15:40 Urine Catheter - Catheter Legionella Antigen - Final Radiography Diagnostic Testing: Radiology Impression Chest CTA 02/24/21 07:00 IMPRESSION: Patchy bilateral infiltrates as described. No evidence of the pulmonary embolism. Electronically Signed: Oscar Chanel MD at 8:34 EST , Service support , Physical Exam Narrative Physical Examination: General: Awake, alert, oriented x 3 and cooperative, seated upright in the PCU bedside chair, fatigued, no acute distress. Skin: Normal color, normal turgor, no icterus, no cyanosis except occasional stage ecchymoses. HEENT: AT/NC, EOMI, PERRLA, mildly improved with less dry MM. Lungs: Diffusely diminished, greater bases, respiratory rate improved, no evidence of any distress, continue nasal cannula supplementation, no rales, ronchi or wheezing, dialysis catheter in place upper chest. Heart: Improved, currently regular rate with regular rhythm; no gallop, rub audible. Abdomen: Soft, NTTP, ND, normal BS. Extremities: No cyanosis, clubbing, or edema. Neurological: Patient awake, alert, oriented as noted, cognitive function intact; pupils equally reactive to light and accommodation, cranial nerves II-XII grossly normal, moving all 4 extremities, no focal deficits, strength remains severely global decrease secondary to acute presentation. Psychiatric: Affect appears fatigued, no acute evidence of depressive or anxiety feelings. Assessment & Plan Assessment/Plan (1) Cardiac enzymes elevated: PLAN: The patient is a 75 y/o M w/ PMHx: HTN, HLD, ESRD on HD, Hx CVA, Depression and Anxiety, Hx prostate CA, GERD, AOCD, Diabetes mellitus type II, recently admitted 02/10/21-02/16/21 secondary to worsening renal function with incidentally noted COVID + PCR upon ED evaluation with no related hypoxia thus aggressive treatment deferred with quarantine through 02/20/21 (positive testing 02/10/21, not symptomatic) with worsened renal function with eventual tunneled dialysis catheter placement with significant antihypertensive alterations secondary to persistent hypertension with initiation of dialysis initially in [facility] units secondary to his Covid status until out of quarantine who now re-presents to the [facility] ED on 02/23/21 with history of increased fatigue, weakness and debility. #1. Acute Hypoxia secondary to Acute Viral Syndrome, COVID-19: Patient mated to the PCU, reinstituted Covid precautions for total of 20 days per discussion with infectious disease with quarantine timeline through 03/01/2021, chest x-ray obtained upon admission with new bilateral Covid pneumonia evident, given elevated D-dimer CTPA was obtained 02/24/2021 with noted patchy bilateral infiltrates consistent with Covid pneumonia with no evidence of pulmonary emboli with planned dialysis 02/25/2021, admission Covid inflammatory panel obtained, negative respiratory viral panel, negative urine antigens, requested sputum culture, continue supportive care including q 2 hour turning including prone given no prone bed availability and judicious hydration, closely monitor for worsening status for ARDS and multiorgan failure, patient initiated and continued on IV decadron x 10 doses. Patient is not a candidate for any remdesivir. PT, OT, case management consultation for discharge planning with plan skilled placement. #2. Indeterminate cardiac enzymes, possibly elevated secondary to underlying end-stage renal disease/chronic kidney disease and potentially elevated with demand secondary to #1: EKG in ED sinus rhythm with no acute evidence of ischemia, CXR pending per discussion with ED physician, initial trop 190 with repeat 174. Patient maintained on a cardiac bed, serial cardiac enzyme remains stable with most recent 02/23/2021 172, continued on aspirin, metoprolol, statin therapy, magnesium 1.7 with supplementation administered. #3. Thrombocytopenia, new onset, likely secondary to #1: Admission platelets 142, suspect secondary to acute presentation #1, 02/24/21 repeat platelet level improved, 156, continue to trend. #4. Failure to thrive, adult: Likely secondary to acute presentation #1, possibly contributed to by #2, continue treatments as noted above, fall precautions, therapies and case management consulted for discharge planning. Patient initially reticent to go to skilled facility but remains now amenable. #5. ESRD: We will consult sales consultant residential manager, Dr. Emmanuelle Sahu for continued dialysis. If significant concern may also necessitate CTPA which would require dialysis following. #6. Chronic anemia/AOCD: Admission hemoglobin 9.8, baseline appears similar, 02/24/2021 hemoglobin 8.3, continue to trend. #7. History of prior CVA: We will cautiously continue aspirin, does have a history previously of TBI and intracranial bleed history, continue aspirin, statin, hypertensive regimen, diabetic regimen as noted. #8. Diabetes mellitus type II: Hold oral home regimen, continue home insulin regimen, ADA diet, accu checks w/ ISS. #9. Hypertension: Continue home regimen including metoprolol and amlodipine, PRN hydralazine. #10. Hyperlipidemia: We will continue patient home statin therapy. #11. GERD: We will continue patient on PPI. #12. DVT prophylaxis: SCDs, heparin. #13. CODE status: Patient does not have healthcare power of assistant district attorney nor living will in place. DNR-CCA, no intubation status.
[2021-02-25 07:57] LABS: Magnesium 2.3 mg/dL (1.6-2.6)
[2021-02-25] MEDS: Pantoprazole Sodium 20 MG Tablet PO (08:18)
[2021-02-25] MEDS: Heparin Injection (Vial) 5,000 UNIT/ML VIAL 5000 UNIT SC (08:18)
[2021-02-25] MEDS: amLODIPine 10 MG Tablet PO (08:18)
[2021-02-25] MEDS: Aspirin 81 MG TAB.CHEW PO (08:18)
[2021-02-25] MEDS: Cholecalciferol (VIT D3) 25 MCG TABLET (1,000 UNITS) PO (08:18)
[2021-02-25] MEDS: Multivitamins,Therapeutic Tablet 1 TABLET PO (08:18)
[2021-02-25] MEDS: Metoprolol(XL)Succ 50 MG Tablet PO (08:18)
[2021-02-25] MEDS: dexAMETHasone 10 MG/ML Vial 6 MG IV (08:19)
[2021-02-25] MEDS: Menthol/Lanolin/Calamine/Znox 113 GM Tube 1 APPLIC TOPICAL (08:19)
[2021-02-25] MEDS: Insulin Lispro 100 UNIT/ML INSULN.PEN SC ×2 (08:20→11:04)
[2021-02-25] MEDS: Insulin Lispro 100 UNIT/ML INSULN.PEN 7 UNIT SC ×2 (08:20→11:04)
[2021-02-25] MEDS: Epoetin Alfa epbx 10,000 UNITS/ML 10000 UNIT IV (08:20)
[2021-02-25 08:30] LABS: Bedside Glucose 355 mg/dL (70-110)
--- NOTE | 2021-02-25 10:55 | PCM.PN.REN ---
Subjective Subjective dialysis today then dc to ECF afterwards to [facility]. Denies cough, shortness of breath. Appetite good. Objective Data Objective Data Vital Signs: Vital Signs Temp Pulse Resp BP Pulse Ox 98.2 F 88 18 142/73 H 93 02/25/21 08:16 02/25/21 08:18 02/25/21 08:16 02/25/21 08:16 02/25/21 08:16 Oxygen Flow Rate (L/min) 2 Oxygen Delivery Method Nasal Cannula Weight: 65.487 kg Body Mass Index (BMI) 22.6 Intake & Output: Intake and Output for Last 24 Hours 02/23/21 02/24/21 02/25/21 23:59 23:59 23:59 Intake Total 1350 / 1470 2927.33 / 3047.33 180 / 180 Output Total 450 / 600 600 / 1000 400 / 400 Balance 900 / 870 2327.33 / 2047.33 -220 / -220 Lab / Micro Data Result Diagrams: 02/24/21 06:25 02/24/21 06:25 Labs: Laboratory Results - last 24 hr 02/24/21 10:55: POC Glucose 289 H 02/24/21 16:27: POC Glucose 302 H 02/24/21 20:57: POC Glucose 299 H 02/25/21 06:44: Magnesium 2.3 02/25/21 08:00: POC Glucose 355 H Micro: Microbiology 02/23/21 17:40 Mucosa - Nasopharyngeal Respiratory Panel (PCR) - Final 02/23/21 15:40 Urine Catheter - Catheter Streptococcus pneumoniae Antigen (M - Final 02/23/21 15:40 Urine Catheter - Catheter Legionella Antigen - Final Physical Exam Const alert and oriented x3 Resp clear to auscultation bilaterally Cardio regular rate GI non-tender and non-distended Palpation: soft Extremity no clubbing, cyanosis or edema Assessment & Plan Assessment/Plan (1) ESRD (end stage renal disease) on dialysis: PLAN: Due to diabetes. Dialysis today then dc to ECF. Follow up at [facility] clinic in [place] (2) COVID: PLAN: Remains positive for Covid with generalized weakness. CT angio negative for pulmonary embolus. (3) Lower extremity weakness: PLAN: ECF for rehab (4) Physical debility: PLAN: Arrange for ECF placement as outpatient (5) Depression: (6) Iron deficiency anemia: PLAN: Due to chronic kidney disease. IV iron and CLAUS therapy on dialysis.
[2021-02-25 11:16] LABS: Bedside Glucose 323 mg/dL (70-110)
--- NOTE | 2021-02-25 11:43 | TREXTCAR_ITS ---
Diet 02/23/21 15:08 Diet: Cardiac: Calorie-Controlled Food consistency:: Regular Liquid Consistency:: Regular/Thin Dietary Modifications:: Cardiac / Heart Healthy Protein Restricted Sodium Restricted Potassium Restricted Is pt able to select menu?: Yes How many daily calories?: 1800 calorie Routine Orders/Code Status Enema Type: Fleetz Enema Frequency: Daily PRN Suppository Type: Dulcolax 10mg Suppository Frequency: Daily PRN O2 Liters per Minute: 2 O2 Frequency: Continuous (Please continue to strive to wean to room air.) Keep PO Greater than or Equal to (%): 92 Routine Lab Work: - (Please have repeat CBC, CMP in 1 week or as requested per Nephrology for ongoing dialysis.) Code Status: DNRCC-A (DNR-CCA, no intubation status.) Wound(s) CLEFT: Wound Type: SPLIT Suggestions for Active Care Change Position every (hours): 2 Hours to sit in a chair: 4 Times a day to sit in chair: 3 Therapies Weight Bearing: Full weight bearing Extremity Affected:: Bilateral Lower Physical Therapy: Eval and Treat Occupational Therapy: Eval and Treat Problem/Diagnosis (1) ESRD (end stage renal disease) on dialysis: Status: Acute (2) COVID: Status: Acute (3) Lower extremity weakness: Status: Acute (4) Physical debility: Status: Acute (5) Depression: Status: Chronic (6) Iron deficiency anemia: Status: Acute Allergies/Procedures Done in Hospital Allergies No Known Allergies Allergy (Verified 02/23/21 09:36) Procedures: EKG Type of Care/Length of Stay Estimated LOS: Convalescent Care Less Than 30 days Type of Care Needed: Skilled Rehab Potential: Fair Prognosis: Fair Additional Orders/Day of Discharge Additional Orders: (1) Continue IS 10x/hr 7a-7p (2) OOB to chair with all meals (3) Encourage continued q2 hour movement when in bed during the day including prone if able (4) MUST maintain quarantine timeline through 03/01/2021 Day of Discharge: 02/25/21 Discharge Plan Admission Admit Date/Time: 02/23/21 13:53 Primary Reason for Your Visit: Acute Hypoxia, Acute BL COVID PNA, FTT adult Attending Provider: Yumiko Sood Primary Care Provider: Kristina Holliday Consulting Providers: Luis Alberto,Emmanuelle Instructions Patient Instructions: Coronavirus Disease 2019 (COVID-19): Overview, Coronavirus Disease 2019 (COVID-19): Caring for Yourself or Others, Using Oxygen at Home, Traveling with Oxygen Additional Instructions / Restrictions: COVID DISCHARGE INSTRUCTIONS: During the admission you had notable bilateral Covid pneumonia and required oxygen supplementation which will continue upon discharge. It is important that you continue and complete your oral Decadron therapy. Please continue to aggressive incentive spirometry at least 10 times an hour from 7 AM to 7 PM to assist in improving resolution of hypoxia. It is very important that you maintain quarantine timeline through 03/01/2021. We will continue to have dialysis at the facility in [place] until you complete this quarantine timeline. Discharge Orders/Prescriptions Prescriptions: New melatonin 3 mg Tablet 3 mg PO QHS PRN PRN (Reason: Insomnia) 30 Days RF: 0 menthol-zinc oxide [Calmoseptine] 0.44-20.6 % Ointment 1 applic topical BID 30 Days RF: 0 loperamide 2 mg Capsule 2 mg PO Q2H PRN PRN (Reason: Diarrhea) 30 Days RF: 0 guaifenesin 100 mg/5 mL Liquid 400 mg PO Q4H PRN PRN (Reason: Cough) 30 Days RF: 0 heparin (porcine) 5,000 unit/mL Solution 5,000 unit subcut Q12 14 Days Qty: 28 RF: 0 aspirin 81 mg Tablet,Chewable 81 mg PO BREAKFAST 30 Days Qty: 30 RF: 0 dexamethasone [Decadron] 6 mg tablet 6 mg PO DAILY 7 Days Qty: 7 RF: 0 Continued multivitamin with folic acid [Thera] 1 TABLET tablet 1 tab PO DAILY RF: 0 omega [id number] oil 500 MG capsule,delayed release(DR/EC) 500 mg PO QHS RF: 0 acetaminophen 500 MG tablet 1,000 mg PO Q8H PRN PRN (Reason: pain or temp > 100.5 F) Qty: 1 RF: 0 cholecalciferol (vitamin D3) 25 MCG tablet 25 mcg PO DAILY Qty: 30 RF: 0 Lantus Solostar U-100 Insulin 100 unit/mL (3 mL) insulin pen 8 units SC QHS RF: 0 amlodipine 10 mg Tablet 10 mg PO DAILY Qty: 30 RF: 1 metoprolol succinate 50 mg Tablet Extended Release 24 Hr 50 mg PO DAILY Qty: 30 RF: 1 (DME) compress.stocking,knee,reg,med Misc See Rx Instructions .ROUTE .MEDSUPPLY Qty: 2 RF: 0 pantoprazole 20 mg tablet,delayed release (DR/EC) 20 mg PO BID Qty: 180 RF: 0 atorvastatin 80 mg tablet 80 mg PO QHS Qty: 90 RF: 3 insulin lispro 100 unit/mL insulin pen 7 unit SC TIDCM Qty: 3 RF: 3 Referrals / Follow Up: Emmanuelle Sahu DO [STAFF PHYSICIAN] - (Dr. Sahu will follow-up with you at dialysis when you transition back locally.) Kristina Holliday MD [Primary Care Provider] - (Follow-up within 3-5 days hospital discharge and within 1-2 days SNF discharge.) Disposition Disposition (needs filled in before D/C Order can be placed): Detention Facility
--- NOTE | 2021-02-25 11:46 | DS.PCM_ITS ---
Providers Date of Admission: 02/23/21 Primary Care Physician: Dr. Kristina Holliday MD Consultations 02/23/21 15:08 Consult: Nephrology Routine Consulting Provider: Emmanuelle Sahu Reason for Consult: ESRD on HD EMERGENT Consult: No MD Notified: Yes Date Notified: 02/23/21 Time Notified: 15:11 Method of Notification: Text Reason For Visit: FTT ADULT, ELEVATED TROP Diagnosis Discharge Diagnosis (1) ESRD (end stage renal disease) on dialysis: Status: Acute Code(s): N18.6 - End stage renal disease; Z99.2 - Dependence on renal dialysis (2) COVID: Status: Acute Code(s): U07.1 - COVID-19 (3) Lower extremity weakness: Status: Acute Code(s): R29.898 - Other symptoms and signs involving the musculoskeletal system (4) Physical debility: Status: Acute Code(s): R53.81 - Other malaise (5) Depression: Status: Chronic Code(s): F32.9 - Major depressive disorder, single episode, unspecified (6) Iron deficiency anemia: Status: Acute Code(s): D50.9 - Iron deficiency anemia, unspecified Medications at Discharge Home Medications multivitamin with folic acid [Thera] 1 tab PO DAILY 07/12/14 omega 6-nki-ikw-fish oil 500 mg PO QHS 07/01/20 acetaminophen 1,000 mg PO Q8H PRN PRN #1 tablet 07/20/20 cholecalciferol (vitamin D3) 25 mcg PO DAILY #30 tablet 07/20/20 compress.stocking,knee,reg,med #2 ea 08/13/20 pantoprazole 20 mg tablet,delayed release 20 mg PO BID #180 tab 11/24/20 atorvastatin 80 mg tablet 80 mg PO QHS #90 tab 12/07/20 insulin lispro 100 unit/mL subcutaneous pen 7 unit SC TIDCM #3 insuln.pen 12/07/20 Lantus Solostar U-100 Insulin 8 units SC QHS 02/10/21 amlodipine 10 mg PO DAILY #30 tab 02/16/21 metoprolol succinate 50 mg PO DAILY #30 tab 02/16/21 aspirin 81 mg PO BREAKFAST 30 Days #30 tab 02/25/21 dexamethasone [Decadron] 6 mg PO DAILY 7 Days #7 tab 02/25/21 guaifenesin 400 mg PO Q4H PRN PRN 30 Days ml 02/25/21 heparin (porcine) 5,000 unit SUBCUT Q12 14 Days #28 ml 02/25/21 loperamide 2 mg PO Q2H PRN PRN 30 Days cap 02/25/21 melatonin 3 mg PO QHS PRN PRN 30 Days tab 02/25/21 menthol-zinc oxide [Calmoseptine] 1 applic TOPICAL BID 30 Days g 02/25/21 Hospital Course Operations None Procedures Dialysis and EKG Summary of Care Provided Minutes Spent on Discharge: 35 Hospital Course: DISCHARGE NOTE: Discharge Diagnoses: #1. Acute Hypoxia secondary to Acute Viral Syndrome, COVID-19 #2. Indeterminate cardiac enzymes, possibly elevated secondary to underlying end-stage renal disease/chronic kidney disease and potentially elevated with demand secondary to #1 #3. Thrombocytopenia, new onset, likely secondary to #1 #4. Failure to thrive, adult #5. ESRD on HD following w/ Dr. Emmanuelle Sahu #6. Chronic anemia/AOCD/Fe deficiency anemia #7. History of prior CVA #8. Diabetes mellitus type II #9. Hypertension #10. Hyperlipidemia #11. GERD #12. CODE status: Patient does not have healthcare power of staff attorney nor living will in place. DNR-CCA, no intubation status. Discharge Summary: The patient is a 75 y/o M w/ PMHx: HTN, HLD, ESRD on HD, Hx CVA, Depression and Anxiety, Hx prostate CA, GERD, AOCD, Diabetes mellitus type II, recently admitted 02/10/21-02/16/21 secondary to worsening renal function with incidentally noted COVID + PCR upon ED evaluation with no related hypoxia thus aggressive treatment deferred with quarantine through 02/20/21 (positive testing 02/10/21, not symptomatic) with worsened renal function with eventual tunneled dialysis catheter placement with significant antihypertensive alterations secondary to persistent hypertension with initiation of dialysis initially in [place] units secondary to his Covid status until out of quarantine who now re-presented to the [facility] ED on 02/23/21 with history of increased fatigue, weakness and debility. Patient admitted to the PCU, reinstituted Covid precautions for total of 20 days per discussion with infectious disease with quarantine timeline through 03/01/2021, chest x-ray obtained upon admission with new bilateral Covid pneumonia evident, given elevated D-dimer CTPA was obtained 02/24/2021 with noted patchy bilateral infiltrates consistent with Covid pneumonia with no evidence of pulmonary emboli with planned dialysis 02/25/2021, admission Covid inflammatory panel obtained, negative respiratory viral panel, negative urine antigens, requested sputum culture, continue supportive care including q 2 hour turning including prone given no prone bed availability and judicious hydration, closely monitor for worsening status for ARDS and multiorgan failure, patient initiated and continued on IV decadron x 10 doses. EKG in ED sinus rhythm with no acute evidence of ischemia, CXR pending per discussion with ED physician, initial trop 190 with repeat 174. Patient maintained on a cardiac bed, serial cardiac enzyme remained stable with most recent 02/23/2021 172, continued on aspirin, metoprolol, statin therapy, magnesium 1.7 with supplementation administered. Admission platelets 142, suspect secondary to acute presentation #1 recommend follow-up labs upon skilled transition. Patient with continued dialysis by Dr. Sahu during admission with planned transition to [place] facility until completion of COVID quarantine timeline as noted. Patient discharged skilled on continued supplemental oxygen with steroid continuation with improved condition with follow-up as noted. Discharge Time: > 35 Minutes DAY OF DISCHARGE PROGRESS NOTE: Subjective: Patient without acute event overnight per self and nursing report. Patient notes still being fatigued but less dyspneic than initial presentation. He does report still feeling significantly weak but remains amenable to skilled facility transition. He understands that he will still have to have dialysis in [place] but this will be arranged per the skilled facility and he will be assisted to which he is amenable. Patient denies fever, chills, nausea, emesis, abdominal pain, chest pain. Patient agreeable to discharge to skilled facility following dialysis today. Patient will be discharged with follow-up with primary care physician within 3-5 days of hospital discharge as well as within 1 to 2 days of skilled discharge with continued follow-up outpatient with nephrology given ongoing dialysis Objective: T 98.2, heart rate 88, BP 142/73, respiratory rate 18, 93% on 2 L nasal cannula. Physical Examination: General: Awake, alert, oriented x 3 and cooperative, seated upright in the PCU bed, fatigued, amenable to discharge to skilled facility following dialysis today. Skin: Normal color, normal turgor, no icterus, no cyanosis except occasional stage ecchymoses. HEENT: AT/NC, EOMI, PERRLA, MMM. Lungs: Diffusely diminished, greater bases, respiratory rate improved, no evidence of any distress, continue nasal cannula supplementation, no rales, ronchi or wheezing, dialysis catheter in place upper chest. Heart: Improved, currently regular rate with regular rhythm; no gallop, rub aud ible. Abdomen: Soft, NTTP, ND, normal BS. Extremities: No cyanosis, clubbing, or edema. Neurological: Patient awake, alert, oriented as noted, cognitive function intact; pupils equally reactive to light and accommodation, cranial nerves II- XII grossly normal, moving all 4 extremities, no focal deficits, strength mildly improved, moderately to severely global decrease secondary to acute presentatio n. Psychiatric: Affect appears less fatigued, no acute evidence of depressive or anxiety feelings. Assessment and Plan: Please see hospital summary above. Weight / BMI Weight Weight: 144 lb 6 oz Body Mass Index (BMI) 22.6 ABG / Lab / Microbiology Data Result Diagrams: 02/24/21 06:25 02/24/21 06:25 Laboratory: Laboratory Results - last 24 hr 02/24/21 16:27: POC Glucose 302 H 02/24/21 20:57: POC Glucose 299 H 02/25/21 06:44: Magnesium 2.3 02/25/21 08:00: POC Glucose 355 H 02/25/21 11:03: POC Glucose 323 H Microbiology: Microbiology 02/23/21 17:40 Mucosa - Nasopharyngeal Respiratory Panel (PCR) - Final 02/23/21 15:40 Urine Catheter - Catheter Streptococcus pneumoniae Antigen (M - Final 02/23/21 15:40 Urine Catheter - Catheter Legionella Antigen - Final Meaningful Use Info Meaningful Use Diagnoses (Choose all that apply): None applicable Discharge Plan Admission Admit Date/Time: 02/23/21 13:53 Primary Reason for Your Visit: Acute Hypoxia, Acute BL COVID PNA, FTT adult Attending Provider: Yumiko Sood Primary Care Provider: Kristina Holliday Consulting Providers: Emmanuelle Sahu Instructions Patient Instructions: Coronavirus Disease 2019 (COVID-19): Laura [place]am[place] oronavirus Disease 2019 (COVID-19): Caring for Yourself or Others, Using Oxygen at Home, Traveling with Oxygen Additional Instructions / Restrictions: COVID DISCHARGE INSTRUCTIONS: During the admission you had notable bilateral Covid pneumonia and required oxygen supplementation which will continue upon discharge. It is important that you continue and complete your oral Decadron therapy. Please continue to aggressive incentive spirometry at least 10 times an hour from 7 AM to 7 PM to assist in improving resolution of hypoxia. It is very important that you maintain quarantine timeline through 03/01/2021. We will continue to have dialysis at the facility in [place] until you complete this quarantine timeline. Discharge Orders/Prescriptions Prescriptions: New melatonin 3 mg Tablet 3 mg PO QHS PRN PRN (Reason: Insomnia) 30 Days RF: 0 menthol-zinc oxide [Calmoseptine] 0.44-20.6 % Ointment 1 applic topical BID 30 Days RF: 0 loperamide 2 mg Capsule 2 mg PO Q2H PRN PRN (Reason: Diarrhea) 30 Days RF: 0 guaifenesin 100 mg/5 mL Liquid 400 mg PO Q4H PRN PRN (Reason: Cough) 30 Days RF: 0 heparin (porcine) 5,000 unit/mL Solution 5,000 unit subcut Q12 14 Days Qty: 28 RF: 0 aspirin 81 mg Tablet,Chewable 81 mg PO BREAKFAST 30 Days Qty: 30 RF: 0 dexamethasone [Decadron] 6 mg tablet 6 mg PO DAILY 7 Days Qty: 7 RF: 0 Continued multivitamin with folic acid [Thera] 1 TABLET tablet 1 tab PO DAILY RF: 0 omega 1-zqc-sjt-fish oil 500 MG capsule,delayed release(DR/EC) 500 mg PO QHS RF: 0 acetaminophen 500 MG tablet 1,000 mg PO Q8H PRN PRN (Reason: pain or temp > 100.5 F) Qty: 1 RF: 0 cholecalciferol (vitamin D3) 25 MCG tablet 25 mcg PO DAILY Qty: 30 RF: 0 Lantus Solostar U-100 Insulin 100 unit/mL (3 mL) insulin pen 8 units SC QHS RF: 0 amlodipine 10 mg Tablet 10 mg PO DAILY Qty: 30 RF: 1 metoprolol succinate 50 mg Tablet Extended Release 24 Hr 50 mg PO DAILY Qty: 30 RF: 1 (DME) compress.stocking,knee,reg,med Misc See Rx Instructions .ROUTE .MEDSUPPLY Qty: 2 RF: 0 pantoprazole 20 mg tablet,delayed release (DR/EC) 20 mg PO BID Qty: 180 RF: 0 atorvastatin 80 mg tablet 80 mg PO QHS Qty: 90 RF: 3 insulin lispro 100 unit/mL insulin pen 7 unit SC TIDCM Qty: 3 RF: 3 Referrals / Follow Up: Emmanuelle Sahu DO [STAFF PHYSICIAN] - (Dr. Sahu will follow-up with you at dialysis when you transition back locally.) Kristina Holliday MD [Primary Care Provider] - (Follow-up within 3-5 days hospital discharge and within 1-2 days SNF discharge.) Disposition Disposition (needs filled in before D/C Order can be placed): [facility] Charges/Coding Visit Charges OBSV E&M: 27768 Observation care discharge
--- NOTE | 2021-02-25 12:06 | PHA.DC.MR ---
Pharmacy Service has performed discharge medication reconciliation for this patient upon transfer to [facility]. Home Medications multivitamin with folic acid [Thera] 1 tab PO DAILY 07/12/14 omega 5-aai-ejt-fish oil 500 mg PO QHS 07/01/20 acetaminophen 1,000 mg PO Q8H PRN PRN #1 tablet 07/20/20 cholecalciferol (vitamin D3) 25 mcg PO DAILY #30 tablet 07/20/20 compress.stocking,knee,reg,med #2 ea 08/13/20 pantoprazole 20 mg tablet,delayed release 20 mg PO BID #180 tab 11/24/20 atorvastatin 80 mg tablet 80 mg PO QHS #90 tab 12/07/20 insulin lispro 100 unit/mL subcutaneous pen 7 unit SC TIDCM #3 insuln.pen 12/07/20 Lantus Solostar U-100 Insulin 8 units SC QHS 02/10/21 amlodipine 10 mg PO DAILY #30 tab 02/16/21 metoprolol succinate 50 mg PO DAILY #30 tab 02/16/21 aspirin 81 mg PO BREAKFAST 30 Days #30 tab 02/25/21 dexamethasone [Decadron] 6 mg PO DAILY 7 Days #7 tab 02/25/21 guaifenesin 400 mg PO Q4H PRN PRN 30 Days ml 02/25/21 heparin (porcine) 5,000 unit SUBCUT Q12 14 Days #28 ml 02/25/21 loperamide 2 mg PO Q2H PRN PRN 30 Days cap 02/25/21 melatonin 3 mg PO QHS PRN PRN 30 Days tab 02/25/21 menthol-zinc oxide [Calmoseptine] 1 applic TOPICAL BID 30 Days g 02/25/21 The patient's discharge medication list was reviewed for discrepancies and discrepancies were resolved.
--- NOTE | 2021-02-25 13:29 | CASEMGMT ---
GAYE called Asha at [facility] and let her know patient will be coming today after his dialysis. GAYE also faxed patient's PT/OT notes per her request. GAYE called patient's daughter, Bhavya and let her know patient will be going to [facility] today after dialysis and SW can let her know a time when it is set up. GAYE called Emmanuelle Gardner with [facility] and she confirmed she received GAYE's e-mail with dialysis dates and times, and [facility]'s information. Her vehicle is wheelchair accessible. Emmanuelle said [facility] will [facility]. GAYE also called Aubree at [facility] and let her know GAYE spoke with Emmanuelle Gardner and she can do the transports for patient. GAYE let Aubree know patient will be going today. Tana LOGAN
--- NOTE | 2021-02-25 15:07 | CASEMGMT ---
GAYE arranged for patient to get picked up at 6p via cot. GAYE notified patient's daughter Bhavya and his Sheryl. GAYE also notified RN, board of education secretary, and Aidee at [facility]. When GAYE spoke with patient's daughter Bhavya GAYE did let her know patient will need clothes at the [facility]. She said she will get some things together and get them to [facility]. Bhavya is aware she will not be able to see patient for 14 days while he quarantines at the [place]. Tana LOGAN
--- NOTE | 2021-02-25 15:42 | NURSING ---
This RN called and gave report to KIMBERLY Gordon at [facility].
[2021-02-25 16:35] LABS: Bedside Glucose 132 mg/dL (70-110)
== END 2021-02-25 11:33 | disposition skilled nursing facility (03) | DRG 177 ==
LOC: ED 14:16 → PCU 14:17
PROVIDERS: Admitting Provider Family Medicine; Emergency Provider Emergency Medicine; PCP Internal Medicine; Visit Provider Family Medicine
DX: U07.1 COVID-19 (principal); N18.6 End stage renal disease; J12.82 Pneumonia due to coronavirus disease 2019; I12.0 Hypertensive chronic kidney disease with stage 5 chronic kidney disease or end stage renal disease; R62.7 Adult failure to thrive; E11.22 Type 2 diabetes mellitus with diabetic chronic kidney disease; D63.1 Anemia in chronic kidney disease; G93.89 Other specified disorders of brain; R09.02 Hypoxemia; Z28.3 Underimmunization status; Z99.2 Dependence on renal dialysis; D50.9 Iron deficiency anemia, unspecified; E11.40 Type 2 diabetes mellitus with diabetic neuropathy, unspecified; E78.5 Hyperlipidemia, unspecified; K21.9 Gastro-esophageal reflux disease without esophagitis; F32.9 Major depressive disorder, single episode, unspecified; F41.9 Anxiety disorder, unspecified; Z79.82 Long term (current) use of aspirin; Z79.4 Long term (current) use of insulin; Z85.46 Personal history of malignant neoplasm of prostate; Z86.73 Personal history of transient ischemic attack (TIA), and cerebral infarction without residual deficits
CPT/HCPCS: 36415; 70450; 71045; 71275; 80053; 81001; 82728; 82962; 83615; 83735; 83880; 84100; 84145; 84484; 85025; 85379; 86140; 87070; 87205; 87449; 87633; 87635; 90937; 93005; 97110; 97162; 97166; 97530; 99285; J7030; J7040; Q9967; U0005; A4216; G0257; J2916; Q5106; U0003